=== PATIENT | female | born 1955 | race Caucasian/White ===

== ENCOUNTER 2024-11-01 13:36 | Emergency (ER) | payer OTHER, SELFPAY ==
--- NOTE | 2024-11-01 14:07 | ED.GENMED ---
ED Provider Triage
-
Patient seen by provider in Triage?: Seen in Triage
Attestation: A medical screening examination has been initiated by a qualified medical provider. Based on the assessment performed at this time, it has been determined that an emergent medical condition may exist and the patient has been informed
that further medical evaluation and possible additional diagnostic testing may be needed.
HPI: Patient sent to the ER by primary care provider for increasing blood in her stool and now with rylee blood/mucousy blood patient notes pain to the left lower part of her abdomen and mid abdomen. Had similar around [place] time, treated with
a course of antibiotics by primary care provider and this resolved. 2 years ago had a colonoscopy which showed diverticulosis but no other complications. Labs and CT with oral and IV contrast ordered. Patient otherwise stable.
GENERAL: Alert , in no apparent distress
EYE: No visual abnormalities.
NECK: Trachea midline
ENT: No visible abnormalities.
LUNGS: No acute respiratory distress
NEUROLOGICAL: Alert and oriented
SKIN: Skin intact. No visible changes.
MUSCULOSKELETAL: Moving extremities normally
PSYCH: Normal and appropriate interaction.
This is a medical evaluation conducted in person to initiate diagnostic evaluation and provide initial therapeutics. Please see further documentation by the treating clinician.
History of Present Illness
General
Chief Complaint: Abdominal Pain
Source: patient
Time Seen by Provider: 11/01/24 17:21
History of Present Illness
History of Present Illness:
68-year-old female with past medical history of diverticulosis and hypothyroidism presenting to the emergency department for evaluation at the request of her primary care provider after she started with mild left lower quadrant and suprapubic
abdominal discomfort 3 days ago, 1 to 2 days ago started to develop bloody stools and today only mucousy blood. Patient still notes the pain however today the pain seems to be more tolerable. She denies any fevers, chills, rigors, nausea,
vomiting, urinary symptoms or any history of similar. She is not on any anticoagulant medications. Patient does note she had a colonoscopy about 2 years ago without any significant abnormalities other than mild diverticulosis. Patient denies any
known sick contacts, recent travel or recent antibiotics. No other concerns.
Past History
Past History
ED Past Medical History: Hypothyroidism
ED Past Surgical History: Appendectomy and Cholecystectomy
Social History
Tobacco: Non-smoker
Alcohol: None
Drug: None
Personal:
Living: with family
Review of Systems
Review of Systems
All Other Systems: ROS reviewed and negative except as documented in HPI and ROS
Phy Exam
Physical Exam
Physical Exam:
GENERAL: Alert , in no apparent distress, smiling and pleasant
EYE: clear conjunctiva b/l
HEAD: NCAT
ENT: mmm.
CARDIAC: Regular rate and rhythm .
LUNGS: Clear breath sounds bilaterally, no acute respiratory distress, no wheezes/rales/rhonchi
ABDOMEN: Soft, without focal tenderness, no r/g, no cvat, normoactive bowel sounds
NEUROLOGICAL: Alert and oriented
SKIN: Warm and dry, skin intact.
MUSCULOSKELETAL: No edema, well perfused.
PSYCH: Normal and appropriate interaction.
Scores
Heart Failure Risk
Heart Failure Risk Score: Not Applicable
Heart Score for Chest Pain Patients
STEMI patient?: Not applicable
Withdrawal Assessment of Alcohol
Withdrawal Assessment Completed?: Not applicable
Course
Orders/Labs/Results
Orders:
Orders
11/01/24 14:09
Iohexol [Omnipaque] See Protocol PO NOW STA
11/01/24 14:10
CT Abd/pel W Iv And Oral Contr Urgent
Comment:
Reason For Exam: lower abd/LLQ pain, bloodied stool/clots
11/01/24 14:16
Type+Screen Urgent
CRP [C-Reactive Protein] Urgent
Complete Blood Count/With Diff Urgent
Comprehensive Metabolic Panel Urgent
ESR [Erythrocyte Sed Rate] Urgent
PT/INR [Prothrombin Time] Urgent
PTT Urgent
11/01/24 14:38
ABO2 Urgent
BBK Wristband Number:
Associate notified that ABO2 has been ordered: [id number]
Date: 11/01/24
Time: 14:39
Sales Consulting Director ID: [id number]
Abnormal Lab Results
11/01/24
14:16
MCHC 32.4 L g/dL
(33.0-37.0)
Absolute Lymphs (auto) 1.0 L 10^3/uL
(1.2-3.4)
Lymphocytes % 15.3 L %
(20.5-51.1)
Eosinophils % 6.2 H %
(0-6)
11/01/24 14:16
11/01/24 14:16
Vital Signs
Initial and Last Documented VS:
Initial Vital Signs
Temp Pulse Resp BP Pulse Ox
97.7 F 78 18 127/82 100
11/01/24 14:09 11/01/24 14:09 11/01/24 14:09 11/01/24 14:09 11/01/24 14:09
Last Documented Vital Signs
Temp Pulse Resp BP Pulse Ox
97.7 F 70 20 112/69 100
11/01/24 14:09 11/01/24 16:35 11/01/24 16:35 11/01/24 16:35 11/01/24 16:35
MDM/Problems Addressed
Differential Diagnosis Includes:
Diverticulitis, colitis, anemia, proctitis, less concern for upper GI bleed
MDM/Problems Addressed:
68-year-old female presenting to the ER for evaluation of lower abdominal pain that started 3 days ago, 2 days ago started with bloody stools and today just mucousy blood. Pain well-controlled. She is afebrile in no acute distress. Labs and CT
imaging were ordered. Disposition pending
*Radiology
Radiology exam reviewed: radiology read reviewed
*Pulse Oximetry
Patient hypoxic: no
*Critical Care Note
Total Time (30-74mins, 75-104mins- exclusive of procedures): Not Applicable
Patient Management
Social determinants of health affecting care: Living situation
Escalation/DeEscalation of care consider admission/obs:
Patient CT scan noted for nonspecific proctitis. There is diverticulosis without evidence for acute diverticulitis. There is moderate constipation/fecal burden and possible small bowel ileus. Patient's abdomen is soft and she is quite comfortable
in appearance. She ultimately wishes to be discharged home and does not want to be admitted. will start patient on Augmentin. She already has an appointment scheduled with GI for December 13. We discussed return precautions including worsening
pain, bleeding, fevers or any other concerns and patient is happy with this plan. Stable for discharge home.
ED Attending Note
-
Portions of this chart may have been created with voice recognition software.� Occasional wrong word or��sound alike� substitutions may have occurred due to the inherent limitations of voice recognition software.
Discharge Plan
Departure
Patient Disposition: Home (Routine Discharge)
Date of Disposition: 11/01/24
Time of Disposition: 17:44
Patient with high blood pressure during this ER visit?: No
Discharge Problem:
Acute proctitis
Instructions: Proctitis
Prescriptions:
New
amoxicillin-pot clavulanate 875-125 mg tablet
1 tab PO BID 10 Days Qty: 20 0RF
Interventions
Interventions:
*Risk Screen - Suicide Last Done: 11/01/24 14:09
*General Assessment Last Done: 11/01/24 17:11
*Neglect/Abuse Screening Last Done: 11/01/24 14:09
ED- Fall Risk Assessment Last Done: 11/01/24 17:11
*ED COVID-19 Vaccine History Last Done: 11/01/24 14:09
*Nursing Disposition Last Done: 11/01/24 18:15
NA-Bdzzwj-Ouaypmhpna Assessment Last Done: 11/01/24 17:11
Discharge Date and Time
Print Language: FRENCH
[2024-11-01 14:09] VITALS: BP 127/82
[2024-11-01] MEDS: OMNIPAQUE 50 ML PO (14:15)
[2024-11-01 14:28] LABS: % Basophils 1.1 % (0-2); % Eosinophils 6.2 % (0-6); % Immature Granulocytes 0.2 % (0-0.5); % Lymphocytes 15.3 % (20.5-51.1); % Monocytes 8.5 % (1.7-9.3); % Neutrophils 68.7 % (42.2-75.2); Absolute Basophils 0.1 10^3/uL (0-0.2); Absolute Eosinophils 0.4 10^3/uL (0-0.7); Absolute Monocytes 0.6 10^3/uL (0.1-0.6); Absolute Neutrophils 4.5 10^3/uL (1.4-6.5); Hematocrit 43.2 % (37.0-47.0); Mean Corp Hgb Conc. 32.4 g/dL (33.0-37.0); Mean Corpuscular Hgb 28.7 pg (27.0-31.0); Mean Corpuscular Volume 88.5 fL (81.0-99.0); Mean Platelet Volume 9.3 fL (7.4-10.4); Nucleated Red Blood Cells % 0 %; Platelet Count 265 10^3/uL (130-400); Red Blood Cell Count 4.88 10^6/uL (4.20-5.40); Red Cell Dist. Width 14.3 % (11.5-14.5); White Blood Cell Count 6.6 10^3/uL (4.8-10.8)
[2024-11-01 14:35] LABS: Erythrocyte Sed Rate 2 mm/hour (0-20)
[2024-11-01 14:39] LABS: ALT (SGPT) 33 U/L (0-35); AST (SGOT) 34 U/L (14-36); Albumin 4.2 g/dl (3.5-5.0); Alkaline Phosphatase 81 U/L (38-126); Blood Urea Nitrogen 7 mg/dl (7-17); Calcium 9.2 mg/dl (8.4-10.2); Carbon Dioxide 29 mmol/L (22-30); Chloride 104 mmol/L (98-107); Glucose 90 mg/dl (70-99); INR 0.94; PT 12.8 Sec (11.4-14.6); Potassium 4.2 mmol/L (3.5-5.1); Sodium 139 mmol/L (135-145); Total Bilirubin 0.5 mg/dl (0.2-1.3); eGFR > 60.00
[2024-11-01 14:40] LABS: APTT 28.5 Sec (23.4-35.0)
[2024-11-01 16:35] VITALS: BP 112/69
== END 2024-11-01 18:10 | disposition home or self-care (01) ==
LOC: EMR 13:36
PROVIDERS: Emergency Medicine; Physician Assistant Medical; EMERGENCY PHYSICIAN Student in an Organized Health Care Education/Training Program; FAMILY PHYSICIAN Internal Medicine
DX: K62.89 Other specified diseases of anus and rectum (principal)
CPT/HCPCS: 99285; 74177; 80053; 85025; 85610; 85652; 85730; 86140; 86850; 86900; 86901; Q9967

== ENCOUNTER 2024-12-12 23:17 | Inpatient (IN) | payer OTHER, SELFPAY ==
[2024-12-12] VITALS (7 sets, daily range): BP systolic 101–142; BP diastolic 63–72; BMI 23.1
[2024-12-12 16:04] LABS: ALT (SGPT) 23 U/L (0-35); AST (SGOT) 19 U/L (14-36); Albumin 3.1 g/dl (3.5-5.0); Alkaline Phosphatase 113 U/L (38-126); Blood Urea Nitrogen 6 mg/dl (7-17); Calcium 8.6 mg/dl (8.4-10.2); Carbon Dioxide 28 mmol/L (22-30); Chloride 102 mmol/L (98-107); Glucose 107 mg/dl (70-99); Potassium 3.6 mmol/L (3.5-5.1); Sodium 136 mmol/L (135-145); Total Bilirubin 0.5 mg/dl (0.2-1.3); Total Protein 5.8 g/dl (6.3-8.2); eGFR > 60.00
[2024-12-12 16:14] LABS: Lactic Acid 0.9 mmol/L (0.7-2.0)
[2024-12-12 16:17] LABS: % Basophils 0.1 % (0-2); % Eosinophils 7.4 % (0-6); % Immature Granulocytes 5.7 % (0-0.5); % Lymphocytes 10.5 % (20.5-51.1); % Monocytes 5.3 % (1.7-9.3); Absolute Immature Granulocytes 0.8 10^3/uL (0-0.05); Absolute Lymphocytes 1.4 10^3/uL (1.2-3.4); Absolute Monocytes 0.7 10^3/uL (0.1-0.6); Absolute Neutrophils 9.5 10^3/uL (1.4-6.5); Hematocrit 36.9 % (37.0-47.0); Hemoglobin 12.2 g/dL (12.0-16.0); Mean Corp Hgb Conc. 33.1 g/dL (33.0-37.0); Mean Corpuscular Hgb 28.6 pg (27.0-31.0); Mean Corpuscular Volume 86.4 fL (81.0-99.0); Mean Platelet Volume 8.9 fL (7.4-10.4); Nucleated Red Blood Cells % 0 %; Platelet Count 397 10^3/uL (130-400); Red Blood Cell Count 4.27 10^6/uL (4.20-5.40); Red Cell Dist. Width 14.4 % (11.5-14.5); White Blood Cell Count 13.5 10^3/uL (4.8-10.8)
[2024-12-12] MEDS: ZOFRAN 4 MG IV (19:48)
[2024-12-12] MEDS: MORPHINE SULFATE 4 MG IV (19:50)
--- NOTE | 2024-12-12 19:56 | ED.GENMED ---
History of Present Illness
General
Chief Complaint: Abdominal Symptoms
Source: patient
Exam Limitations: none
Time Seen by Provider: 12/12/24 18:25
Nursing documentation reviewed up to this point in time: agreed with
History of Present Illness
History of Present Illness:
Patient is a 69-year-old female presenting to the emergency department with lower abdominal pain and bloody diarrhea. Patient states she was woken up with severe left lower quadrant abdominal pain this morning which has persisted and worsened
throughout the day. Pain is worse with any movement. She also endorses mild low-grade fever as well as 1 episode of vomiting and mild nausea. Patient has had ongoing bloody diarrhea for the past few months. Today�patient reports worsening
diarrhea as well as noticing blood clots. She is currently being worked up with a GI doctor at [place] for possible ulcerative colitis. She is scheduled for colonoscopy although has not had this completed yet. There is a significant family
history of ulcerative colitis.
Patient denies any chest pain, shortness of breath, or urinary symptoms.
Past History
Past History
ED Past Medical History: Hypothyroidism
ED Past Surgical History: Appendectomy and Cholecystectomy
Social History
Tobacco: Non-smoker
Alcohol: None
Drug: None
Personal:
Living: with family
Review of Systems
Review of Systems
Allergies reviewed?: Yes
All Other Systems: ROS reviewed and negative except as documented in HPI and ROS
Phy Exam
Physical Exam
Physical Exam:
Vitals: Mildly tachycardic. Otherwise vital signs stable.
General: Patient is moderately uncomfortable due to pain, tearful. Nontoxic appearing
Skin: Warm and dry, no rashes or lesions
Head: Normocephalic, atraumatic
Eyes: Sclera nonicteric. EOMs intact. No nystagmus.
Throat: Protecting airway
Neck: Normal ROM, no cervical spine tenderness, no meningismus
Cardiac: Tachycardic, normal rhythm, no murmurs.
Pulm: Normal respiratory effort, no wheezes, rales, rhonchi heard on exam.
Abdomen: Abdomen soft. Moderate diffuse tenderness in lower abdomen. No rebound tenderness or guarding. No CVA tenderness
Rectal: No stool in vault. Minimal blood.
Extremities: No evidence of cyanosis or edema
Neuro: AAOx3. CN II-XII intact. No focal neurologic deficits.
Psychiatric: Normal affect.
Course
Orders/Labs/Results
Orders:
Orders
12/12/24 Breakfast
Clear Liquid
12/12/24 15:38
Type+Screen Urgent
C-Reactive Protein Urgent
Complete Blood Count/With Diff Urgent
Comprehensive Metabolic Panel Urgent
Erythrocyte Sed Rate Urgent
Comment: ADD ON
Lactic Acid Urgent
12/12/24 19:02
CT Abd/pelvis W Iv Cont Urgent
Comment:
Reason For Exam: LLQ pain, bloody diarrhea
Morphine Sulfate 4 mg IV NOW STA
Ondansetron Injectable [Zofran] 4 mg IV NOW STA
12/12/24 22:18
STOOL [C difficile Antigen & Toxins] Urgent
DEANGELO Source: Feces/Stool
Specimen Description:
Stool Culture Urgent
DEANGELO Source: Feces/Stool
Specimen Description:
0.9% Sodium Chloride 1000 ml [Nss] 1,000 ml IV BOLUS
Morphine Sulfate 2 mg IV NOW STA
Piperacillin/Tazo 3.375 Gram [Zosyn] 3.375 gram in 50 ml IV NOW
12/12/24 22:48
Urinalysis Reflex To Culture Urgent
Date Specimen was Collected: 12/12/24
Time Specimen was Collected: 21:55
Urine Microscopic Reflex Cult Urgent
12/12/24 23:00
Flush (0.9% Sodium Chloride) [Flush (Nss)] See Dose Instructions IV PER PROTOCOL
12/12/24 23:03
Admit/Transfer Patient As Directed
Co-Sign Provider:
Level of Care: Inpatient admission
Assign to:: Medical/Surgical
Physician / Group: [facility]
Diagnosis: Colitis
Reason for Hospitalization: IV abx
Expected length of stay greater than two midnights?: Yes
ELOS- Estimated Length of Stay in days: 3
I certify the patient meets the requirements for IP care: Yes
12/12/24 23:04
Calprotectin, Fecal [S] Routine
PRN Pain Medication Management As Directed
May give lesser potent ordered pain med per pt: Yes
preference::
Protocol:: Medication orders for pain may be administered in a
manner that supports deferring to patient preference
when the pt is:
- Requesting an ordered lesser potent pain medication.
Least to most potent pain medications are defined
as: acetaminophen < NSAID < tramadol < opioids
(morphine, oxycodone, hydromorphone).
- Requesting a lesser dose of the same medication IF
ORDERED.
- Requesting a less intrusive route of administration
if both routes are prescribed by the provider (PO <
IV).
12/12/24 23:05
Code Status As Directed
Resuscitation Status: Full Code
12/12/24 23:35
0.9% Sodium Chloride 1000 ml [Nss] 1,000 ml IV 100 mls/hr
Acetaminophen [Tylenol] 650 mg PO Q4HPRN PRN
HYDROmorphone [Dilaudid] 0.25 mg IV Q3HPRN PRN
Ondansetron Injectable [Zofran] 4 mg IV Q6HPRN PRN
12/12/24 23:35
GASTROINTESTINAL CONSULT Routine
Consulting Provider: Virginia Steinberg
Was physician already notified: Yes
Activity As Directed
Activity Level: Out of Bed-Early Mobility
With Assistance
Pneumatic Compression Sleeves As Directed
Type: Knee high
Vital Signs As Directed
Frequency: Per unit guidelines
DX Deep Vein Thrombosis Video Routine
12/13/24 06:00
Basic Metabolic Panel IN AM
Complete Blood Count/No Diff IN AM
Ampicillin/Sulbactam 3 G [Unasyn] 3 gm 0.9% Sodium Chloride 100 ml [Nss] 100 ml IV Q6H
Levothyroxine [Synthroid] 75 mcg PO DAILY @ 0600
12/13/24 08:00
Fluoxetine HCl [Prozac] 10 mg PO Q48H
Mesalamine Delayed Release [Asacol, Delzicol Dr] 2,400 mg PO BID
Abnormal Lab Results
12/12/24 12/12/24
15:38 22:48
WBC 13.5 H 10^3/uL
(4.8-10.8)
Hct 36.9 L %
(37.0-47.0)
Abs Immat Gran (auto) 0.8 H 10^3/uL
(0-0.05)
Absolute Neuts (auto) 9.5 H 10^3/uL
(1.4-6.5)
Absolute Monos (auto) 0.7 H 10^3/uL
(0.1-0.6)
Absolute Eos (auto) 1.0 H 10^3/uL
(0-0.7)
Immature Gran % 5.7 H %
(0-0.5)
Lymphocytes % 10.5 L %
(20.5-51.1)
Eosinophils % 7.4 H %
(0-6)
BUN 6 L mg/dl
(7-17)
Glucose 107 H mg/dl
(70-99)
Total Protein 5.8 L g/dl
(6.3-8.2)
Albumin 3.1 L g/dl
(3.5-5.0)
Ur Occult Blood Reflex 1+ A
(Negative)
Urine Bacteria (Reflex) Few A
(Negative)
Urine Albumin (Reflex) 2+ A
(Neg - Trace)
12/12/24 15:38
12/12/24 15:38
Vital Signs
Initial and Last Documented VS:
Initial Vital Signs
Temp Pulse Resp BP Pulse Ox
99.1 F 103 18 107/70 98
12/12/24 15:30 12/12/24 15:30 12/12/24 15:30 12/12/24 15:30 12/12/24 15:30
Last Documented Vital Signs
Temp Pulse Resp BP Pulse Ox
98.9 F 98 16 142/72 97
12/12/24 18:19 12/12/24 23:15 12/12/24 23:15 12/12/24 23:00 12/12/24 23:15
MDM/Problems Addressed
Differential Diagnosis Includes:
Not limited to: Diverticulitis, bowel perforation, colitis, IBD, pyelonephritis, etc.
MDM/Problems Addressed:
69-year-old female presenting with a few months of bloody diarrhea now with acute onset left lower quadrant abdominal pain. Does report low-grade fever and nausea earlier today. No urinary symptoms. Currently being worked up with GI at [facility]
for possible ulcerative colitis however not diagnosed yet. Patient mildly tachycardic on arrival, otherwise stable vital signs. She is afebrile. Physical exam as above. Screening labs are sent in triage significant for a leukocytosis of 13.5.
Chemistry unremarkable. Differential broad at this time although considerations included infectious process including diverticulitis, colitis. Given ongoing history of bloody diarrhea�ulcerative colitis/IBD would be a consideration. Given
patient's significant degree of pain and discomfort�will obtain CT imaging. Will give IV morphine, fluids, Zofran. Will closely monitor and reassess.
Update: Urine without signs of infection. CT scan shows lynn proctocolitis. This may be infectious or inflammatory in nature. Given ongoing bloody diarrhea�there is a somewhat high suspicion for IBD/ulcerative colitis. On reassessment�patient is
more comfortable than arrival although still has significant tenderness on exam. Given patient's persistent pain despite IV pain medication and leukocytosis�will admit patient for further evaluation/management. Ultimately�would likely require
colonoscopy with GI for definitive diagnosis will order stool cultures. Will initiate broad-spectrum IV antibiotics to cover for possible infectious source. Patient comfortable with this plan. Patient accepted to hospital service in stable
condition.
Chronic conditions affecting care:
N/A
Acute Exacerbation and/or Progression of Chronic Illness:
N/A
*Radiology
Radiology exam reviewed: radiology read reviewed
*Pulse Oximetry
Patient hypoxic: no
*EKG
Interpreted by ED Provider?: NA
*Sales Applications Engineer Interpretation
Rate: Sales Applications Engineer- N/A
*Critical Care Note
Total Time (30-74mins, 75-104mins- exclusive of procedures): Not Applicable
Patient Management
Discussion with other providers: Hospitalist
Escalation/DeEscalation of care consider admission/obs:
Admit for pain control, further management
ED Attending Note
-
Portions of this chart may have been created with voice recognition software.� Occasional wrong word or��sound alike� substitutions may have occurred due to the inherent limitations of voice recognition software.
Discharge Plan
Departure
Patient Disposition: Admit
Date of Disposition: 12/12/24
Time of Disposition: 22:21
Presentation/result/management discussed w/ accepting MD/DO: Hospitalist
Discharge Problem:
Proctocolitis
Interventions
Interventions:
*Risk Screen - Suicide Last Done: 12/12/24 15:30
*General Assessment Last Done: 12/12/24 15:30
*Neglect/Abuse Screening Last Done: 12/12/24 15:30
*ED- Fall Risk Assessment Last Done: 12/12/24 19:36
*ED COVID-19 Vaccine History Last Done: 12/12/24 15:30
UZ-Tefgpw-Poskkflpgu Assessment Last Done: 12/12/24 19:36
[2024-12-12] MEDS: NSS 1000 IV (22:52)
[2024-12-12] MEDS: MORPHINE SULFATE 2 MG IV (22:53)
[2024-12-12] MEDS: ZOSYN 50 IV (22:57)
[2024-12-12 23:08] LABS: Urine Albumin 2+ (Neg - Trace); Urine Bilirubin Negative (Negative); Urine Character Clear (Clear); Urine Color Yellow; Urine Glucose Negative (Negative); Urine Ketone Negative (Negative); Urine Leukocyte Negative (Negative); Urine Nitrite Negative (Negative); Urine Occult Blood 1+ (Negative); Urine Specific Gravity 1.005 (<1.030); Urine Urobilinogen Negative (Neg - 1+)
--- NOTE | 2024-12-12 23:09 | HPS.HSE ---
Family Physician
-
Family Physician: Milton Luo MD
Chief Complaint
-
Abdominal Pain and Bloody Diarrhea
History of Present Illness
Patient is a 69 y/o female past medical history of hypothyroidism and depression who presents with abdominal pain and bloody diarrhea. Patient notes bloody diarrhea started earlier this year. She was seen by a colorectal surgery who did perform a
sigmoidoscopy in the office and noted diffuse inflammation. She was started mesalamine earlier this month without much change in her symptoms. Over the past week she developed low grade fevers at home. Today she developed worsening left sided
abdominal pain which prompted her to come to the emergency department for evaluation. She denies any recent travel or antibiotics. Patient reports two prior colonoscopies which revealed diverticulosis. She denies prior history of inflammatory
bowel disease, but reports a very strong family history of ulcerative colitis and Crohn's disease.
Medical History
Past Medical History
Past Medical History: Reports Other
Additional Past Medical History:
Hypothyroidism
Depression
Past Surgical History: Reports Other
Additional Past Surgical History:
Cholecystectomy
Appendectomy
Social History
Tobacco: Former Smoker (Quit many years ago)
Alcohol: Occasional (One beer most nights)
Family History
Family History: Other (Father: Crohns Disease; Brother: Ulcerative Colitis)
Allergies / Home Medications
Allergies reflects when Allergies were last updated in [employer].
Home Medications with original date entered in [employer]
Allergy/Medication List:
Allergies
Allergy/AdvReac Type Severity Reaction Status Date / Time
No Known Allergies Allergy Verified 11/01/24 14:14
Home Medications
fluoxetine 10 mg tablet 10 mg PO Q48H 12/12/24
levothyroxine 75 mcg tablet 75 mcg PO DAILY 12/12/24
mesalamine 800 mg tablet,delayed release 2,400 mg PO BID 12/12/24
Review of Systems
-
A 12 point ROS was completed and negative except as noted: Yes
Constitutional: Reports Fever (Low grade)
Abdomen/GI: Reports See HPI
Physical Exam
Vital Signs
Vital Signs
Temp Pulse Resp BP Pulse Ox
98.9 F 98 14 101/64 95
12/12/24 18:19 12/12/24 21:15 12/12/24 21:15 12/12/24 21:02 12/12/24 21:15
Physical Exam
General: Well Developed, Well Nourished and Other (Appears in pain, some dry heaves after given morphine)
HEENT: Anicteric and Moist mucous membranes
Respiratory: Clear and Non Labored Respirations
Cardiac: S1/S2, Regular Rhythm and Tachycardia
GI: Soft and Tender (Moderate tenderness throughout, more prominent in lower quadrants)
Genito-urinary: Clear Urine
Musculoskeletal: No Clubbing, No Cyanosis and No Edema
Skin: Warm and Dry
Neuro: Awake, Alert, Oriented and Nonfocal/grossly intact
Psych: Calm
Laboratory Results
-
12/12/24 15:38
12/12/24 15:38
Laboratory Results
Lactic Acid 0.9 mmol/L (0.7-2.0) 12/12/24 15:38
Total Bilirubin 0.5 mg/dl (0.2-1.3) 12/12/24 15:38
AST 19 U/L (14-36) 12/12/24 15:38
ALT 23 U/L (0-35) 12/12/24 15:38
Alkaline Phosphatase 113 U/L (38-126) 12/12/24 15:38
Data Reviewed
-
CT Scan: Report Reviewed by me
Lab Data: Labs Reviewed by me
Impression/Plan
-
[place]-Proctocolitis, possibly infectious vs new diagnosis of inflammatory bowel disease
-Consult GI
-Check stool culture, stool for C Diff and fecal calprotectin
-Check ESR and CRP
-Continue Unasyn
-Allow clear liquids as tolerated
-Continue mesalamine
Hypothyroidism
-Continue levothyroxine
Depression
-Continue fluoxetine
DVT proph: SCDs
Code Status: Full Code
[2024-12-12 23:16] LABS: Urine Squamous Cell 0-2 /LPF (Few)
[2024-12-12 23:17] LABS: Urine Bacteria Few (Negative); Urine White Cell 0-2 /HPF (0-5)
[2024-12-12 23:19] LABS: Urine Red Blood Cell 0-2 /HPF (0-2)
--- NOTE | 2024-12-12 23:36 | W.PN.UPDATE ---
Update Note
Progress Note Update
Patient seen in conjunction with THAD. I agree with the findings on history and physical. I concur with assessment and plan unless stated otherwise.
This is a 69-year-old female with past medical history significant for depression, hypothyroid presenting to the emergency department with abdominal symptom has been going on for about 1 week which includes abdominal pain and frequent loose bloody
stools with mucus.
Patient reported that she started having frequent bloody bloody stools and around late September this year. Prior to that she denied having any prior gastrointestinal symptoms. She has had a colonoscopy 10 years ago and 2 years ago which showed
diverticulosis but otherwise showed no other abnormal findings. She reported she did see a colorectal for the bloody bowel movement and had a ra sigmoidoscopy in the office which showed inflamed colon. It was felt that she was not a candidate
for colonoscopy at that time when she was started on mesalamine. Since initiation of mesalamine patient reported symptoms as persisted she reported she did see a colorectal for the bloody bowel movement and had a ra sigmoidoscopy in the office
which showed a inflamed colon. It was felt that she was not a candidate for colonoscopy at that time when she was started on mesalamine. Since initiation of mesalamine patient reported symptoms as persisted. She stated that over the last week she
has had because contained blood containing frequent stools. She states she has had low-grade temps with occasional fevers and temp ranging from 100-1 01. She denies chills or rigors. She denies vomiting. She denies any sick contacts at home. She
denies any recent travel. She denies any recent antibiotic use. She reports 1st deg relative with crohns colitis.
In the emergency department she was afebrile, blood pressure 140/70 with pulse of 98. White count of 13.5 hemoglobin was 12 and a blood count of 390, electrolytes BUN/creatinine were normal. She had a CT of the abdomen and pelvis showing There is
wall thickening and mucosal hyperenhancement throughout the rectum and colon consistent with lynn proctocolitis. The etiology is nonspecific, however can be seen in the setting of inflammatory bowel disease (ulcerative colitis).
Assessment and plan assessment and plan
Patient with inflammatory bowel on CT scan, several weeks of frequent bloody bowel movements which also contains mucus, trial fo mesalamine with persistent symptoms, low grade temps and abdominal pain. Suspect IBD.
- admit to med/surg
- clear liquid diet for now
- stool culture, cdiff, wbc and norovirus
- start IV abx w/ unasyn for now
- pain control and antiemetics
- continue mesalamine
- GI consultation
DVT PPX - SCD
Code Status - Full Code
[2024-12-13] VITALS: BP 92/62
[2024-12-13] MEDS: NSS 1000 IV ×3 (00:08→19:55)
[2024-12-13 00:24] VITALS: BP 104/53
[2024-12-13] MEDS: DILAUDID 0.25 MG IV ×2 (01:25→13:14)
[2024-12-13] MEDS: ZOFRAN 4 MG IV ×2 (01:25→18:01)
[2024-12-13 01:27] LABS: Erythrocyte Sed Rate 8 mm/hour (0-20)
[2024-12-13] MEDS: UNASYN IV (06:00)
[2024-12-13] MEDS: SYNTHROID 75 MCG PO (06:12)
[2024-12-13 06:21] LABS: Hematocrit 35.1 % (37.0-47.0); Hemoglobin 11.5 g/dL (12.0-16.0); Mean Corp Hgb Conc. 32.8 g/dL (33.0-37.0); Mean Corpuscular Hgb 29.3 pg (27.0-31.0); Mean Corpuscular Volume 89.5 fL (81.0-99.0); Mean Platelet Volume 8.7 fL (7.4-10.4); Platelet Count 339 10^3/uL (130-400); Red Blood Cell Count 3.92 10^6/uL (4.20-5.40); Red Cell Dist. Width 14.6 % (11.5-14.5); White Blood Cell Count 16.2 10^3/uL (4.8-10.8)
[2024-12-13 06:48] LABS: Blood Urea Nitrogen 8 mg/dl (7-17); Calcium 7.6 mg/dl (8.4-10.2); Carbon Dioxide 26 mmol/L (22-30); Chloride 106 mmol/L (98-107); Estimated Creatinine Clearance 77 ml/min; Glucose 107 mg/dl (70-99); Potassium 3.8 mmol/L (3.5-5.1); Sodium 138 mmol/L (135-145); eGFR > 60.00
--- NOTE | 2024-12-13 07:08 | CON.GI ---
Addendum entered and electronically signed by Ariana Michel DO 12/13/24 10:12:
The patient was seen and examined by me independently in collaboration with the nurse practitioner.
Past medical history/social history/medications/allergies/family history reviewed.
Lab data and imaging data reviewed.
Asia Roa is a 69 y.o. female with history of hypothyroidism, depression and strong family history of IBD admitted with persistent blood diarrhea following a recent diagnosis of ulcerative proctitis by Dr. Murphy at [facility]. Diagnosis
was made after in office anoscopy performed, no biopsies taken. She was placed on oral mesalamine only, without improvement. She was supposed to have a full colonoscopy today but due to LLQ abdominal pain and bloody diarrhea up to 20 times per day,
Dr. Murphy advised her to come to the ER. On admission, she was noted to have a leukocytosis of 13.5K --> 16K, CRP 79.7, ESR 8, c.diff negative, additional stool studies and cultures pending. CT obtained showed progression from proctitis seen on CT
on 11/01 to pancolitis. Additionally, evidence of intra and extrahepatic biliary ductal dilatation, she does have a history of prior cholecystectomy.
Plan for colonoscopy tomorrow to further evaluate severity and extent of (presumed) new diagnosis of inflammatory bowel disease (suspect UC). She may just require addition of per rectal mesalmine inconjunction with PO mesalamine vs. step-up therapy.
Will obtain quant TB, hepatitis serologies and fecal calpro. Await results of additional studies as well.
Also noted as biliary ductal dilatation, some of which, can be normal in setting of prior tani. That said, need to keep PSC in the differential. Will recommend obtaining MRI/MRCP as well, but will defer until after colonoscopy.
Original Note:
Consultation
-
Date/Time Consultation Requested: 12/12/24 5580
Date/Time Consultation Performed: 12/13/24 1130
Requesting Provider: Susan Fernández PA-C
Performing Provider: THAD Conroy, Angelica Michel DO
Reason for Consultation: abnormal CT, abdominal pain, bloody stools
Medical History
Chief Complaint / HPI
Chief Complaint: abdominal pain, blood stools
History of Present Illness:
Pt is a 69yo with hx depression, hypothyroidism, prior appe and tani, family hx IBD with onset of lower abdominal pain with bloody diarrhea for last month. She is noted with low grade fever along with nausea and vomiting. She was followed by
Kimoy at [facility] with recent OP evaluation early November. She had exam in office did not recall biopsy and was placed on Mesalamine orally with concern for ulcerative colitis. Symptoms did not improve and actually got worse with some increased
pain and low grade fever and continued bleeding with clots and urgency. She due for colonoscopy December 24 to eval. . On admission noted with WBC 13,500 with rise after admission, hbg 12.2, albumin 3.1, ESR 8 and CRP 79.7. Stool cx neg c-diff with
other cx pending. CT on admission with prior tani chronic biliary dilatation, comp deformity, and lynn proctocolitis. She denies any recent stool cultures. No recent travel, abx, or sick contacts. Denies NSAID or anticoagulation use.
At this time patient states concern for continued bloody stool with lower abdominal pain and fever. She also started with vomiting small amount of non blood emesis. She denies any issues with dysphagia, odynophagia, GERD, or constipation.
Last EGD/colon 2022 [facility] pt recalls as normal.
Past Medical History
Past Medical History: Hypothyroidism and Psychiatric (depression)
Past Surgical History: Appendectomy and Cholecystectomy
Social History
Tobacco: Former Smoker (quit 20 years ago )
Alcohol: Occasional
Drug: None
Personal:
Living: With Family ( and son)
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
Family History
Family History: Other (father with crohns, brother with UC)
Allergies / Home Medications
Allergy/AdvReac Type Severity Reaction Status Date / Time
No Known Allergies Allergy Verified 11/01/24 14:14
�Medication �Instructions �Recorded
fluoxetine 10 mg tablet 10 mg PO Q48H 12/12/24
levothyroxine 75 mcg tablet 75 mcg PO DAILY 12/12/24
mesalamine 800 mg tablet,delayed 2,400 mg PO BID 12/12/24
release
Review of Systems
-
History Source: Patient
Constitutional: Reports Fever (low grade )
EENT: Reports No Symptoms
Respiratory: Reports No Symptoms
Cardiac: Reports No Symptoms
Abdomen/GI: Reports Abdominal Pain, Nausea, Vomiting, Diarrhea and Bloody Stools
: Reports No Symptoms
Musculoskeletal: Reports No Symptoms
Skin: Reports No Symptoms
Neurological: Reports Weakness
Endocrine: Reports No Symptoms
Hematologic/Lymphatic: Reports Bleeding
Vital Signs
Temp Pulse Resp BP Pulse Ox
98.9 F 99 18 104/53 97
12/12/24 18:19 12/13/24 00:23 12/13/24 00:23 12/13/24 00:24 12/12/24 23:15
Physical Exam
Exam
General: Well Developed, Well Nourished and No Apparent Distress
HEENT: Normocephalic and Anicteric
Respiratory: Clear
Cardiac: Regular Rhythm
GI: Soft, Non Distended and Tender (mild lower abdominal no guarding or rebound )
Musculoskeletal: No Clubbing and No Cyanosis
Skin: Warm and Dry
Neuro: Awake and Alert
Psych: Calm
Results
WBC 16.2 10^3/uL (4.8-10.8) H 12/13/24 05:59
Hgb 11.5 g/dL (12.0-16.0) L 12/13/24 05:59
Hct 35.1 % (37.0-47.0) L 12/13/24 05:59
MCV 89.5 fL (81.0-99.0) 12/13/24 05:59
Plt Count 339 10^3/uL (130-400) 12/13/24 05:59
Absolute Neuts (auto) 9.5 10^3/uL (1.4-6.5) H 12/12/24 15:38
Sodium 138 mmol/L (135-145) 12/13/24 05:59
Potassium 3.8 mmol/L (3.5-5.1) 12/13/24 05:59
Chloride 106 mmol/L (98-107) 12/13/24 05:59
Carbon Dioxide 26 mmol/L (22-30) 12/13/24 05:59
BUN 8 mg/dl (7-17) 12/13/24 05:59
Creatinine 0.6 mg/dL (0.6-1.0) 12/13/24 05:59
Calcium 7.6 mg/dl (8.4-10.2) L 12/13/24 05:59
Total Bilirubin 0.5 mg/dl (0.2-1.3) 12/12/24 15:38
AST 19 U/L (14-36) 12/12/24 15:38
ALT 23 U/L (0-35) 12/12/24 15:38
Alkaline Phosphatase 113 U/L (38-126) 12/12/24 15:38
Diagnostic Image Results:
11/01/24 CT Abd/pel W Iv And Oral Contr
Findings suspicious for nonspecific proctitis. Mild superior rectal adenopathy.
Diverticulosis without definite evidence to suggest associated inflammatory changes of acute diverticulitis.
Moderate colonic fecal burden.
Possible mild small bowel ileus.
Prior cholecystectomy. Biliary ductal dilatation, as described. Likely reflecting changes from prior cholecystectomy and patient age. However, recommend correlation with liver function tests.
Chronic compression deformities of L1 and L2..
12/12/24 CT Abd/pelvis W Iv Cont
There is wall thickening and mucosal hyperenhancement throughout the rectum and colon consistent with lynn proctocolitis. The etiology is nonspecific, however can be seen in the setting of inflammatory bowel disease (ulcerative colitis).
Prior cholecystectomy with unchanged chronic biliary duct dilation.
Unchanged chronic compression deformities of the L1 and L2 vertebral bodies with associated retropulsion at the L1 level.
Prior GI Procedures:
EGD: 2022 [facility] recalls as normal
Colonoscopy: 2022 [facility] recalls as normal
Assessment / Plan
-
Pt is a 69yo with hx depression, hypothyroidism, prior appe and tani, family hx IBD with onset of lower abdominal pain with bloody diarrhea for last month. She is noted with low grade fever along with nausea and vomiting. She was followed by
Jeffrey at [facility] with recent OP evaluation early November. She had exam in office did not recall biopsy and was placed on Mesalamine orally with concern for ulcerative colitis. Symptoms did not improve and actually got worse with some increased
pain and low grade fever and continued bleeding with clots and urgency. She due for colonoscopy December 24 to eval. . On admission noted with WBC 13,500 with rise after admission, hbg 12.2, albumin 3.1, ESR 8 and CRP 79.7. Stool cx neg c-diff with
other cx pending. CT on admission with prior tani chronic biliary dilatation, comp deformity, and lynn proctocolitis. She denies any recent stool cultures. No recent travel, abx, or sick contacts. Denies NSAID or anticoagulation use.
-blood diarrhea/lower abdominal pain
-Ct with concern for lynn proctocolitis
-elevated CRP
other med problems:
-depression
-hypothyroidism
-prior appe/tani
PLAN:
Etiology of blood diarrhea with Ct proctocolitis and elevated CRP related to ulcerative proctitis, infectious etiology vs other
c-diff neg other cx pending
ESR 8, CRP 79.7, and fecal calprotectin pending
plan for colonoscopy in am to assess extent of inflammation and biopsy
currently remain on Mesalamine 2400mg BID-- may need to consider alterative pending results of colonoscopy
trend labs
monitor for recurrent fever
cont compression stocking as risk for DVT with concern for active IBD
updated family at bedside
-
-
Thank you for consultation and allowing me to participate in the patient's care. Please call the pilot control operator helper GI physician during the after hours with any questions or concerns.
[2024-12-13 08:05] VITALS: BP 120/61
--- NOTE | 2024-12-13 08:30 | W.PN.HOSP.TC ---
Today's Communication/Plan
-
see PN
Assessment / Plan
Assessment / Plan
69yo F with PMHx of cholecystectomy, hypothyroidism, anxiety,family hx of Crohn disease in father came with new onset abdominal pain. Found proctocolitis with suspicion for IBD. Patient was followed in [place] 2/ few months of bloody diarrhea with
suspicion for UC and started on mesalamin empirically while still awaiting colonoscopy
A/P:
#Proctocolitis with leukocytosis
cont mesalamine
pain mgmt
Check stool c.diff, Cx, WBC
calprotectin pending
switch to metronidazole
GI consult
#Diverticulosis
high fiber diet
#CHronic L1, L2 Fx
outpatient assessment for osteoporosis
#Punctate hypodensity within the lower pole the right kidney
repeat CT in 6month
#Hypothyroidism
#Anxiety
check TSH
cont meds
DVT ppx hep
Full code
I have spent at least 58min reviewing chart, test results, communication with family and providing direct patient care
Anticipated Discharge: 24 - 48 hours
Subjective/Interval History
-
Date of Service: December 13, 2024
Objective Data
-
Labs:
Laboratory Results
12/13/24
05:59
WBC 16.2 H
Hgb 11.5 L
Hct 35.1 L
Plt Count 339
Sodium 138
Potassium 3.8
Chloride 106
Carbon Dioxide 26
BUN 8
Creatinine 0.6
Glucose 107 H
Calcium 7.6 L
Vital Signs:
Vital Signs
Temp Pulse Resp BP Pulse Ox
98.5 F 91 18 120/61 94
12/13/24 08:05 12/13/24 08:05 12/13/24 08:05 12/13/24 08:05 12/13/24 08:05
Review of Systems
-
History Source: Patient
All other systems: Reviewed and negative
Abdomen/GI: Reports Abdominal Pain, Nausea and Bloody Stools
Physical Exam
-
General: No Apparent Distress
HEENT: Normocephalic
Respiratory: Clear to Auscultation
GI: Soft, Nondistended and Tender (diffusely)
Musculoskeletal: No Clubbing, No Cyanosis and No Edema
Skin: Warm
Neuro: Awake, Alert, Oriented and AO x 3
Psych: Calm
[2024-12-13] MEDS: PROZAC 10 MG PO (08:46)
[2024-12-13] MEDS: ASACOL, DELZICOL DR 2400 MG PO ×2 (08:48→21:29)
[2024-12-13] MEDS: FLAGYL 500 MG 100 IV ×2 (09:02→18:00)
[2024-12-13 10:08] LABS: TSH 3.62 uIU/ml (0.47-4.68)
[2024-12-13 10:22] VITALS: BP 115/61
[2024-12-13] MEDS: DULCOLAX 10 MG PO (13:10)
[2024-12-13 15:33] VITALS: BP 109/62
[2024-12-13] MEDS: NULYTELY SOLUTION 4 LITERS PO (16:09)
[2024-12-13] MEDS: COMPAZINE 5 MG IV (19:50)
[2024-12-13] MEDS: TYLENOL 650 MG PO (21:22)
[2024-12-13 23:13] VITALS: BP 108/59
[2024-12-14] MEDS: FLAGYL 500 MG 100 IV ×3 (01:52→18:06)
[2024-12-14] MEDS: NSS 1000 IV (05:40)
[2024-12-14] MEDS: SYNTHROID 75 MCG PO (05:40)
[2024-12-14 07:26] LABS: INR 1.32; PT 16.7 Sec (11.4-14.6)
[2024-12-14 07:35] LABS: Hematocrit 32.5 % (37.0-47.0); Mean Corp Hgb Conc. 33.8 g/dL (33.0-37.0); Mean Corpuscular Hgb 29.1 pg (27.0-31.0); Red Blood Cell Count 3.78 10^6/uL (4.20-5.40); Red Cell Dist. Width 14.3 % (11.5-14.5); White Blood Cell Count 10.8 10^3/uL (4.8-10.8)
[2024-12-14 07:41] VITALS: BP 122/67
[2024-12-14 07:56] LABS: ALT (SGPT) 16 U/L (0-35); AST (SGOT) 18 U/L (14-36); Albumin 2.1 g/dl (3.5-5.0); Alkaline Phosphatase 102 U/L (38-126); Blood Urea Nitrogen 4 mg/dl (7-17); Calcium 7.4 mg/dl (8.4-10.2); Carbon Dioxide 26 mmol/L (22-30); Chloride 104 mmol/L (98-107); Estimated Creatinine Clearance 77 ml/min; Glucose 109 mg/dl (70-99); Potassium 3.1 mmol/L (3.5-5.1); Sodium 134 mmol/L (135-145); Total Bilirubin 0.5 mg/dl (0.2-1.3); Total Protein 4.2 g/dl (6.3-8.2); eGFR > 60.00
[2024-12-14] MEDS: ZOFRAN 4 MG IV (08:33)
[2024-12-14 09:13] LABS: Absolute Neutrophils -Man Diff 9.6 10^3/uL (1.4-6.5); Atypical Lymphocytes 1 %; Band Neutrophils 30 % (0-3); Eosinophils 6 % (0-6); Lymphocytes 1 % (20-51); Mean Platelet Volume 8.9 fL (7.4-10.4); Metamyelocytes 1 % (-); Monocytes 2 % (2-9); Normal RBC Morphology Yes; Platelet Count 180 10^3/uL (130-400); Platelets Checked Yes; Segmented Neutrophils 59 % (42-75)
[2024-12-14 09:15] LABS: Total Cells Counted 100
[2024-12-14 09:45] VITALS: BP 99/63
[2024-12-14 09:57] LABS: Magnesium 1.6 mg/dl (1.6-2.3)
[2024-12-14 10:00] VITALS: BP 109/65
--- NOTE | 2024-12-14 10:12 | W.PN.HOSP.TC ---
Today's Communication/Plan
-
replete electrolytes
for colonoscopy
Assessment / Plan
Assessment / Plan
69yo F with PMHx of cholecystectomy, hypothyroidism, anxiety,family hx of Crohn disease in father came with new onset abdominal pain. Found proctocolitis with suspicion for IBD. Patient was followed in [place] 2/2 few months of bloody diarrhea with
suspicion for UC and started on mesalamine empirically while still awaiting colonoscopy
A/P:
#Proctocolitis with leukocytosis
cont mesalamine
pain mgmt
Check stool c.diff, Cx, WBC
calprotectin pending
switch to metronidazole
GI consult: hepatitis and Tb w/u ahead of possible immunologic therapy
#Diverticulosis
high fiber diet
#Chronic L1, L2 Fx
outpatient assessment for osteoporosis
#Punctate hypodensity within the lower pole the right kidney
repeat CT in 6month
#Hypothyroidism
#Anxiety
TSH WNL
cont meds
#Hypokalemia
#hypomagnesemia
replete
DVT ppx hep
Full code
I have spent at least 38min reviewing chart, test results, communication with family and providing direct patient care
Anticipated Discharge: > 48 hours
Subjective/Interval History
-
Date of Service: December 14, 2024
Objective Data
-
Labs:
Laboratory Results
12/14/24
06:42
WBC 10.8
Hgb 11.0 L
Hct 32.5 L
Plt Count 180 D
PT 16.7 H
INR 1.32
Sodium 134 L
Potassium 3.1 L
Chloride 104
Carbon Dioxide 26
BUN 4 L
Creatinine 0.5 L
Glucose 109 H
Calcium 7.4 L
Total Bilirubin 0.5
AST 18
ALT 16
Alkaline Phosphatase 102
Vital Signs:
Vital Signs
Temp Pulse Resp BP Pulse Ox
97.2 F 85 16 99/63 100
12/14/24 10:00 12/14/24 10:00 12/14/24 10:00 12/14/24 09:45 12/14/24 10:00
I&O
12/13/24 12/14/24 12/15/24
06:59 06:59 06:59
Intake Total 2730 / 2730
Balance 2730 / 2730
Review of Systems
-
History Source: Patient
All other systems: Reviewed and negative
Abdomen/GI: Reports Abdominal Pain
Physical Exam
-
General: No Apparent Distress
HEENT: Normocephalic
Respiratory: Clear to Auscultation
GI: Soft, Nontender and Nondistended
Musculoskeletal: No Clubbing, No Cyanosis and No Edema
Skin: Warm
Neuro: Awake, Alert, Oriented and AO x 3
Psych: Calm
[2024-12-14] MEDS: SOLU-MEDROL PF 20 MG IV ×2 (10:45→18:05)
[2024-12-14] MEDS: KCL 270 MEQ IV ×2 (10:46→15:00)
[2024-12-14] MEDS: ASACOL, DELZICOL DR PO ×2 (10:47→11:04)
[2024-12-14] MEDS: DILAUDID 0.25 MG IV ×2 (10:47→16:26)
[2024-12-14] MEDS: MAGNESIUM SULFATE 50 IV (11:31)
--- NOTE | 2024-12-14 14:10 | CM ---
Met with patient to obtain information for assessment. Patient had family at bedside. Patient lives with her spouse and son in a two story home with one step to enter. Patient described herself as independent with her ADLs, personal care, dressing
and bathing. 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 She drives and can get to her own appointments and do her own shopping. Patient has never had VN. She has not been to a SNF in the past.
Patient has a prescription plan and uses, [facility] for all of her medications.
Patient's PCP Milton Luo.
Patient stated that she feels she will be able to return home at discharge.
Plan: Case management will continue to follow and assist with discharge planning. Home when cleared for discharge.
[2024-12-14 15:00] VITALS: BP 109/67
[2024-12-14 20:44] LABS: Calprotectin, Fecal 1840 ug/g (<=49)
[2024-12-14 23:27] VITALS: BP 108/65
[2024-12-15] MEDS: FLAGYL 500 MG 100 IV (01:36)
[2024-12-15] MEDS: SOLU-MEDROL PF 20 MG IV ×3 (01:36→17:51)
[2024-12-15] MEDS: SYNTHROID 75 MCG PO (05:48)
[2024-12-15 06:29] VITALS: BMI 23.2
[2024-12-15 07:36] VITALS: BP 110/66
--- NOTE | 2024-12-15 08:07 | W.PN.GI.CBS2 ---
Today's Communication / Plan
-
Continue IV steroids, if continues to improve, plan to transition to PO steroids tomorrow
Assessment / Plan
-
69yo with hx depression, hypothyroidism, prior appe and tani, family hx IBD with onset of lower abdominal pain with bloody diarrhea for last month, given diagnosis of ulcerative colitis following in-office anoscopy by Dr. Shore. She failed a trail
of PO mesalamine and 1 week of 20mg Prednisone. Infectious stool studies negative. Colonoscopy performed on 12/14/24 with findings of severe pancolitis, biopsies pending. IV Steroids started 12/14, following her colonoscopy with clinical improvement.
ESR 8
CRP 79.7
Fecal calprotectin 1840
Stool cx neg c-diff with other cx pending.
TSH WNL
Iron studies pending
B12, Folate pending
CT on admission with prior tani chronic biliary dilatation, comp deformity, and lynn proctocolitis. There is dilation of the extrahepatic bile ducts with the common bile duct measuring 1.0 cm and the common hepatic duct measuring 2.5 cm, unchanged.
There is prominence of the central intrahepatic bile ducts, unchanged. There is a small focus of gas within the common bile duct, unchanged from scan on 11/01/24.
#Severe pancolitis, suspect ulcerative colitis
-s/p Colonoscopy on 12/14, biopsies pending
-60mg IV Methylpred started 12/14, reassuring response with less then 24 hours of steroids thurs far
-tolerating low residue, low lactose diet
-continue IV steroids for another day, if continues to improve, will plan to transition to PO steroids tomorrow and likely start approval process for Skyrizi; if unable to transition to PO steroids or no additional improvement, will need to give
inpatient infliximab
#Biliary ductal dilation-- suspect normal in setting of prior tani and ERCP with sphincterotomy? however, given likely new UC diagnosis would recommend MRI/MRCP out of an abundance of caution, need to keep PSC on differential
Subjective
Subjective
Date of Service: December 15, 2024
Patient seen in follow-up. She is s/p colonoscopy yesterday with findings of severe pancolitis, unable to intubate TI. IV steroids started following her procedure, she reports significant improvement since yesterday. She is no longer nauseous and
her pain has improved. Frequency of BMs has decreased but still struggling with urgency.
Objective
Data Reviewed
Laboratory Data:
Laboratory Results
12/14/24 06:42
Laboratory Results
PT 16.7 Sec (11.4-14.6) H 12/14/24 06:42
INR 1.32 12/14/24 06:42
Magnesium 1.6 mg/dl (1.6-2.3) 12/14/24 06:42
Total Bilirubin 0.5 mg/dl (0.2-1.3) 12/14/24 06:42
AST 18 U/L (14-36) 12/14/24 06:42
ALT 16 U/L (0-35) 12/14/24 06:42
Alkaline Phosphatase 102 U/L (38-126) 12/14/24 06:42
Vital Signs and I&O:
Vital Signs
Temp Pulse Resp BP Pulse Ox
97.8 F 79 17 110/66 98
12/15/24 07:36 12/15/24 07:36 12/15/24 07:36 12/15/24 07:36 12/15/24 07:36
I&O
12/14/24 12/15/24 12/16/24
06:59 06:59 06:59
Intake Total 2730 / 2730 1740 / 1740
Output Total 1200 / 1200
Balance 2730 / 2730 540 / 540
Physical Exam
Physical Exam
GENERAL: In no acute distress, appears comfortable
ABDOMEN: +BS; soft, nondistended; minimal TTP in LLQ of abdomen, no rebound or guarding
[2024-12-15 08:20] LABS: Blood Urea Nitrogen 7 mg/dl (7-17); Calcium 7.9 mg/dl (8.4-10.2); Carbon Dioxide 25 mmol/L (22-30); Chloride 106 mmol/L (98-107); Estimated Creatinine Clearance 77 ml/min; Glucose 129 mg/dl (70-99); Iron 41 ug/dl (37-170); Magnesium 2.2 mg/dl (1.6-2.3); Phosphorus 2.7 mg/dl (2.5-4.5); Sodium 136 mmol/L (135-145); eGFR > 60.00
[2024-12-15 08:40] LABS: Percent Saturation 19 % (20-50); Total Iron Binding Capacity 208 ug/dl (265-497)
[2024-12-15] MEDS: PROZAC PO (08:45)
--- NOTE | 2024-12-15 09:43 | W.PN.HOSP.TC ---
Today's Communication/Plan
-
advance diet
stop IVF
stop Abx
Assessment / Plan
Assessment / Plan
69yo F with PMHx of cholecystectomy, hypothyroidism, anxiety,family hx of Crohn disease in father came with new onset abdominal pain. Found proctocolitis with suspicion for IBD. Patient was followed in [place] 10/16 few months of bloody diarrhea with
suspicion for UC and started on mesalamine empirically while still awaiting colonoscopy
A/P:
#Proctocolitis with leukocytosis
cont mesalamine
pain mgmt
c.diff neg
Cx, WBC
calprotectin significantly elevated
Stop metronidazole
GI consult: hepatitis and Tb w/u ahead of possible immunologic therapy, s/p colonoscopy on 12/14/24 with high clinical suspiscion for UC
IV steroids and advance diet
#Diverticulosis
asymptomatic
#Chronic L1, L2 Fx
outpatient assessment for osteoporosis
#Punctate hypodensity within the lower pole the right kidney
repeat CT in 6month
#Hypothyroidism
#Anxiety
TSH WNL
cont meds
#Hypokalemia
#hypomagnesemia
replete
DVT ppx hep
Full code
I have spent at least 38min reviewing chart, test results, communication with family and providing direct patient care
Anticipated Discharge: Within 24 hours
Subjective/Interval History
-
Date of Service: December 15, 2024
Objective Data
-
Labs:
Laboratory Results
12/15/24
07:02
Sodium 136
Potassium 4.0 D
Chloride 106
Carbon Dioxide 25
BUN 7
Creatinine 0.5 L
Glucose 129 H
Calcium 7.9 L
Vital Signs:
Vital Signs
Temp Pulse Resp BP Pulse Ox
97.8 F 79 17 110/66 98
12/15/24 07:36 12/15/24 07:36 12/15/24 07:36 12/15/24 07:36 12/15/24 07:36
I&O
12/14/24 12/15/24 12/16/24
06:59 06:59 06:59
Intake Total 2730 / 2730 1740 / 1740
Output Total 1200 / 1200
Balance 2730 / 2730 540 / 540
Review of Systems
-
History Source: Patient
All other systems: Reviewed and negative
Physical Exam
-
General: No Apparent Distress
HEENT: Normocephalic
Cardiac: Regular Rhythm
GI: Soft, Nontender and Nondistended
Skin: Warm
Neuro: Awake, Alert, Oriented and AO x 3
Psych: Calm
[2024-12-15] MEDS: PEPCID 40 MG PO (09:58)
[2024-12-15 10:16] LABS: Ferritin 54.9 ng/ml (11.1-264.0)
[2024-12-15 10:48] LABS: Folate 11.3 ng/ml (2.76-20); Vitamin B12 > 1000 pg/ml (239-931)
--- NOTE | 2024-12-15 15:30 | CM ---
CM following re: discharge planning.
Reviewed pt's chart, met with pt.
Pt lives with spouse and son in a two story home and pt is independent in all areas [employer]. Pt stated she will not need any after care VN servcies, independent with functional ability and her antibiotic are switched to PO.
D/C plan: home no needs. Spouse to transport.
CM will follow with discharge plan updates a needed.
[2024-12-15 15:34] VITALS: BP 105/62
[2024-12-15] MEDS: DILAUDID 0.25 MG IV ×2 (16:05→20:56)
--- NOTE | 2024-12-15 16:14 | PTCARENOTE ---
Patient received from [facility] into room 406-01. Patient with complaints of abdominal pain. Rates pain a 6/10 on pain scale. Dilaudid given as per order. Will monitor for pain relief. Reviewed use of call phelps and TV/bed controls. Patient verbalizes
understanding of teaching. Vital signs stable.
[2024-12-15 19:08] LABS: Hepatitis B Surface Antigen Negative (Negative)
[2024-12-15 19:26] LABS: Hepatitis B Core Ab, Total Negative (Negative); Hepatitis B Surface Antibody Negative; Hepatitis C Antibody Negative (Negative)
[2024-12-15 23:39] VITALS: BP 106/64
[2024-12-16] MEDS: DILAUDID 0.25 MG IV ×3 (02:37→21:26)
[2024-12-16] MEDS: SYNTHROID 75 MCG PO (05:19)
[2024-12-16 07:33] LABS: Hematocrit 34.4 % (37.0-47.0); Hemoglobin 11.5 g/dL (12.0-16.0); Mean Corp Hgb Conc. 33.4 g/dL (33.0-37.0); Mean Corpuscular Hgb 28.9 pg (27.0-31.0); Mean Corpuscular Volume 86.4 fL (81.0-99.0); Mean Platelet Volume 9.5 fL (7.4-10.4); Platelet Count 260 10^3/uL (130-400); Red Blood Cell Count 3.98 10^6/uL (4.20-5.40); Red Cell Dist. Width 14.6 % (11.5-14.5); White Blood Cell Count 13.2 10^3/uL (4.8-10.8)
[2024-12-16 07:50] VITALS: BP 116/70
[2024-12-16 08:05] LABS: Blood Urea Nitrogen 11 mg/dl (7-17); Calcium 8.1 mg/dl (8.4-10.2); Carbon Dioxide 23 mmol/L (22-30); Chloride 110 mmol/L (98-107); Estimated Creatinine Clearance 77 ml/min; Glucose 126 mg/dl (70-99); Potassium 4.2 mmol/L (3.5-5.1); Sodium 138 mmol/L (135-145); eGFR > 60.00
[2024-12-16] MEDS: SOLU-MEDROL PF 20 MG IV ×3 (08:07→23:15)
[2024-12-16] MEDS: PEPCID 40 MG PO (08:07)
[2024-12-16] MEDS: COLOCORT/CORTENEMA 60 ML RECTAL ×2 (08:07→21:22)
[2024-12-16 09:28] LABS: Absolute Neutrophils -Man Diff 10.9 10^3/uL (1.4-6.5); Band Neutrophils 14 % (0-3); Lymphocytes 9 % (20-51); Metamyelocytes 2 % (-); Monocytes 6 % (2-9); Platelets Checked Yes; Segmented Neutrophils 69 % (42-75)
[2024-12-16 09:29] LABS: Acanthocytes 1+; Anisocytosis 1+; Hypochromasia 1+; Normal RBC Morphology No; Polychromasia 1+; Target Cells 1+; Total Cells Counted 100
--- NOTE | 2024-12-16 09:42 | W.PN.GI.CBS2 ---
Today's Communication / Plan
-
Continue IV steroids, add cortenema and bentyl. MRI/MRCP today. Path still pending
Assessment / Plan
-
69yo with hx depression, hypothyroidism, prior appe and tani, family hx IBD with onset of lower abdominal pain with bloody diarrhea for last month, given diagnosis of ulcerative colitis following in-office anoscopy by Dr. Shore. She failed a trail
of PO mesalamine and 1 week of 20mg Prednisone. Infectious stool studies negative. Colonoscopy performed on 12/14/24 with findings of severe pancolitis, biopsies pending. IV Steroids started 12/14, following her colonoscopy with clinical improvement.
ESR 8
CRP 79.7
Fecal calprotectin 1840
Stool cx neg c-diff with other cx pending.
TSH WNL
Iron studies pending
B12, Folate pending
CT on admission with prior tani chronic biliary dilatation, comp deformity, and lynn proctocolitis. There is dilation of the extrahepatic bile ducts with the common bile duct measuring 1.0 cm and the common hepatic duct measuring 2.5 cm, unchanged.
There is prominence of the central intrahepatic bile ducts, unchanged. There is a small focus of gas within the common bile duct, unchanged from scan on 11/01/24.
#Severe pancolitis, suspect ulcerative colitis
-s/p Colonoscopy on 12/14, biopsies pending
-60mg IV Methylpred started 12/14, significantly improved yesterday but 4 bloody BM with associated LLQ abdominal pain overnight
-recommend additional day of IV steroids prior to transition to PO
-will add cortenema which should help with her urgency/rectal bleeding
-tolerating low residue, low lactose diet
-trial of bentyl to see if this helps with her pain
-hopefully, able to transition to PO steroids and d/c home tomorrow or Thursday based on clinical response with plans to start skyrizi as outpatient (currently working on insurance auth)
#Biliary ductal dilation-- suspect normal in setting of prior tani and ERCP with sphincterotomy? however, given likely new UC diagnosis would recommend MRI/MRCP out of an abundance of caution, need to keep PSC on differential
-MRI/MRCP scheduled for today
Subjective
Subjective
Date of Service: December 16, 2024
Patient reports having about 4 bloody BMs overnight, in total she had 7 episodes of diarrhea in last 24 hours, which is still a significant improvement, having >20 prior to admission. Complains of some LLQ abdominal pain prior to BM as well as some
fecal urgency/tenesmus.
Objective
Data Reviewed
Laboratory Data:
Laboratory Results
12/16/24 07:15
12/16/24 07:15
Laboratory Results
PT 16.7 Sec (11.4-14.6) H 12/14/24 06:42
INR 1.32 12/14/24 06:42
Phosphorus 2.7 mg/dl (2.5-4.5) 12/15/24 07:02
Magnesium 2.2 mg/dl (1.6-2.3) 12/15/24 07:02
Total Bilirubin 0.5 mg/dl (0.2-1.3) 12/14/24 06:42
AST 18 U/L (14-36) 12/14/24 06:42
ALT 16 U/L (0-35) 12/14/24 06:42
Alkaline Phosphatase 102 U/L (38-126) 12/14/24 06:42
Vital Signs and I&O:
Vital Signs
Temp Pulse Resp BP Pulse Ox
97.7 F 67 16 116/70 98
12/16/24 07:50 12/16/24 07:50 12/16/24 07:50 12/16/24 07:50 12/16/24 07:50
I&O
12/15/24 12/16/24 12/17/24
06:59 06:59 06:59
Intake Total 1740 / 1740
Output Total 1200 / 1200
Balance 540 / 540
Physical Exam
Physical Exam
GENERAL: In no acute distress, appears comfortable
ABDOMEN: +BS; soft, nondistended; minimal TTP in LLQ of abdomen, no rebound or guarding
--- NOTE | 2024-12-16 09:53 | W.PN.HOSP.TC ---
Today's Communication/Plan
-
toleration diet but stil pain and hematochezia - as per GI cont IV steroids
MRI
Assessment / Plan
Assessment / Plan
69yo F with PMHx of cholecystectomy, hypothyroidism, anxiety,family hx of Crohn disease in father came with new onset abdominal pain. Found proctocolitis with suspicion for IBD. Patient was followed in [place] 10/16 few months of bloody diarrhea with
suspicion for UC and started on mesalamine empirically while still awaiting colonoscopy
A/P:
#Proctocolitis with leukocytosis
cont mesalamine
pain mgmt
c.diff neg
Cx, WBC
calprotectin significantly elevated
Stop metronidazole
GI consult: hepatitis and Tb w/u ahead of possible immunologic therapy, s/p colonoscopy on 12/14/24 with high clinical suspicion for UC, biopsy path pending
IV steroids and advance diet
#Dilated bile ducts
with concern for PCS by GI - MRI abd with MRCP
#Diverticulosis
asymptomatic
#Chronic L1, L2 Fx
outpatient assessment for osteoporosis
#Punctate hypodensity within the lower pole the right kidney
repeat CT in 6month
#Hypothyroidism
#Anxiety
TSH WNL
cont meds
#Hypokalemia
#hypomagnesemia
replete
DVT ppx hep
Full code
I have spent at least 38min reviewing chart, test results, communication with family and providing direct patient care
Anticipated Discharge: Within 24 hours
Subjective/Interval History
-
Date of Service: December 16, 2024
Objective Data
-
Labs:
Laboratory Results
12/16/24
07:15
WBC 13.2 H
Hgb 11.5 L
Hct 34.4 L
Plt Count 260 D
Sodium 138
Potassium 4.2
Chloride 110 H
Carbon Dioxide 23
BUN 11
Creatinine 0.5 L
Glucose 126 H
Calcium 8.1 L
Vital Signs:
Vital Signs
Temp Pulse Resp BP Pulse Ox
97.7 F 67 16 116/70 98
12/16/24 07:50 12/16/24 07:50 12/16/24 07:50 12/16/24 07:50 12/16/24 07:50
I&O
12/15/24 12/16/24 12/17/24
06:59 06:59 06:59
Intake Total 1740 / 1740
Output Total 1200 / 1200
Balance 540 / 540
Review of Systems
-
History Source: Patient
All other systems: Reviewed and negative
Abdomen/GI: Reports Abdominal Pain
Physical Exam
-
General: No Apparent Distress
HEENT: Normocephalic
Neuro: Awake, Alert, Oriented and AO x 3
Psych: Calm
[2024-12-16 13:44] LABS: Quantiferon NIL 0.04 IU/mL; Quantiferon TB Gold Plus Indeterminate (Negative)
[2024-12-16 15:54] VITALS: BP 103/63
[2024-12-16 23:43] VITALS: BP 121/67
[2024-12-17] MEDS: SYNTHROID 75 MCG PO (05:42)
[2024-12-17 06:27] LABS: Hematocrit 32.3 % (37.0-47.0); Hemoglobin 10.7 g/dL (12.0-16.0); Mean Corp Hgb Conc. 33.1 g/dL (33.0-37.0); Mean Corpuscular Hgb 29.2 pg (27.0-31.0); Mean Corpuscular Volume 88.3 fL (81.0-99.0); Mean Platelet Volume 9.4 fL (7.4-10.4); Platelet Count 333 10^3/uL (130-400); Red Blood Cell Count 3.66 10^6/uL (4.20-5.40); Red Cell Dist. Width 14.8 % (11.5-14.5); White Blood Cell Count 12.3 10^3/uL (4.8-10.8)
[2024-12-17 06:31] LABS: Blood Urea Nitrogen 12 mg/dl (7-17); Calcium 8.4 mg/dl (8.4-10.2); Carbon Dioxide 29 mmol/L (22-30); Chloride 106 mmol/L (98-107); Estimated Creatinine Clearance 77 ml/min; Glucose 133 mg/dl (70-99); Potassium 5.2 mmol/L (3.5-5.1); Sodium 139 mmol/L (135-145); eGFR > 60.00
[2024-12-17 07:05] VITALS: BP 119/68
[2024-12-17 07:43] LABS: % Basophils 0.7 % (0-2); % Immature Granulocytes 2.6 % (0-0.5); % Lymphocytes 4.3 % (20.5-51.1); % Monocytes 5.3 % (1.7-9.3); % Neutrophils 87.1 % (42.2-75.2); Absolute Basophils 0.1 10^3/uL (0-0.2); Absolute Immature Granulocytes 0.3 10^3/uL (0-0.05); Absolute Lymphocytes 0.5 10^3/uL (1.2-3.4); Absolute Monocytes 0.7 10^3/uL (0.1-0.6); Absolute Neutrophils 10.7 10^3/uL (1.4-6.5); Nucleated Red Blood Cells % 0 %
[2024-12-17] MEDS: PEPCID 40 MG PO (08:58)
[2024-12-17] MEDS: PROZAC 10 MG PO (08:58)
[2024-12-17] MEDS: COLOCORT/CORTENEMA 60 ML RECTAL ×2 (08:58→20:48)
[2024-12-17] MEDS: SOLU-MEDROL PF 20 MG IV ×3 (08:59→23:20)
[2024-12-17] MEDS: FLUSH (NSS) 2 FLUSH IV ×3 (09:00→17:50)
[2024-12-17] MEDS: FLUSH (NSS) 1 FLUSH IV (09:01)
--- NOTE | 2024-12-17 09:26 | W.PN.GI.CBS2 ---
Today's Communication / Plan
-
Continue IV Steroids, need to repeat quant TB test due to indeterminate result; will need to await results of repeat testing before proceeding with infliximab
Assessment / Plan
-
69yo with hx depression, hypothyroidism, prior appe and tani, family hx IBD with onset of lower abdominal pain with bloody diarrhea for last month, given diagnosis of ulcerative colitis following in-office anoscopy by Dr. Shore. She failed a trail
of PO mesalamine and 1 week of 20mg Prednisone. Infectious stool studies negative. Colonoscopy performed on 12/14/24 with findings of severe pancolitis, biopsies pending. IV Steroids started 12/14 following her colonoscopy with clinical improvement.
ESR 8
CRP 79.7--> 37.10
Fecal calprotectin 1840
Stool cx neg c-diff with other cx pending.
TSH WNL
Iron studies pending
B12, Folate pending
CT on admission with prior tani chronic biliary dilatation, comp deformity, and lynn proctocolitis. There is dilation of the extrahepatic bile ducts with the common bile duct measuring 1.0 cm and the common hepatic duct measuring 2.5 cm, unchanged.
There is prominence of the central intrahepatic bile ducts, unchanged. There is a small focus of gas within the common bile duct, unchanged from scan on 11/01/24.
#Severe pancolitis, suspect ulcerative colitis
-s/p Colonoscopy on 12/14, biopsies pending
-60mg IV Methylpred started 12/14, still having 6-8 bloody BMs; urgency improved with cortenemas
-recommend additional day of IV steroids; if no significant improvement, will need to proceed with infliximab --still have to wait for repeat quant gold
-hepatitis serologies negative; Quant TB indeterminate, unfortunately, will need to repeat it, will send repeat stat
-tolerating low residue, low lactose diet
-trial of bentyl to see if this helps with her pain
#Biliary ductal dilation
-s/p MRI/MRCP 12/16/24:Surgically absent gallbladder. Extrahepatic bile duct dilatation. The common hepatic duct measures 2.8 cm in diameter. The common bile duct measures 1.0 cm in diameter. No filling defect to suggest choledocholithiasis. Mild
central intrahepatic bile duct dilatation. The main pancreatic duct is nondilated. No findings to suggest PSC.
-cannot rule out small duct PSC without liver biopsy however, given normal LFTs, would only puruse additional workup in the future if she had unexplained persistently elevated LFTs
Subjective
Subjective
Date of Service: December 17, 2024
No significant improvement in bowel movements compared to yesterday. Still having 6-8 bloody BMs, typically ever 3-4 hours. Her urgency has improved significantly with use of cortenemas.
Objective
Data Reviewed
Laboratory Data:
Laboratory Results
12/17/24 06:03
Laboratory Results
PT 16.7 Sec (11.4-14.6) H 12/14/24 06:42
INR 1.32 12/14/24 06:42
Phosphorus 2.7 mg/dl (2.5-4.5) 12/15/24 07:02
Magnesium 2.2 mg/dl (1.6-2.3) 12/15/24 07:02
Total Bilirubin 0.5 mg/dl (0.2-1.3) 12/14/24 06:42
AST 18 U/L (14-36) 12/14/24 06:42
ALT 16 U/L (0-35) 12/14/24 06:42
Alkaline Phosphatase 102 U/L (38-126) 12/14/24 06:42
Vital Signs and I&O:
Vital Signs
Temp Pulse Resp BP Pulse Ox
98.2 F 73 14 119/68 97
12/17/24 07:05 12/17/24 07:05 12/17/24 07:05 12/17/24 07:05 12/17/24 07:05
I&O
12/16/24 12/17/24 12/18/24
06:59 06:59 06:59
Intake Total 960 / 960
Balance 960 / 960
Physical Exam
Physical Exam
GENERAL: In no acute distress, appears comfortable
ABDOMEN: +BS; soft, nondistended; minimal TTP in LLQ of abdomen, no rebound or guarding
--- NOTE | 2024-12-17 11:11 | W.PN.HOSP.TC ---
Today's Communication/Plan
-
GI for possible infliximab tomorrow
Assessment / Plan
Assessment / Plan
69yo F with PMHx of cholecystectomy, hypothyroidism, anxiety,family hx of Crohn disease in father came with new onset abdominal pain. Found proctocolitis with suspicion for IBD. Patient was followed in [place] / few months of bloody diarrhea with
suspicion for UC and started on mesalamine empirically while still awaiting colonoscopy
A/P:
#Proctocolitis with leukocytosis
cont mesalamine
pain mgmt
c.diff neg
Cx, WBC
calprotectin significantly elevated
Stop metronidazole
GI consult: hepatitis and Tb w/u ahead of possible immunologic therapy, s/p colonoscopy on 12/14/24 with high clinical suspicion for UC, biopsy path pending
IV steroids and advance diet
#Dilated bile ducts
with concern for PCS by GI - MRI abd with MRCP
#Diverticulosis
asymptomatic
#Hyperkalemia
mild
follow bmp
#Chronic L1, L2 Fx
outpatient assessment for osteoporosis
#Punctate hypodensity within the lower pole the right kidney
repeat CT in 6month
#Hypothyroidism
#Anxiety
TSH WNL
cont meds
#Hypokalemia
#hypomagnesemia
replete
DVT ppx hep
Full code
I have spent at least 38min reviewing chart, test results, communication with family and providing direct patient care
Anticipated Discharge: Within 24 hours
Subjective/Interval History
-
Date of Service: December 17, 2024
Objective Data
-
Labs:
Laboratory Results
12/17/24 12/17/24
06:03 11:01
WBC 12.3 H
Hgb 10.7 L
Hct 32.3 L
Plt Count 333 D
Sodium 139
Potassium 5.2 H Pending
Chloride 106
Carbon Dioxide 29
BUN 12
Creatinine 0.6
Glucose 133 H
Calcium 8.4
Vital Signs:
Vital Signs
Temp Pulse Resp BP Pulse Ox
98.2 F 73 14 119/68 97
12/17/24 07:05 12/17/24 07:05 12/17/24 07:05 12/17/24 07:05 12/17/24 07:05
I&O
12/16/24 12/17/24 12/18/24
06:59 06:59 06:59
Intake Total 960 / 960
Balance 960 / 960
Review of Systems
-
History Source: Patient
All other systems: Reviewed and negative
Physical Exam
-
General: No Apparent Distress
HEENT: Normocephalic
Respiratory: Clear to Auscultation
GI: Soft
Skin: Warm
Neuro: Awake, Alert, Oriented and AO x 3
[2024-12-17 11:25] LABS: Potassium 4.1 mmol/L (3.5-5.1)
[2024-12-17] MEDS: DILAUDID 0.25 MG IV (14:55)
[2024-12-17 15:45] VITALS: BP 118/58
[2024-12-17 23:37] VITALS: BP 126/69
[2024-12-18] MEDS: SYNTHROID 75 MCG PO (05:01)
[2024-12-18 06:07] LABS: Hematocrit 32.6 % (37.0-47.0); Hemoglobin 10.9 g/dL (12.0-16.0)
[2024-12-18 06:40] LABS: Blood Urea Nitrogen 8 mg/dl (7-17); Calcium 8.2 mg/dl (8.4-10.2); Carbon Dioxide 31 mmol/L (22-30); Chloride 104 mmol/L (98-107); Estimated Creatinine Clearance 77 ml/min; Glucose 132 mg/dl (70-99); Potassium 4.5 mmol/L (3.5-5.1); Sodium 140 mmol/L (135-145); eGFR > 60.00
[2024-12-18 07:05] VITALS: BP 115/58
[2024-12-18 07:50] VITALS: BP 115/58
--- NOTE | 2024-12-18 08:16 | W.PN.GI.CBS2 ---
Today's Communication / Plan
-
Transition to PO Prednisone today. Okay to d/c after dinner if continues to improve clinically
Assessment / Plan
-
69yo with hx depression, hypothyroidism, prior appe and tani, family hx IBD with onset of lower abdominal pain with bloody diarrhea for last month, given diagnosis of ulcerative colitis following in-office anoscopy by Dr. Shore. She failed a trail
of PO mesalamine and 1 week of 20mg Prednisone. Infectious stool studies negative. Colonoscopy performed on 12/14/24 with findings of severe pancolitis, biopsies pending. IV Steroids started 12/14 following her colonoscopy with clinical improvement.
ESR 8
CRP 79.7--> 37.10
Fecal calprotectin 1840
Stool cx neg c-diff with other cx pending.
TSH WNL
Iron studies pending
B12, Folate pending
CT on admission with prior tani chronic biliary dilatation, comp deformity, and lynn proctocolitis. There is dilation of the extrahepatic bile ducts with the common bile duct measuring 1.0 cm and the common hepatic duct measuring 2.5 cm, unchanged.
There is prominence of the central intrahepatic bile ducts, unchanged. There is a small focus of gas within the common bile duct, unchanged from scan on 11/01/24.
#Severe pancolitis, suspect ulcerative colitis
-s/p Colonoscopy on 12/14, biopsies pending
-60mg IV Methylpred started 12/14, significnat improvement following 3 days of IV steroids; will transition to PO prednisone today,
-Monitor today on prednisone, if worsening sx, will need to keep and return to IV steroids with plans to start infliximab once repeat quant gold returns
-if okay throughout today, okay to d/c home with 40 mg Prednisone daily after dinner, plans to start skyrizi as outpatient. Risks/benefits of medication discussed with patient. She will remain on 40mg prednisone until she gets her first dose of
skyrizi
-hepatitis serologies negative; Quant TB indeterminate, unfortunately, repeat specimen pending
-tolerating low residue, low lactose diet
-trial of bentyl to see if this helps with her pain
#Biliary ductal dilation
-s/p MRI/MRCP 12/16/24:Surgically absent gallbladder. Extrahepatic bile duct dilatation. The common hepatic duct measures 2.8 cm in diameter. The common bile duct measures 1.0 cm in diameter. No filling defect to suggest choledocholithiasis. Mild
central intrahepatic bile duct dilatation. The main pancreatic duct is nondilated. No findings to suggest PSC.
-cannot rule out small duct PSC without liver biopsy however, given normal LFTs, would only puruse additional workup in the future if she had unexplained persistently elevated LFTs
Subjective
Subjective
Date of Service: December 18, 2024
Significant improvement overnight, less frequency and almost no blood. BMs becoming more formed. Quant TB returned indeterminate, spoke to ID who recommended repeating it. New specimen sent out yesterday.
Objective
Data Reviewed
Laboratory Data:
Laboratory Results
12/18/24 05:05
12/18/24 05:05
Laboratory Results
PT 16.7 Sec (11.4-14.6) H 12/14/24 06:42
INR 1.32 12/14/24 06:42
Phosphorus 2.7 mg/dl (2.5-4.5) 12/15/24 07:02
Magnesium 2.2 mg/dl (1.6-2.3) 12/15/24 07:02
Total Bilirubin 0.5 mg/dl (0.2-1.3) 12/14/24 06:42
AST 18 U/L (14-36) 12/14/24 06:42
ALT 16 U/L (0-35) 12/14/24 06:42
Alkaline Phosphatase 102 U/L (38-126) 12/14/24 06:42
Vital Signs and I&O:
Vital Signs
Temp Pulse Resp BP Pulse Ox
97.7 F 66 16 126/69 98
12/17/24 23:37 12/17/24 23:37 12/17/24 23:37 12/17/24 23:37 12/17/24 23:37
I&O
12/17/24 12/18/24 12/19/24
06:59 06:59 06:59
Intake Total 960 / 960 960 / 960
Balance 960 / 960 960 / 960
Physical Exam
Physical Exam
GENERAL: In no acute distress, appears comfortable
ABDOMEN: +BS; soft, nondistended; minimal TTP in LLQ of abdomen, no rebound or guarding
[2024-12-18] MEDS: COLOCORT/CORTENEMA 60 ML RECTAL (09:54)
[2024-12-18] MEDS: PEPCID 40 MG PO (09:55)
[2024-12-18] MEDS: SOLU-MEDROL PF IV (09:55)
[2024-12-18] MEDS: DELTASONE 40 MG PO (09:56)
--- NOTE | 2024-12-18 10:45 | W.PN.HOSP.TC ---
Today's Communication/Plan
-
pending final GI recommendations
Assessment / Plan
Assessment / Plan
69yo F with PMHx of cholecystectomy, hypothyroidism, anxiety,family hx of Crohn disease in father came with new onset abdominal pain. Found proctocolitis with suspicion for IBD. Patient was followed in [place] 2/ few months of bloody diarrhea with
suspicion for UC and started on mesalamine empirically, found clinical picture f UC on colonoscopy, stool improved on IV steroids, bleeding much decreased, able to tolerate food without nausea and vomiting. In prep for immunologic - hepatitis panel
done and is negative, however Quantiferon indeterminate. Will need outpatient follow up by GI for reconsideration of immunologics after the repeated test
A/P:
#Proctocolitis with leukocytosis
cont mesalamine
pain mgmt
c.diff neg
Cx, WBC
calprotectin significantly elevated
Stop metronidazole
GI consult: hepatitis and Tb w/u ahead of possible immunologic therapy, s/p colonoscopy on 12/14/24 with high clinical suspicion for UC, biopsy path pending
IV steroids and advance diet
Ava disease panel sent
#Dilated bile ducts
with concern for PCS by GI - MRI abd with MRCP
#Diverticulosis
asymptomatic
#Hyperkalemia
mild
follow bmp
#Chronic L1, L2 Fx
outpatient assessment for osteoporosis
#Punctate hypodensity within the lower pole the right kidney
repeat CT in 6month
#Hypothyroidism
#Anxiety
TSH WNL
cont meds
#Hypokalemia
#hypomagnesemia
replete
DVT ppx hep
Full code
I have spent at least 38min reviewing chart, test results, communication with family and providing direct patient care
Anticipated Discharge: Within 24 hours
Subjective/Interval History
-
Date of Service: December 18, 2024
Objective Data
-
Labs:
Laboratory Results
12/18/24
05:05
Hgb 10.9 L
Hct 32.6 L
Sodium 140
Potassium 4.5
Chloride 104
Carbon Dioxide 31 H
BUN 8
Creatinine 0.6
Glucose 132 H
Calcium 8.2 L
Vital Signs:
Vital Signs
Temp Pulse Resp BP Pulse Ox
98.4 F 72 16 115/58 97
12/18/24 07:05 12/18/24 07:05 12/18/24 07:05 12/18/24 07:05 12/18/24 07:05
I&O
12/17/24 12/18/24 12/19/24
06:59 06:59 06:59
Intake Total 960 / 960 960 / 960
Balance 960 / 960 960 / 960
Review of Systems
-
History Source: Patient
All other systems: Reviewed and negative
Physical Exam
-
General: No Apparent Distress
GI: Soft, Nontender and Nondistended
Neuro: Awake, Alert, Oriented and AO x 3
Psych: Calm
--- NOTE | 2024-12-18 10:55 | W.DCSUMMARY ---
Discharge Summary
Discharge Data
Date of Admission: 12/12/24
Date of Discharge: 12/18/24
-
Pending Results: No
Hospital Course
69yo F with PMHx of cholecystectomy, hypothyroidism, anxiety,family hx of Crohn disease in father came with new onset abdominal pain. Found proctocolitis with suspicion for IBD. Patient was followed in [place] 2/2 few months of bloody diarrhea with
suspicion for UC and started on mesalamine empirically, found clinical picture f UC on colonoscopy, stool improved on IV steroids, bleeding much decreased, able to tolerate food without nausea and vomiting. In prep for immunologic - hepatitis panel
done and is negative, however Quantiferon indeterminate. Will need outpatient follow up by GI for reconsideration of immunologics after the repeated test. GI recommended Prednisone 40mg and Cortenema until they will follow in the office. Patient
verbalized understanding of the instructions
I have spent at least 38min reviewing chart, test results, communication with family and providing direct patient care
Patient was managed for:
#Proctocolitis with leukocytosis
#Dilated bile ducts
#Diverticulosis
#Hyperkalemia
#Chronic L1, L2 Fx
#Punctate hypodensity within the lower pole the right kidney
#Hypothyroidism
#Anxiety
#Hypokalemia
#hypomagnesemia
Discharge Plan
-
Patient Disposition: Home (Routine Discharge)
Discharge Diagnosis/Procedures: Ulcerative Colitis
Diet: Low Residue
Referrals:
Milton Luo MD [Family Provider] -
Ariana Michel DO [Active] - in two to three weeks
Prescriptions:
New
hydrocortisone 100 mg/60 mL Enema
100 mg DC BID Qty: 1260 0RF
famotidine 40 mg Tablet
40 mg PO DAILY Qty: 60 0RF
prednisone 20 mg Tablet
40 mg PO DAILY Qty: 30 0RF
Continued
fluoxetine 10 mg tablet
10 mg PO Q48H
levothyroxine 75 mcg tablet
75 mcg PO DAILY
mesalamine 800 mg tablet,delayed release (DR/EC)
2,400 mg PO BID
Discontinued
prednisone 20 mg tablet
20 mg PO DAILY
Discharge Orders:
Discharge Patient (As Directed); Ordered 12/18/24
Ordered By: Nik Reeves
Discharge Date and Time
Print Language: ITALIAN
[2024-12-18 15:40] VITALS: BP 128/68
--- NOTE | 2024-12-18 17:58 | PTCARENOTE ---
patient tolerated low residue diet for all 3 meals today with 2 small formed brown bowel movements today, no blood seen. patient for discharge.
[2024-12-18 23:45] LABS: tTG IgA Antibody 1.08 FLU (0.00-4.99)
[2024-12-19 00:58] LABS: IgA 205 mg/dl (70-400)
[2024-12-19 19:56] LABS: Endomysial IgA Antibody Titer <1:10 (<1:10)
== END 2024-12-18 18:03 | disposition home or self-care (01) | DRG 387 ==
LOC: 4 EAST ACU 23:17
PROVIDERS: Internal Medicine; Nurse Practitioner Adult Health; Nurse Practitioner Family; Physician Assistant; Physician Assistant Medical; Student in an Organized Health Care Education/Training Program; ADMITTING PHYSICIAN Internal Medicine; ATTENDING PHYSICIAN Internal Medicine; CONSULT PHYSICIAN Internal Medicine Gastroenterology; EMERGENCY PHYSICIAN Emergency Medicine; FAMILY PHYSICIAN Internal Medicine
PROC: 0DBE8ZX Excision of Large Intestine, Via Natural or Artificial Opening Endoscopic, Diagnostic (ICD-10-PCS; 2024-12-14)
DX: K51.011 Ulcerative (chronic) pancolitis with rectal bleeding (principal); E03.9 Hypothyroidism, unspecified; K57.30 Diverticulosis of large intestine without perforation or abscess without bleeding; K83.8 Other specified diseases of biliary tract; E87.5 Hyperkalemia; E83.42 Hypomagnesemia
CPT/HCPCS: 88305; 74177; 74183; 80048; 80053; 81003; 81015; 82607; 82728; 82746; 82784; 83516; 83540; 83550; 83605; 83735; 83993; 84100; 84132; 84443; 85014; 85018; 85025; 85027; 85610; 85652; 86140; 86231; 86480; 86704; 86705; 86706; 86803; 86850; 86900; 86901; 87045; 87046; 87324; 87340; 87427; 87449; 88342; 89055; 96365; 96375; 96376; 99285; A9575; Q9967

== ENCOUNTER 2024-12-21 12:37 | Inpatient (IN) | payer OTHER, MEDICARE, SELFPAY ==
[2024-12-19] VITALS (8 sets, daily range): BP systolic 85–110; BP diastolic 62–69; BMI 21.4
[2024-12-19] MEDS: NSS 1000 IV (19:41)
[2024-12-19] MEDS: ZOFRAN 4 MG IV (19:41)
[2024-12-19] MEDS: DILAUDID 1 MG IV (19:44)
--- NOTE | 2024-12-19 19:52 | ED.GENMED ---
History of Present Illness
General
Chief Complaint: Abdominal Symptoms
Source: patient
Exam Limitations: none
Time Seen by Provider: 12/19/24 19:05
Nursing documentation reviewed up to this point in time: agreed with
History of Present Illness
History of Present Illness:
Patient with recent diagnosis of ulcerative colitis, discharge from the hospital yesterday, returns to ED with recurrent abdominal pain, associated with nausea and vomiting, along with diarrhea. Denies fever or chills. Denies trauma. Denies
dizziness. Denies chest pain or shortness of breath. Patient has not had anything to eat today secondary to her symptoms. Patient reports fatigue and generalized weakness.
Past History
Past History
ED Past Medical History: Hypothyroidism
ED Past Surgical History: Appendectomy and Cholecystectomy
Social History
Tobacco: Non-smoker
Alcohol: None
Drug: None
Personal:
Living: with family
Review of Systems
Review of Systems
Allergies reviewed?: Yes
All Other Systems: ROS reviewed and negative except as documented in HPI and ROS
Constitutional: Reports no symptoms; Denies fever or chills
EENT: Reports no symptoms
Respiratory: Reports no symptoms; Denies trouble breathing
Cardiac: Reports no symptoms
ABD/GI: Reports abdominal pain, nausea, vomiting and diarrhea
: Reports no symptoms
Musculoskeletal: Reports no symptoms
Skin: Reports no symptoms
Neurological: Reports no symptoms
Phy Exam
Physical Exam
Physical Exam:
Physical Exam
General: moderate distress, acutely ill. afebrile. weak appearing
Head: nc/at. eomi
Neck: supple. normal range of motion.
Heart: s1/s2 regular rate and rhythm, no murmur.
Lungs: no acute respiratory distress. clear bilaterally
Abdomen: normal bowel sounds. not tender.
Neuro: alert and oriented x 3. no focal neurological deficits
Skin: no rash
Psychiatric: well kept. interactive and cooperative
Extremities: no edema. no calf tenderness.
Course
Orders/Labs/Results
Orders:
Orders
12/19/24 Dinner
Clear Liquid
At Your Request: Limited Participation
Does patient need a safe tray?: No
12/19/24 18:52
Electrocardiogram (*1) Urgent
Reason for Study: Chest Pain
EKG- Treatment ONCE
12/19/24 19:37
0.9% Sodium Chloride 1000 ml [Nss] 1,000 ml IV BOLUS
HYDROmorphone [Dilaudid] 1 mg IV NOW STA
MethylPREDNISolone PF [Solu-Medrol Pf] 20 mg IV ONCE ONE
Ondansetron Injectable [Zofran] 4 mg .ROUTE .STK-MED ONE
Ondansetron Injectable [Zofran] 4 mg IV NOW STA
Pantoprazole [Protonix IV] 40 mg IV NOW STA
12/19/24 19:38
HYDROmorphone [Dilaudid] 1 mg .ROUTE .STK-MED ONE
12/19/24 19:40
Complete Blood Count/With Diff Urgent
Comprehensive Metabolic Panel Urgent
Ferritin Urgent
Iron Urgent
Lipase Urgent
Manual Differential Urgent
Total Iron Binding Urgent
12/19/24 20:56
Admit/Transfer Patient As Directed
Co-Sign Provider:
Level of Care: Observation services
Assign to:: Medical/Surgical
Physician / Group: Chandan Canales
Diagnosis: ulcerative colitis
Reason for Hospitalization: ulcerative colitis
12/19/24 21:00
PRN Pain Medication Management As Directed
May give lesser potent ordered pain med per pt: Yes
preference::
Protocol:: Medication orders for pain may be administered in a
manner that supports deferring to patient preference
when the pt is:
- Requesting an ordered lesser potent pain medication.
Least to most potent pain medications are defined
as: acetaminophen < NSAID < tramadol < opioids
(morphine, oxycodone, hydromorphone).
- Requesting a lesser dose of the same medication IF
ORDERED.
- Requesting a less intrusive route of administration
if both routes are prescribed by the provider (PO <
IV).
12/19/24 21:02
Code Status As Directed
Resuscitation Status: Full Code
12/19/24 22:45
Acetaminophen [Tylenol] 650 mg PO Q4HPRN PRN
HYDROmorphone [Dilaudid] 0.5 mg IV Q4HPRN PRN
Ondansetron Injectable [Zofran] 4 mg IV Q6HPRN PRN
12/19/24 22:45
GASTROINTESTINAL CONSULT Routine
Consulting Provider: Danielle King
Was physician already notified: Yes
Activity As Directed
Activity Level: Ambulate
Intake/ Output As Directed
Frequency: Per unit guidelines
Pneumatic Compression Sleeves As Directed
Type: Knee high
Vital Signs As Directed
Frequency: Per unit guidelines
Weight As Directed
Frequency: Once
Comment: on admission
DX Deep Vein Thrombosis Video Routine
12/20/24 04:00
MethylPREDNISolone PF [Solu-Medrol Pf] 20 mg IV Q8H
12/20/24 06:00
Basic Metabolic Panel IN AM
Complete Blood Count/No Diff IN AM
Levothyroxine [Synthroid] 75 mcg PO DAILY@0600
12/20/24 08:00
Famotidine [Pepcid] 40 mg PO DAILY
Mesalamine Delayed Release [Asacol, Delzicol Dr] 2,400 mg PO BID
12/21/24 08:00
Fluoxetine HCl [Prozac] 10 mg PO Q48H
Abnormal Lab Results
12/19/24
19:40
WBC 15.0 H 10^3/uL
(4.8-10.8)
RBC 3.77 L 10^6/uL
(4.20-5.40)
Hgb 10.8 L g/dL
(12.0-16.0)
Hct 32.4 L %
(37.0-47.0)
RDW 14.6 H %
(11.5-14.5)
Abs Neuts (Manual) 12.1 H 10^3/uL
(1.4-6.5)
Band Neutrophils 8 H D %
(0-3)
Lymphocytes (Manual) 10 L %
(20-51)
Sodium 130 L D mmol/L
(135-145)
Chloride 97 L mmol/L
(98-107)
Carbon Dioxide 31 H mmol/L
(22-30)
Glucose 128 H mg/dl
(70-99)
Calcium 7.8 L mg/dl
(8.4-10.2)
Iron < 20 L ug/dl
(37-170)
TIBC 219 L ug/dl
(265-497)
Total Protein 4.6 L g/dl
(6.3-8.2)
Albumin 2.3 L g/dl
(3.5-5.0)
Lipase 17 L U/L
(23-300)
12/19/24 19:40
12/19/24 19:40
Vital Signs
Initial and Last Documented VS:
Initial Vital Signs
Temp Pulse Resp BP Pulse Ox
99.1 F 102 18 85/62 96
12/19/24 18:24 12/19/24 18:24 12/19/24 18:24 12/19/24 18:24 12/19/24 18:24
Last Documented Vital Signs
Temp Pulse Resp BP Pulse Ox
97.7 F 89 18 114/72 98
12/20/24 02:15 12/20/24 02:15 12/20/24 02:15 12/20/24 02:15 12/20/24 02:15
MDM/Problems Addressed
MDM/Problems Addressed:
Recommendation received via Tiger[employer] from patient's GI physician, Dr. King, who recommends admission to the hospital and restarting patient on Solu-Medrol 20 mg every 8 hours.
*Critical Care Note
Total Time (30-74mins, 75-104mins- exclusive of procedures): Not Applicable
ED Attending Note
-
Portions of this chart may have been created with voice recognition software.� Occasional wrong word or��sound alike� substitutions may have occurred due to the inherent limitations of voice recognition software.
Discharge Plan
Departure
Patient Disposition: Admit
Date of Disposition: 12/19/24
Time of Disposition: 19:54
Admit to: Med/Surg
Presentation/result/management discussed w/ accepting MD/DO: Hospitalist
Discharge Problem:
Ulcerative colitis
Interventions
Interventions:
*Risk Screen - Suicide Last Done: 12/19/24 18:27
*General Assessment Last Done: 12/19/24 19:12
*Neglect/Abuse Screening Last Done: 12/19/24 19:12
*ED- Fall Risk Assessment Last Done: 12/19/24 19:12
*ED COVID-19 Vaccine History Last Done: 12/19/24 19:12
*Nursing Disposition Last Done: 12/19/24 22:55
IE-Fmubbz-Peiwcrojpr Assessment Last Done: 12/19/24 19:12
Discharge Date and Time
Discharge Date/Time: 12/20/24 02:23
[2024-12-19] MEDS: PROTONIX IV 40 MG IV (19:57)
[2024-12-19] MEDS: SOLU-MEDROL PF 20 MG IV (19:57)
[2024-12-19 20:10] LABS: ALT (SGPT) 24 U/L (0-35); AST (SGOT) 26 U/L (14-36); Albumin 2.3 g/dl (3.5-5.0); Alkaline Phosphatase 110 U/L (38-126); Blood Urea Nitrogen 11 mg/dl (7-17); Calcium 7.8 mg/dl (8.4-10.2); Carbon Dioxide 31 mmol/L (22-30); Chloride 97 mmol/L (98-107); Glucose 128 mg/dl (70-99); Lipase 17 U/L (23-300); Potassium 3.6 mmol/L (3.5-5.1); Sodium 130 mmol/L (135-145); Total Bilirubin 0.6 mg/dl (0.2-1.3); Total Protein 4.6 g/dl (6.3-8.2); eGFR > 60.00
[2024-12-19 20:13] LABS: Hematocrit 32.4 % (37.0-47.0); Hemoglobin 10.8 g/dL (12.0-16.0); Mean Corp Hgb Conc. 33.3 g/dL (33.0-37.0); Mean Corpuscular Hgb 28.6 pg (27.0-31.0); Mean Corpuscular Volume 85.9 fL (81.0-99.0); Mean Platelet Volume 8.7 fL (7.4-10.4); Platelet Count 392 10^3/uL (130-400); Red Blood Cell Count 3.77 10^6/uL (4.20-5.40); Red Cell Dist. Width 14.6 % (11.5-14.5)
--- NOTE | 2024-12-19 20:29 | HPS.HSE ---
Addendum entered and electronically signed by Chandan Canales DO 12/19/24 22:16:
Patient seen and examined independently. Agree with findings and plan as set forth by THAD Vincent.
Patient is a 69y F with PMH significant for hypothyroidism and recent diagnosis / admission for ulcerative colitis. Patient was admitted 12/12 - 12/18 and treated with IV steroids. She clinically improved and was discharged on PO prednisone,
hydrocortisone enemas and mesalamine. Patient states that her symptoms returned last PM with abdominal pain, N/V and bloody diarrhea. She contacted GI today who advised return to the hospital for resumed IV steroids.
Ass:
Ulcerative Colitis
Acute Blood Loss Anemia secondary to the above
Hyponatremia - Likely hypovolemic
Hypothyroidism
Anxiety / Depression
Plan:
Admit for further evaluation and treatment.
IV Solu-Medrol 20mg q 8.
Supportive care with IVFs, antiemetics, etc.
GI evaluation for additional recommendations,.
Check iron studies and consider IV iron if indicated.
Follow for improvement in Na levels with IVFs.
Original Note:
Family Physician
-
Family Physician: Milton Luo MD
Chief Complaint
-
abdominal symptoms
History of Present Illness
Patient is a 69-year-old female with past medical history significant for hypothyroidism and depression who presented to [facility] ED for evaluation for worsening abdominal pain, nausea, vomiting and diarrhea. Patient with recent hospitalization for
ulcerative colitis being discharged yesterday. Patient does report low grade fever, with associated fatigue and generalized weakness. She reports no PO intake today r/t current discomfort. Patient denies any chills, chest pain, shortness of breath
or urinary symptoms. Patient reached out to GI office with symptoms and on-call doctor instructed her to come to ED for readmission.
Medical History
Past Medical History
Past Medical History: Reports Other
Additional Past Medical History:
Hypothyroidism
Depression
ulcerative colitis
Past Surgical History: Reports Other
Additional Past Surgical History:
Cholecystectomy
Appendectomy
Social History
Tobacco: Former Smoker (Quit many years ago)
Alcohol: Occasional (One beer most nights)
Family History
Family History: Other (Father: Crohns Disease; Brother: Ulcerative Colitis)
Allergies / Home Medications
Allergies reflects when Allergies were last updated in [facility].
Home Medications with original date entered in [facility]
Allergy/Medication List:
Allergies
Allergy/AdvReac Type Severity Reaction Status Date / Time
No Known Allergies Allergy Verified 12/19/24 18:27
Home Medications
fluoxetine 10 mg tablet 10 mg PO Q48H 12/12/24
levothyroxine 75 mcg tablet 75 mcg PO DAILY 12/12/24
mesalamine 800 mg tablet,delayed release 2,400 mg PO BID 12/12/24
famotidine 40 mg tablet 40 mg PO DAILY #60 tabs 12/18/24
hydrocortisone 100 mg/60 mL enema 100 mg (60 mL) NV BID #1,260 mL 12/18/24
prednisone 20 mg tablet 40 mg (2 x 20 mg) PO DAILY #30 tabs 12/18/24
Review of Systems
-
History Source: Patient
Constitutional: Reports Fever and Fatigue
EENT: Reports No Symptoms
Respiratory: Reports No Symptoms
Cardiac: Reports No Symptoms
Abdomen/GI: Reports Abdominal Pain, Nausea, Vomiting, Diarrhea, Bloody Stools and Anorexia
: Reports No Symptoms
Musculoskeletal: Reports No Symptoms
Skin: Reports No Symptoms
Neurological: Reports No Symptoms
Endocrine: Reports No Symptoms
Hematologic/Lymphatic: Reports No Symptoms
Psych: Reports No Symptoms
Physical Exam
Vital Signs
Vital Signs
Temp Pulse Resp BP Pulse Ox
99.1 F 102 14 93/62 96
12/19/24 18:27 12/19/24 18:31 12/19/24 18:31 12/19/24 18:31 12/19/24 18:27
Physical Exam
General: Well Developed, Well Nourished, No Apparent Distress, Comfortable and Conversant
HEENT: NormoCephalic, Moist mucous membranes, Atraumatic, [place] Conjunctivae and Nose Appears Normal
Respiratory: Clear
Cardiac: S1/S2 and Regular Rhythm
Breast: Deferred by me
GI: Soft, Non Distended and Tender
Rectal: Deferred by Provider
Genito-urinary: Deferred by me
Musculoskeletal: No Clubbing, No Cyanosis and No Edema
Skin: Warm and IV/Catheter Site
Neuro: Awake, Alert, AO x 3 and Nonfocal/grossly intact
Psych: Calm and Intact Judgment/Insight
Laboratory Results
-
12/19/24 19:40
12/19/24 19:40
Laboratory Results
Total Bilirubin 0.6 mg/dl (0.2-1.3) 12/19/24 19:40
AST 26 U/L (14-36) 12/19/24 19:40
ALT 24 U/L (0-35) 12/19/24 19:40
Alkaline Phosphatase 110 U/L (38-126) 12/19/24 19:40
Lipase 17 U/L (23-300) L 12/19/24 19:40
Impression/Plan
-
IMPRESSION/PLAN:
#ulcerative colitis
recent hospitalization being discharged home yesterday
- Admit to med/surg
- Consult GI
- solu-medrol [id number]
- supportive care
- continue mesalamine
#Hypothyroidism
- continue levothyroxine
#Depression
- continue fluoxetine
Code status: full code
DVT prophylaxis: SCDs
[2024-12-19 20:47] LABS: Absolute Neutrophils -Man Diff 12.1 10^3/uL (1.4-6.5); Band Neutrophils 8 % (0-3); Lymphocytes 10 % (20-51); Segmented Neutrophils 73 % (42-75)
[2024-12-19 20:48] LABS: Eosinophils 1 % (0-6); Metamyelocytes 3 % (-); Monocytes 5 % (2-9); Normal RBC Morphology Yes; Platelets Checked Yes; Total Cells Counted 100
[2024-12-19 23:37] LABS: Total Iron Binding Capacity 219 ug/dl (265-497)
[2024-12-19 23:57] LABS: Iron < 20 ug/dl (37-170)
[2024-12-20] VITALS: BP 110/66
[2024-12-20 00:05] LABS: Ferritin 40.4 ng/ml (11.1-264.0)
[2024-12-20] MEDS: LR 1000 IV ×3 (00:55→16:38)
[2024-12-20] MEDS: ZOFRAN 4 MG IV ×3 (02:14→15:41)
[2024-12-20 02:15] VITALS: BP 114/72; BMI 21.8
[2024-12-20] MEDS: DILAUDID 0.5 MG IV ×4 (02:20→20:23)
[2024-12-20] MEDS: SOLU-MEDROL PF 20 MG IV ×3 (04:43→19:32)
[2024-12-20] MEDS: SYNTHROID 75 MCG PO (06:00)
[2024-12-20 06:45] LABS: Blood Urea Nitrogen 11 mg/dl (7-17); Calcium 7.4 mg/dl (8.4-10.2); Carbon Dioxide 29 mmol/L (22-30); Chloride 102 mmol/L (98-107); Estimated Creatinine Clearance 77 ml/min; Glucose 119 mg/dl (70-99); Potassium 3.8 mmol/L (3.5-5.1); Sodium 134 mmol/L (135-145); eGFR > 60.00
[2024-12-20 06:51] LABS: Hematocrit 30.5 % (37.0-47.0); Hemoglobin 10.1 g/dL (12.0-16.0); Mean Corp Hgb Conc. 33.1 g/dL (33.0-37.0); Mean Corpuscular Hgb 28.8 pg (27.0-31.0); Mean Corpuscular Volume 86.9 fL (81.0-99.0); Platelet Count 301 10^3/uL (130-400); Red Blood Cell Count 3.51 10^6/uL (4.20-5.40); Red Cell Dist. Width 14.8 % (11.5-14.5)
[2024-12-20 08:02] VITALS: BP 107/67
[2024-12-20] MEDS: PEPCID 40 MG PO (09:21)
[2024-12-20] MEDS: ASACOL, DELZICOL DR 2400 MG PO ×2 (09:21→19:33)
--- NOTE | 2024-12-20 09:34 | CM ---
Spoke with Laura in admissions She said pts primary insurance is [employer] which is commercial insurance .
--- NOTE | 2024-12-20 10:16 | CON.GI ---
Addendum entered and electronically signed by Danielle King DO 12/20/24 16:43:
Patient seen and examined independently of THAD. I agree with her note with her additions below
Asia is a 69-year-old female with newly diagnosed lynn ulcerative colitis after symptoms started in November with abdominal cramping and bloody diarrhea initially placed on mesalamine then on oral steroids then hospitalized December 12. She was on IV
steroids, underwent colonoscopy on 14 December with diffuse severe lynn colitis and pathology is consistent. Fecal calprotectin was over 1800 with elevated CRP of 79.
Patient was eager to get home and was placed on oral steroids and discharged on Thursday. Unfortunately she did not do well with significant abdominal pain, multiple episodes of bloody diarrhea. Now readmitted back on IV steroids. Still having
multiple stools.
# [place] ulcerative refractory to IV steroids
-- Patient needs Remicade -awaiting TB testing to return since the first was indeterminant
-- With patient's albumin being less than 3 will need 10 mg/kg
-- Patient's hepatitis testing was negative, prior infectious workup also negative
-- Hemoglobin has been stable and currently giving IV iron
-- Discussed with patient and family at bedside and are all in agreement with proceeding with Remicade
Original Note:
Consultation
-
Date/Time Consultation Requested: 12/19/24 2245
Date/Time Consultation Performed: 12/20/24 1015
Requesting Provider: THAD Longoria
Performing Provider: THAD Conroy, Danielle King DO
Reason for Consultation: abdominal pain
Medical History
Chief Complaint / HPI
Chief Complaint: abdominal pain, blood stools
History of Present Illness:
Pt is a 69yo with hx depression, hypothyroidism, prior appe and tani, family hx IBD with onset of lower abdominal pain with bloody diarrhea for last month. She is noted with low grade fever along with nausea and vomiting. She was followed by
Jeffrey at [facility] with recent OP evaluation early November. She had exam in office did not recall biopsy and was placed on Mesalamine orally with concern for ulcerative colitis. Symptoms did not improve and actually got worse with some increased
pain and low grade fever and continued bleeding with clots and urgency and due for OP colonoscopy. She presented to with continued symptoms. She was seen by GI in consultation. Stool studies 12/13 were negative. She completed
colonoscopy 12/14 with diffuse severe inflammation in entire colon with pancolitis and concern for severe ulcerative colitis with path still pending. Labs notable for calprotectin 1840, CRP up to 79.7, ESR 8. She was placed on IV steroids then oral
and plan for eventual biologic therapy with [facility] as outpatient with approval pending . Hepatitis B/C were negative and TB was indeterminate. She now returns with nausea, vomiting small amounts of non bloody emesis., and diarrhea wit continued
bleeding. She admits to some improvement with Cortenema also given on discharge.
At this time some improvement overnight with only 2 stools today back on IV steroid. She is tolerating some small amount of liquid but decreased appetite. She admits to 8 lbs wt loss since onset of symptoms. She continues with lower abdominal
pain 02/21. She denies other GI issues but notes low grade fever No rashes, visual problems or joint pains.
Past Medical History
Past Medical History: Hypothyroidism, Psychiatric (depression) and Other (recent admission with concern for ulcerative colitis )
Past Surgical History: Appendectomy and Cholecystectomy
Social History
Tobacco: Former Smoker (quit 20 years ago )
Alcohol: Occasional
Drug: None
Personal:
Living: With Family ( and son)
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
Family History
Family History: Other (father with crohns, brother with UC)
Allergies / Home Medications
Allergy/AdvReac Type Severity Reaction Status Date / Time
No Known Allergies Allergy Verified 12/19/24 18:27
�Medication �Instructions �Recorded
fluoxetine 10 mg tablet 10 mg PO Q48H Mental Health/Anxiety 12/12/24
levothyroxine 75 mcg tablet 75 mcg PO DAILY Thyroid 12/12/24
mesalamine 800 mg tablet,delayed 2,400 mg PO BID Gastrointestinal 12/12/24
release Issue
famotidine 40 mg tablet 40 mg PO DAILY #60 tabs 12/18/24
hydrocortisone 100 mg/60 mL enema 100 mg (60 mL) [place] BID #1,260 mL 12/18/24
prednisone 20 mg tablet 40 mg (2 x 20 mg) PO DAILY #30 tabs 12/18/24
Review of Systems
-
History Source: Patient
Constitutional: Reports Weight Loss ( 8lb with GI symptoms )
EENT: Reports No Symptoms
Respiratory: Reports No Symptoms
Abdomen/GI: Reports Abdominal Pain, Nausea, Vomiting, Diarrhea and Bloody Stools
: Reports No Symptoms
Musculoskeletal: Reports No Symptoms
Skin: Reports No Symptoms
Neurological: Reports Weakness
Endocrine: Reports No Symptoms
Hematologic/Lymphatic: Reports Bleeding
Vital Signs
Temp Pulse Resp BP Pulse Ox
98 F 77 18 107/67 97
12/20/24 08:02 12/20/24 08:02 12/20/24 08:02 12/20/24 08:02 12/20/24 08:02
Physical Exam
Exam
General: Well Developed, Well Nourished, No Apparent Distress and Other (pale appearing )
HEENT: Normocephalic and Anicteric
Respiratory: Clear
Cardiac: Regular Rhythm
GI: Soft, Non Distended and Tender (lower abdomen )
Musculoskeletal: No Clubbing and No Cyanosis
Skin: Warm and Dry
Neuro: Awake, Alert and AO x 3
Psych: Calm
Results
WBC 13.0 10^3/uL (4.8-10.8) H 12/20/24 05:53
Hgb 10.1 g/dL (12.0-16.0) L 12/20/24 05:53
Hct 30.5 % (37.0-47.0) L 12/20/24 05:53
MCV 86.9 fL (81.0-99.0) 12/20/24 05:53
Plt Count 301 10^3/uL (130-400) D 12/20/24 05:53
Sodium 134 mmol/L (135-145) L 12/20/24 05:53
Potassium 3.8 mmol/L (3.5-5.1) 12/20/24 05:53
Chloride 102 mmol/L (98-107) 12/20/24 05:53
Carbon Dioxide 29 mmol/L (22-30) 12/20/24 05:53
BUN 11 mg/dl (7-17) 12/20/24 05:53
Creatinine 0.6 mg/dL (0.6-1.0) 12/20/24 05:53
Calcium 7.4 mg/dl (8.4-10.2) L 12/20/24 05:53
Total Bilirubin 0.6 mg/dl (0.2-1.3) 12/19/24 19:40
AST 26 U/L (14-36) 12/19/24 19:40
ALT 24 U/L (0-35) 12/19/24 19:40
Alkaline Phosphatase 110 U/L (38-126) 12/19/24 19:40
Lipase 17 U/L (23-300) L 12/19/24 19:40
Diagnostic Image Results:
Prior GI Procedures:
Hx prior EGD/colon 2022 [facility] pt recalls as normal.
Colonoscopy: 12/14/24 [facility] - Diffuse severe inflammation was found in the entire
examined colon secondary to pancolitis. Biopsied. bx pending
Assessment / Plan
-
Pt is a 69yo with hx depression, hypothyroidism, prior appe and tani, family hx IBD with onset of lower abdominal pain with bloody diarrhea for last month. She is noted with low grade fever along with nausea and vomiting. She was followed by
Zebly at [facility] with recent OP evaluation early November. She had exam in office did not recall biopsy and was placed on Mesalamine orally with concern for ulcerative colitis. Symptoms did not improve and actually got worse with some increased
pain and low grade fever and continued bleeding with clots and urgency and due for OP colonoscopy. She presented to with continued symptoms. She was seen by GI in consultation. Stool studies 12/13 were negative. She completed
colonoscopy 12/14 with diffuse severe inflammation in entire colon with pancolitis and concern for severe ulcerative colitis with path still pending. Labs notable for calprotectin 1840, CRP up to 79.7, ESR 8. She was placed on IV steroids then oral
and plan for eventual biologic therapy with [facility] as outpatient with approval pending . Hepatitis B/C were negative and TB was indeterminate. She now returns with nausea, vomiting, and diarrhea with continued bloody stools.
-blood diarrhea/lower abdominal pain with pancolitis and concern for ulcerative colitis.
-leukocytosis in setting of steroid use
-anemia
-hyponatremia
-elevated CRP
-indeterminate TB testing
other med problems:
-depression
-hypothyroidism
-prior appe/tani
PLAN:
Etiology of symptoms related to likely Ulcerative colitis -- path from 12/14 colonoscopy still pending
Pt with some improvement back on IV steroids-- solumedrol 20mg Q 8 hours since admission
add Cortenema at HS as some improvement with urgency per patient
clear diet as tolerated add supplement daily--does not feel she can advance
recent TB resulted as indeterminate -- will repeat after review with lab and ID -- skin test may not be valid with steroid use, hepatitis B/C neg, if still indeterminate consider T spot OP testing
[facility] in process for approval through office-- notified on recurrent admission
cont Pepcid with steroid use
cont IV iron with anemia
pain control per hospitalist
updated family at bedside
-
-
Thank you for consultation and allowing me to participate in the patient's care. Please call the enterprise integration architect GI physician during the after hours with any questions or concerns.
--- NOTE | 2024-12-20 11:44 | W.PN.HOSP.TC ---
Today's Communication/Plan
-
monitor vitals
See plan
Continue with steroids
IV iron
Continue with clears
Monitor hgb
Assessment / Plan
Assessment / Plan
General: Well Developed, Well Nourished, No Apparent Distress, Comfortable and Conversant
HEENT: NormoCephalic, Moist mucous membranes, Atraumatic, [place] Conjunctivae and Nose Appears Normal
Respiratory: Clear
Cardiac: S1/S2 and Regular Rhythm
GI: Soft, Non Distended and Tender
Musculoskeletal: No Edema
Neuro: Awake, Alert, AO x 3 and Nonfocal/grossly intact
Psych: Calm and Intact Judgment/Insight
Pancolitis with suspected Ulcerative colitis
cw IV steroids;
cortenema per GI
recent cscope path pending
pain mgmt
c.diff neg
Cx, WBC
calprotectin significantly elevated
Stop metronidazole
clears for now
Iron deficiency anemia
Start IV iron
Monitor
#Dilated bile ducts
recent MRI done; management per GI
#Diverticulosis
asymptomatic
Hyponatremia
Monitor
#Chronic L1, L2 Fx
outpatient assessment for osteoporosis
#Punctate hypodensity within the lower pole the right kidney
repeat CT in 6month
#Hypothyroidism
#Anxiety
TSH WNL
cont meds
#Hypokalemia
#hypomagnesemia
replete
DVT ppx hep
Full code
Anticipated Discharge: > 48 hours
Subjective/Interval History
-
Date of Service: December 20, 2024
denies pain
Objective Data
-
Labs:
Laboratory Results
12/20/24
05:53
WBC 13.0 H
Hgb 10.1 L
Hct 30.5 L
Plt Count 301 D
Sodium 134 L
Potassium 3.8
Chloride 102
Carbon Dioxide 29
BUN 11
Creatinine 0.6
Glucose 119 H
Calcium 7.4 L
Vital Signs:
Vital Signs
Temp Pulse Resp BP Pulse Ox
98 F 77 18 107/67 97
12/20/24 08:02 12/20/24 08:02 12/20/24 08:02 12/20/24 08:02 12/20/24 08:02
[2024-12-20] MEDS: FERRLECIT 110 MG IV (14:12)
[2024-12-20 16:27] VITALS: BP 108/66
--- NOTE | 2024-12-20 17:00 | CM ---
Alert awake oriented patient who
lives with her Ramone and son Ramone NOYOLA in a 2 story home with 2 steps to enter and 13 steps to bed/bathroom. She is independent in activates of daily living.She does drive .No adaptive devices.Observation letter given explained All
questions answered .Offered Vn she declined need.
No VN in past . No SNF hx
Pharmacy [facility]
PCP Dr Luo
PLAN Home with no needs
[2024-12-20] MEDS: COLOCORT/CORTENEMA 60 ML RECTAL (21:58)
[2024-12-20 23:55] VITALS: BP 119/64
[2024-12-21] VITALS (10 sets, daily range): BP systolic 101–123; BP diastolic 52–71
[2024-12-21] MEDS: DILAUDID 0.5 MG IV ×4 (02:10→16:52)
[2024-12-21] MEDS: LR 1000 IV ×2 (02:14→16:52)
[2024-12-21] MEDS: SOLU-MEDROL PF 20 MG IV ×3 (05:00→21:29)
[2024-12-21] MEDS: SYNTHROID 75 MCG PO (05:01)
[2024-12-21 06:39] LABS: Hematocrit 29.7 % (37.0-47.0); Hemoglobin 10.1 g/dL (12.0-16.0); Mean Corpuscular Hgb 29.5 pg (27.0-31.0); Mean Corpuscular Volume 86.8 fL (81.0-99.0); Mean Platelet Volume 9.4 fL (7.4-10.4); Platelet Count 226 10^3/uL (130-400); Red Blood Cell Count 3.42 10^6/uL (4.20-5.40); Red Cell Dist. Width 14.8 % (11.5-14.5); White Blood Cell Count 10.3 10^3/uL (4.8-10.8)
[2024-12-21 06:58] LABS: Blood Urea Nitrogen 9 mg/dl (7-17); Carbon Dioxide 33 mmol/L (22-30); Chloride 99 mmol/L (98-107); Estimated Creatinine Clearance 66 ml/min; Glucose 132 mg/dl (70-99); Potassium 4.1 mmol/L (3.5-5.1); Sodium 133 mmol/L (135-145); eGFR > 60.00
[2024-12-21 07:46] LABS: Band Neutrophils 26 % (0-3); Lymphocytes 5 % (20-51); Metamyelocytes 4 % (-); Monocytes 3 % (2-9); Segmented Neutrophils 62 % (42-75)
[2024-12-21 07:47] LABS: Total Cells Counted 100
[2024-12-21 07:48] LABS: Normal RBC Morphology Yes; Platelets Checked Yes
[2024-12-21] MEDS: ASACOL, DELZICOL DR 2400 MG PO (08:39)
[2024-12-21] MEDS: PROZAC 10 MG PO (08:40)
[2024-12-21] MEDS: PEPCID 40 MG PO (08:40)
--- NOTE | 2024-12-21 11:31 | W.PN.GI.CBS2 ---
Addendum entered and electronically signed by Danielle King DO 12/21/24 13:19:
Asia is a 69-year-old female with newly diagnosed lynn ulcerative colitis after symptoms started in November with abdominal cramping and bloody diarrhea initially placed on mesalamine then on oral steroids then hospitalized December 12. She was on IV
steroids, underwent colonoscopy on 14 December with diffuse severe lynn colitis and pathology is consistent. Fecal calprotectin was over 1800 with elevated CRP of 79.
Patient was eager to get home and was placed on oral steroids and discharged on Thursday. Unfortunately she did not do well with significant abdominal pain, multiple episodes of bloody diarrhea. Now readmitted back on IV steroids. Still having
multiple stools.
# [place] ulcerative refractory to IV steroids
-- Patient needs Remicade -awaiting TB testing to return since the first was indeterminant
-- due to the indeterminant result will give treatment with INH 300mg once daily and 50mg of B6 - as soon as the Tb testing returns - aslong as it's negative will stop this
-- With patient's albumin being less than 3 will need 10 mg/kg
-- Patient's hepatitis testing was negative, prior infectious workup also negative
-- Hemoglobin has been stable and currently giving IV iron
-- Discussed with patient and family at bedside and are all in agreement with proceeding with Remicade
-- getting obstruction series today
-- continue nutrition, oob, DVT proph
Original Note:
Today's Communication / Plan
-
Etiology of symptoms related to likely Ulcerative colitis -- path from 12/14 colonoscopy path c/w moderate active colitis, neg CMV neg dysplasia
still with rectal bleeding and pain today with less nausea cont -- solumedrol 20mg Q 8 hours since admission and megan enema as states improved urgency will hold Mesalamine
cont low residue diet with oral supplement
CRP 12/12- 79/9-- 12/17-37.10 -- 12/21-148.9 -- repeat in AM
recent TB resulted as indeterminate -- repeat sent 12/20-- per lab may take til 12/25 to result but has processed at sent out lab -- skin test may not be valid with steroid use, hepatitis B/C neg, if still indeterminate consider T spot OP testing
will obtain obstruction series with continued pain and to check CXR for any abnormality for TB as delay in testing -
[facility] in process for approval through office--but will need to consider Inpatient remicade if not improving
cont Pepcid with steroid use
cont IV iron with anemia
pain control per hospitalist
stressed need for DVT prophylaxis-- pt high risk for clots she is agreeable for compression stocking and frequent ambulation
t/c colorectal surgical consult but pt state she would not be ready for surgical intervention
updated family at bedside
updated nursing staff
will verify Remicade availability with inpatient pharmacy
Assessment / Plan
-
Pt is a 69yo with hx depression, hypothyroidism, prior appe and tani, family hx IBD with onset of lower abdominal pain with bloody diarrhea for last month. She is noted with low grade fever along with nausea and vomiting. She was followed by
Jeffrey at [facility] with recent OP evaluation early November. She had exam in office did not recall biopsy and was placed on Mesalamine orally with concern for ulcerative colitis. Symptoms did not improve and actually got worse with some increased
pain and low grade fever and continued bleeding with clots and urgency and due for OP colonoscopy. She presented to with continued symptoms. She was seen by GI in consultation. Stool studies 12/13 were negative. She completed
colonoscopy 12/14 with diffuse severe inflammation in entire colon with pancolitis and concern for severe ulcerative colitis with path still pending. Labs notable for calprotectin 1840, CRP up to 79.7, ESR 8. She was placed on IV steroids then oral
and plan for eventual biologic therapy with [facility] as outpatient with approval pending . Hepatitis B/C were negative and TB was indeterminate. She now returns with nausea, vomiting, and diarrhea with continued bloody stools.
-blood diarrhea/lower abdominal pain with pancolitis and concern for ulcerative colitis.
-leukocytosis in setting of steroid use
-anemia
-hyponatremia
-elevated CRP with rise
-indeterminate TB testing
other med problems:
-depression
-hypothyroidism
-prior appe/tani
PLAN:
Etiology of symptoms related to likely Ulcerative colitis -- path from 12/14 colonoscopy path c/w moderate active colitis, neg CMV neg dysplasia
still with rectal bleeding and pain today with less nausea cont -- solumedrol 20mg Q 8 hours since admission and megan enema as states improved urgency will hold Mesalamine
cont low residue diet with oral supplement
CRP 12/12- 79/9-- 12/17-37.10 -- 12/21-148.9 -- repeat in AM
recent TB resulted as indeterminate -- repeat sent 12/20-- per lab may take til 12/25 to result but has processed at sent out lab -- skin test may not be valid with steroid use, hepatitis B/C neg, if still indeterminate consider T spot OP testing
will obtain obstruction series with continued pain and to check CXR for any abnormality for TB as delay in testing -
[facility] in process for approval through office--but will need to consider Inpatient remicade if not improving
cont Pepcid with steroid use
cont IV iron with anemia
pain control per hospitalist
stressed need for DVT prophylaxis-- pt high risk for clots she is agreeable for compression stocking and frequent ambulation
t/c colorectal surgical consult but pt state she would not be ready for surgical intervention
updated family at bedside
updated nursing staff
will verify Remicade availability with inpatient pharmacy
Subjective
Subjective
Date of Service: December 21, 2024
still with bloody stools and abdominal pain, on low residue diet, some less nausea, rates pain 02/21
Objective
Data Reviewed
Laboratory Data:
Laboratory Results
12/21/24 06:09
12/21/24 06:09
Laboratory Results
Total Bilirubin 0.6 mg/dl (0.2-1.3) 12/19/24 19:40
AST 26 U/L (14-36) 12/19/24 19:40
ALT 24 U/L (0-35) 12/19/24 19:40
Alkaline Phosphatase 110 U/L (38-126) 12/19/24 19:40
Lipase 17 U/L (23-300) L 12/19/24 19:40
Vital Signs and I&O:
Vital Signs
Temp Pulse Resp BP Pulse Ox
98.0 F 70 16 105/61 98
12/21/24 07:30 12/21/24 07:30 12/21/24 07:30 12/21/24 07:30 12/21/24 08:30
I&O
12/20/24 12/21/24 12/22/24
06:59 06:59 06:59
Intake Total 880 / 880
Balance 880 / 880
Physical Exam
Physical Exam
HEENT: Anicteric and Moist mucous membranes
Cardiology: Normal Sinus Rhythm
Pulmonary: Clear
GI: Soft, Non Distended and Tender (diffuse )
Extremities: No Edema
Neuro: Non Focal
--- NOTE | 2024-12-21 11:39 | W.PN.HOSP.TC ---
Today's Communication/Plan
-
Monitor vital signs see plan
Continue steroids
Monitor bloody bowel movements
Monitor hemoglobin
Assessment / Plan
Assessment / Plan
General: Well Developed, Well Nourished, No Apparent Distress, Comfortable and Conversant
HEENT: NormoCephalic, Moist mucous membranes, Atraumatic, [place] Conjunctivae and Nose Appears Normal
Respiratory: Clear
Cardiac: S1/S2 and Regular Rhythm
GI: Soft, Non Distended and Tender
Musculoskeletal: No Edema
Neuro: Awake, Alert, AO x 3 and Nonfocal/grossly intact
Psych: Calm and Intact Judgment/Insight
Pancolitis with suspected Ulcerative colitis
cw IV steroids;
cortenema per GI
recent cscope path with colitis
pain mgmt
c.diff neg
Cx, WBC
calprotectin significantly elevated
Stop metronidazole
on low res diet
tb test pending; 1st test was equivocal
Iron deficiency anemia
Started IV iron
Monitor
#Dilated bile ducts
recent MRI done; management per GI
#Diverticulosis
asymptomatic
Hyponatremia
Monitor
#Chronic L1, L2 Fx
outpatient assessment for osteoporosis
#Punctate hypodensity within the lower pole the right kidney
repeat CT in 6month
#Hypothyroidism
#Anxiety
TSH WNL
cont meds
#Hypokalemia
#hypomagnesemia
replete
DVT ppx hep
Full code
Anticipated Discharge: 24 - 48 hours
Subjective/Interval History
-
Date of Service: December 21, 2024
denies pain
Objective Data
-
Labs:
Laboratory Results
12/21/24
06:09
WBC 10.3
Hgb 10.1 L
Hct 29.7 L
Plt Count 226 D
Sodium 133 L
Potassium 4.1
Chloride 99
Carbon Dioxide 33 H
BUN 9
Creatinine 0.7
Glucose 132 H
Calcium 8.0 L
Vital Signs:
Vital Signs
Temp Pulse Resp BP Pulse Ox
98.0 F 70 16 105/61 98
12/21/24 07:30 12/21/24 07:30 12/21/24 07:30 12/21/24 07:30 12/21/24 08:30
I&O
12/20/24 12/21/24 12/22/24
06:59 06:59 06:59
Intake Total 880 / 880
Balance 880 / 880
[2024-12-21] MEDS: TYLENOL 650 MG PO (13:51)
[2024-12-21] MEDS: BENADRYL 50 MG IV (13:52)
[2024-12-21] MEDS: REMICADE 250 MG IV (14:28)
--- NOTE | 2024-12-21 14:35 | PTCARENOTE ---
Remicade infusion initiated at ordered rate. VSS. No s/s of reaction. Family at bedside. Will continue to monitor closely.
--- NOTE | 2024-12-21 16:41 | CM ---
Continues on IV steroids .
Pain meds as needed.
Pt changed to inpatient .Pt informed in room of change to inpatient.
Offered VN she is unsure of need.
PLAN Home with possible VN if requested
[2024-12-21] MEDS: FERRLECIT 110 MG IV (16:51)
[2024-12-21] MEDS: VITAMIN B-6 50 MG PO (16:52)
[2024-12-21] MEDS: INH 300 MG PO (16:52)
[2024-12-21] MEDS: COLOCORT/CORTENEMA 60 ML RECTAL (21:29)
[2024-12-22] MEDS: LR 1000 IV (04:35)
[2024-12-22] MEDS: SOLU-MEDROL PF 20 MG IV ×2 (04:35→12:46)
[2024-12-22] MEDS: DILAUDID 0.5 MG IV ×3 (04:35→17:55)
[2024-12-22] MEDS: SYNTHROID 75 MCG PO (05:09)
[2024-12-22 06:38] LABS: Hematocrit 26.5 % (37.0-47.0); Hemoglobin 8.8 g/dL (12.0-16.0); Mean Corp Hgb Conc. 33.2 g/dL (33.0-37.0); Mean Corpuscular Hgb 29.3 pg (27.0-31.0); Mean Corpuscular Volume 88.3 fL (81.0-99.0); Mean Platelet Volume 9.5 fL (7.4-10.4); Platelet Count 199 10^3/uL (130-400); Red Cell Dist. Width 14.7 % (11.5-14.5); White Blood Cell Count 8.8 10^3/uL (4.8-10.8)
[2024-12-22 06:44] LABS: Quantiferon Mitogen minus NIL 0.16 IU/mL; Quantiferon NIL 0.01 IU/mL; Quantiferon TB Gold Plus Indeterminate (Negative)
[2024-12-22 06:49] LABS: Blood Urea Nitrogen 8 mg/dl (7-17); Calcium 7.9 mg/dl (8.4-10.2); Carbon Dioxide 32 mmol/L (22-30); Chloride 103 mmol/L (98-107); Estimated Creatinine Clearance 77 ml/min; Glucose 130 mg/dl (70-99); Potassium 3.8 mmol/L (3.5-5.1); Sodium 136 mmol/L (135-145); eGFR > 60.00
[2024-12-22 07:20] VITALS: BP 111/62
--- NOTE | 2024-12-22 08:34 | PN.CDI ---
CDI
- -
CDI:
Physician Documentation Request
Admit Date: 12/21/24 12:37
Dear Doctor Larry,
Please review the following and provide your response in the progress notes.
The purpose of this query is not to ensure the accuracy of the conditions reported for your patient.
Clinical Indicators:
H+P, 12/19
#Ulcerative Colitis
#Acute Blood Loss Anemia secondary to the above
PN, 12/21
#Iron deficiency anemia
#...Started IV iron
Laboratory Tests
12/19/24 12/20/24 12/21/24
19:40 05:53 06:09
Hgb 10.8 L 10.1 L 10.1 L
12/22/24
05:34
Hgb 8.8 L
Based on the above and your clinical assessment, please clarify the most likely type of anemia evaluated, monitored and/or treated?
Acute blood loss anemia
Acute blood loss anemia with baseline chronic iron deficiency anemia
Chronic iron deficiency anemia due to blood loss
Other(please specify)
Use of terms such as suspected, likely, concern for, or probable (associated with a specific diagnosis that is being evaluated, monitored, or treated as if it exists) are acceptable and can be coded in the inpatient setting, when documented at the
time of discharge.
Thank you,
Che Monahan RN BSN CCDS
CDI Specialist
Please contact via tiger text
Please use your independent medical judgment in providing your response.
[2024-12-22 08:43] LABS: Absolute Neutrophils -Man Diff 8.1 10^3/uL (1.4-6.5); Band Neutrophils 36 % (0-3); Lymphocytes 0 % (20-51); Metamyelocytes 1 % (-); Monocytes 4 % (2-9); Myelocytes 2 % (-); Segmented Neutrophils 57 % (42-75)
[2024-12-22] MEDS: PEPCID 40 MG PO (08:43)
[2024-12-22] MEDS: VITAMIN B-6 50 MG PO (08:43)
[2024-12-22 08:44] LABS: Acanthocytes 1+; Anisocytosis 1+; Hypochromasia 1+; Normal RBC Morphology No; Platelets Checked Yes; Polychromasia 1+
[2024-12-22 08:45] LABS: Total Cells Counted 100
[2024-12-22] MEDS: INH 300 MG PO (10:45)
--- NOTE | 2024-12-22 11:38 | W.PN.HOSP.TC ---
Today's Communication/Plan
-
monitor vitals
see plan
Monitor hemoglobin
Another round of Remicade per GI
Monitor further bleeding
Continue steroids
Assessment / Plan
Assessment / Plan
General: Well Developed, Well Nourished, No Apparent Distress, Comfortable and Conversant
HEENT: NormoCephalic, Moist mucous membranes, Atraumatic, [place] Conjunctivae and Nose Appears Normal
Respiratory: Clear
Cardiac: S1/S2 and Regular Rhythm
GI: Soft, Non Distended and Tender
Musculoskeletal: No Edema
Neuro: Awake, Alert, AO x 3 and Nonfocal/grossly intact
Psych: Calm and Intact Judgment/Insight
Pancolitis with suspected Ulcerative colitis
cw IV steroids
cortenema per GI
recent cscope path with colitis
pain mgmt
c.diff neg
Cx, WBC
calprotectin significantly elevated
Stop metronidazole
on low res diet
tb test pending; 1st test was equivocal. until its back recommended isoniazid, vitamin B6. received remicade 12/21; defer dosing today to GI
Suspect anemia is multifactorial secondary to acute blood loss and acute on chronic iron deficiency anemia
cw IV iron
Monitor
#Dilated bile ducts
recent MRI done; management per GI
#Diverticulosis
asymptomatic
Hyponatremia
Monitor
#Chronic L1, L2 Fx
outpatient assessment for osteoporosis
#Punctate hypodensity within the lower pole the right kidney
repeat CT in 6month
#Hypothyroidism
#Anxiety
TSH WNL
cont meds
#Hypokalemia
#hypomagnesemia
replete
DVT ppx hep
Full code
Anticipated Discharge: 24 - 48 hours
Subjective/Interval History
-
Date of Service: December 22, 2024
Denies pain
Objective Data
-
Labs:
Laboratory Results
12/22/24
05:34
WBC 8.8
Hgb 8.8 L
Hct 26.5 L
Plt Count 199
Sodium 136
Potassium 3.8
Chloride 103
Carbon Dioxide 32 H
BUN 8
Creatinine 0.6
Glucose 130 H
Calcium 7.9 L
Vital Signs:
Vital Signs
Temp Pulse Resp BP Pulse Ox
97.7 F 68 16 111/62 95
12/22/24 07:20 12/22/24 07:20 12/22/24 07:20 12/22/24 07:20 12/22/24 07:20
I&O
12/21/24 12/22/24 12/23/24
06:59 06:59 06:59
Intake Total 880 / 880 420 / 420
Balance 880 / 880 420 / 420
--- NOTE | 2024-12-22 15:08 | W.PN.GI.CBS2 ---
Addendum entered and electronically signed by Danielle King DO 12/22/24 16:50:
Patient seen and examined independently of THAD. I agree with her note with my additions below
Asia states some definite improvement since getting the Remicade yesterday
# [place] ulcerative colitis with significant flare now status post 500 mg of infliximab yesterday on 12/21/2024
She has only had 2 semiformed stools with no liquid blood
Abdominal cramping is much less. She is tolerating some low residue diet
Will drop to oral steroids tomorrow at 60 mg once daily but she needs to be on the oral steroids for couple of days before discharge as she failed discharge last time
Will continue the Jeff enemas for at least the next week
No need for mesalamine
Continued IV iron
Will follow-up with next Remicade dose in 2 weeks. Messages were already sent to our office for follow-up arrangements
# Indeterminant TB testing -on repeat also indeterminant
-- Clear chest x-ray
-- I started her on INH and B6 yesterday after talking with ID. Since her repeat testing is also indeterminant we will get them on board to help decide on any other testing or continue treatment
I discussed with her that she is high risk for DVT and I would recommend Lovenox however she wants to continue to ambulate and not take it. She is aware that she is high risk for DVT
Addendum entered and electronically signed by THAD Cortez 12/22/24 15:58:
Follow up appt made with Dr. Michel for 01/09/25 at 4 pm.
Original Note:
Today's Communication / Plan
-
Continue current plan
Assessment / Plan
-
Pt is a 69yo with hx depression, hypothyroidism, prior appe and tani, family hx IBD with onset of lower abdominal pain with bloody diarrhea for last month. She is noted with low grade fever along with nausea and vomiting. She was followed by
Kimoy at [facility] with recent OP evaluation early November. She had exam in office did not recall biopsy and was placed on Mesalamine orally with concern for ulcerative colitis. Symptoms did not improve and actually got worse with some increased
pain and low grade fever and continued bleeding with clots and urgency and due for OP colonoscopy. She presented to with continued symptoms. She was seen by GI in consultation. Stool studies 12/13 were negative. She completed
colonoscopy 12/14 with diffuse severe inflammation in entire colon with pancolitis and concern for severe ulcerative colitis with path still pending. Labs notable for calprotectin 1840, CRP up to 79.7, ESR 8. She was placed on IV steroids then oral
and plan for eventual biologic therapy with [facility] as outpatient with approval pending . Hepatitis B/C were negative and TB was indeterminate. She now returns with nausea, vomiting, and diarrhea with continued bloody stools.
Chest x-ray/abdominal x-ray 12/22/2024:
1. Nonobstructed bowel gas pattern.
2. Ahaustral appearance of the hepatic flexure and sigmoid colon, likely corresponding to the bowel wall thickening seen on recent prior CT
Impression/Plan:
# [place] ulcerative refractory to IV steroids
-- Patient needs Remicade, give 1st dose of Remicade 10 mg/kg on 12/21/24. Improvement in sx.
-- With patient's albumin being less than 3 will need 10 mg/kg Remicade, will need next dose on 01/04/25. Will send message to the office to arrange.
-- Will change to oral steroids starting tomorrow. Prednisone 60 mg daily with reduction by 10 mg every week until reaches 30 mg then reduce by 5 mg every week until finished.
-- Continue Jeff enemas for now.
-- TB testing x 2 indeterminant (12/14/24 and 12/20/24) skin test may not be valid with steroid use, hepatitis B/C neg, consider T spot OP testing. Will need ID assistance.
-- due to the indeterminant result will give treatment with INH 300mg once daily and 50mg of B6 for now, will need ID consult this admission to help with clarification.
-- Consult ID
-- Patient's hepatitis testing was negative, prior infectious workup also negative.
-- Hemoglobin dropped some currently giving IV iron, now Hgb 8.8 down from 10.1. Stools starting to improve.
-- continue nutrition, oob, DVT prophalaxis.
#Biliary Ductal dilatation
--s/p MRI/MRCP 12/16/24: Surgically absent gallbladder. Extrahepatic bile duct dilatation. The common hepatic duct measures 2.8 cm in diameter. The common bile duct measures 1.0 cm in diameter. No filling defect to suggest choledocholithiasis. Mild
central intrahepatic bile duct dilatation. The main pancreatic duct is nondilated. No findings to suggest PSC.
--cannot rule out small duct PSC without liver biopsy however, given normal LFTs, would only pursue additional workup in the future if she had unexplained persistently elevated LFTs.
--CT on admission with prior tani chronic biliary dilatation, comp deformity, and [place] proctocolitis. There is dilation of the extrahepatic bile ducts with the common bile duct measuring 1.0 cm and the common hepatic duct measuring 2.5 cm,
unchanged. There is prominence of the central intrahepatic bile ducts, unchanged. There is a small focus of gas within the common bile duct, unchanged from scan on 11/01/24.
-- Follow up with Dr. Michel as outpatient, will obtain appt for patient.
Subjective
Subjective
Date of Service: December 22, 2024
Patient felt significantly better today. Decrease in abdominal discomfort. Only with abdominal cramping just before bowel movement. Has had 2 bowel movements today. She states they are more of a 'brick color' compared to a bright red that has
been ongoing since arrival. They also have some 'substance to them'. Rather than just gelatinous. There has been a 50% decrease in her bowel movements in the past 24 hours since infusion of Remicade. She is able to tolerate diet however she has
been cautious. Hemoglobin is 8.8 down from 10.1. CRP is 74.60 down from 148.90
Objective
Data Reviewed
Laboratory Data:
Laboratory Results
12/22/24 05:34
12/22/24 05:34
Laboratory Results
Total Bilirubin 0.6 mg/dl (0.2-1.3) 12/19/24 19:40
AST 26 U/L (14-36) 12/19/24 19:40
ALT 24 U/L (0-35) 12/19/24 19:40
Alkaline Phosphatase 110 U/L (38-126) 12/19/24 19:40
Lipase 17 U/L (23-300) L 12/19/24 19:40
Vital Signs and I&O:
Vital Signs
Temp Pulse Resp BP Pulse Ox
97.7 F 68 16 111/62 95
12/22/24 07:20 12/22/24 07:20 12/22/24 07:20 12/22/24 07:20 12/22/24 07:20
I&O
12/21/24 12/22/24 12/23/24
06:59 06:59 06:59
Intake Total 880 / 880 420 / 420
Balance 880 / 880 420 / 420
Physical Exam
Physical Exam
HEENT: Anicteric
Cardiology: Normal Sinus Rhythm
Pulmonary: Clear
GI: Soft, Non Distended, Tender (Mild lower abdominal tenderness) and Normal Bowel Sounds
Extremities: No Edema
Neuro: Non Focal
[2024-12-22 15:25] VITALS: BP 114/60
[2024-12-22] MEDS: FERRLECIT 110 MG IV (15:31)
[2024-12-22] MEDS: LR IV (17:07)
[2024-12-22] MEDS: FLUSH (NSS) 2 FLUSH IV (17:55)
[2024-12-22] MEDS: COLOCORT/CORTENEMA 60 ML RECTAL (21:49)
[2024-12-22 23:20] VITALS: BP 116/64
[2024-12-22] MEDS: ZOFRAN 4 MG IV (23:40)
[2024-12-23] MEDS: DILAUDID 0.5 MG IV ×3 (01:00→19:05)
[2024-12-23 01:07] VITALS: BP 135/98
[2024-12-23] MEDS: SYNTHROID 75 MCG PO (06:28)
--- NOTE | 2024-12-23 06:36 | VATNOTE ---
PCN MADE AWARE OF PT'S C/O OF ENTIRE RUE PAIN, DIFFUSE REDNESS AND WARMTH ON INNER ASPECT OF FOREARM. ENCOURAGED PT AND PCN TO MAKE PROVIDER AWARE OF SITUATION TODAY. VAT TO FOLLOW.
--- NOTE | 2024-12-23 06:48 | W.PN.UPDATE ---
Update Note
Progress Note Update
Redness, swelling and pain to right upper extremity. Ordered Doppler U/S to evaluate for possible DVT.
[2024-12-23] MEDS: PROZAC 10 MG PO (08:14)
[2024-12-23] MEDS: INH 300 MG PO (08:14)
[2024-12-23] MEDS: PEPCID 40 MG PO (08:14)
[2024-12-23] MEDS: VITAMIN B-6 50 MG PO (08:14)
[2024-12-23] MEDS: DELTASONE 60 MG PO (08:14)
[2024-12-23] MEDS: ZOFRAN 4 MG IV (08:18)
[2024-12-23 08:22] VITALS: BP 94/51
[2024-12-23 08:31] LABS: Hematocrit 26.7 % (37.0-47.0); Hemoglobin 8.9 g/dL (12.0-16.0); Mean Corp Hgb Conc. 33.3 g/dL (33.0-37.0); Mean Corpuscular Hgb 29.5 pg (27.0-31.0); Mean Corpuscular Volume 88.4 fL (81.0-99.0); Mean Platelet Volume 9.7 fL (7.4-10.4); Platelet Count 190 10^3/uL (130-400); Red Blood Cell Count 3.02 10^6/uL (4.20-5.40); Red Cell Dist. Width 14.8 % (11.5-14.5); White Blood Cell Count 18.6 10^3/uL (4.8-10.8)
[2024-12-23 09:03] LABS: Blood Urea Nitrogen 14 mg/dl (7-17); Carbon Dioxide 31 mmol/L (22-30); Chloride 102 mmol/L (98-107); Estimated Creatinine Clearance 66 ml/min; Glucose 89 mg/dl (70-99); Potassium 3.4 mmol/L (3.5-5.1); Sodium 135 mmol/L (135-145); eGFR > 60.00
[2024-12-23 09:18] LABS: Absolute Neutrophils -Man Diff 15.9 10^3/uL (1.4-6.5); Band Neutrophils 30 % (0-3); Lymphocytes 5 % (20-51); Metamyelocytes 4 % (-); Monocytes 5 % (2-9); Segmented Neutrophils 56 % (42-75)
[2024-12-23 09:19] LABS: Acanthocytes 1+; Anisocytosis 1+; Hypochromasia 1+; Normal RBC Morphology No; Platelets Checked Yes; Polychromasia 1+; Total Cells Counted 100
--- NOTE | 2024-12-23 10:36 | W.PN.GI.CBS2 ---
Addendum entered and electronically signed by Bella Aparicio Do, MD 12/23/24 15:50:
I saw and examined the patient.
The CRIMPER ASSEMBLER's note was reviewed and I agree with the note.
Comment: Was doing well yesterday but today with more abd pain, chills and diarrhea. She does not feel well. Vitals reviewed mild hypotension. AF. Labs reviewed CRP downtrending
Impression
- Given worsening abd pain consult colorectal surgery
- Change back to IV steroids
- May consider another dose of IV remicade tomorrow
- Appreciate ID recs
- Repeat BC x2 now
- CTAP now
Will follow with you. Daughter updated
Original Note:
Today's Communication / Plan
-
as per plan
Assessment / Plan
-
Pt is a 69yo with hx depression, hypothyroidism, prior appe and tani, family hx IBD with onset of lower abdominal pain with bloody diarrhea for last month. She is noted with low grade fever along with nausea and vomiting. She was followed by
Jeffrey at [facility] with recent OP evaluation early November. She had exam in office did not recall biopsy and was placed on Mesalamine orally with concern for ulcerative colitis. Symptoms did not improve and actually got worse with some increased
pain and low grade fever and continued bleeding with clots and urgency and due for OP colonoscopy. She presented to with continued symptoms. She was seen by GI in consultation. Stool studies 12/13 were negative. She completed
colonoscopy 12/14 with diffuse severe inflammation in entire colon with pancolitis and concern for severe ulcerative colitis with path still pending. Labs notable for calprotectin 1840, CRP up to 79.7, ESR 8. She was placed on IV steroids then oral
and plan for eventual biologic therapy with [facility] as outpatient with approval pending . Hepatitis B/C were negative and TB was indeterminate. She now returns with nausea, vomiting, and diarrhea with continued bloody stools.
Chest x-ray/abdominal x-ray 12/22/2024:
1. Nonobstructed bowel gas pattern.
2. Ahaustral appearance of the hepatic flexure and sigmoid colon, likely corresponding to the bowel wall thickening seen on recent prior CT
Impression/Plan:
# [place] ulcerative refractory to IV steroids
-- Patient needs Remicade, give 1st dose of Remicade 10 mg/kg on 12/21/24. Improvement in sx yesterday however with increased and rectal bleeding overnight.
-- With patient's albumin being less than 3 will need 10 mg/kg Remicade, will need next dose on 01/04/25. Message sent to the office to arrange
-- Stopped IV Solu-Medrol last evening. Changed to prednisone 60 mg daily with plan reduction by 10 mg every week until reaches 30 mg then reduce by 5 mg every week until finished.
-- However with current increase in symptoms we will stop p.o. steroids and restart IV Solu-Medrol 20 mg Q8 at 2 PM.
-- Continue Jeff enemas for now.
-- TB testing x 2 indeterminant (12/14/24 and 12/20/24) skin test may not be valid with steroid use, hepatitis B/C neg, consider T spot OP testing. Will need ID assistance.
-- due to the indeterminant result will give treatment with INH 300mg once daily and 50mg of B6 for now, will need ID consult this admission to help with clarification.
-- Consult ID, discussed with ID yesterday. They will be seeing today.
-- Patient's hepatitis testing was negative, prior infectious workup also negative.
-- Hemoglobin dropped some currently giving IV iron, now Hgb 8.9 stable from 8.8.
-- Patient with hypotension. Off IV fluids. Will give 500 cc lactated ringer bolus now. Discussed with medicine attending for follow-up IV fluid.
-- Will consult colorectal surgery
-- continue nutrition, DVT prophalaxis, patient wishes to have SCDs. Discussed in the past about DVT prophylaxis and would prefer chemical prophylaxis. As patient is high risk.
#Biliary Ductal dilatation
--s/p MRI/MRCP 12/16/24: Surgically absent gallbladder. Extrahepatic bile duct dilatation. The common hepatic duct measures 2.8 cm in diameter. The common bile duct measures 1.0 cm in diameter. No filling defect to suggest choledocholithiasis. Mild
central intrahepatic bile duct dilatation. The main pancreatic duct is nondilated. No findings to suggest PSC.
--cannot rule out small duct PSC without liver biopsy however, given normal LFTs, would only pursue additional workup in the future if she had unexplained persistently elevated LFTs.
--CT on admission with prior tani chronic biliary dilatation, comp deformity, and [place] proctocolitis. There is dilation of the extrahepatic bile ducts with the common bile duct measuring 1.0 cm and the common hepatic duct measuring 2.5 cm,
unchanged. There is prominence of the central intrahepatic bile ducts, unchanged. There is a small focus of gas within the common bile duct, unchanged from scan on 11/01/24.
-- Follow up with Dr. Michel, outpatient appointment arranged and documented in discharge.
Subjective
Subjective
Date of Service: December 23, 2024
Patient had some increase in symptoms overnight. She had 3 episodes of bloody bowel movements overnight. She also had some abdominal cramping. Hemoglobin is essentially the same however she did spike a white count of 18.6. Temp 99.1 and blood
pressure is low 94/51. We did stop IV steroids last night (Solu-Medrol 20 mg IV every 8 hours) and she was placed on prednisone 60 mg p.o. this morning which she already received. Patient still continues on hydrocortisone enemas. She has some mild
nausea this morning as well.
Objective
Data Reviewed
Laboratory Data:
Laboratory Results
12/23/24 07:52
12/23/24 07:52
Laboratory Results
Total Bilirubin 0.6 mg/dl (0.2-1.3) 12/19/24 19:40
AST 26 U/L (14-36) 12/19/24 19:40
ALT 24 U/L (0-35) 12/19/24 19:40
Alkaline Phosphatase 110 U/L (38-126) 12/19/24 19:40
Lipase 17 U/L (23-300) L 12/19/24 19:40
Vital Signs and I&O:
Vital Signs
Temp Pulse Resp BP Pulse Ox
98.4 F 90 18 94/51 97
12/23/24 08:22 12/23/24 08:22 12/23/24 08:22 12/23/24 08:22 12/23/24 08:22
I&O
12/22/24 12/23/24 12/24/24
06:59 06:59 06:59
Intake Total 420 / 420 2049
Balance 420 / 420 2049
Physical Exam
Physical Exam
HEENT: Anicteric
Cardiology: Normal Sinus Rhythm
Pulmonary: Clear
GI: Soft, Non Distended, Tender (Mild diffuse tenderness) and Normal Bowel Sounds
Extremities: No Edema
Neuro: Non Focal
[2024-12-23] MEDS: LR 500 IV (12:20)
--- NOTE | 2024-12-23 13:46 | W.PN.HOSP.TC ---
Today's Communication/Plan
-
Monitor vital signs see plan
Repeat H&H later today
IV steroids restarted
Remicade per GI
Monitor leukocytosis
Assessment / Plan
Assessment / Plan
General: Well Developed, Well Nourished, No Apparent Distress, Comfortable and Conversant
HEENT: NormoCephalic, Moist mucous membranes, Atraumatic, [place] Conjunctivae and Nose Appears Normal
Respiratory: Clear
Cardiac: S1/S2 and Regular Rhythm
GI: Soft, Non Distended and Tender
Musculoskeletal: No Edema
Neuro: Awake, Alert, AO x 3 and Nonfocal/grossly intact
Psych: Calm and Intact Judgment/Insight
Pancolitis with suspected Ulcerative colitis
Overnight developed bloody bowel movement along with abdominal pain
Now started back on IV steroids
Plan for Remicade tomorrow
cortenema per GI
recent cscope path with colitis
pain mgmt
c.diff neg
Cx, WBC
calprotectin significantly elevated
Second TB test also indeterminate. ID consulted, recommended isoniazid, vitamin B6. received remicade 12/21
GI also consulted colorectal surgery for evaluation
Suspect anemia is multifactorial secondary to acute blood loss and acute on chronic iron deficiency anemia
cw IV iron
Monitor
Superficial venous thrombosis involving the cephalic vein
warm compresses
monitor
Hypokalemia
Replete
#Dilated bile ducts
recent MRI done; management per GI
#Diverticulosis
asymptomatic
Hyponatremia
Monitor
#Chronic L1, L2 Fx
outpatient assessment for osteoporosis
#Punctate hypodensity within the lower pole the right kidney
repeat CT in 6month
#Hypothyroidism
#Anxiety
TSH WNL
cont meds
#Hypokalemia
#hypomagnesemia
DVT ppx SCD's; patient refused pharm prophylaxis
Full code
I spent a total of 52 minutes with the patient or on the floor. More than 50% of this time involved counseling and coordination of care.
Anticipated Discharge: > 48 hours
Subjective/Interval History
-
Date of Service: December 23, 2024
Develop more bloody bowel movement overnight along with abdominal pain
Objective Data
-
Labs:
Laboratory Results
12/23/24 12/23/24
07:52 13:28
WBC 18.6 H
Hgb 8.9 L Pending
Hct 26.7 L Pending
Plt Count 190
Sodium 135
Potassium 3.4 L
Chloride 102
Carbon Dioxide 31 H
BUN 14
Creatinine 0.7
Glucose 89
Calcium 8.0 L
Vital Signs:
Vital Signs
Temp Pulse Resp BP Pulse Ox
98.4 F 90 18 94/51 97
12/23/24 08:22 12/23/24 08:22 12/23/24 08:22 12/23/24 08:22 12/23/24 08:22
I&O
12/22/24 12/23/24 12/24/24
06:59 06:59 06:59
Intake Total 420 / 420 2049
Balance 420 / 420 2049
[2024-12-23 13:50] LABS: Hemoglobin 8.3 g/dL (12.0-16.0)
--- NOTE | 2024-12-23 13:55 | CON.ID ---
Consultation
-
Date/Time Consultation Requested: 12/22/24 15:54
Date/Time Consultation Performed: 12/23/24 13:55
Requesting Provider: ABI Silverman
Performing Provider: Dr Merida
Reason for Consultation: indeterminent Quant gold x 2, needs on going Remicade
Chief Complaint / Past History
Chief Complaint
abdominal pain
History of Present Illness
Ms Lee is a 69 year old female with family history of IBD who presented here 12/20 for abdominal pain and bloody diarrhea for about 1 month with 'low grade' fever, nausea, vomiting, about 10 lbs unintentional weight loss. She was seen
outpatient by Dr Murphy at [facility] and started mesalamine for possible UC however with progression of pain, fevers, clots and urgency. Outpatient colonoscopy was done 12/14 showing severe pancolitis, calprotectin 1840, CRP up to 79.7, ESR 8. STarted
IV steroids then transitioned to oral planned for [facility]. Hepatitis B/C were negative and TB was indeterminate. She returned for ongoing nausea, vomiting, bloody diarrhea.
She has lived within the [place] her entire life, no long stays outside of the country. No known exposure to active pulmonary TB. No chronic fevers, chills, cough. She has had about 10 lbs of unintentional weight loss in the context of IBD flare. No
significant exposure to unhoused persons or incarcerated persons. 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
Since arrival here she has been afebrile, bp overall stable, wbc generally in the teens, hgb 10.8 on arrival 8.3 today, plt 190, L shift is noted, cr 0.7, crp peaked at 148 now 60, 12/13 stool calprotectin 1800, QFT gold indeterminant x2, CXR without
infiltrates. She was not improving with IV soluemdrol and it was determined that she required inpatient remicade, because QFT gold was indeterminant x2 she was started on empiric INH/B6 and we will get outpatient T-spot from [facility]. ID is consulted
for assistance with management.
Past History
Additional Past Medical History:
Hypothyroidism
Depression
ulcerative colitis
Past Surgical History: Reports Other
Additional Past Surgical History:
Cholecystectomy
Appendectomy
Additional Past Surgical History:
Cholecystectomy
Appendectomy
Allergy History:
No Known Allergies Allergy (Verified 12/19/24 18:27)
Medications Reviewed: Yes
Social History
Tobacco: Former Smoker
Alcohol: Occasional
Employment: Employed
Family History
Family History: Not Pertinent
Review of Systems
Review of Systems
General: Negative Fever or Chills
All systems: All other systems were reviewed and were negative
Vital Signs
Temp Pulse Resp BP Pulse Ox
98.4 F 90 18 94/51 97
12/23/24 08:22 12/23/24 08:22 12/23/24 08:22 12/23/24 08:22 12/23/24 08:22
Physical Exam
Physical Exam
Constitutional: No Acute Distress and Acutely Ill
Cardiovascular: Regular Rate and S1/S2; Negative Murmur or Rub
Pulmonary: Clear and Symmetric; Negative Wheezes, Rales or Rhonchi
Gastrointestinal: Soft, Tender (with very light touch), Non Distended and Normal Bowel Sounds
Skin: Warm and Dry; Negative Rash or Jaundice
Neurological: Awake
Lab / Diagnostic Study Results
12/23/24 13:28
12/23/24 07:52
Total Counted 100 12/23/24 07:52
Abs Neuts (Manual) 15.9 10^3/uL (1.4-6.5) H 12/23/24 07:52
Segmented Neutrophils 56 % (42-75) 12/23/24 07:52
Band Neutrophils 30 % (0-3) H D 12/23/24 07:52
Lymphocytes (Manual) 5 % (20-51) L 12/23/24 07:52
Eosinophils (Manual) 1 % (0-6) 12/19/24 19:40
C-Reactive Protein 60.40 mg/L (0.0-10.00) H 12/23/24 07:52
Assessment / Plan
Pancolitis
Need for Immunosuppression - now on Remicaide
Indeterminant TB status
- QFT gold indeterminant x2
- recent high dose steroids were necessary for pancolitis do limit utility of the PPD
- T-spot is available outpatient at [facility] - provided script to patient
- CXR is clear, no symptoms to suggest active pulmonary TB and she doesnt report any significant contacts
- agree with INH/B6 pending T-spot - could provide a two week script on dc
- follow up in the ID clinic in about 2 weeks will be arranged by our office
consultation required management of specialized evaluations (management of indeterminant qft gold) for possible TB infection and need for immunosuppression.
--- NOTE | 2024-12-23 14:11 | CON.CRS ---
Consultation
-
Date/Time Consultation Requested: 12/23/2024, 10:51
Date/Time Consultation Performed: 12/23/2024, 15:30
Requesting Provider: Renate Emanuel
Performing Provider: Kenney Ham MD
Reason for Consultation: ulcerative colitis
Medical History
-
Chief Complaint: abdominal pain
History of Present Illness:
69-year-old female with a past medical history of ulcerative colitis recently admitted from 12/12/2024 to 12/18/2024, presents to [facility] on 12/19/2024 complaining of abdominal pain, nausea, vomiting, and diarrhea. The patient had been
recently diagnosed with ulcerative proctitis by Dr. Ramírez at [facility] after an in office anoscopy was performed. She initially was started on oral mesalamine without improvement. She was supposed to have a full colonoscopy on 12/13/2024 but
was unable to complete it due to abdominal pain. She was diagnosed with lynn ulcerative colitis while hospitalized at her last admission. She was placed on IV steroids and then converted to oral. She underwent a colonoscopy while admitted on December
with our GI group which showed severe pancolitis. Fecal calprotectin was over 1800 and her CRP was 79. She was discharged but due to abdominal pain was readmitted on 12 19. She was started on IV steroids but has not improved much. She received
her first dose of Remicade 10 mg on 12/21/2024. She had some improvement in her symptoms yesterday but had increased rectal bleeding overnight. She was converted to p.o. prednisone this morning on a taper. However, given her symptoms, IV
Solu-Medrol has been restarted today. Her last imaging was on 12/16/2024 which was an MRI of the abdomen without contrast which showed diffuse wall thickening of the colon compatible with a pancolitis. Her WBC is up today 18.6 from 8.8. C-reactive
protein today is 16.4 from 74.6. She has remained afebrile. Currently a CT of the abdomen and pelvis is pending. Given her worsening symptoms, we have been consulted for further surgical recommendation.
Past Medical History
Past Medical History: Other ( hypothyroidism, depression, ulcerative colitis)
Past Surgical History: Appendectomy and Cholecystectomy
Social History
Tobacco: Former Smoker
Alcohol: Occasional
Family History
Family History: Other (Father with Crohn's disease, brother with ulcerative colitis)
Allergies / Home Medications
Allergy/AdvReac Type Severity Reaction Status Date / Time
No Known Allergies Allergy Verified 12/19/24 18:27
�Medication �Instructions �Recorded �Confirmed �Type
fluoxetine 10 mg tablet 10 mg PO Q48H Mental Health/Anxiety 12/12/24 12/20/24 History
levothyroxine 75 mcg tablet 75 mcg PO DAILY Thyroid 12/12/24 12/19/24 History
mesalamine 800 mg tablet,delayed 2,400 mg PO BID Gastrointestinal 12/12/24 12/13/24 History
release Issue
famotidine 40 mg tablet 40 mg PO DAILY #60 tabs 12/18/24 12/20/24 Rx
hydrocortisone 100 mg/60 mL enema 100 mg (60 mL) OH BID #1,260 mL 12/18/24 12/19/24 Rx
prednisone 20 mg tablet 40 mg (2 x 20 mg) PO DAILY #30 tabs 12/18/24 12/19/24 Rx
Review of Systems
-
History Source: Patient
Abdomen/GI: Abdominal Pain, Nausea, Vomiting and Diarrhea
A 10 point review of systems was completed, and was negative except as per HPI.
Physical Exam
Vital Signs
Temp 98.4 F 12/23/24 08:22
Pulse 90 12/23/24 08:22
Resp Rate 18 12/23/24 08:22
Blood pressure 94/51 12/23/24 08:22
SaO2 97 12/23/24 08:22
Body Mass Index (BMI) 21.8
Lab Results / Allergies
12/23/24 13:28
12/23/24 07:52
WBC 18.6 10^3/uL (4.8-10.8) H 12/23/24 07:52
Hgb 8.3 g/dL (12.0-16.0) L 12/23/24 13:28
Hct 25.0 % (37.0-47.0) L 12/23/24 13:28
Plt Count 190 10^3/uL (130-400) 12/23/24 07:52
Allergy/AdvReac Type Severity Reaction Status Date / Time
No Known Allergies Allergy Verified 12/19/24 18:27
Physical Exam
General: Well Developed, Well Nourished and No Apparent Distress
GI: Soft, Non Distended and Tender (LLQ- moderate, mild RLQ)
Skin: Warm and Dry
Neuro: AO x 3
Data Reviewed
-
CT Scan: Image Personally Visualized and interpreted, Report Reviewed by me and Discussed with Patient
Labs: Labs Reviewed by me, Discussed with Physician and Discussed with Patient
Old Records: Reviewed
Assessment / Plan
-
Assessment: 69-year-old female with a new diagnosis of ulcerative colitis presents to [facility] on 12/19/2024 after recent discharge on 12/18/2024 complaining of abdominal pain, nausea vomiting and diarrhea. She had some improvement with IV
steroids and had her first dose of Remicade 2 days ago. Her pain has increased today and she now has a leukocytosis of 18.6.
Plan:
- CT abdomen and pelvis pending
- Trend CRP
- Trend WBC
- Remicade and steroids per GI, converting back to IV this afternoon
- Plans to follow
[2024-12-23] MEDS: SOLU-MEDROL PF 20 MG IV ×2 (14:44→21:21)
[2024-12-23] MEDS: FERRLECIT 110 MG IV (14:44)
[2024-12-23 15:53] VITALS: BMI 21.8
[2024-12-23] MEDS: NORMOSOL-R/PLASMALYTE-A 1000 IV (16:09)
[2024-12-23 16:19] VITALS: BP 99/56
[2024-12-23] MEDS: COLOCORT/CORTENEMA 60 ML RECTAL (21:21)
[2024-12-23] MEDS: NSS 500 IV (21:21)
[2024-12-23 23:23] VITALS: BP 106/51
[2024-12-24] MEDS: NORMOSOL-R/PLASMALYTE-A 1000 IV ×2 (03:13→19:43)
[2024-12-24] MEDS: SYNTHROID 75 MCG PO (05:00)
[2024-12-24] MEDS: ZOFRAN 4 MG IV ×2 (05:00→19:30)
[2024-12-24] MEDS: SOLU-MEDROL PF 20 MG IV ×3 (05:00→23:06)
[2024-12-24] MEDS: DILAUDID 0.5 MG IV ×5 (05:00→23:16)
[2024-12-24 07:06] LABS: Hematocrit 22.7 % (37.0-47.0); Hemoglobin 7.5 g/dL (12.0-16.0); Mean Corpuscular Hgb 29.4 pg (27.0-31.0); Mean Platelet Volume 10.1 fL (7.4-10.4); Platelet Count 151 10^3/uL (130-400); Red Blood Cell Count 2.55 10^6/uL (4.20-5.40); Red Cell Dist. Width 15.1 % (11.5-14.5)
[2024-12-24 07:32] LABS: ALT (SGPT) 15 U/L (0-35); AST (SGOT) 16 U/L (14-36); Albumin 1.7 g/dl (3.5-5.0); Alkaline Phosphatase 78 U/L (38-126); Blood Urea Nitrogen 11 mg/dl (7-17); Calcium 7.5 mg/dl (8.4-10.2); Carbon Dioxide 28 mmol/L (22-30); Chloride 103 mmol/L (98-107); Estimated Creatinine Clearance 77 ml/min; Glucose 122 mg/dl (70-99); Potassium 3.7 mmol/L (3.5-5.1); Sodium 135 mmol/L (135-145); Total Bilirubin 0.4 mg/dl (0.2-1.3); Total Protein 3.9 g/dl (6.3-8.2); eGFR > 60.00
[2024-12-24 07:35] VITALS: BP 112/63
[2024-12-24 09:06] LABS: Absolute Neutrophils -Man Diff 9.5 10^3/uL (1.4-6.5); Band Neutrophils 50 % (0-3); Segmented Neutrophils 45 % (42-75)
[2024-12-24 09:07] LABS: Lymphocytes 5 % (20-51)
[2024-12-24 09:08] LABS: Anisocytosis 1+; Hypochromasia 1+; Microcytosis 2+; Normal RBC Morphology No; Platelets Checked Yes; Total Cells Counted 100
[2024-12-24] MEDS: INH 300 MG PO (09:16)
[2024-12-24] MEDS: PEPCID 40 MG PO (09:16)
[2024-12-24] MEDS: VITAMIN B-6 50 MG PO (09:17)
--- NOTE | 2024-12-24 09:34 | W.PN.CRS1 ---
Today's Communication / Plan
-
Follow on clears
Assessment/Plan
-
Assessment: 69-year-old female with a new diagnosis of ulcerative colitis with abdominal pain, nausea vomiting and diarrhea. She had some improvement with IV steroids and now Remicade. Her pain increased yesterday, but she notes she feels better
s/p downgrading diet to clears and passing a BM after enema, she does note hematochezia with stool yesterday.
AFVSS
Leukocytosis resolved
Pain improved, tolerating clears
CT from 12/23 with persistent lynn proctocolitis
Poor PO intake/nutrition for the past 2 weeks with albumin of 1.7
Plan:
- Continue clears, pain improving with bowel rest
- Trend CRP, labs
- [facility] following with us, will check nutritional labs in AM and tentatively initiate TPN
- Remicade and steroids per GI
- Will follow
Subjective Data
Subjective Data
Date of Service: December 24, 2024
Patient seen and examined at bedside with Dr. Philip. Kerns n/v. Tolerating diet. Pain improved. Notes that she had a bloody bm s/p enema yesterday.
Objective Data
-
Vital Signs
Temp Pulse Resp BP Pulse Ox
97.8 F 83 18 112/63 93
12/24/24 07:35 12/24/24 07:35 12/24/24 07:35 12/24/24 07:35 12/24/24 07:35
Intake & Output
12/23/24 12/24/24 12/25/24
06:59 06:59 06:59
Intake Total 2049 1390 / 1390
Balance 2049 1390 / 1390
Intake:
Oral fluids 1140 / 1140 480 / 480
IV fluids (Total) 800 / 800 800 / 800
IV piggybacks 110 / 110 / 110
Other:
Number of approximated MODERATE 4 1
amounts of urine
Number of unmeasured liquid
stools
Rectum 4
Lab Results
12/24/24 05:46
Physical Exam
-
General: No Acute Distress
HEENT: Grossly Normal
Abdomen: Soft, Non Distended and Tender (mild to LLQ)
Skin: Warm and Dry
--- NOTE | 2024-12-24 11:10 | W.PN.GI.CBS2 ---
Today's Communication / Plan
-
C/w abx
Repeat BC
Hold on additional doses of remicade today given bacteremia
Agree with transfusion
Assessment / Plan
-
Asia is a 69yo with hx depression, hypothyroidism, prior appe and tani, family hx IBD with onset of lower abdominal pain with bloody diarrhea for last month. She is noted with low grade fever along with nausea and vomiting. She was followed by
Dr. Murphy at [facility] with recent OP evaluation early November. She had exam in office did not recall biopsy and was placed on Mesalamine orally with concern for ulcerative colitis. Symptoms did not improve and actually got worse with some
increased pain and low grade fever and continued bleeding with clots and urgency and due for OP colonoscopy. She presented to with continued symptoms. She was seen by GI in consultation. Stool studies 12/13 were negative. She completed
colonoscopy 12/14 with diffuse severe inflammation in entire colon with pancolitis and concern for severe ulcerative colitis with path still pending. Labs notable for calprotectin 1840, CRP up to 79.7, ESR 8. She was placed on IV steroids then oral
and plan for eventual biologic therapy with [facility] as outpatient with approval pending . Hepatitis B/C were negative and TB was indeterminate. She now returns with nausea, vomiting, and diarrhea with continued bloody stools.
Chest x-ray/abdominal x-ray 12/22/2024:
1. Nonobstructed bowel gas pattern.
2. Ahaustral appearance of the hepatic flexure and sigmoid colon, likely corresponding to the bowel wall thickening seen on recent prior CT
Impression/Plan:
# [place] ulcerative refractory to IV steroids
# Bacteremia 12/23
# Iron def anemia
# Chronic biliary ductal dilation
Normal LFTs
Recommendations
- S/p Remicade 10mg/kg first dose on 12/21/24
- C/w IV steroids did not tolerate oral pred yesterday
- Colorectal consulted given her abd pain and concern if she does not respond to medical therapies may need surgery
- CT abdomen/pelvis 12/23 with slight interval improvement
- C/w megan enemas
- TB testing x 2 indeterminant (12/14/24 and 12/20/24) appreciate ID recs
- C/w IV iron
- C/w SCD and OOB
- C/w abx repeat BC
Will follow with you
Subjective
Subjective
Date of Service: December 24, 2024
She appears much improved this AM. Still with abd pain but less. No further chills. No appetite not interested in CLD
Objective
Data Reviewed
Laboratory Data:
Laboratory Results
12/24/24 05:46
Laboratory Results
Total Bilirubin 0.4 mg/dl (0.2-1.3) 12/24/24 05:46
AST 16 U/L (14-36) 12/24/24 05:46
ALT 15 U/L (0-35) 12/24/24 05:46
Alkaline Phosphatase 78 U/L (38-126) 12/24/24 05:46
Lipase 17 U/L (23-300) L 12/19/24 19:40
Vital Signs and I&O:
Vital Signs
Temp Pulse Resp BP Pulse Ox
97.8 F 83 18 112/63 93
12/24/24 07:35 12/24/24 07:35 12/24/24 07:35 12/24/24 07:35 12/24/24 07:35
I&O
12/23/24 12/24/24 12/25/24
06:59 06:59 06:59
Intake Total 2049 1390 / 1390
Balance 2049 139 / 139
Physical Exam
Physical Exam
GEN: No acute distress, conversant, pleasant
HEENT: anicteric, extraocular movements intact, clear oropharynx without exudates
GI: soft, non-distended, diffusely tender to palpation, normal active bowel sounds, no hepatosplenomegaly
EXT: warm, well perfused, trace edema bilaterally
NEURO: AAOx3, non-focal
[2024-12-24] MEDS: UNASYN IV ×3 (11:43→23:25)
--- NOTE | 2024-12-24 12:34 | W.PN.HOSP.TC ---
Today's Communication/Plan
-
Monitor vital signs see plan
Transfuse 1 unit of blood today
Monitor hemoglobin
UA
Monitor renal function
Started Unasyn
Repeat blood culture tomorrow
Continue clears
Assessment / Plan
Assessment / Plan
General: Well Developed, Well Nourished, No Apparent Distress, Comfortable and Conversant
HEENT: NormoCephalic, Moist mucous membranes, Atraumatic, [place] Conjunctivae and Nose Appears Normal
Respiratory: Clear
Cardiac: S1/S2 and Regular Rhythm
GI: Soft, Non Distended and Tender
Musculoskeletal: No Edema
Neuro: Awake, Alert, AO x 3 and Nonfocal/grossly intact
Psych: Calm and Intact Judgment/Insight
Pancolitis with suspected Ulcerative colitis
Bacteremia likely secondary to above with possible translocation
2 out of 2 blood culture positive for Gram negative bacilli, repeat culture 12/25. Start Unasyn, discussed with ID
Overnight developed bloody bowel movement along with abdominal pain
Now started back on IV steroids
Hold off on further Remicade given bacteremia, discussed with GI
cortenema per GI
recent cscope path with colitis
pain mgmt
on clears
calprotectin significantly elevated
Second TB test also indeterminate. ID following, recommended isoniazid, vitamin B6. received remicade 12/21
colorectal following
Suspect anemia is multifactorial secondary to acute blood loss and acute on chronic iron deficiency anemia
cw IV iron
Monitor
Transfuse 1 unit PRBC 12/24
Decrease in urine output
Increase fluids, monitor
Bladder scan
Superficial venous thrombosis involving the cephalic vein
warm compresses
monitor
Hypokalemia
Replete
#Dilated bile ducts
recent MRI done; management per GI
#Diverticulosis
asymptomatic
Hyponatremia
Monitor
#Chronic L1, L2 Fx
outpatient assessment for osteoporosis
#Punctate hypodensity within the lower pole the right kidney
repeat CT in 6month
#Hypothyroidism
#Anxiety
TSH WNL
cont meds
#Hypokalemia
#hypomagnesemia
DVT ppx SCD's; patient refused pharm prophylaxis
Full code
I spent a total of 52 minutes with the patient or on the floor. More than 50% of this time involved counseling and coordination of care.
Anticipated Discharge: > 48 hours
Subjective/Interval History
-
Date of Service: December 24, 2024
Still having some bloody bowel movement
Objective Data
-
Labs:
Laboratory Results
12/24/24 12/24/24
05:46 13:00
WBC 10.0
Hgb 7.5 L Pending
Hct 22.7 L Pending
Plt Count 151 D
Sodium 135
Potassium 3.7
Chloride 103
Carbon Dioxide 28
BUN 11
Creatinine 0.5 L
Glucose 122 H
Calcium 7.5 L
Total Bilirubin 0.4
AST 16
ALT 15
Alkaline Phosphatase 78
Vital Signs:
Vital Signs
Temp Pulse Resp BP Pulse Ox
97.8 F 83 18 112/63 93
12/24/24 07:35 12/24/24 07:35 12/24/24 07:35 12/24/24 07:35 12/24/24 07:35
I&O
12/23/24 12/24/24 12/25/24
06:59 06:59 06:59
Intake Total 2049 1390 / 1390
Balance 2049 1390 / 1390
--- NOTE | 2024-12-24 12:47 | W.PN.ID1 ---
Date of Service
Date of Service: December 24, 2024
Today's Communication
unasyn
Assessment / Plan
E coli Bacteremia
- likely translocation
- repeat blood cultures x2 tomorrow AM
- agree with unasyn
Pancolitis
Need for Immunosuppression - now on Remicaide
Indeterminant TB status
- QFT gold indeterminant x2
- recent high dose steroids were necessary for pancolitis do limit utility of the PPD
- T-spot is available outpatient at [facility] - provided script to patient
- CXR is clear, no symptoms to suggest active pulmonary TB and she doesnt report any significant contacts
- agree with INH/B6 pending T-spot - could provide a two week script on dc
- follow up in the ID clinic in about 2 weeks will be arranged by our office
consultation required management of antibiotics, interdisciplinary discussion of management
Chief Complaint
-: Bacteremia
Subjective / Review of Systems
afebrile
bp stable
notified of bacteremia and started on unasyn
abdomen remains quite tender
Vital Signs / Physical Exam
Vital Signs
Vital Signs
Temp Pulse Resp BP Pulse Ox
97.8 F 83 18 112/63 93
12/24/24 07:35 12/24/24 07:35 12/24/24 07:35 12/24/24 07:35 12/24/24 07:35
Physical Exam
Constitutional: No Acute Distress
Cardiovascular: Regular Rate and S1/S2; Negative Murmur or Rub
Pulmonary: Clear and Symmetric; Negative Wheezes or Rales
Gastrointestinal: Soft, Tender (with minimal touch), Non Distended and Normal Bowel Sounds
Skin: Warm and Dry; Negative Rash or Jaundice
Neurological: Awake
Objective Data
Lab Data
Lab Results
12/24/24 05:46
Estimated Creat Clear 77 ml/min 12/24/24 05:46
Total Bilirubin 0.4 mg/dl (0.2-1.3) 12/24/24 05:46
AST 16 U/L (14-36) 12/24/24 05:46
ALT 15 U/L (0-35) 12/24/24 05:46
Alkaline Phosphatase 78 U/L (38-126) 12/24/24 05:46
C-Reactive Protein 127.70 mg/L (0.0-10.00) H 12/24/24 05:46
Most recent labs reviewed.
Micro Results:
12/23/24 14:50 Blood Culture - Preliminary
Blood/Venous Escherichia coli
Gram Stain - Preliminary
12/23/24 15:09 Blood Culture - Preliminary
Blood/Venous Positive culture in progress
Gram Stain - Preliminary
Care Review
Plan reviewed with: Physician (Dr Juarez - recommended unasyn)
[2024-12-24 13:59] VITALS: BP 120/59
[2024-12-24 14:24] VITALS: BP 112/59
[2024-12-24 14:49] LABS: Urine Albumin 1+ (Neg - Trace); Urine Bilirubin Negative (Negative); Urine Character Clear (Clear); Urine Color Yellow; Urine Glucose Negative (Negative); Urine Ketone Negative (Negative); Urine Leukocyte Negative (Negative); Urine Nitrite Negative (Negative); Urine Occult Blood 1+ (Negative); Urine Specific Gravity 1.015 (<1.030); Urine Urobilinogen Negative (Neg - 1+)
[2024-12-24 14:57] LABS: Urine Bacteria Few (Negative); Urine Red Blood Cell 0-2 /HPF (0-2)
[2024-12-24 15:26] VITALS: BP 116/57
[2024-12-24 17:48] VITALS: BP 123/66
[2024-12-24] MEDS: FERRLECIT 110 MG IV (18:15)
[2024-12-24] MEDS: NORMOSOL-R/PLASMALYTE-A IV (19:43)
--- NOTE | 2024-12-24 20:25 | SUR.OPER ---
Pt refusing second blood culture to be drawn.
[2024-12-24 20:37] LABS: Hematocrit 24.2 % (37.0-47.0); Hemoglobin 8.4 g/dL (12.0-16.0)
[2024-12-24] MEDS: COLOCORT/CORTENEMA RECTAL (22:01)
[2024-12-24 23:30] VITALS: BP 109/57
[2024-12-25] MEDS: DILAUDID 0.5 MG IV ×5 (04:21→20:45)
[2024-12-25] MEDS: UNASYN IV ×4 (04:27→22:21)
[2024-12-25] MEDS: NORMOSOL-R/PLASMALYTE-A 1000 IV ×3 (04:31→21:46)
[2024-12-25] MEDS: SYNTHROID 75 MCG PO (06:01)
[2024-12-25] MEDS: SOLU-MEDROL PF 20 MG IV ×3 (06:03→22:12)
[2024-12-25 06:49] LABS: Hematocrit 24.8 % (37.0-47.0); Hemoglobin 8.2 g/dL (12.0-16.0); Mean Corp Hgb Conc. 33.1 g/dL (33.0-37.0); Mean Corpuscular Hgb 28.5 pg (27.0-31.0); Mean Corpuscular Volume 86.1 fL (81.0-99.0); Mean Platelet Volume 10.6 fL (7.4-10.4); Platelet Count 152 10^3/uL (130-400); Red Blood Cell Count 2.88 10^6/uL (4.20-5.40); Red Cell Dist. Width 15.4 % (11.5-14.5); White Blood Cell Count 8.9 10^3/uL (4.8-10.8)
[2024-12-25 06:58] LABS: ALT (SGPT) 14 U/L (0-35); AST (SGOT) 15 U/L (14-36); Albumin 1.7 g/dl (3.5-5.0); Alkaline Phosphatase 74 U/L (38-126); Blood Urea Nitrogen 9 mg/dl (7-17); Calcium 7.4 mg/dl (8.4-10.2); Carbon Dioxide 28 mmol/L (22-30); Chloride 105 mmol/L (98-107); Direct Bilirubin 0.3 mg/dl (0.0-0.4); Estimated Creatinine Clearance 77 ml/min; Glucose 116 mg/dl (70-99); Magnesium 2.2 mg/dl (1.6-2.3); Phosphorus 3.1 mg/dl (2.5-4.5); Potassium 3.8 mmol/L (3.5-5.1); Sodium 135 mmol/L (135-145); Total Bilirubin 0.6 mg/dl (0.2-1.3); Total Protein 3.9 g/dl (6.3-8.2); Triglycerides 120 mg/dl (10-149); eGFR > 60.00
[2024-12-25 07:07] LABS: Prealbumin (Transthyretin) 8.2 mg/dl (17.6-36.0)
[2024-12-25] MEDS: VITAMIN B-6 50 MG PO (07:42)
[2024-12-25] MEDS: PEPCID 40 MG PO (07:42)
[2024-12-25] MEDS: PROZAC 10 MG PO (07:47)
[2024-12-25] MEDS: INH 300 MG PO (07:47)
[2024-12-25 07:55] VITALS: BP 99/45
[2024-12-25] MEDS: FLUSH (NSS) 1 FLUSH IV ×2 (08:34→12:45)
[2024-12-25 11:37] LABS: Absolute Neutrophils -Man Diff 8.3 10^3/uL (1.4-6.5); Band Neutrophils 26 % (0-3); Lymphocytes 1 % (20-51); Metamyelocytes 2 % (-); Monocytes 3 % (2-9); Platelets Checked Yes; Segmented Neutrophils 68 % (42-75)
[2024-12-25 11:39] LABS: Anisocytosis 1+; Hypochromasia 1+; Normal RBC Morphology Yes; Ovalocytes Slight; Polychromasia Slight; Total Cells Counted 100
--- NOTE | 2024-12-25 11:51 | W.PN.HOSP.TC ---
Today's Communication/Plan
-
Monitor vital signs see plan
Continue with IV steroids
Continue with antibiotics
Follow cultures
Assessment / Plan
Assessment / Plan
General: Well Developed, Well Nourished, No Apparent Distress, Comfortable and Conversant
HEENT: NormoCephalic, Moist mucous membranes, Atraumatic, [place] Conjunctivae and Nose Appears Normal
Respiratory: Clear
Cardiac: S1/S2 and Regular Rhythm
GI: Soft, Non Distended and Tender
Musculoskeletal: No Edema
Neuro: Awake, Alert, AO x 3 and Nonfocal/grossly intact
Psych: Calm and Intact Judgment/Insight
Pancolitis with suspected Ulcerative colitis
Bacteremia likely secondary to above with possible translocation
2 out of 2 blood culture positive for Gram negative bacilli, repeat culture 12/25. Start Unasyn, discussed with ID
Overnight developed bloody bowel movement along with abdominal pain
Now started back on IV steroids
Hold off on further Remicade given bacteremia, discussed with GI
cortenema per GI
recent cscope path with colitis
pain mgmt
on clears; advance as tolerated
calprotectin significantly elevated
Second TB test also indeterminate. ID following, recommended isoniazid, vitamin B6. received remicade 12/21
colorectal following
Suspect anemia is multifactorial secondary to acute blood loss and acute on chronic iron deficiency anemia
Finished IV iron
Monitor
Transfuse 1 unit PRBC 12/24
Decrease in urine output
monitor; now improving
Bladder scan
Superficial venous thrombosis involving the cephalic vein
warm compresses
monitor
Hypokalemia
Replete
#Dilated bile ducts
recent MRI done; management per GI
#Diverticulosis
asymptomatic
Hyponatremia
Monitor
#Chronic L1, L2 Fx
outpatient assessment for osteoporosis
#Punctate hypodensity within the lower pole the right kidney
repeat CT in 6month
#Hypothyroidism
#Anxiety
TSH WNL
cont meds
#Hypokalemia
#hypomagnesemia
DVT ppx SCD's; patient refused pharm prophylaxis
Full code
I spent a total of 51 minutes with the patient or on the floor. More than 50% of this time involved counseling and coordination of care.
Anticipated Discharge: > 48 hours
Subjective/Interval History
-
Date of Service: December 25, 2024
has some pain
Objective Data
-
Labs:
Laboratory Results
12/25/24
05:58
WBC 8.9
Hgb 8.2 L
Hct 24.8 L
Plt Count 152
Sodium 135
Potassium 3.8
Chloride 105
Carbon Dioxide 28
BUN 9
Creatinine 0.5 L
Glucose 116 H
Calcium 7.4 L
Total Bilirubin 0.6
AST 15
ALT 14
Alkaline Phosphatase 74
Vital Signs:
Vital Signs
Temp Pulse Resp BP Pulse Ox
98.1 F 57 14 99/45 96
12/25/24 07:55 12/25/24 07:55 12/25/24 07:55 12/25/24 07:55 12/25/24 10:15
I&O
12/24/24 12/25/24 12/26/24
06:59 06:59 06:59
Intake Total 1390 / 1390 730 / 730
Balance 1390 / 1390 730 / 730
--- NOTE | 2024-12-25 12:18 | W.PN.CRS1 ---
Today's Communication / Plan
-
TPN
Assessment/Plan
-
Assessment: 69-year-old female with a new diagnosis of ulcerative colitis with abdominal pain, nausea vomiting and diarrhea. She had some improvement with IV steroids and now Remicade. Her pain increased yesterday, but she notes she feels better
s/p downgrading diet to clears and passing a BM after enema, she does note hematochezia with stool yesterday.
AFVSS
Leukocytosis resolved
H/H stable s/p one unit of blood
Pain improved, tolerating clears
CT from 12/23 with persistent lynn proctocolitis
Severe protein calorie malnutrition, prealbumin of 8.2
Plan:
- Diet as per GI, may need to go back to clears if pain persists. Very poor PO intake for 2-3 weeks.
- Trend CRP, labs
- Start TPN via PICC
- Remicade and steroids per GI
- Will follow
Subjective Data
Subjective Data
Date of Service: December 25, 2024
Patient seen and examined at bedside with Dr. Taylor. Denies n/v. Pain about the same as yesterday. No further bloody stools.
Objective Data
-
Vital Signs
Temp Pulse Resp BP Pulse Ox
98.1 F 57 14 99/45 96
12/25/24 07:55 12/25/24 07:55 12/25/24 07:55 12/25/24 07:55 12/25/24 10:15
Intake & Output
12/24/24 12/25/24 12/26/24
06:59 06:59 06:59
Intake Total 1390 / 1390 730 / 730
Balance 1390 / 1390 730 / 730
Intake:
Oral fluids 480 / 480 480 / 480
IV fluids (Total) 800 / 800
IV piggybacks 110 / 110
Blood Product Amount Infused ( 250 / 250
mL)
Packed Rbc Leukoreduced Unit 250 / 250
[id number]
Other:
Number of approximated MODERATE 1 4
amounts of urine
How many times incontinent 1
SMALL amount urine
How many times incontinent 1
MODERATE amount urine
Lab Results
12/25/24 05:58
12/25/24 05:58
Physical Exam
-
General: No Acute Distress
HEENT: Grossly Normal
Abdomen: Soft, Non Distended and Tender (mild to LLQ)
Skin: Warm and Dry
--- NOTE | 2024-12-25 14:14 | W.PN.GI.CBS2 ---
Today's Communication / Plan
-
Adv diet as tolerates
C/w IV steroid for now until abd more improved
Assessment / Plan
-
Asia is a 69yo with hx depression, hypothyroidism, prior appe and tani, family hx IBD with onset of lower abdominal pain with bloody diarrhea for last month. She is noted with low grade fever along with nausea and vomiting. She was followed by
Dr. Murphy at [facility] with recent OP evaluation early November. She had exam in office did not recall biopsy and was placed on Mesalamine orally with concern for ulcerative colitis. Symptoms did not improve and actually got worse with some
increased pain and low grade fever and continued bleeding with clots and urgency and due for OP colonoscopy. She presented to with continued symptoms. She was seen by GI in consultation. Stool studies 12/13 were negative. She completed
colonoscopy 12/14 with diffuse severe inflammation in entire colon with pancolitis and concern for severe ulcerative colitis with path still pending. Labs notable for calprotectin 1840, CRP up to 79.7, ESR 8. She was placed on IV steroids then oral
and plan for eventual biologic therapy with [facility] as outpatient with approval pending . Hepatitis B/C were negative and TB was indeterminate. She now returns with nausea, vomiting, and diarrhea with continued bloody stools.
Chest x-ray/abdominal x-ray 12/22/2024:
1. Nonobstructed bowel gas pattern.
2. Ahaustral appearance of the hepatic flexure and sigmoid colon, likely corresponding to the bowel wall thickening seen on recent prior CT
Impression/Plan:
# [place] ulcerative colitis
# Bacteremia 12/23
+ for EColi
# Iron def anemia
# Chronic biliary ductal dilation
Normal LFTs
Recommendations
- S/p Remicade 10mg/kg first dose on 12/21/24
- C/w IV steroids did not tolerate transition to oral pred 12/23
- CT abdomen/pelvis 12/23 with slight interval improvement
- C/w megan enemas
- TB testing x 2 indeterminant (12/14/24 and 12/20/24) appreciate ID recs
- C/w IV iron
- C/w SCD and OOB
- C/w abx repeat BC thus far negative
- Appreciate surgical recs
Will follow with you
Subjective
Subjective
Date of Service: December 25, 2024
She passed a BM that was nonbloody today. Ambulated hallway. Still significant abd pain that limits her oral intake. Denies nausea/vomiting.
Objective
Data Reviewed
Laboratory Data:
Laboratory Results
12/25/24 05:58
12/25/24 05:58
Laboratory Results
Phosphorus 3.1 mg/dl (2.5-4.5) 12/25/24 05:58
Magnesium 2.2 mg/dl (1.6-2.3) 12/25/24 05:58
Total Bilirubin 0.6 mg/dl (0.2-1.3) 12/25/24 05:58
AST 15 U/L (14-36) 12/25/24 05:58
ALT 14 U/L (0-35) 12/25/24 05:58
Alkaline Phosphatase 74 U/L (38-126) 12/25/24 05:58
Lipase 17 U/L (23-300) L 12/19/24 19:40
Vital Signs and I&O:
Vital Signs
Temp Pulse Resp BP Pulse Ox
98.1 F 57 14 99/45 96
12/25/24 07:55 12/25/24 07:55 12/25/24 07:55 12/25/24 07:55 12/25/24 10:15
I&O
12/24/24 12/25/24 12/26/24
06:59 06:59 06:59
Intake Total 1390 / 1390 730 / 730
Balance 1390 / 1390 730 / 730
Physical Exam
Physical Exam
GEN: No acute distress, conversant, pleasant
HEENT: anicteric, extraocular movements intact, clear oropharynx without exudates
GI: soft, non-distended, RUQ very tender to palpation, normal active bowel sounds, no hepatosplenomegaly
EXT: warm, well perfused, trace edema bilaterally
NEURO: AAOx3, non-focal
[2024-12-25 15:55] VITALS: BP 108/54
[2024-12-25 16:30] LABS: Glucose - Point of Care 119 mg/dl (70-99)
[2024-12-25] MEDS: FLUSH (NSS) 2 FLUSH IV (20:51)
[2024-12-25] MEDS: Parenteral Nutrition, Central 810 IV (21:18)
[2024-12-25] MEDS: COLOCORT/CORTENEMA 60 ML RECTAL (21:36)
[2024-12-25 23:45] VITALS: BP 109/59
[2024-12-26] VITALS (11 sets, daily range): BP systolic 139–158; BP diastolic 57–73; BMI 24.1
[2024-12-26 00:26] LABS: Glucose - Point of Care 189 mg/dl (70-99)
[2024-12-26] MEDS: NOVOLOG FLEXPEN-LOW RESISTANCE 1 UNITS SC ×3 (00:44→23:58)
[2024-12-26] MEDS: DILAUDID 0.5 MG IV ×6 (00:45→21:27)
[2024-12-26] MEDS: UNASYN IV ×4 (04:15→22:50)
[2024-12-26 05:44] LABS: Glucose - Point of Care 209 mg/dl (70-99)
[2024-12-26] MEDS: NOVOLOG FLEXPEN-LOW RESISTANCE 2 UNITS SC ×2 (05:50→11:48)
[2024-12-26] MEDS: SYNTHROID 75 MCG PO (05:51)
[2024-12-26] MEDS: SOLU-MEDROL PF 20 MG IV ×3 (05:54→21:27)
[2024-12-26 06:38] LABS: Hematocrit 24.7 % (37.0-47.0); Hemoglobin 8.1 g/dL (12.0-16.0); Mean Corp Hgb Conc. 32.8 g/dL (33.0-37.0); Mean Corpuscular Hgb 29.2 pg (27.0-31.0); Mean Corpuscular Volume 89.2 fL (81.0-99.0); Mean Platelet Volume 10.2 fL (7.4-10.4); Platelet Count 189 10^3/uL (130-400); Red Blood Cell Count 2.77 10^6/uL (4.20-5.40); Red Cell Dist. Width 15.2 % (11.5-14.5); White Blood Cell Count 8.4 10^3/uL (4.8-10.8)
[2024-12-26 07:33] LABS: ALT (SGPT) 16 U/L (0-35); AST (SGOT) 17 U/L (14-36); Albumin 1.7 g/dl (3.5-5.0); Alkaline Phosphatase 77 U/L (38-126); Blood Urea Nitrogen 14 mg/dl (7-17); Calcium 7.4 mg/dl (8.4-10.2); Carbon Dioxide 29 mmol/L (22-30); Chloride 103 mmol/L (98-107); Estimated Creatinine Clearance 77 ml/min; Glucose 199 mg/dl (70-99); Magnesium 2.4 mg/dl (1.6-2.3); Phosphorus 2.4 mg/dl (2.5-4.5); Potassium 3.6 mmol/L (3.5-5.1); Sodium 135 mmol/L (135-145); Total Bilirubin 0.4 mg/dl (0.2-1.3); Total Protein 3.9 g/dl (6.3-8.2); Triglycerides 139 mg/dl (10-149); eGFR > 60.00
[2024-12-26 08:24] LABS: Absolute Neutrophils -Man Diff 7.8 10^3/uL (1.4-6.5); Band Neutrophils 17 % (0-3); Lymphocytes 1 % (20-51); Segmented Neutrophils 77 % (42-75)
[2024-12-26 08:25] LABS: Metamyelocytes 3 % (-); Monocytes 2 % (2-9)
[2024-12-26 08:26] LABS: Anisocytosis 1+; Hypochromasia 1+; Normal RBC Morphology No; Polychromasia 1+; Total Cells Counted 100
[2024-12-26 08:27] LABS: Acanthocytes FEW
[2024-12-26] MEDS: PEPCID 40 MG PO (08:28)
[2024-12-26] MEDS: VITAMIN B-6 50 MG PO (08:28)
[2024-12-26] MEDS: INH 300 MG PO (08:28)
[2024-12-26 09:07] LABS: Glycohemoglobin (HgbA1c) 6.6 % (4.0-5.6)
--- NOTE | 2024-12-26 09:53 | W.PN.CRS1 ---
Today's Communication / Plan
-
Clears and medical measures.
Assessment/Plan
-
[facility] UC.
1. still pain and not tolerating po. Clears and TPN for now.
2. medical management (steroids/biologics) per GI.
Subjective Data
Subjective Data
Date of Service: December 26, 2024
Admits to cramping this am. Passing non bloody BMs.
Objective Data
-
Vital Signs
Temp Pulse Resp BP Pulse Ox
98.5 F 57 18 146/71 96
12/26/24 07:35 12/26/24 07:35 12/26/24 07:35 12/26/24 07:35 12/26/24 07:35
Intake & Output
12/25/24 12/26/24 12/27/24
06:59 06:59 06:59
Intake Total 730 / 730 2860 / 2860
Balance 730 / 730 2860 / 2860
Intake:
Oral fluids 480 / 480 720 / 720
IV fluids (Total) 1500 / 1500
IV piggybacks 300 / 300
TPN/PPN 340 / 340
Blood Product Amount Infused ( 250 / 250
mL)
Packed Rbc Leukoreduced Unit 250 / 250
[id number]
Other:
Number of approximated MODERATE 4 3
amounts of urine
How many times incontinent 1
SMALL amount urine
How many times incontinent 1
MODERATE amount urine
Lab Results
12/26/24 05:09
12/26/24 05:09
Physical Exam
-
General: No Acute Distress
Chest: Clear
Cardiovascular: Regular Rate & Rhythm
Abdomen: Tender (mild to moderate L>R)
--- NOTE | 2024-12-26 11:43 | W.PN.GI.CBS2 ---
Addendum entered and electronically signed by Bella Aparicio Do, MD 12/26/24 15:26:
I saw and examined the patient.
The GRAIN DRIER's note was reviewed and I agree with the note.
Comment: She had formed brown BM and then later today bloody again. She cannot tolerate low residue diet back to CLD. On TPN started 12/25 by surgery. Still abd pain. Vitals stable AF. TTP diffusely without guarding or rebound. Labs reviewed CRP
downtrending WBC normalized
Recommendations
- Given persistence of pain and oral intolerance will redose remicade 10mg/kg today
- Above d/w colorectal surgery
- C/w TPN per surgery
- Repeat BC negative, risk of infection with TPN d/w her
- C/w IV steroids
- Close stool output monitoring
- SCD OOB ambulate to avoid clots
- C/w Abx
Family updated. Will follow with you
Original Note:
Today's Communication / Plan
-
- S/p Remicade 10mg/kg first dose on 12/21/24-- will review with office any updated on continued therapy after admission
- C/w IV steroids did not tolerate transition to oral pred 12/23-- remains on Solumedrol 20mg Q 8 hours
- CT abdomen/pelvis 12/23 with slight interval improvement
- C/w megan enemas
- TB testing x 2 indeterminant (12/14/24 and 12/20/24) appreciate ID recs remains on INH therapy
- s/p IV iron completed course 12/24
- C/w SCD and OOB-- declined Lovenox
-nutrition -- on clear diet pt willing to add enlive but did not want further diet advanced -- pt aware of risk/benefit of TPN and wishes to continue with poor oral intakes, and with recent bacteremia with risk of infection- I reviewed with
colorectal surgery
- C/w abx repeat BC thus far negative
- Appreciate surgical recs following for need for surgery but pt declines to proceed at this point
ID following for abx
-family update
Will follow with you
Assessment / Plan
-
Asia is a 69yo with hx depression, hypothyroidism, prior appe and tani, family hx IBD with onset of lower abdominal pain with bloody diarrhea for last month. She is noted with low grade fever along with nausea and vomiting. She was followed by
Dr. Murphy at [facility] with recent OP evaluation early November. She had exam in office did not recall biopsy and was placed on Mesalamine orally with concern for ulcerative colitis. Symptoms did not improve and actually got worse with some
increased pain and low grade fever and continued bleeding with clots and urgency and due for OP colonoscopy. She presented to with continued symptoms. She was seen by GI in consultation. Stool studies 12/13 were negative. She completed
colonoscopy 12/14 with diffuse severe inflammation in entire colon with pancolitis and concern for severe ulcerative colitis with path still pending. Labs notable for calprotectin 1840, CRP up to 79.7, ESR 8. She was placed on IV steroids then oral
and plan for eventual biologic therapy with [facility] as outpatient with approval pending . Hepatitis B/C were negative and TB was indeterminate x2 . She now returns with nausea, vomiting, and diarrhea with continued bloody stools. s/p remicade
12/21 and elevated CRP that is now coming down.
Chest x-ray/abdominal x-ray 12/22/2024:
1. Nonobstructed bowel gas pattern.
2. Ahaustral appearance of the hepatic flexure and sigmoid colon, likely corresponding to the bowel wall thickening seen on recent prior CT
Impression/Plan:
# [place] ulcerative colitis
# Bacteremia 12/23
+ for EColi
# Iron def anemia
# Chronic biliary ductal dilation
Normal LFTs
# hypoalbuminemia - poor oral intakes
Recommendations
- S/p Remicade 10mg/kg first dose on 12/21/24-- will review with office any updated on continued therapy after admission
- C/w IV steroids did not tolerate transition to oral pred 12/23-- remains on Solumedrol 20mg Q 8 hours
- CT abdomen/pelvis 12/23 with slight interval improvement
- C/w megan enemas
- TB testing x 2 indeterminant (12/14/24 and 12/20/24) appreciate ID recs remains on INH therapy
- s/p IV iron completed course 12/24
- C/w SCD and OOB-- declined Lovenox
-nutrition -- on clear diet pt willing to add enlive but did not want further diet advanced -- pt aware of risk/benefit of TPN and wishes to continue with poor oral intakes, and with recent bacteremia with risk of infection- I reviewed with
colorectal surgery
- C/w abx repeat BC thus far negative
- Appreciate surgical recs following for need for surgery but pt declines to proceed at this point
ID following for abx
-family update
Will follow with you
Subjective
Subjective
Date of Service: December 26, 2024
stools without blood since Thursday but now with greenish loose stools several per day, still with 8/10 abdominal pain, on clear diet willing to add enlive to clears but admit to very decreased appetite
Objective
Data Reviewed
Laboratory Data:
Laboratory Results
12/26/24 05:09
12/26/24 05:09
Laboratory Results
Phosphorus 2.4 mg/dl (2.5-4.5) L 12/26/24 05:09
Magnesium 2.4 mg/dl (1.6-2.3) H 12/26/24 05:09
Total Bilirubin 0.4 mg/dl (0.2-1.3) 12/26/24 05:09
AST 17 U/L (14-36) 12/26/24 05:09
ALT 16 U/L (0-35) 12/26/24 05:09
Alkaline Phosphatase 77 U/L (38-126) 12/26/24 05:09
Lipase 17 U/L (23-300) L 12/19/24 19:40
Vital Signs and I&O:
Vital Signs
Temp Pulse Resp BP Pulse Ox
98.5 F 57 18 146/71 96
12/26/24 07:35 12/26/24 07:35 12/26/24 07:35 12/26/24 07:35 12/26/24 07:35
I&O
12/25/24 12/26/24 12/27/24
06:59 06:59 06:59
Intake Total 730 / 730 2860 / 2860
Balance 730 / 730 2860 / 2860
Physical Exam
Physical Exam
HEENT: Anicteric and Moist mucous membranes
Cardiology: Normal Sinus Rhythm
Pulmonary: Clear
GI: Soft, Distended (mild) and Tender (diffuse )
Extremities: No Edema and Other (boots in place and per staff have been ambulating)
Neuro: Non Focal
[2024-12-26 11:44] LABS: Glucose - Point of Care 213 mg/dl (70-99)
[2024-12-26 12:06] LABS: Platelets Checked Yes
--- NOTE | 2024-12-26 12:50 | W.PN.ID1 ---
Date of Service
Date of Service: December 26, 2024
Today's Communication
- agree with unasyn - awaiting sensitivities
- if no improvement by tomorrow then will add micafungin
no objection to surgery from ID perspective, defer decisions re: timing to CRS and GI
Assessment / Plan
E coli Bacteremia
- likely translocation
- repeat blood cultures no growth to date
- agree with unasyn - awaiting sensitivities
- if no improvement by tomorrow then will add micafungin
Pancolitis
Need for Immunosuppression - now on Remicaide
Indeterminant TB status
- QFT gold indeterminant x2
- recent high dose steroids were necessary for pancolitis do limit utility of the PPD
- T-spot is available outpatient at [facility] - provided script to patient 12/23
- CXR is clear, no symptoms to suggest active pulmonary TB and she doesnt report any significant contacts
- agree with INH/B6 pending T-spot - could provide a two week script on dc
- follow up in the ID clinic in about 2 weeks will be arranged by our office
Chief Complaint
-: Bacteremia
Subjective / Review of Systems
afebrile
bp stable
Vital Signs / Physical Exam
Vital Signs
Vital Signs
Temp Pulse Resp BP Pulse Ox
98.5 F 57 18 146/71 96
12/26/24 07:35 12/26/24 07:35 12/26/24 07:35 12/26/24 07:35 12/26/24 07:35
Physical Exam
Constitutional: No Acute Distress
Cardiovascular: Regular Rate and S1/S2; Negative Murmur or Rub
Pulmonary: Clear and Symmetric; Negative Wheezes or Rales
Gastrointestinal: Soft, Tender, Non Distended and Normal Bowel Sounds
Skin: Warm and Dry; Negative Rash or Jaundice
Objective Data
Lab Data
Lab Results
12/26/24 05:09
12/26/24 05:09
Estimated Creat Clear 77 ml/min 12/26/24 05:09
Total Bilirubin 0.4 mg/dl (0.2-1.3) 12/26/24 05:09
AST 17 U/L (14-36) 12/26/24 05:09
ALT 16 U/L (0-35) 12/26/24 05:09
Alkaline Phosphatase 77 U/L (38-126) 12/26/24 05:09
C-Reactive Protein 69.90 mg/L (0.0-10.00) H 12/26/24 05:09
C-Reactive Protein Cancelled 12/26/24 05:09
Most recent labs reviewed.
Micro Results:
12/23/24 14:50 Blood Culture - Preliminary
Blood/Venous Escherichia coli
Gram Stain - Final
12/23/24 15:09 Blood Culture - Preliminary
Blood/Venous Positive culture in progress
Gram Stain - Final
12/25/24 08:52 Blood Culture - Preliminary
Blood/Venous No Growth in 24 hours- Final report to follow
12/25/24 05:59 Blood Culture - Preliminary
Blood/Venous No Growth in 24 hours- Final report to follow
12/24/24 20:24 Blood Culture - Preliminary
Blood/Venous No Growth in 24 hours- Final report to follow
12/25/24 13:16 Blood Culture - Pending
Blood/Venous
--- NOTE | 2024-12-26 13:09 | W.PN.HOSP.TC ---
Today's Communication/Plan
-
Continue steroids
Being maintained on TPN
Continue antibiotics
f/u hbg level
Assessment / Plan
Assessment / Plan
1. Pancolitis with suspected Ulcerative colitis
E. coli bacteremia suspected gut organism translocation
Recent colonoscopy showing pancolitis
2 out of 2 blood culture positive for Gram negative bacilli, repeat culture 12/25. on unasyn at this point
Patient is on IV Solu-Medrol 20 mg every 8 hours
Remicade dose has been held in light of ongoing bacteremia
Getting cortisol suppository as well
Patient currently on TPN, decreased oral intake
QFT gold test indeterminate, ID recommended isoniazid/B6 as there is no active pulmonary TB.
GI/CRS following
2. Multifactorial anemia
Iron deficiency and chronic disease related
Finished IV iron
Transfused 1 unit PRBC 12/24
Continue monitoring Hbg level
3. Superficial venous thrombosis involving the cephalic vein
warm compresses
monitor
4. Hypokalemia
Hypomagnesemia
Replete PRN
5. Dilated bile ducts
recent MRI done; management per GI
Diverticulosis
Hyponatremia
Chronic L1, L2 Fx
Punctate hypodensity within the lower pole the right kidney
Hypothyroidism
Anxiety
DVT ppx SCD's; patient refused pharm prophylaxis
Full code
Anticipated Discharge: > 48 hours
Subjective/Interval History
-
Date of Service: December 26, 2024
Resting comfortably in bed
Having some abdominal discomfort
Feeling nauseous as well
Continues to have green-yellow liquid stool
Objective Data
-
Labs:
Laboratory Results
12/26/24
05:09
WBC 8.4
Hgb 8.1 L
Hct 24.7 L
Plt Count 189 D
Sodium 135
Potassium 3.6
Chloride 103
Carbon Dioxide 29
BUN 14
Creatinine 0.5 L
Glucose 199 H
Calcium 7.4 L
Total Bilirubin 0.4
AST 17
ALT 16
Alkaline Phosphatase 77
Vital Signs:
Vital Signs
Temp Pulse Resp BP Pulse Ox
98.5 F 57 18 146/71 96
12/26/24 07:35 12/26/24 07:35 12/26/24 07:35 12/26/24 07:35 12/26/24 07:35
I&O
12/25/24 12/26/24 12/27/24
06:59 06:59 06:59
Intake Total 730 / 730 2860 / 2860
Balance 730 / 730 2860 / 2860
Review of Systems
-
Respiratory: Reports No Symptoms
Cardiac: Reports No Symptoms
Abdomen/GI: Reports Abdominal Pain, Nausea and Diarrhea; Denies Vomiting
Physical Exam
-
General: No Apparent Distress
GI: Soft, Nondistended and Normal Bowel Sounds
Neuro: Awake, Alert, Oriented and AO x 3
Psych: Calm
--- NOTE | 2024-12-26 16:31 | CM ---
Spoke with pt she said she may need surgery.
Clear liquids.
Pt on IV steroids.
Maintained on IV antibiotics.
Pt has TPN.
PLAN Will continue with discharge planning
[2024-12-26 18:03] LABS: Glucose - Point of Care 171 mg/dl (70-99)
[2024-12-26] MEDS: REMICADE 250 MG IV (20:17)
[2024-12-26] MEDS: Parenteral Nutrition, Central 810 IV (21:47)
[2024-12-26] MEDS: COLOCORT/CORTENEMA 60 ML RECTAL (22:50)
[2024-12-26 23:53] LABS: Glucose - Point of Care 184 mg/dl (70-99)
[2024-12-27] MEDS: DILAUDID 0.5 MG IV ×5 (01:27→20:07)
[2024-12-27] MEDS: UNASYN IV ×4 (04:04→22:03)
[2024-12-27] MEDS: SOLU-MEDROL PF 20 MG IV ×3 (05:28→20:07)
[2024-12-27] MEDS: SYNTHROID 75 MCG PO (05:28)
[2024-12-27] MEDS: ZOFRAN 4 MG IV (05:34)
[2024-12-27] MEDS: NOVOLOG FLEXPEN-LOW RESISTANCE 1 UNITS SC ×2 (05:37→18:10)
[2024-12-27 05:38] LABS: Glucose - Point of Care 174 mg/dl (70-99)
[2024-12-27 06:12] VITALS: BMI 24.3
[2024-12-27 07:30] VITALS: BP 160/65
[2024-12-27 08:36] LABS: Blood Urea Nitrogen 13 mg/dl (7-17); Calcium 7.5 mg/dl (8.4-10.2); Carbon Dioxide 28 mmol/L (22-30); Chloride 104 mmol/L (98-107); Estimated Creatinine Clearance 77 ml/min; Glucose 173 mg/dl (70-99); Potassium 3.6 mmol/L (3.5-5.1); Sodium 137 mmol/L (135-145); eGFR > 60.00
--- NOTE | 2024-12-27 08:48 | W.PN.CRS1 ---
Today's Communication / Plan
-
As below
Assessment/Plan
-
69-year-old female with PMH of ulcerative colitis, hypothyroidism, depression who presents with pancolitis due to UC flare
AFVSS
CRP pending (downtrending yesterday)
� Continue clear liquids and TPN until she is clearly improving
� Continue Dilaudid as needed; recommended multimodal pain control with Tylenol and NSAID, but patient only wanting Dilaudid
� Appreciate GI; continue Solu-Medrol; s/p Remicade x 2 doses
� Recommend DVT PPx, Hb has been stable
� Continue IV Unasyn, appreciate ID
� No acute surgical intervention at this moment; will continue to monitor for improvement after second dose of Remicade
� Appreciate hospitalist
Subjective Data
Subjective Data
Date of Service: December 27, 2024
Still having some abdominal pain, but well-controlled. Had some nausea overnight, but none this morning.
Had 6 BMs since yesterday morning, states no blood in the BMs, which was improved from the day before.
Patient is OOB. + Voiding
Objective Data
-
Vital Signs
Temp Pulse Resp BP Pulse Ox
98.0 F 52 16 148/61 95
12/26/24 23:20 12/26/24 23:20 12/26/24 23:20 12/26/24 23:20 12/26/24 23:20
Intake & Output
12/26/24 12/27/24 12/28/24
06:59 06:59 06:59
Intake Total 2860 / 2860 2366 / 2366
Balance 2860 / 2860 2366 / 2366
Intake:
Oral fluids 720 / 720 720 / 720
IV fluids (Total) 1500 / 1500
IV piggybacks 300 / 300 830 / 830
TPN/PPN 340 / 340 816 / 816
Other:
Number of approximated MODERATE 3 3
amounts of urine
Lab Results
12/26/24 05:09
12/27/24 06:41
Physical Exam
-
General: No Acute Distress and AOx3
HEENT: Grossly Normal
Abdomen: Soft, Non Distended, Tender (Minimally to mildly tender diffusely), No Guarding and No Rebound
Skin: Warm and Dry
[2024-12-27] MEDS: INH 300 MG PO (09:10)
[2024-12-27] MEDS: PROZAC 10 MG PO (09:10)
[2024-12-27] MEDS: PEPCID 40 MG PO (09:10)
[2024-12-27] MEDS: VITAMIN B-6 50 MG PO (09:11)
[2024-12-27] MEDS: FLUSH (NSS) 2 FLUSH IV (09:12)
--- NOTE | 2024-12-27 11:11 | W.PN.ID1 ---
Date of Service
Date of Service: December 27, 2024
Today's Communication
- continue with unasyn
Assessment / Plan
E coli Bacteremia
- likely translocation
- repeat blood cultures no growth to date
- continue with unasyn
Pancolitis
Need for Immunosuppression - now on Remicaide
Indeterminant TB status
- QFT gold indeterminant x2
- recent high dose steroids were necessary for pancolitis do limit utility of the PPD
- T-spot is available outpatient at [facility] - provided script to patient 12/23
- CXR is clear, no symptoms to suggest active pulmonary TB and she doesnt report any significant contacts
- agree with INH/B6 pending T-spot - could provide a two week script on dc
- follow up in the ID clinic in about 2 weeks
Chief Complaint
-: Bacteremia
Subjective / Review of Systems
afebrile
bp stable
tolerating current therapies
reports notably improved abdominal pain
Vital Signs / Physical Exam
Vital Signs
Vital Signs
Temp Pulse Resp BP Pulse Ox
98.3 F 58 18 160/65 97
12/27/24 07:30 12/27/24 07:30 12/27/24 07:30 12/27/24 07:30 12/27/24 07:30
Physical Exam
Constitutional: No Acute Distress
Cardiovascular: Regular Rate and S1/S2; Negative Murmur or Rub
Pulmonary: Clear and Symmetric; Negative Wheezes or Rales
Gastrointestinal: Soft, Non Tender, Non Distended and Normal Bowel Sounds
Skin: Warm and Dry; Negative Rash or Jaundice
Objective Data
Lab Data
Lab Results
12/26/24 05:09
12/27/24 06:41
Estimated Creat Clear 77 ml/min 12/27/24 06:41
Total Bilirubin 0.4 mg/dl (0.2-1.3) 12/26/24 05:09
AST 17 U/L (14-36) 12/26/24 05:09
ALT 16 U/L (0-35) 12/26/24 05:09
Alkaline Phosphatase 77 U/L (38-126) 12/26/24 05:09
C-Reactive Protein 35.40 mg/L (0.0-10.00) H 12/27/24 06:41
Most recent labs reviewed.
Micro Results:
12/23/24 15:09 Blood Culture - Final
Blood/Venous Escherichia coli
Gram Stain - Final
12/23/24 14:50 Blood Culture - Final
Blood/Venous Escherichia coli
Gram Stain - Final
12/25/24 08:52 Blood Culture - Preliminary
Blood/Venous No Growth in 48 hours- Final report to follow
12/25/24 05:59 Blood Culture - Preliminary
Blood/Venous No Growth in 48 hours- Final report to follow
12/24/24 20:24 Blood Culture - Preliminary
Blood/Venous No Growth in 48 hours- Final report to follow
12/25/24 13:16 Blood Culture - Preliminary
Blood/Venous No Growth in 24 hours- Final report to follow
[2024-12-27 11:56] LABS: Glucose - Point of Care 210 mg/dl (70-99)
[2024-12-27] MEDS: COZAAR 25 MG PO (12:42)
[2024-12-27] MEDS: NOVOLOG FLEXPEN-LOW RESISTANCE 2 UNITS SC (12:48)
--- NOTE | 2024-12-27 13:26 | W.PN.HOSP.TC ---
Today's Communication/Plan
-
maintain on steroids
TPN/Diet per GI/CRS
start losartan for BP
Assessment / Plan
Assessment / Plan
1. Pancolitis with suspected Ulcerative colitis
E. coli bacteremia suspected gut organism translocation
Recent colonoscopy showing pancolitis
2 out of 2 blood culture positive for Gram negative bacilli, repeat culture 12/25. on unasyn at this point
Patient is on IV Solu-Medrol 20 mg every 8 hours
Remicade dose has been held in light of ongoing bacteremia
Getting cortisol suppository as well
Patient currently on TPN, CRS/GI to manage.
QFT gold test indeterminate, ID recommended isoniazid/B6 as there is no active pulmonary TB.
CRP down trended to 35.4
2. Multifactorial anemia
Iron deficiency and chronic disease related
Finished IV iron
Transfused 1 unit PRBC 12/24
Continue monitoring Hbg level
3. Superficial venous thrombosis involving the cephalic vein
warm compresses
monitor
4. Hypokalemia
Hypomagnesemia
Replete PRN
5. Dilated bile ducts
recent MRI done; management per GI
Diverticulosis
Hyponatremia
Chronic L1, L2 Fx
Punctate hypodensity within the lower pole the right kidney
Hypothyroidism
Anxiety
DVT ppx SCD's; patient refused pharm prophylaxis
Full code
Anticipated Discharge: 24 - 48 hours
Subjective/Interval History
-
Date of Service: December 27, 2024
Patient denies of having any abdominal pain/nausea/vomiting
Objective Data
-
Labs:
Laboratory Results
12/27/24
06:41
Sodium 137
Potassium 3.6
Chloride 104
Carbon Dioxide 28
BUN 13
Creatinine 0.5 L
Glucose 173 H
Calcium 7.5 L
Vital Signs:
Vital Signs
Temp Pulse Resp BP Pulse Ox
98.3 F 58 18 141/76 97
12/27/24 07:30 12/27/24 07:30 12/27/24 07:30 12/27/24 12:42 12/27/24 07:30
I&O
12/26/24 12/27/24 12/28/24
06:59 06:59 06:59
Intake Total 2860 / 2860 2366 / 2366
Balance 2860 / 2860 2366 / 2366
Review of Systems
-
Respiratory: Reports No Symptoms
Cardiac: Reports No Symptoms
Abdomen/GI: Reports No Symptoms
Physical Exam
-
General: No Apparent Distress
GI: Soft, Nondistended and Normal Bowel Sounds
Neuro: Awake, Alert, Oriented and AO x 3
Psych: Calm
--- NOTE | 2024-12-27 13:44 | W.PN.GI.CBS2 ---
Today's Communication / Plan
-
Continue current management
Trend CRP
Assessment / Plan
-
Asia is a 69yo with hx depression, hypothyroidism, prior appe and tani, family hx IBD with onset of lower abdominal pain with bloody diarrhea for last month. She is noted with low grade fever along with nausea and vomiting. She was followed by
Dr. Murphy at [facility] with recent OP evaluation early November. She had exam in office did not recall biopsy and was placed on Mesalamine orally with concern for ulcerative colitis. Symptoms did not improve and actually got worse with some
increased pain and low grade fever and continued bleeding with clots and urgency and due for OP colonoscopy. She presented to with continued symptoms. She was seen by GI in consultation. Stool studies 12/13 were negative. She completed
colonoscopy 12/14 with diffuse severe inflammation in entire colon with pancolitis and concern for severe ulcerative colitis with path still pending. Labs notable for calprotectin 1840, CRP up to 79.7, ESR 8. She was placed on IV steroids then oral
and plan for eventual biologic therapy with [facility] as outpatient with approval pending . Hepatitis B/C were negative and TB was indeterminate x2 . She now returns with nausea, vomiting, and diarrhea with continued bloody stools. s/p remicade
12/21 and elevated CRP that is now coming down.
Chest x-ray/abdominal x-ray 12/22/2024:
1. Nonobstructed bowel gas pattern.
2. Ahaustral appearance of the hepatic flexure and sigmoid colon, likely corresponding to the bowel wall thickening seen on recent prior CT
Impression/Plan:
# [place] ulcerative colitis
# Bacteremia 12/23
+ for EColi
# Iron def anemia
# Chronic biliary ductal dilation
Normal LFTs
# hypoalbuminemia - poor oral intakes
Recommendations
- S/p Remicade 10mg/kg first dose on 12/21/24. She was given second dose 10 mg/kg 12/27/2024. WBC normal. CRP trending down
- C/w IV steroids did not tolerate transition to oral pred 12/23-- remains on Solumedrol 20mg Q 8 hours
- CT abdomen/pelvis 12/23 with slight interval improvement
- TB testing x 2 indeterminant (12/14/24 and 12/20/24) appreciate ID recs remains on INH therapy
- s/p IV iron completed course 12/24
- C/w SCD and OOB-- declined Lovenox
-nutrition -- on clear diet pt willing to add enlive but did not want further diet advanced -- pt aware of risk/benefit of TPN and wishes to continue with poor oral intakes, and with recent bacteremia with risk of infection- I reviewed with
colorectal surgery
- C/w abx repeat BC so far negative. ID follow ing
- Appreciate colorectal surgical recommendation. Patient understands if worsening symptoms or no improvement next step would be surgery.
Total Time Spent with Patient (in minutes): 35
Subjective
Subjective
Date of Service: December 27, 2024
Intermittent abdominal pain. Patient claims her bowel movements were less bloody later yesterday . No blood this a.m. more mucus . remain clear liquid diet. On TPN
Objective
Data Reviewed
Laboratory Data:
Laboratory Results
12/26/24 05:09
12/27/24 06:41
Laboratory Results
Phosphorus 2.4 mg/dl (2.5-4.5) L 12/26/24 05:09
Magnesium 2.4 mg/dl (1.6-2.3) H 12/26/24 05:09
Total Bilirubin 0.4 mg/dl (0.2-1.3) 12/26/24 05:09
AST 17 U/L (14-36) 12/26/24 05:09
ALT 16 U/L (0-35) 12/26/24 05:09
Alkaline Phosphatase 77 U/L (38-126) 12/26/24 05:09
Lipase 17 U/L (23-300) L 12/19/24 19:40
Vital Signs and I&O:
Vital Signs
Temp Pulse Resp BP Pulse Ox
98.3 F 58 18 141/76 97
12/27/24 07:30 12/27/24 07:30 12/27/24 07:30 12/27/24 12:42 12/27/24 07:30
I&O
12/26/24 12/27/24 12/28/24
06:59 06:59 06:59
Intake Total 2860 / 2860 2366 / 2366
Balance 2860 / 2860 2366 / 2366
Physical Exam
Physical Exam
GI: Soft, Non Distended and Tender (Mild nonspecific tenderness left lower quadrant)
[2024-12-27 15:22] VITALS: BP 144/65
[2024-12-27] MEDS: FLUSH (NSS) 3 FLUSH IV (15:46)
[2024-12-27 18:08] LABS: Glucose - Point of Care 163 mg/dl (70-99)
[2024-12-27] MEDS: Parenteral Nutrition, Central 1090 IV (20:49)
[2024-12-27] MEDS: COLOCORT/CORTENEMA 60 ML RECTAL (22:38)
[2024-12-27 23:55] VITALS: BP 151/69
[2024-12-28] VITALS (7 sets, daily range): BP systolic 160–190; BP diastolic 66–84; BMI 23.9
[2024-12-28 00:30] LABS: Glucose - Point of Care 231 mg/dl (70-99)
[2024-12-28 00:30] LABS: Glucose - Point of Care 227 mg/dl (70-99)
[2024-12-28] MEDS: NOVOLOG FLEXPEN-LOW RESISTANCE 2 UNITS SC ×2 (00:33→18:30)
[2024-12-28] MEDS: DILAUDID 0.5 MG IV ×5 (00:35→23:25)
[2024-12-28] MEDS: UNASYN IV ×4 (03:52→21:10)
[2024-12-28] MEDS: PEPCID 40 MG PO (04:51)
--- NOTE | 2024-12-28 04:52 | W.PN.UPDATE ---
Update Note
Progress Note Update
-Patient complained of chest tightness LT side of chest near epigastric area, non radiating, denied sob. BP was taking by the automatic machine 190/75 & 174/84. Repeated bp manually R calf is 130/60. hr 58, spo2 96% on RA, RR 18.
-Clear lung sounds on exam.
-Chest x-ray, troponin ordered, and EKG done.
-Abnormal troponin result received 0.084 chest x-ray still pending.
-Chest pain resolved after Dilaudid dose received
-Will transfer the patient to tele
-trend troponin
-monitoring ekg as needed.
-Cardiology consult was placed.
[2024-12-28] MEDS: SOLU-MEDROL PF 20 MG IV ×3 (05:28→21:10)
[2024-12-28] MEDS: SYNTHROID 75 MCG PO (05:28)
[2024-12-28] MEDS: NOVOLOG FLEXPEN-LOW RESISTANCE 1 UNITS SC ×3 (05:32→23:22)
[2024-12-28 05:33] LABS: Glucose - Point of Care 197 mg/dl (70-99)
[2024-12-28 05:35] LABS: Blood Urea Nitrogen 12 mg/dl (7-17); Calcium 7.3 mg/dl (8.4-10.2); Carbon Dioxide 28 mmol/L (22-30); Chloride 104 mmol/L (98-107); Estimated Creatinine Clearance 77 ml/min; Glucose 198 mg/dl (70-99); Potassium 3.5 mmol/L (3.5-5.1); Sodium 136 mmol/L (135-145); eGFR > 60.00
--- NOTE | 2024-12-28 05:40 | PTCARENOTE ---
pt with c/o chest tightness that woke her from her sleep. DEAF INTERPRETER made aware- temp 98.2, HR 59, BP 190/75, RR 18, pulse ox 96% on RA. DEAF INTERPRETER up to see pt. stat troponin ordered and AM labs drawn, portable CXR completed, 0800 dose of 40mg pepcid
administered and prn dilaudid 0.5mg IV administered for 8/10 pain. will continue to monitor closely.
--- NOTE | 2024-12-28 05:45 | PTCARENOTE ---
house MIRROR INSPECTOR orders to administer 0800 dose of 25mg Losartan at 0600 d/t elevated BP.
[2024-12-28 05:49] LABS: Troponin I 0.084 ng/ml
[2024-12-28] MEDS: COZAAR 25 MG PO (06:04)
[2024-12-28 06:29] LABS: Hematocrit 28.2 % (37.0-47.0); Hemoglobin 9.2 g/dL (12.0-16.0); Mean Corp Hgb Conc. 32.6 g/dL (33.0-37.0); Mean Corpuscular Hgb 29.3 pg (27.0-31.0); Mean Corpuscular Volume 89.8 fL (81.0-99.0); Mean Platelet Volume 9.8 fL (7.4-10.4); Platelet Count 281 10^3/uL (130-400); Red Blood Cell Count 3.14 10^6/uL (4.20-5.40); Red Cell Dist. Width 15.3 % (11.5-14.5); White Blood Cell Count 13.6 10^3/uL (4.8-10.8)
--- NOTE | 2024-12-28 06:41 | PTCARENOTE ---
house LARRY OPERATOR up to floor due to pt elevated trop at 0.084. LARRY OPERATOR took manual BP on R calf and got 130/60. will continue to monitor.
[2024-12-28] MEDS: INH 300 MG PO (09:20)
[2024-12-28] MEDS: FLUSH (NSS) 2 FLUSH IV ×3 (09:20→13:25)
[2024-12-28] MEDS: VITAMIN B-6 50 MG PO (09:20)
--- NOTE | 2024-12-28 09:42 | CON.CAR ---
Addendum entered and electronically signed by Reynaldo Diggs DO 12/28/24 15:23:
I saw and examined the patient.
The Slicing Machine Operator/Tender's note was reviewed and I agree with the note.
Comment:
Plan:
Chest pain has atypical features. Her EKG is unremarkable and without ischemic changes and was reviewed.
Her troponin was minimally elevated and has already come down. This is likely consistent with non-NC troponin.
Echo is pending.
Pending echo findings, she could be considered in the future for outpatient stress testing.
Continue to monitor for recurrent symptoms.
Discussed with primary service.
Discussed with family at bedside. They were appreciative.
HPI: Admitted to the hospital with recurrent pancolitis since 12/19/24 and cardiology is asked to see the patient for chest pain that started early this morning. Patient was initially evaluated in the ER 11/01/24 for bloody stools admitted to the
hospital 12/12/24 until 12/18/24 with pancolitis and following IV steroids the patient was changed to PO steroids and sent home, but was readmitted the following day with more symptoms. Patient has been receiving Remicade, Solu-Medrol and
hydrocortisone suppository. Patient diagnosed with RUE superficial venous thrombosis 12/23/24 and had a PICC line LUE and they are now taking BP using calf cuff and this correlates to increased BP readings since 12/26/24. Patient otherwise feeling
well until she was awakened early this morning with chest pain. Chest pain described as substernal to left-sided without radiation. No associated SOB or palpitations. Patient called for help and ECG showed SR without acute ischemic changes. Troponin
was 0.084. Pain improved after Dilaudid and has not recurred. Patient has never had pain like that before.
Original Note:
Consultation
Consultation Request
Date/Time Consultation Requested: 12/28/24 at 0558
Date/Time Consultation Performed: 12/28/24 at 0948
Requesting Provider: Dr. Himanshu Marks
Performing Provider: Dr. Diggs
Reason for Consultation: Chest pain
Medical History
-
History of Present Illness:
Patient has been admitted to the hospital with recurrent pancolitis since 12/19/24 and cardiology is asked to see the patient for chest pain that started early this morning. Patient was initially evaluated in the ER 11/01/24 for bloody stools admitted
to the hospital 12/12/24 until 12/18/24 with pancolitis and following IV steroids the patient was changed to PO steroids and sent home, but was readmitted the following day with more symptoms. Patient has been receiving Remicade, Solu-Medrol and
hydrocortisone suppository. Patient diagnosed with RUE superficial venous thrombosis 12/23/24 and had a PICC line LUE and they are now taking BP using calf cuff and this correlates to increased BP readings since 12/26/24. Patient otherwise feeling
well until she was awakened early this morning with chest pain. Chest pain described as substernal to left-sided without radiation. No associated SOB or palpitations. Patient called for help and ECG showed SR without acute ischemic changes. Troponin
was 0.084. Pain improved after Dilaudid and has not recurred. Patient has never had pain like that before.
PMH:
Diverticulosis
Hypothyroidism
Past Medical History
Past Medical History: Other (in HPI)
Past Surgical History: Appendectomy and Cholecystectomy
Social History
Tobacco: Former Smoker (smoked on and off in her 20s)
Alcohol: Occasional (1-2 beers a week)
Drug: None
Living: Alone
Employment: Employed
Family History
Family History: Other (mother with multiple sclerosis and valvular heart disease)
Allergies / Home Medications
Allergy/AdvReac Type Severity Reaction Status Date / Time
No Known Allergies Allergy Verified 12/19/24 18:27
�Medication �Instructions �Recorded �Confirmed �Type
fluoxetine 10 mg tablet 10 mg PO Q48H Mental Health/Anxiety 12/12/24 12/20/24 History
levothyroxine 75 mcg tablet 75 mcg PO DAILY Thyroid 12/12/24 12/19/24 History
mesalamine 800 mg tablet,delayed 2,400 mg PO BID Gastrointestinal 12/12/24 12/13/24 History
release Issue
famotidine 40 mg tablet 40 mg PO DAILY #60 tabs 12/18/24 12/20/24 Rx
hydrocortisone 100 mg/60 mL enema 100 mg (60 mL) VT BID #1,260 mL 12/18/24 12/19/24 Rx
prednisone 20 mg tablet 40 mg (2 x 20 mg) PO DAILY #30 tabs 12/18/24 12/19/24 Rx
Review of Systems
-
History Source: Patient and Family (female friend bedside helping with HPI)
All other systems: Negative unless noted
Physical Exam
Vital Signs
Temp Pulse Resp BP Pulse Ox
98.4 F 63 18 180/80 97
12/28/24 08:21 12/28/24 08:21 12/28/24 08:21 12/28/24 08:21 12/28/24 08:21
GEN: NAD. AAOx3
HEENT: EOMI, MMM
LUNGS: RA. CTA B/L without wheeze
CV: SR on tele. Reg, S1/S2, no murmur
ABD: soft, BS+, NT, ND
EXT: 2+ radial and pT pulses B/L. No clubbing, cyanosis, lesions or edema B/L
NEURO: Gross non-focal
SKIN: Warm, dry and pink. No rash
Lab Results
12/28/24 05:31
12/28/24 04:52
Troponin I Cancelled 12/28/24 23:00
Impression / Plan
-
PCP: Dr. Milton Luo
Card: None prior to admission
Impression:
Admitted with recurrent colitis 12/19/24
Recent admission for proctocolitis, pancolitis and suspected UC 12/12/24 until 12/18/24
Chest pain
Elevated Troponin
Pancolitis with suspected ulcerative colitis
E. coli bacteremia
Anemia
Superficial venous thrombosis cephalic vein RUE
Diverticulosis
Hypothyroidism
Echo 12/28/24: EF 55%, normal regional wall motion, normal LV wall thickness, trace MR, normal aortic valve without stenosis, mild TR with PAP 25-30 mmHg
Plan:
-Patient has been admitted to the hospital with recurrent pancolitis since 12/19/24 and cardiology is asked to see the patient for chest pain that started early this morning. Patient was initially evaluated in the ER 11/01/24 for bloody stools admitted
to the hospital 12/12/24 until 12/18/24 with pancolitis and following IV steroids the patient was changed to PO steroids and sent home, but was readmitted the following day with more symptoms. Patient has been receiving Remicade, Solu-Medrol and
hydrocortisone suppository. Patient diagnosed with RUE superficial venous thrombosis 12/23/24 and had a PICC line LUE and they are now taking BP using calf cuff and this correlates to increased BP readings since 12/26/24. Patient otherwise feeling
well until she was awakened early this morning with chest pain. Chest pain described as substernal to left-sided without radiation. No associated SOB or palpitations. Patient called for help and ECG showed SR without acute ischemic changes. Troponin
was 0.084. Pain improved after Dilaudid and has not recurred. Patient has never had pain like that before.
-ECG reviewed by me is SR without ischemic changes.
-Initial Troponin was 0.084 and then 0.080.
-Echo ordered by me and report reviewed and summarized above, the EF is preserved, no WMA and no significant valve disease.
-No recurrence of chest pain. Will manage as a nonischemic myocardial injury Troponin elevation in the setting of anemia and HTN.
-Patient noted to be HTN starting 12/26/24 and this correlates with change in checking BP from UE to LE due to superficial venous thrombosis and PICC line. Previous BP measurements using UE were normotensive to hypotensive. Patient does not have h/o
HTN and was not taking BP meds prior to admission.
-Patient started on Remicade and might transition to [facility] as an outpatient. In the meantime she is on TPN. Hgb slowly trending down.
-Eventual outpatient stress test once stable.
--- NOTE | 2024-12-28 11:09 | W.PN.GI.CBS2 ---
Today's Communication / Plan
-
full liquid diet
continue current mx
Assessment / Plan
-
Asia is a 69yo with hx depression, hypothyroidism, prior appe and tani, family hx IBD with onset of lower abdominal pain with bloody diarrhea for last month. She is noted with low grade fever along with nausea and vomiting. She was followed by
Dr. Murphy at [place] with recent OP evaluation early November. She had exam in office did not recall biopsy and was placed on Mesalamine orally with concern for ulcerative colitis. Symptoms did not improve and actually got worse with some
increased pain and low grade fever and continued bleeding with clots and urgency and due for OP colonoscopy. She presented to with continued symptoms. She was seen by GI in consultation. Stool studies 12/13 were negative. She completed
colonoscopy 12/14 with diffuse severe inflammation in entire colon with pancolitis and concern for severe ulcerative colitis with path still pending. Labs notable for calprotectin 1840, CRP up to 79.7, ESR 8. She was placed on IV steroids then oral
and plan for eventual biologic therapy with [facility] as outpatient with approval pending . Hepatitis B/C were negative and TB was indeterminate x2 . She now returns with nausea, vomiting, and diarrhea with continued bloody stools. s/p remicade
12/21 and elevated CRP that is now coming down.
Chest x-ray/abdominal x-ray 12/22/2024:
1. Nonobstructed bowel gas pattern.
2. Ahaustral appearance of the hepatic flexure and sigmoid colon, likely corresponding to the bowel wall thickening seen on recent prior CT
Impression/Plan:
# [place] ulcerative colitis
# Bacteremia 12/23
+ for EColi
# Iron def anemia
# Chronic biliary ductal dilation
Normal LFTs
# hypoalbuminemia - poor oral intakes
Recommendations
- advance to full liquid diet
- S/p Remicade 10mg/kg first dose on 12/21/24. She was given second dose 10 mg/kg 12/27/2024. WBC normal. CRP trending down. follow up CRP
- C/w IV steroids did not tolerate transition to oral pred 12/23-- remains on Solumedrol 20mg Q 8 hours
- CT abdomen/pelvis 12/23 with slight interval improvement
- TB testing x 2 indeterminant (12/14/24 and 12/20/24) appreciate ID recs remains on INH therapy
- s/p IV iron completed course 12/24
- C/w SCD and OOB-- declined Lovenox
- C/w abx repeat BC so far negative. ID following
- colorectal surgery following . Patient understands if worsening symptoms or no improvement next step would be surgery. She is agreeable at this point
- awaiting cardio eval
-plan discussed with hospitalist / patient
Total Time Spent with Patient (in minutes): 35
Subjective
Subjective
Date of Service: December 28, 2024
continues to have abdominal pain requiring IV meds . BM- denies any blood with stool. small brown particles, chest pain awaiting cardio eval
Objective
Data Reviewed
Laboratory Data:
Laboratory Results
12/28/24 05:31
12/28/24 04:52
Laboratory Results
Phosphorus 2.4 mg/dl (2.5-4.5) L 12/26/24 05:09
Magnesium 2.4 mg/dl (1.6-2.3) H 12/26/24 05:09
Total Bilirubin 0.4 mg/dl (0.2-1.3) 12/26/24 05:09
AST 17 U/L (14-36) 12/26/24 05:09
ALT 16 U/L (0-35) 12/26/24 05:09
Alkaline Phosphatase 77 U/L (38-126) 12/26/24 05:09
Lipase 17 U/L (23-300) L 12/19/24 19:40
Vital Signs and I&O:
Vital Signs
Temp Pulse Resp BP Pulse Ox
98.4 F 63 18 180/80 97
12/28/24 08:21 12/28/24 08:21 12/28/24 08:21 12/28/24 08:21 12/28/24 08:21
I&O
12/27/24 12/28/24 12/29/24
06:59 06:59 06:59
Intake Total 2366 / 2366 2598 / 2598
Balance 2366 / 2366 2598 / 2598
Physical Exam
Physical Exam
GI: Soft, Non Distended and Tender (diffuse non specific tenderness )
--- NOTE | 2024-12-28 11:21 | CM ---
Advanced to full liquids .
Remains on IV steroids.
Maintained on IV antibiotics.
IV pain meds as needed.
Remains on TPN.
PLAN Will continue with discharge planning
--- NOTE | 2024-12-28 12:19 | W.PN.CRS1 ---
Today's Communication / Plan
-
As below
Assessment/Plan
-
69-year-old female with PMH of ulcerative colitis, hypothyroidism, depression who presents with pancolitis due to UC flare
AFVSS
CRP trending downward
� Continue clear liquids and TPN until she is clearly improving
� Continue Dilaudid as needed; recommended multimodal pain control with Tylenol and NSAID, but she continues to ask for Dilaudid
� Appreciate GI; continue Solu-Medrol; s/p Remicade x 2 doses
� Recommend DVT PPx, Hb has been stable
� Continue IV Unasyn, appreciate ID
� Overall slightly improved and the less bleeding and return of appetite is encouraging. No indication for surgery at this time but will give another 48 hours or so for a final determination.
� Appreciate hospitalist
Subjective Data
Subjective Data
Date of Service: December 28, 2024
Still with 4-5 loose stools a day but no more bleeding. She states her appetite has improved today. She is tolerating clear liquids with supplements and remains on TPN.
She does report some left upper abdominal/chest pain and is undergoing a workup.
Objective Data
-
Vital Signs
Temp Pulse Resp BP Pulse Ox
98.4 F 63 18 180/80 97
12/28/24 08:21 12/28/24 08:21 12/28/24 08:21 12/28/24 08:21 12/28/24 08:21
Intake & Output
12/27/24 12/28/24 12/29/24
06:59 06:59 06:59
Intake Total 2366 / 2366 2598 / 2598
Balance 2366 / 2366 2598 / 2598
Intake:
Oral fluids 720 / 720 1440 / 1440
IV piggybacks 830 / 830 240 / 240
TPN/PPN 816 / 816 918 / 918
Other:
Number of approximated MODERATE 3 2 1
amounts of urine
Lab Results
12/28/24 05:31
12/28/24 04:52
Physical Exam
-
General: No Acute Distress
Abdomen: Soft, Non Distended and Non Tender
Extremities: No Calf Tenderness
[2024-12-28 12:24] LABS: Glucose - Point of Care 163 mg/dl (70-99)
--- NOTE | 2024-12-28 13:42 | W.PN.ID1 ---
Date of Service
Date of Service: December 28, 2024
Today's Communication
- continue with unasyn
- clinical picture is mixed with new chest pain, increasing leukocytosis but declining CRP; will start empiric micafungin
Assessment / Plan
E coli Bacteremia
- likely translocation
- repeat blood cultures no growth to date
- continue with unasyn
- clinical picture is mixed with new chest pain, increasing leukocytosis but declining CRP; will start empiric micafungin
Pancolitis
Need for Immunosuppression - now on Remicaide
Indeterminant TB status
- QFT gold indeterminant x2
- recent high dose steroids were necessary for pancolitis do limit utility of the PPD
- T-spot is available outpatient at [facility] - provided script to patient 12/23
- CXR is clear, no symptoms to suggest active pulmonary TB and she doesnt report any significant contacts
- agree with INH/B6 pending T-spot - could provide a two week script on dc
- follow up in the ID clinic in about 2 weeks after dc
Chief Complaint
-: Bacteremia and Other (ulcerative pancolitis)
Subjective / Review of Systems
afebrile
bp stable
declining CRP
chest tightness overnight - undergoing workup
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
Vital Signs / Physical Exam
Vital Signs
Vital Signs
Temp Pulse Resp BP Pulse Ox
98.2 F 70 18 170/66 97
12/28/24 13:19 12/28/24 13:19 12/28/24 13:19 12/28/24 13:19 12/28/24 13:19
Physical Exam
Constitutional: No Acute Distress
Cardiovascular: Regular Rate and S1/S2; Negative Murmur or Rub
Pulmonary: Clear and Symmetric; Negative Wheezes or Rales
Gastrointestinal: Soft, Tender (diffuse tenderness with mild touch), Non Distended and Normal Bowel Sounds
Skin: Warm and Dry; Negative Rash or Jaundice
Objective Data
Lab Data
Lab Results
12/28/24 05:31
12/28/24 04:52
Estimated Creat Clear 77 ml/min 12/28/24 04:52
Total Bilirubin 0.4 mg/dl (0.2-1.3) 12/26/24 05:09
AST 17 U/L (14-36) 12/26/24 05:09
ALT 16 U/L (0-35) 12/26/24 05:09
Alkaline Phosphatase 77 U/L (38-126) 12/26/24 05:09
C-Reactive Protein 35.40 mg/L (0.0-10.00) H 12/27/24 06:41
Most recent labs reviewed.
Micro Results:
12/25/24 13:16 Blood Culture - Preliminary
Blood/Venous No Growth in 72 hours- Final report to follow
12/25/24 08:52 Blood Culture - Preliminary
Blood/Venous No Growth in 72 hours- Final report to follow
12/25/24 05:59 Blood Culture - Preliminary
Blood/Venous No Growth in 72 hours- Final report to follow
12/24/24 20:24 Blood Culture - Preliminary
Blood/Venous No Growth in 72 hours- Final report to follow
12/23/24 15:09 Blood Culture - Final
Blood/Venous Escherichia coli
Gram Stain - Final
12/23/24 14:50 Blood Culture - Final
Blood/Venous Escherichia coli
Gram Stain - Final
--- NOTE | 2024-12-28 13:51 | W.PN.HOSP.TC ---
Today's Communication/Plan
-
diet advancement per GI/CRS
maintained on steroids
f/u trop level
f/u echo report
Assessment / Plan
Assessment / Plan
1. Pancolitis with suspected Ulcerative colitis
E. coli bacteremia suspected gut organism translocation
- Recent colonoscopy showing pancolitis
- 2 out of 2 blood culture positive for Gram negative bacilli, repeat culture 12/25. on unasyn at this point
- Patient is on IV Solu-Medrol 20 mg every 8 hours
- Patient got resumed back on remicaide, got doses on 12/21 and 12/27
- Getting cortisol suppository as well
- Patient currently on TPN, CRS/GI to manage
- QFT gold test indeterminate, ID recommended isoniazid/B6 as there is no active pulmonary TB.
- CRP down trended to 35.4
2. Multifactorial anemia
Iron deficiency and chronic disease related
- Finished IV iron
- Transfused 1 unit PRBC 12/24
- Continue monitoring Hbg level
3. Chest pain
Elevated troponin - presumed nonischemic myocardial injury related
- Patient had episode of sternal chest discomfort last night,
- Minimal troponin elevation, follow-up ordered
- EKG did not show any significant ST segment changes from admission EKG
- Cardiology evaluated and planning to do an echocardiogram
3. Superficial venous thrombosis involving the cephalic vein
- warm compresses
- continue monitor
4. Hypokalemia
Hypomagnesemia
- Replete PRN
5. Dilated bile ducts
- recent MRI done; management per GI
Diverticulosis
Hyponatremia
Chronic L1, L2 Fx
Punctate hypodensity within the lower pole the right kidney
Hypothyroidism
Anxiety
DVT ppx SCD's; patient refused pharm prophylaxis
Full code
Care plan discussed with cardiology/colorectal surgery/GI
Total time spent 52 minutes
Anticipated Discharge: 24 - 48 hours
Subjective/Interval History
-
Date of Service: December 28, 2024
Patient had episode of sternal chest discomfort last night
No associated shortness of breath/dyspnea
denies of any abdominal pain/nausea/vomiting overnight
Passing mucous stool, no blood reported
Objective Data
-
Labs:
Laboratory Results
12/28/24 12/28/24
04:52 05:31
WBC 13.6 H
Hgb 9.2 L
Hct 28.2 L
Plt Count 281 D
Sodium 136
Potassium 3.5
Chloride 104
Carbon Dioxide 28
BUN 12
Creatinine 0.4 L
Glucose 198 H
Calcium 7.3 L
Vital Signs:
Vital Signs
Temp Pulse Resp BP Pulse Ox
98.2 F 70 18 170/66 97
12/28/24 13:19 12/28/24 13:19 12/28/24 13:19 12/28/24 13:19 12/28/24 13:19
I&O
12/27/24 12/28/24 12/29/24
06:59 06:59 06:59
Intake Total 2366 / 2366 2598 / 2598
Balance 2366 / 2366 2598 / 2598
Review of Systems
-
Respiratory: Reports No Symptoms
Cardiac: Reports Chest Pain
Abdomen/GI: Denies Abdominal Pain, Nausea or Vomiting
Physical Exam
-
General: Negative Appears in Distress
HEENT: Negative Oxygen
Cardiac: Regular Rhythm and S1/S2; Negative Murmur
GI: Soft, Nontender, Nondistended and Normal Bowel Sounds
Neuro: Awake, Alert, Oriented and No Motor Deficits
[2024-12-28] MEDS: MYCAMINE 105 MG IV (14:59)
[2024-12-28 15:59] LABS: Troponin I 0.067 ng/ml
[2024-12-28 18:19] LABS: Glucose - Point of Care 203 mg/dl (70-99)
[2024-12-28] MEDS: Parenteral Nutrition, Central 1090 IV (21:13)
[2024-12-28] MEDS: COLOCORT/CORTENEMA RECTAL (21:18)
[2024-12-28 23:21] LABS: Glucose - Point of Care 197 mg/dl (70-99)
[2024-12-29 03:10] VITALS: BP 176/78
[2024-12-29] MEDS: UNASYN IV ×4 (03:13→20:49)
[2024-12-29 03:30] VITALS: BP 168/52
[2024-12-29] MEDS: DILAUDID 0.5 MG IV (03:49)
[2024-12-29] MEDS: SYNTHROID 75 MCG PO (05:22)
[2024-12-29] MEDS: SOLU-MEDROL PF 20 MG IV ×3 (05:22→20:49)
[2024-12-29 05:32] LABS: Glucose - Point of Care 214 mg/dl (70-99)
[2024-12-29] MEDS: NOVOLOG FLEXPEN-LOW RESISTANCE 2 UNITS SC (05:32)
[2024-12-29 05:49] VITALS: BMI 22.9
[2024-12-29 07:41] VITALS: BP 156/74
[2024-12-29] MEDS: PROZAC 10 MG PO (09:02)
[2024-12-29] MEDS: INH 300 MG PO (09:02)
[2024-12-29] MEDS: PEPCID 40 MG PO (09:02)
[2024-12-29] MEDS: COZAAR 25 MG PO (09:02)
[2024-12-29] MEDS: VITAMIN B-6 50 MG PO (09:03)
--- NOTE | 2024-12-29 10:36 | CM ---
Advance diet as tolerated Currently full liquids. GI will order.
Remains on IV steroids.
Maintained on IV antibiotics.
Remains on TPN.
Evaluating if pt need for surgery.
CM will continue to assess and assist discharge needs.
PLAN Will depend on hospital course of care.
--- NOTE | 2024-12-29 11:12 | W.PN.ID1 ---
Date of Service
Date of Service: December 29, 2024
Today's Communication
- continue with unasyn & empiric micafungin
- surgery is being considered - I would be in support of proceeding
Assessment / Plan
E coli Bacteremia
- likely translocation
- repeat blood cultures no growth to date
- continue with unasyn & empiric micafungin
- surgery is being considered - I would be in support of proceeding
Pancolitis
Need for Immunosuppression - now on Remicaide
Indeterminant TB status
- QFT gold indeterminant x2
- recent high dose steroids were necessary for pancolitis do limit utility of the PPD
- T-spot is available outpatient at [facility] - provided script to patient 12/23
- CXR is clear, no symptoms to suggest active pulmonary TB and she doesnt report any significant contacts
- agree with INH/B6 pending T-spot - could provide a two week script on dc
- follow up in the ID clinic in about 2 weeks after dc
Chief Complaint
-: Bacteremia and Other (ulcerative pancolitis)
Subjective / Review of Systems
afebrile
bp stable
tolerating current therapies
bloody bowel movements have returned
Vital Signs / Physical Exam
Vital Signs
Vital Signs
Temp Pulse Resp BP Pulse Ox
97.6 F 70 18 156/74 98
12/29/24 07:41 12/29/24 09:02 12/29/24 07:41 12/29/24 09:02 12/29/24 10:44
Physical Exam
Constitutional: No Acute Distress
Cardiovascular: Regular Rate and S1/S2; Negative Murmur or Rub
Pulmonary: Clear and Symmetric; Negative Wheezes or Rales
Gastrointestinal: Soft, Tender (markedly tender with light touch), Non Distended and Normal Bowel Sounds
Skin: Warm and Dry; Negative Rash or Jaundice
Objective Data
Lab Data
Lab Results
12/28/24 05:31
12/28/24 04:52
Estimated Creat Clear 77 ml/min 12/28/24 04:52
Total Bilirubin 0.4 mg/dl (0.2-1.3) 12/26/24 05:09
AST 17 U/L (14-36) 12/26/24 05:09
ALT 16 U/L (0-35) 12/26/24 05:09
Alkaline Phosphatase 77 U/L (38-126) 12/26/24 05:09
C-Reactive Protein 21.90 mg/L (0.0-10.00) H 12/28/24 04:52
Most recent labs reviewed.
Micro Results:
12/25/24 08:52 Blood Culture - Preliminary
Blood/Venous No Growth in 4 days- Final report to follow
12/25/24 05:59 Blood Culture - Preliminary
Blood/Venous No Growth in 4 days- Final report to follow
12/24/24 20:24 Blood Culture - Preliminary
Blood/Venous No Growth in 4 days- Final report to follow
12/25/24 13:16 Blood Culture - Preliminary
Blood/Venous No Growth in 72 hours- Final report to follow
12/23/24 15:09 Blood Culture - Final
Blood/Venous Escherichia coli
Gram Stain - Final
12/23/24 14:50 Blood Culture - Final
Blood/Venous Escherichia coli
Gram Stain - Final
[2024-12-29 11:19] VITALS: BP 176/74
[2024-12-29 11:48] LABS: Glucose - Point of Care 172 mg/dl (70-99)
[2024-12-29] MEDS: NOVOLOG FLEXPEN-LOW RESISTANCE 300 UNITS SC (12:04)
[2024-12-29] MEDS: DILAUDID 0.25 MG IV ×2 (12:05→22:05)
--- NOTE | 2024-12-29 12:09 | W.PN.CRS1 ---
Today's Communication / Plan
-
As below
Assessment/Plan
-
69-year-old female with PMH of ulcerative colitis, hypothyroidism, depression who presents with pancolitis due to UC flare
AFVSS
CRP trending downward (21.90 on 12/28)
� Continue full liquids with supplements and TPN
� Continue Dilaudid as needed; recommended multimodal pain control with Tylenol and NSAID, but she continues to ask for Dilaudid
� Appreciate GI; continue Solu-Medrol; s/p Remicade x 2 doses
� Recommend DVT PPx, Hb has been stable
� Continue IV Unasyn, appreciate ID
� Clinically stable but if no significant improvement over the next 48 hours, I recommend surgery. I tentatively added onto the schedule for 01/02. I have asked our enterostomal nurses to elizabeth the site and begin stoma teaching.
- She had a slight rise in her troponin and is currently undergoing a workup workup by cardiology which could impact the decision for surgery.
� Appreciate hospitalist
Subjective Data
Subjective Data
Date of Service: December 29, 2024
Still with 4-5 loose stools a day was a small amount of bleeding earlier. She still does not have an appetite but wants to try an Ensure protein shake. She continues with abdominal discomfort and is requesting Dilaudid.
Objective Data
-
Vital Signs
Temp Pulse Resp BP Pulse Ox
97.8 F 77 18 176/74 97
12/29/24 11:19 12/29/24 11:19 12/29/24 11:19 12/29/24 11:19 12/29/24 11:19
Intake & Output
12/28/24 12/29/24 12/30/24
06:59 06:59 06:59
Intake Total 2798 / 2798 1360 / 1360
Balance 2798 / 2798 1360 / 1360
Intake:
Oral fluids 1440 / 1440 240 / 240
Amount of oral supplement(s) 200 / 200
consumed
IV piggybacks 240 / 240 580 / 580
TPN/PPN 918 / 918 540 / 540
Other:
Number of approximated MODERATE 2 3
amounts of urine
Lab Results
12/28/24 05:31
12/28/24 04:52
Physical Exam
-
General: No Acute Distress
Abdomen: Soft, Non Distended and Tender (Mild on the left side; no peritoneal signs)
Extremities: No Calf Tenderness
--- NOTE | 2024-12-29 13:36 | WOUNDNOTE ---
[facility] RN NOTE: Reviewed chart and met with patient for right sided stoma siting. Surgery planned for 01/02. Rationale for stoma siting explained to patient. Patient was assessed laying, sitting and standing. Care was taken to avoid creases and folds.
Patient made aware that surgeon will make final determination of stoma placement. Stoma markings placed on right upper and lower quadrants. Care was taken to avoid scar from past surgery. Will follow up with patient after surgery.
--- NOTE | 2024-12-29 14:10 | W.PN.HOSP.TC ---
Today's Communication/Plan
-
maintain on steroids per GI
abx/antifungal per ID
ongoing discussion for possible needs of sx
Assessment / Plan
Assessment / Plan
1. Pancolitis with suspected Ulcerative colitis
E. coli bacteremia suspected gut organism translocation
- Recent colonoscopy showing pancolitis
- 2 out of 2 blood culture positive for Gram negative bacilli, repeat culture 12/25. on unasyn at this point
- Patient is on IV Solu-Medrol 20 mg every 8 hours
- Patient got resumed back on Remicade, got doses on 12/21 and 12/27
- Getting cortisol suppository as well
- Patient currently on TPN, CRS/GI to manage
- QFT gold test indeterminate, ID recommended isoniazid/B6 as there is no active pulmonary TB.
- CRP down trended to 35.4
- Patient will likely require elective colectomy if not improved, ongoing discussion by CRS.
2. Multifactorial anemia
Iron deficiency and chronic disease related
- Finished IV iron
- Transfused 1 unit PRBC 12/24
- Continue monitoring Hbg level
3. Chest pain
Elevated troponin - presumed nonischemic myocardial injury related
- Patient had episode of sternal chest discomfort last night,
- Minimal troponin elevation, follow-up ordered
- EKG did not show any significant ST segment changes from admission EKG
- Cardiology evaluated and planning to do an echocardiogram
3. Superficial venous thrombosis involving the cephalic vein
- warm compresses
- continue monitor
4. Hypokalemia
Hypomagnesemia
- Replete PRN
5. Dilated bile ducts
- recent MRI done; management per GI
Diverticulosis
Hyponatremia
Chronic L1, L2 Fx
Punctate hypodensity within the lower pole the right kidney
Hypothyroidism
Anxiety
DVT ppx SCD's; patient refused pharm prophylaxis
Full code
Anticipated Discharge: > 48 hours
Subjective/Interval History
-
Date of Service: December 29, 2024
no repeat chest pain overnight
some abd pain present
denies nausea/vomiting
Objective Data
-
Vital Signs:
Vital Signs
Temp Pulse Resp BP Pulse Ox
97.8 F 77 18 176/74 97
12/29/24 11:19 12/29/24 11:19 12/29/24 11:19 12/29/24 11:19 12/29/24 11:19
I&O
12/28/24 12/29/24 12/30/24
06:59 06:59 06:59
Intake Total 2798 / 2798 1360 / 1360
Balance 2798 / 2798 1360 / 1360
Review of Systems
-
Respiratory: Reports No Symptoms
Cardiac: Reports No Symptoms
Abdomen/GI: Reports No Symptoms
Physical Exam
-
General: Negative Appears in Distress
HEENT: Negative Oxygen
Cardiac: Regular Rhythm and S1/S2; Negative Murmur
GI: Soft, Nontender, Nondistended and Normal Bowel Sounds
Neuro: Awake, Alert, Oriented and No Motor Deficits
[2024-12-29] MEDS: MYCAMINE 105 MG IV (14:17)
--- NOTE | 2024-12-29 14:45 | W.PN.GI.CBS2 ---
Today's Communication / Plan
-
continue current mx
Assessment / Plan
-
Asia is a 69yo with hx depression, hypothyroidism, prior appe and tani, family hx IBD with onset of lower abdominal pain with bloody diarrhea for last month. She is noted with low grade fever along with nausea and vomiting. She was followed by
Dr. Murphy at [place] with recent OP evaluation early November. She had exam in office did not recall biopsy and was placed on Mesalamine orally with concern for ulcerative colitis. Symptoms did not improve and actually got worse with some
increased pain and low grade fever and continued bleeding with clots and urgency and due for OP colonoscopy. She presented to with continued symptoms. She was seen by GI in consultation. Stool studies 12/13 were negative. She completed
colonoscopy 12/14 with diffuse severe inflammation in entire colon with pancolitis and concern for severe ulcerative colitis with path still pending. Labs notable for calprotectin 1840, CRP up to 79.7, ESR 8. She was placed on IV steroids then oral
and plan for eventual biologic therapy with [facility] as outpatient with approval pending . Hepatitis B/C were negative and TB was indeterminate x2 . She now returns with nausea, vomiting, and diarrhea with continued bloody stools. s/p remicade
12/21 and elevated CRP that is now coming down.
Chest x-ray/abdominal x-ray 12/22/2024:
1. Nonobstructed bowel gas pattern.
2. Ahaustral appearance of the hepatic flexure and sigmoid colon, likely corresponding to the bowel wall thickening seen on recent prior CT
Impression/Plan:
# [place] ulcerative colitis
# Bacteremia 12/23
+ for EColi
# Iron def anemia
# Chronic biliary ductal dilation
Normal LFTs
# hypoalbuminemia - poor oral intakes
Recommendations
- Continue full liquid diet
- S/p Remicade 10mg/kg first dose on 12/21/24. She was given second dose 10 mg/kg 12/27/2024. WBC normal. CRP trending down. follow up CRP
- C/w IV steroids did not tolerate transition to oral pred 12/23-- remains on Solumedrol 20mg Q 8 hours
- CT abdomen/pelvis 12/23 with slight interval improvement
- TB testing x 2 indeterminant (12/14/24 and 12/20/24) appreciate ID recs remains on INH therapy
- s/p IV iron completed course 12/24
- C/w SCD and OOB-- declined Lovenox
- C/w abx repeat BC so far negative. ID following
- Patient remains symptomatic . colorectal surgery following . Patient understands if worsening symptoms or no improvement next step would be surgery. She is agreeable at this point . Tentatively added for OR 01/02
- cardio eval for chest pain/elevated troponin
-plan discussed with hospitalist / patient
Total Time Spent with Patient (in minutes): 35
Subjective
Subjective
Date of Service: December 29, 2024
Patient continues to have abdominal pain, today claiming stool with some blood tinge material. Tolerating full liquid diet
Objective
Data Reviewed
Laboratory Data:
Laboratory Results
12/28/24 05:31
12/28/24 04:52
Laboratory Results
Phosphorus 2.4 mg/dl (2.5-4.5) L 12/26/24 05:09
Magnesium 2.4 mg/dl (1.6-2.3) H 12/26/24 05:09
Total Bilirubin 0.4 mg/dl (0.2-1.3) 12/26/24 05:09
AST 17 U/L (14-36) 12/26/24 05:09
ALT 16 U/L (0-35) 12/26/24 05:09
Alkaline Phosphatase 77 U/L (38-126) 12/26/24 05:09
Lipase 17 U/L (23-300) L 12/19/24 19:40
Vital Signs and I&O:
Vital Signs
Temp Pulse Resp BP Pulse Ox
97.8 F 77 18 176/74 97
12/29/24 11:19 12/29/24 11:19 12/29/24 11:19 12/29/24 11:19 12/29/24 11:19
I&O
12/28/24 12/29/24 12/30/24
06:59 06:59 06:59
Intake Total 2798 / 2798 1360 / 1360
Balance 2798 / 2798 1360 / 1360
Physical Exam
Physical Exam
GI: Soft, Non Distended and Tender (Diffusely tender)
--- NOTE | 2024-12-29 14:56 | W.PN.CARDCBS ---
Today's Communication / Plan
-
No further chest discomfort
Plan for outpatient follow-up and discussion regarding possible ischemic evaluation at that time
We will sign off, please recall as needed
Impression / Plan
-
PCP: Dr. Milton Luo
Card: None prior to admission
Impression:
Admitted with recurrent colitis 12/19/24
Recent admission for proctocolitis, pancolitis and suspected UC 12/12/24 until 12/18/24
Chest pain
Elevated Troponin
Pancolitis with suspected ulcerative colitis
E. coli bacteremia
Anemia
Superficial venous thrombosis cephalic vein RUE
Diverticulosis
Hypothyroidism
Echo 12/28/24: EF 55%, normal regional wall motion, normal LV wall thickness, trace MR, normal aortic valve without stenosis, mild TR with PAP 25-30 mmHg
Plan:
-Admitted to the hospital with recurrent pancolitis since 12/19/24 and cardiology was asked to see the patient for chest pain
-Patient tells me she feels significant better today is no longer experiencing any chest discomfort-
-ECG shows SR without ischemic changes.
-Low-level troponin elevation noted however overall trend is flat: 0.084 -> 0.080 -> 0.067
-Echo here shows EF is preserved and no SWMA and no significant valve disease
-Suspect nonischemic myocardial injury Troponin elevation in the setting of anemia and HTN
-We will arrange for outpatient follow-up and she can discuss possible ischemic evaluation at that time but would allow her to recover from pancolitis for now
We will sign off, please recall as needed
Outpatient follow-up to be arranged
Discussed with patient and her at bedside
Progress Note - Etiology Teacher
Subjective
Date of Service: December 29, 2024
No acute overnight events. Patient's resting comfortably in bed this morning. Tells me no further chest discomfort like she experienced earlier in this admission.
Objective
Labs:
12/28/24 05:31
12/28/24 04:52
Labs
Hgb 9.2 g/dL (12.0-16.0) L 12/28/24 05:31
Hct 28.2 % (37.0-47.0) L 12/28/24 05:31
Plt Count 281 10^3/uL (130-400) D 12/28/24 05:31
Sodium 136 mmol/L (135-145) 12/28/24 04:52
Potassium 3.5 mmol/L (3.5-5.1) 12/28/24 04:52
BUN 12 mg/dl (7-17) 12/28/24 04:52
Creatinine 0.4 mg/dL (0.6-1.0) L 12/28/24 04:52
Glucose 198 mg/dl (70-99) H 12/28/24 04:52
Troponins
12/28/24 12/28/24 12/28/24
05:00 10:17 11:00
Troponin I 0.084 H* 0.080 H* Cancelled
12/28/24 12/28/24 12/28/24
15:23 17:00 23:00
Troponin I 0.067 H* Cancelled Cancelled
Vital Signs and I&O:
Vital Signs
Temp Pulse Resp BP Pulse Ox
97.8 F 77 18 176/74 97
12/29/24 11:19 12/29/24 11:19 12/29/24 11:19 12/29/24 11:19 12/29/24 11:19
Vital Signs
Temp Pulse Resp BP Pulse Ox
97.8 F 77 18 176/74 97
12/29/24 11:19 12/29/24 11:19 12/29/24 11:19 12/29/24 11:19 12/29/24 11:19
Intake & Output
12/27/24 12/28/24 12/29/24 04/18/25
06:59 06:59 06:59 06:59
Intake Total 2365 / 2366 4168 / 6478 1360 / 1360
Balance 2365 / 2365 2798 / 2798 1360 / 1360
Physical Exam
Physical Exam
Gen: NAD, AAOx3
HEENT: NC/AT, sclera anicteric
Neck: No JVD
CV: RRR, NL s1/s2
Lungs: CTAB
Ext: No LE edema
Skin: Warm, dry
Neuro: Non-focal
[2024-12-29 15:07] VITALS: BP 164/77
[2024-12-29] MEDS: ROXICODONE 5 MG PO ×2 (16:00→20:44)
[2024-12-29 17:50] LABS: Glucose - Point of Care 173 mg/dl (70-99)
[2024-12-29] MEDS: NOVOLOG FLEXPEN-LOW RESISTANCE 1 UNITS SC ×2 (17:56→23:46)
[2024-12-29] MEDS: COLOCORT/CORTENEMA RECTAL (20:44)
[2024-12-29] MEDS: Parenteral Nutrition, Central 1090 IV (20:45)
[2024-12-29 23:27] VITALS: BP 160/78
[2024-12-29 23:47] LABS: Glucose - Point of Care 192 mg/dl (70-99)
[2024-12-29] MEDS: APRESOLINE 5 MG IV (23:48)
[2024-12-30 01:40] VITALS: BP 139/77
[2024-12-30] MEDS: ROXICODONE 5 MG PO ×2 (02:28→11:15)
[2024-12-30] MEDS: ZOFRAN 4 MG IV ×2 (02:29→11:15)
[2024-12-30] MEDS: UNASYN IV ×4 (03:35→21:17)
[2024-12-30 05:10] VITALS: BMI 21.6
[2024-12-30 05:56] LABS: Glucose - Point of Care 145 mg/dl (70-99)
[2024-12-30] MEDS: NOVOLOG FLEXPEN-LOW RESISTANCE SC ×2 (05:57→17:34)
[2024-12-30] MEDS: SOLU-MEDROL PF 20 MG IV ×2 (05:58→17:32)
[2024-12-30] MEDS: SYNTHROID 75 MCG PO (05:58)
[2024-12-30 06:17] LABS: Hematocrit 27.9 % (37.0-47.0); Hemoglobin 9.3 g/dL (12.0-16.0); Mean Corp Hgb Conc. 33.3 g/dL (33.0-37.0); Mean Corpuscular Hgb 29.6 pg (27.0-31.0); Mean Corpuscular Volume 88.9 fL (81.0-99.0); Platelet Count 262 10^3/uL (130-400); Red Blood Cell Count 3.14 10^6/uL (4.20-5.40); Red Cell Dist. Width 16.2 % (11.5-14.5); White Blood Cell Count 8.7 10^3/uL (4.8-10.8)
[2024-12-30 06:47] LABS: Blood Urea Nitrogen 13 mg/dl (7-17); Calcium 7.6 mg/dl (8.4-10.2); Carbon Dioxide 26 mmol/L (22-30); Chloride 107 mmol/L (98-107); Estimated Creatinine Clearance 77 ml/min; Glucose 192 mg/dl (70-99); Potassium 4.1 mmol/L (3.5-5.1); Sodium 137 mmol/L (135-145); eGFR > 60.00
--- NOTE | 2024-12-30 07:25 | W.PN.GI.CBS2 ---
Addendum entered and electronically signed by Davis Metzger DO 12/30/24 13:53:
I saw and examined the patient.
The SEMICONDUCTOR PROCESSOR's note was reviewed and I agree with the note.
#Refractory, [place]-Ulcerative Colitis
# E Coli Bacteremia
# Iron def anemia
# Chronic biliary ductal dilation, Normal LFTs
# hypoalbuminemia - poor oral intakes
Comment: Reviewed extensive prior GI documentation and at this point she has remained fairly refractory to ongoing medical therapy. Agree with surgical intervention which has been scheduled on 01/02 with CRS. Discussed with patient at length this AM
as this is not considered a treatment failure and furthermore can be curative. Favor weaning steroids at this time as not to further immunosuppress her and avoid issues with delayed wound healing especially with her upcoming surgery and ongoing TPN.
Agree with stopping cortenemas as no benefit and start weaning IV Solumedrol over weekend over next 48 hours. Encouraged DVT ppx given high risk for VTE. Rest of care as outlined below.
GI will continue to follow, discussed with primary internal medicine team.
Original Note:
Today's Communication / Plan
-
pt feeling better but still with loose blood tinged stools and abdominal pain
remain on full liquid diet with ensure - diet advancement per surgery
tentative for surgical intervention next week 01/02
- S/p Remicade 10mg/kg first dose on 12/21/24. She was given second dose 10 mg/kg 12/27/2024. WBC normal. CRP trending down. follow up CRP
- discussed with patient has give high dose steroid trial -- will begin to wean to Solumedrol 20mg Q 12 today -- consider weaning to daily in 48 hours
-will stop cortenema as has not taken in 2 days and no further benefit with use
- CT abdomen/pelvis 12/23 with slight interval improvement
- TB testing x 2 indeterminant (12/14/24 and 12/20/24) appreciate ID recs remains on INH therapy for OP t spot testing when able
- s/p IV iron completed course 12/24
- C/w SCD and OOB-- declined Lovenox
- C/w abx repeat BC so far negative. ID following for abx course
- cardio eval for chest pain/elevated troponin, felt to be nonischemic myocardial injury in setting of anemia and HTN
Assessment / Plan
-
Ms. Roa is a 69yo with hx depression, hypothyroidism, prior appe and tani, family hx IBD with onset of lower abdominal pain with bloody diarrhea for last month. She is noted with low grade fever along with nausea and vomiting. She was
followed by Dr. Murphy at [place] with recent OP evaluation early November. She had exam in office did not recall biopsy and was placed on Mesalamine orally with concern for ulcerative colitis. Symptoms did not improve and actually got worse with
some increased pain and low grade fever and continued bleeding with clots and urgency and due for OP colonoscopy. She presented to with continued symptoms. She was seen by GI in consultation. Stool studies 12/13 were negative. She
completed colonoscopy 12/14 with diffuse severe inflammation in entire colon with pancolitis and concern for severe ulcerative colitis with path still pending. Labs notable for calprotectin 1840, CRP up to 79.7, ESR 8. She was placed on IV steroids
then oral and plan for eventual biologic therapy with [facility] as outpatient with approval pending . Hepatitis B/C were negative and TB was indeterminate x2 . She now returns with nausea, vomiting, and diarrhea with continued bloody stools. s/p
remicade 12/21 and 12/27 with high dose steroids and continued blood stools. elevated CRP that is now coming down. + bacteremia s/p ID eval. Pt given IV TPN and accepted risk with recent bacteremia. She declined Lovenox but remains with
compression boots and ambulation. + CP/elevated troponin s/p cards eval.
Chest x-ray/abdominal x-ray 12/22/2024:
1. Nonobstructed bowel gas pattern.
2. Ahaustral appearance of the hepatic flexure and sigmoid colon, likely corresponding to the bowel wall thickening seen on recent prior CT
Impression/Plan:
# [place] ulcerative colitis
# anemia secondard to UC
# Bacteremia 12/23
+ for EColi
# Iron def anemia
# Chronic biliary ductal dilation
Normal LFTs
# hypoalbuminemia - poor oral intakes
# elevated troponin s/p cards eval
Recommendations:
pt feeling better but still with loose blood tinged stools and abdominal pain
remain on full liquid diet with ensure - diet advancement per surgery
tentative for surgical intervention next week 01/02
- S/p Remicade 10mg/kg first dose on 12/21/24. She was given second dose 10 mg/kg 12/27/2024. WBC normal. CRP trending down. follow up CRP
- discussed with patient has give high dose steroid trial -- will begin to wean to Solumedrol 20mg Q 12 today -- consider weaning to daily in 48 hours
-will stop cortenema as has not taken in 2 days and no further benefit with use
- CT abdomen/pelvis 12/23 with slight interval improvement
- TB testing x 2 indeterminant (12/14/24 and 12/20/24) appreciate ID recs remains on INH therapy for OP t spot testing when able
- s/p IV iron completed course 12/24
- C/w SCD and OOB-- declined Lovenox
- C/w abx repeat BC so far negative. ID following for abx course
- cardio eval for chest pain/elevated troponin, felt to be nonischemic myocardial injury in setting of anemia and HTN
Subjective
Subjective
Date of Service: December 30, 2024
still with some blood stools, less volume as eating less, abdominal pain still present-- worse prior to BM's
Objective
Data Reviewed
Laboratory Data:
Laboratory Results
12/30/24 05:58
12/30/24 05:58
Laboratory Results
Phosphorus 2.4 mg/dl (2.5-4.5) L 12/26/24 05:09
Magnesium 2.4 mg/dl (1.6-2.3) H 12/26/24 05:09
Total Bilirubin 0.4 mg/dl (0.2-1.3) 12/26/24 05:09
AST 17 U/L (14-36) 12/26/24 05:09
ALT 16 U/L (0-35) 12/26/24 05:09
Alkaline Phosphatase 77 U/L (38-126) 12/26/24 05:09
Lipase 17 U/L (23-300) L 12/19/24 19:40
Vital Signs and I&O:
Vital Signs
Temp Pulse Resp BP Pulse Ox
98.3 F 74 16 139/77 98
12/29/24 23:27 12/30/24 01:40 12/29/24 23:27 12/30/24 01:40 12/29/24 23:27
I&O
12/29/24 12/30/24 12/31/24
06:59 06:59 06:59
Intake Total 1360 / 1360 1420 / 1420 1260 / 1260
Balance 1360 / 1360 1420 / 1420 1260 / 1260
Physical Exam
Physical Exam
HEENT: Anicteric and Moist mucous membranes
Cardiology: Normal Sinus Rhythm
Pulmonary: Clear
GI: Soft, Non Distended and Tender (diffuse)
Extremities: No Edema
Neuro: Non Focal
--- NOTE | 2024-12-30 07:34 | W.PN.CRS1 ---
Today's Communication / Plan
-
Total abdominal colectomy scheduled for 01/02
Assessment/Plan
-
69-year-old female with PMH of ulcerative colitis, hypothyroidism, depression who presents with pancolitis due to UC flare
AVSS
� Continue full liquids with supplements and TPN
� Continue Dilaudid as needed; recommended multimodal pain control with Tylenol and NSAID, but she continues to ask for Dilaudid
� Appreciate GI; continue Solu-Medrol; s/p Remicade x 2 doses
� Recommend DVT PPx, Hb has been stable
� Continue IV Unasyn, appreciate ID
� Clinically stable but if no significant improvement over the next 48 hours, I recommend surgery. I tentatively added onto the schedule for 01/02. Ostomy sites marked.
- Cardiology eval complete.
� Appreciate hospitalist
Subjective Data
Subjective Data
Date of Service: December 30, 2024
Unchanged. Small bowel movements with some blood. Abdominal pain continues.
Objective Data
-
Vital Signs
Temp Pulse Resp BP Pulse Ox
98.3 F 74 16 139/77 98
12/29/24 23:27 12/30/24 01:40 12/29/24 23:27 12/30/24 01:40 12/29/24 23:27
Intake & Output
12/29/24 12/30/24 12/31/24
06:59 06:59 06:59
Intake Total 1360 / 1360 1420 / 1420 1260 / 1260
Balance 1360 / 1360 1420 / 1420 1260 / 1260
Intake:
Oral fluids 240 / 240 1420 / 1420 480 / 480
IV piggybacks 580 / 580 240 / 240
TPN/PPN 540 / 540 540 / 540
Other:
Number of approximated MODERATE 3 4 4
amounts of urine
Lab Results
12/30/24 05:58
12/30/24 05:58
Physical Exam
-
General: No Acute Distress
Abdomen: Soft, Non Distended and Tender (mild LLQ)
Extremities: No Calf Tenderness
[2024-12-30 08:02] VITALS: BP 158/79
[2024-12-30] MEDS: PEPCID 40 MG PO (09:20)
[2024-12-30] MEDS: INH 300 MG PO (09:21)
[2024-12-30] MEDS: COZAAR 25 MG PO (09:21)
[2024-12-30] MEDS: VITAMIN B-6 50 MG PO (09:21)
[2024-12-30] MEDS: FLUSH (NSS) 2 FLUSH IV ×5 (09:23→18:10)
--- NOTE | 2024-12-30 10:42 | W.PN.ID1 ---
Date of Service
Date of Service: December 30, 2024
Today's Communication
Continue antibiotics
Assessment / Plan
E coli Bacteremia
- likely translocation
- repeat blood cultures no growth to date
- continue with unasyn & empiric micafungin
- Total abdominal colectomy scheduled for 01/02/2025
Pancolitis
- on Remicaide
Indeterminant TB status
- QFT gold testing indeterminant x2
- recent high dose steroids were necessary for pancolitis do limit utility of the PPD
- T-spot is available outpatient at [facility] - provided script to patient 12/23
- CXR is clear, no symptoms to suggest active pulmonary TB and Pt doesn't report any significant contacts
- agree with INH/B6 pending T-spot - could provide a two week script on d/c
- follow up in the ID clinic in about 2 weeks after d/c
����������������������������������������������������������
Chief Complaint
-: Bacteremia and Other (ulcerative pancolitis)
Subjective / Review of Systems
Review of Systems: No Fever, No Chills and Abdominal Pain
Vital Signs / Physical Exam
Vital Signs
Vital Signs
Temp Pulse Resp BP Pulse Ox
97.9 F 73 18 158/79 98
12/30/24 08:02 12/30/24 08:02 12/30/24 08:02 12/30/24 09:21 12/30/24 08:02
Physical Exam
Constitutional: No Acute Distress, Comfortable and Non-toxic
Eyes: Sclera Anicteric
Cardiovascular: Regular Rate and S1/S2
Pulmonary: Clear and Symmetric; Negative Wheezes or Rales
Gastrointestinal: Soft, Tender (markedly tender with light touch), Non Distended and Decreased Bowel Sounds
Skin: Warm and Dry; Negative Rash or Jaundice
Neurological: Awake and Alert
Psychological: Calm
Objective Data
Lab Data
Lab Results
12/30/24 05:58
12/30/24 05:58
Estimated Creat Clear 77 ml/min 12/30/24 05:58
Total Bilirubin 0.4 mg/dl (0.2-1.3) 12/26/24 05:09
AST 17 U/L (14-36) 12/26/24 05:09
ALT 16 U/L (0-35) 12/26/24 05:09
Alkaline Phosphatase 77 U/L (38-126) 12/26/24 05:09
C-Reactive Protein 21.90 mg/L (0.0-10.00) H 12/28/24 04:52
Most recent labs reviewed.
Micro Results:
12/25/24 08:52 Blood Culture - Final
Blood/Venous No Growth - Final Report
12/25/24 05:59 Blood Culture - Final
Blood/Venous No Growth - Final Report
12/24/24 20:24 Blood Culture - Final
Blood/Venous No Growth - Final Report
12/25/24 13:16 Blood Culture - Preliminary
Blood/Venous No Growth in 4 days- Final report to follow
12/23/24 15:09 Blood Culture - Final
Blood/Venous Escherichia coli
Gram Stain - Final
12/23/24 14:50 Blood Culture - Final
Blood/Venous Escherichia coli
Gram Stain - Final
[2024-12-30 12:32] LABS: Glucose - Point of Care 240 mg/dl (70-99)
[2024-12-30] MEDS: NOVOLOG FLEXPEN-LOW RESISTANCE 2 UNITS SC (12:42)
--- NOTE | 2024-12-30 13:32 | W.PN.HOSP.TC ---
Today's Communication/Plan
-
abx per ID
steroids being weaned off
continue other care
Assessment / Plan
Assessment / Plan
1. Pancolitis with suspected Ulcerative colitis
E. coli bacteremia suspected gut organism translocation
- Recent colonoscopy showing pancolitis
- 2 out of 2 blood culture positive for Gram negative bacilli, repeat culture 12/25. on unasyn at this point
- Patient got resumed back on Remicade, got doses on 12/21 and 12/27
- Got cortisol suppository as well
- Patient currently on TPN, CRS/GI to manage
- QFT gold test indeterminate, ID recommended isoniazid/B6 as there is no active pulmonary TB.
- Patient for elective total colectomy for Thursday
- IV Solu-Medrol dose has been decreased to 20 mg every 12h
2. Multifactorial anemia
Iron deficiency and chronic disease related
- Finished IV iron
- Transfused 1 unit PRBC 12/24
- Continue monitoring Hbg level
3. Chest pain
Elevated troponin - presumed nonischemic myocardial injury related
- Patient had episode of sternal chest discomfort last night,
- Minimal troponin elevation, follow-up ordered
- EKG did not show any significant ST segment changes from admission EKG
- Cardiology evaluated and planning to do an echocardiogram
3. Superficial venous thrombosis involving the cephalic vein
- warm compresses
- continue monitor
4. Hypokalemia
Hypomagnesemia
- Replete PRN
5. Dilated bile ducts
- recent MRI done; management per GI
Diverticulosis
Hyponatremia
Chronic L1, L2 Fx
Punctate hypodensity within the lower pole the right kidney
Hypothyroidism
Anxiety
DVT ppx SCD's; patient refused pharm prophylaxis
Full code
Anticipated Discharge: > 48 hours
Subjective/Interval History
-
Date of Service: December 30, 2024
Pain is better controlled with regimen
Denies of having any nausea vomiting
Afebrile overnight
Have some blood in the stool
Objective Data
-
Labs:
Laboratory Results
12/30/24
05:58
WBC 8.7
Hgb 9.3 L
Hct 27.9 L
Plt Count 262
Sodium 137
Potassium 4.1
Chloride 107
Carbon Dioxide 26
BUN 13
Creatinine 0.4 L
Glucose 192 H
Calcium 7.6 L
Vital Signs:
Vital Signs
Temp Pulse Resp BP Pulse Ox
97.9 F 73 18 158/79 98
12/30/24 08:02 12/30/24 08:02 12/30/24 08:02 12/30/24 09:21 12/30/24 08:02
I&O
12/29/24 12/30/24 12/31/24
06:59 06:59 06:59
Intake Total 1360 / 1360 1420 / 1420 1260 / 1260
Balance 1360 / 1360 1420 / 1420 1260 / 1260
Review of Systems
-
Respiratory: Reports No Symptoms
Cardiac: Reports No Symptoms
Abdomen/GI: Reports No Symptoms
Physical Exam
-
General: Negative Appears in Distress
HEENT: Negative Oxygen
Cardiac: Regular Rhythm and S1/S2; Negative Murmur
GI: Soft, Nontender, Nondistended and Normal Bowel Sounds
Neuro: Awake, Alert, Oriented and No Motor Deficits
[2024-12-30] MEDS: MYCAMINE 105 MG IV (15:15)
[2024-12-30 16:13] VITALS: BP 160/70
--- NOTE | 2024-12-30 16:21 | CM ---
Pt for colostomy /colectomy Thursday
Maintained on IV antibiotics.
Remains on TPN.
Evaluating if pt need for surgery.
Will need PT OT evals reordered postop
CM will continue to assess and assist discharge needs.
PLAN Will depend on hospital course of care.
[2024-12-30 17:35] LABS: Glucose - Point of Care 145 mg/dl (70-99)
[2024-12-30] MEDS: DILAUDID 0.25 MG IV (18:09)
[2024-12-30] MEDS: Parenteral Nutrition, Central 1090 IV (21:15)
[2024-12-30] MEDS: TORADOL 15 MG IV (23:13)
[2024-12-30 23:35] LABS: Glucose - Point of Care 210 mg/dl (70-99)
[2024-12-30 23:42] VITALS: BP 147/68
[2024-12-31] MEDS: NOVOLOG FLEXPEN-LOW RESISTANCE 2 UNITS SC (00:01)
[2024-12-31] MEDS: ROXICODONE 5 MG PO ×4 (00:37→22:34)
[2024-12-31] MEDS: ZOFRAN 4 MG IV ×4 (00:38→22:33)
[2024-12-31] MEDS: UNASYN IV ×4 (03:32→21:12)
[2024-12-31 05:22] LABS: Glucose - Point of Care 150 mg/dl (70-99)
[2024-12-31] MEDS: NOVOLOG FLEXPEN-LOW RESISTANCE 1 UNITS SC ×3 (05:45→18:48)
[2024-12-31 05:52] LABS: Hematocrit 27.7 % (37.0-47.0); Hemoglobin 9.1 g/dL (12.0-16.0); Mean Corp Hgb Conc. 32.9 g/dL (33.0-37.0); Mean Corpuscular Hgb 29.7 pg (27.0-31.0); Mean Corpuscular Volume 90.5 fL (81.0-99.0); Platelet Count 250 10^3/uL (130-400); Red Blood Cell Count 3.06 10^6/uL (4.20-5.40); Red Cell Dist. Width 16.9 % (11.5-14.5); White Blood Cell Count 8.5 10^3/uL (4.8-10.8)
[2024-12-31] MEDS: SYNTHROID 75 MCG PO (05:52)
[2024-12-31] MEDS: SOLU-MEDROL PF 20 MG IV (05:52)
[2024-12-31 05:53] VITALS: BMI 21.5
[2024-12-31 07:30] VITALS: BP 146/75
--- NOTE | 2024-12-31 08:16 | W.PN.GI.CBS2 ---
Addendum entered and electronically signed by Davis Metzger, 12/31/24 09:59:
I saw and examined the patient.
The TOBACCO CLASSER's note was reviewed and I agree with the note.
#Refractory, [place]-Ulcerative Colitis
#E Coli Bacteremia
#Iron def anemia
#Chronic biliary ductal dilation, Normal LFTs
#Hypoalbuminemia
Comment: Agree with the detailed note as below. Still having ongoing abdominal pain and small volume bloody stools despite previous Remicade and prolonged IV steroids. Favor continuing steroid taper as below given plans for upcoming surgery on 01/02
with colorectal surgery with plans for colectomy. Discussed with patient again this morning. Fear that ongoing IV steroids will only further immunosuppress her and again hope to avoid issues with delayed wound healing and ongoing TPN. Will ensure
close outpatient follow-up as well once she has recovered from a surgical standpoint with Dr. Michel as an outpatient. See rest of recommendations as detailed below.
Original Note:
Today's Communication / Plan
-
cont loose blood tinged stools and abdominal pain worse after BM
plan for tentative OR tuesday 01/02
remain on full liquid diet with ensure - diet advancement per surgery
- S/p Remicade 10mg/kg first dose on 12/21/24. She was given second dose 10 mg/kg 12/27/2024. WBC normal.
reviewed taper with Dr. Metzger cont steroid wean-- 12/29 solumedrol Q 8 hrs, 12/30 somedrol Q 12hrs 12/31 Solumedrol daily 01/01 off
remains off cortenema
- TB testing x 2 indeterminant (12/14/24 and 12/20/24) appreciate ID recs remains on INH therapy for OP t spot testing when able
- s/p IV iron completed course 12/24
- C/w SCD and OOB-- declined Lovenox
- C/w abx repeat BC so far negative. ID following for abx course
- cardio eval for chest pain/elevated troponin, felt to be nonischemic myocardial injury in setting of anemia and HTN
From GI standpoint will need office follow up when recovered from surgical standpoint-- I sent message to office to change follow up from next week to 6-8 weeks to review path and need for any further medical therapy.
Assessment / Plan
-
Ms. Roa is a 69yo with hx depression, hypothyroidism, prior appe and tani, family hx IBD with onset of lower abdominal pain with bloody diarrhea for last month. She is noted with low grade fever along with nausea and vomiting. She was
followed by Dr. Murphy at [facility] with recent OP evaluation early November. She had exam in office did not recall biopsy and was placed on Mesalamine orally with concern for ulcerative colitis. Symptoms did not improve and actually got worse with
some increased pain and low grade fever and continued bleeding with clots and urgency and due for OP colonoscopy. She presented to with continued symptoms. She was seen by GI in consultation. Stool studies 12/13 were negative. She
completed colonoscopy 12/14 with diffuse severe inflammation in entire colon with pancolitis and concern for severe ulcerative colitis with path moderate chronic active colitis with neg CMV. Labs notable for calprotectin 1840, CRP up to 79.7, ESR
8. She was placed on IV steroids then oral and plan for eventual biologic therapy with [facility] as outpatient with approval pending . Hepatitis B/C were negative and TB was indeterminate x2 . She now returns with nausea, vomiting, and diarrhea
with continued bloody stools. s/p remicade 12/21 and 12/27 with high dose steroids and continued blood stools without improvement. elevated CRP that is now coming down. + bacteremia s/p ID eval. Pt given IV TPN and accepted risk with recent
bacteremia. She declined Lovenox but remains with compression boots and ambulation. + CP/elevated troponin s/p cards eval.
Chest x-ray/abdominal x-ray 12/22/2024:
1. Nonobstructed bowel gas pattern.
2. Ahaustral appearance of the hepatic flexure and sigmoid colon, likely corresponding to the bowel wall thickening seen on recent prior CT
Impression/Plan:
# New [place] ulcerative colitis
# anemia secondary to UC
# Bacteremia 12/23
+ for EColi
# Iron def anemia
# Chronic biliary ductal dilation
Normal LFTs
# hypoalbuminemia - poor oral intakes
# elevated troponin s/p cards eval
Recommendations:
cont loose blood tinged stools and abdominal pain worse after BM
plan for tentative OR tuesday 01/02
remain on full liquid diet with ensure - diet advancement per surgery
- S/p Remicade 10mg/kg first dose on 12/21/24. She was given second dose 10 mg/kg 12/27/2024. WBC normal.
reviewed taper with Dr. Yassine camacho steroid wean-- 12/29 solumedrol Q 8 hrs, 12/30 somedrol Q 12hrs 12/31 Solumedrol daily 01/01 off
remains off cortenema
- TB testing x 2 indeterminant (12/14/24 and 12/20/24) appreciate ID recs remains on INH therapy for OP t spot testing when able
- s/p IV iron completed course 12/24
- C/w SCD and OOB-- declined Lovenox
- C/w abx repeat BC so far negative. ID following for abx course
- cardio eval for chest pain/elevated troponin, felt to be nonischemic myocardial injury in setting of anemia and HTN
From GI standpoint will need office follow up when recovered from surgical standpoint-- I sent message to office to change follow up from next week to 6-8 weeks to review path and need for any further medical therapy.
Subjective
Subjective
Date of Service: December 31, 2024
still with pain after blood BM, diet per surgery- full liquid + TPN, has been ambulating frequently
Objective
Data Reviewed
Laboratory Data:
Laboratory Results
12/31/24 05:19
12/30/24 05:58
Laboratory Results
Phosphorus 2.4 mg/dl (2.5-4.5) L 12/26/24 05:09
Magnesium 2.4 mg/dl (1.6-2.3) H 12/26/24 05:09
Total Bilirubin 0.4 mg/dl (0.2-1.3) 12/26/24 05:09
AST 17 U/L (14-36) 12/26/24 05:09
ALT 16 U/L (0-35) 12/26/24 05:09
Alkaline Phosphatase 77 U/L (38-126) 12/26/24 05:09
Lipase 17 U/L (23-300) L 12/19/24 19:40
Vital Signs and I&O:
Vital Signs
Temp Pulse Resp BP Pulse Ox
98 F 74 16 146/75 99
12/31/24 07:30 12/31/24 07:30 12/31/24 07:30 12/31/24 07:30 12/31/24 07:30
I&O
12/30/24 12/31/24 01/01/25
06:59 06:59 06:59
Intake Total 1420 / 1420 2039
Balance 1420 / 1420 2039
Physical Exam
Physical Exam
HEENT: Anicteric and Moist mucous membranes
Cardiology: Normal Sinus Rhythm
Pulmonary: Clear
GI: Soft, Non Distended and Tender (diffuse )
Extremities: No Edema
Neuro: Non Focal
[2024-12-31] MEDS: COZAAR 25 MG PO (08:42)
[2024-12-31] MEDS: INH 300 MG PO (08:42)
[2024-12-31] MEDS: PEPCID 40 MG PO (08:42)
[2024-12-31] MEDS: PROZAC 10 MG PO (08:43)
[2024-12-31] MEDS: VITAMIN B-6 50 MG PO (08:43)
[2024-12-31] MEDS: FLUSH (NSS) 2 FLUSH IV (10:14)
--- NOTE | 2024-12-31 11:59 | W.PN.CRS1 ---
Today's Communication / Plan
-
TPN/fld
Assessment/Plan
-
69-year-old female with PMH of ulcerative colitis, hypothyroidism, depression who presents with pancolitis due to UC flare (new dx)
Bacteremia with blood cx x2 positive for ecoli (suspect secondary to bacterial translocation from the colon) now repeat blood cx negative x4
AFVSS
No leukocytosis
TPN for nutritional support as surgery is planned tentative on 01/02/25
� Continue full liquids with supplements and TPN
� Continue multimodal pain control
� GI following; tapered off steroids s/p Remicade x 2 doses
� Recommend chemical DVT PPx, Hb has been stable
� Continue IV Unasyn, appreciate ID
� Tentatively added onto the schedule for 01/02. Ostomy sites marked.
- Labs in AM
- Cardiology eval complete.
� Appreciate hospitalist
Subjective Data
Subjective Data
Date of Service: December 31, 2024
Patient seen and examined at bedside with Dr Ham. Feels no better but not worsening either. Passed some bloody stools yesterday.
Objective Data
-
Vital Signs
Temp Pulse Resp BP Pulse Ox
98 F 74 16 146/75 99
12/31/24 07:30 12/31/24 08:42 12/31/24 07:30 12/31/24 08:42 12/31/24 07:30
Intake & Output
12/30/24 12/31/24 01/01/25
06:59 06:59 06:59
Intake Total 1420 / 1420 2039
Balance 1420 / 1420 2039
Intake:
Oral fluids 1420 / 1420 480 / 480
IV piggybacks 480 / 480
TPN/PPN 1080 / 1080
Other:
Number of approximated MODERATE 4 3
amounts of urine
Lab Results
04/19/25 05:19
12/30/24 05:58
Physical Exam
-
General: No Acute Distress
Abdomen: Soft, Non Distended and Tender (mild LLQ)
Extremities: No Calf Tenderness
Skin: Warm
[2024-12-31 12:42] LABS: Glucose - Point of Care 175 mg/dl (70-99)
--- NOTE | 2024-12-31 13:33 | W.PN.HOSP.TC ---
Today's Communication/Plan
-
Continues to have some bloody stool
Steroids per GI
Tentative colectomy surgery on thursday
Assessment / Plan
Assessment / Plan
1. Pancolitis with suspected Ulcerative colitis
E. coli bacteremia suspected gut organism translocation
- Recent colonoscopy showing pancolitis
- 2 out of 2 blood culture positive for Gram negative bacilli, repeat culture 12/25. on unasyn at this point
- Patient got resumed back on Remicade, got doses on 12/21 and 12/27
- Got cortisol suppository as well
- Patient currently on TPN, CRS/GI to manage
- QFT gold test indeterminate, ID recommended isoniazid/B6 as there is no active pulmonary TB.
- Patient for elective total colectomy for Thursday
- IV Solu-Medrol dose has been decreased to 20 mg every 12h
2. Multifactorial anemia
Iron deficiency and chronic disease related
- Finished IV iron
- Transfused 1 unit PRBC 12/24
- Continue monitoring Hbg level
3. Chest pain
Elevated troponin - presumed nonischemic myocardial injury related
- Patient had episode of sternal chest discomfort last night,
- Minimal troponin elevation, follow-up ordered
- EKG did not show any significant ST segment changes from admission EKG
- Cardiology evaluated and planning to do an echocardiogram
3. Superficial venous thrombosis involving the cephalic vein
- warm compresses
- continue monitor
4. Hypokalemia
Hypomagnesemia
- Replete PRN
5. Dilated bile ducts
- recent MRI done; management per GI
Diverticulosis
Hyponatremia
Chronic L1, L2 Fx
Punctate hypodensity within the lower pole the right kidney
Hypothyroidism
Anxiety
DVT ppx SCD's; patient refused pharm prophylaxis
Full code
Anticipated Discharge: > 48 hours
Subjective/Interval History
-
Date of Service: December 31, 2024
Some abdominal discomfort
no n/v
no other issues
Objective Data
-
Labs:
Laboratory Results
12/31/24
05:19
WBC 8.5
Hgb 9.1 L
Hct 27.7 L
Plt Count 250
Vital Signs:
Vital Signs
Temp Pulse Resp BP Pulse Ox
98 F 74 16 146/75 99
12/31/24 07:30 12/31/24 08:42 12/31/24 07:30 12/31/24 08:42 12/31/24 09:00
I&O
12/30/24 12/31/24 01/01/25
06:59 06:59 06:59
Intake Total 1420 / 1420 2039
Balance 1420 / 1420 2039
Review of Systems
-
Respiratory: Reports No Symptoms
Cardiac: Reports No Symptoms
Abdomen/GI: Denies Abdominal Pain, Nausea or Vomiting
Physical Exam
-
General: Negative Appears in Distress
HEENT: Negative Oxygen
Cardiac: Regular Rhythm and S1/S2; Negative Murmur
GI: Soft, Nontender, Nondistended and Normal Bowel Sounds
Neuro: Awake, Alert, Oriented and No Motor Deficits
[2024-12-31] MEDS: MYCAMINE 105 MG IV (14:57)
--- NOTE | 2024-12-31 15:14 | PTCARENOTE ---
Pt reports having several episodes of moderate amount of bloody discharge rectally today. Pt asymptomatic. Made Dr. Marks aware, will order Hgb check.
[2024-12-31 15:36] VITALS: BP 129/67
[2024-12-31 17:12] LABS: Hematocrit 27.7 % (37.0-47.0); Hemoglobin 9.2 g/dL (12.0-16.0); Mean Corp Hgb Conc. 33.2 g/dL (33.0-37.0); Mean Corpuscular Hgb 29.8 pg (27.0-31.0); Mean Corpuscular Volume 89.6 fL (81.0-99.0); Mean Platelet Volume 9.5 fL (7.4-10.4); Platelet Count 243 10^3/uL (130-400); Red Blood Cell Count 3.09 10^6/uL (4.20-5.40)
[2024-12-31 18:33] LABS: Glucose - Point of Care 157 mg/dl (70-99)
[2024-12-31] MEDS: DILAUDID 0.25 MG IV (18:50)
[2024-12-31] MEDS: HEPARIN 5000 UNITS SC (20:49)
[2024-12-31] MEDS: Parenteral Nutrition, Central 1090 IV (20:57)
[2024-12-31 23:51] VITALS: BP 133/69
[2024-12-31 23:51] LABS: Glucose - Point of Care 143 mg/dl (70-99)
[2024-12-31] MEDS: NOVOLOG FLEXPEN-LOW RESISTANCE SC (23:59)
[2025-01-01] MEDS: DILAUDID 0.25 MG IV ×4 (01:51→21:11)
[2025-01-01] MEDS: UNASYN IV ×4 (03:26→21:15)
[2025-01-01] MEDS: TORADOL 15 MG IV (03:26)
[2025-01-01 04:51] LABS: Hematocrit 25.5 % (37.0-47.0); Hemoglobin 8.4 g/dL (12.0-16.0); Mean Corp Hgb Conc. 32.9 g/dL (33.0-37.0); Mean Corpuscular Volume 91.1 fL (81.0-99.0); Mean Platelet Volume 9.8 fL (7.4-10.4); Platelet Count 200 10^3/uL (130-400); Red Cell Dist. Width 17.1 % (11.5-14.5); White Blood Cell Count 9.2 10^3/uL (4.8-10.8)
[2025-01-01 05:10] VITALS: BMI 21.1
[2025-01-01 05:17] LABS: Blood Urea Nitrogen 20 mg/dl (7-17); Calcium 7.4 mg/dl (8.4-10.2); Carbon Dioxide 26 mmol/L (22-30); Chloride 108 mmol/L (98-107); Estimated Creatinine Clearance 77 ml/min; Glucose 101 mg/dl (70-99); Magnesium 2.2 mg/dl (1.6-2.3); Phosphorus 2.5 mg/dl (2.5-4.5); Potassium 4.1 mmol/L (3.5-5.1); Sodium 134 mmol/L (135-145); eGFR > 60.00
[2025-01-01] MEDS: SYNTHROID 75 MCG PO (05:41)
[2025-01-01] MEDS: ZOFRAN 4 MG IV ×3 (05:41→19:35)
[2025-01-01] MEDS: ROXICODONE 5 MG PO ×3 (05:41→19:33)
[2025-01-01 05:46] LABS: Glucose - Point of Care 102 mg/dl (70-99)
[2025-01-01] MEDS: NOVOLOG FLEXPEN-LOW RESISTANCE SC ×3 (05:55→18:15)
[2025-01-01 07:30] VITALS: BP 106/65
[2025-01-01] MEDS: PEPCID 40 MG PO (09:19)
[2025-01-01] MEDS: HEPARIN 5000 UNITS SC ×2 (09:19→19:32)
[2025-01-01] MEDS: VITAMIN B-6 50 MG PO (09:19)
[2025-01-01] MEDS: COZAAR 25 MG PO (09:20)
--- NOTE | 2025-01-01 10:50 | W.PN.CRS1 ---
Today's Communication / Plan
-
OR in am
Assessment/Plan
-
69-year-old female with PMH of ulcerative colitis, hypothyroidism, depression who presents with pancolitis due to UC flare (new dx)
Bacteremia with blood cx x2 positive for ecoli on 12/23 (suspect secondary to bacterial translocation from the colon) now repeat blood cx negative x4
AFVSS
No leukocytosis
Anemia present with slight downtrend now that she is having more blood in the stools
TPN for nutritional support as surgery is planned tentative on 01/02/25
� Clear liquids and TPN
� Continue multimodal pain control
� GI following; tapered off steroids s/p Remicade x 2 doses. Ok for steroids from surgical standpoint, will give stress dose preop
� Recommend chemical DVT PPx, Hb has been stable
� Continue IV Unasyn, appreciate ID
� Tentatively OR 01/02 for colectomy. Ostomy sites marked.
- Labs in AM
- Cardiology eval complete.
� Appreciate hospitalist
Subjective Data
Subjective Data
Date of Service: January 01, 2025
Patient seen and examined at bedside with Dr. Ham. Worsening pain/bloody stools over the past day or 2. Denies n/v.
Objective Data
-
Vital Signs
Temp Pulse Resp BP Pulse Ox
98.0 F 85 18 106/65 95
12/31/24 23:51 01/01/25 09:20 01/01/25 07:30 01/01/25 09:20 12/31/24 23:51
Intake & Output
12/31/24 01/01/25 01/02/25
06:59 06:59 06:59
Intake Total 2039
Balance 2039
Intake:
Oral fluids 480 / 480 420 / 420
IV piggybacks 480 / 480 585 / 585
TPN/PPN 1080 / 1079 1080 / 1079
Other:
Number of approximated MODERATE 3 3
amounts of urine
Lab Results
01/01/25 04:32
01/01/25 04:32
Physical Exam
-
General: No Acute Distress
Abdomen: Soft, Non Distended and Tender (mild LLQ)
Extremities: No Calf Tenderness
Skin: Warm
[2025-01-01 12:37] LABS: Glucose - Point of Care 92 mg/dl (70-99)
--- NOTE | 2025-01-01 12:44 | W.PN.HOSP.TC ---
Today's Communication/Plan
-
see note
Assessment / Plan
Assessment / Plan
1. Pancolitis with suspected Ulcerative colitis
E. coli bacteremia suspected gut organism translocation
- Recent colonoscopy showing pancolitis
- 2 out of 2 blood culture positive for Gram negative bacilli, repeat culture 12/25. on unasyn at this point
- Patient got resumed back on Remicade, got doses on 12/21 and 12/27
- Got cortisol suppository as well
- Patient currently on TPN, CRS/GI to manage
- QFT gold test indeterminate, ID recommended isoniazid/B6 as there is no active pulmonary TB.
- Steroid dosing per GI/CRS. Patient will be given stress dose steroids before OR.
- Plan to get elective total colectomy tomorrow
2. Multifactorial anemia
Iron deficiency and chronic disease related
Acute blood loss anemia
- Finished IV iron
- Transfused 1 unit PRBC 12/24
- Bright red blood in the stool again today, continue subcu DVT prophylaxis.
- Check hemoglobin in afternoon and in the night, transfuse if close or lower than 7
3. Chest pain - single episode
Elevated troponin - presumed nonischemic myocardial injury related
- Patient had episode of sternal chest discomfort last night,
- Minimal troponin elevation, follow-up ordered
- EKG did not show any significant ST segment changes from admission EKG
- Cardiology evaluated and planning to do an echocardiogram
3. Superficial venous thrombosis involving the cephalic vein
- warm compresses
- continue monitor
4. Hypokalemia
Hypomagnesemia
- Replete PRN
5. Dilated bile ducts
- recent MRI done; management per GI
Diverticulosis
Hyponatremia
Chronic L1, L2 Fx
Punctate hypodensity within the lower pole the right kidney
Hypothyroidism
Anxiety
DVT ppx SCD's; patient refused pharm prophylaxis
Full code
Care plan discussed with colorectal surgery
Total time spent : 53 mins
Anticipated Discharge: > 48 hours
Subjective/Interval History
-
Date of Service: January 01, 2025
Bright red blood in stool in the morning
Some abdominal discomfort
no nausea or vomiting
Objective Data
-
Labs:
Laboratory Results
01/01/25
04:32
WBC 9.2
Hgb 8.4 L
Hct 25.5 L
Plt Count 200
Sodium 134 L
Potassium 4.1
Chloride 108 H
Carbon Dioxide 26
BUN 20 H
Creatinine 0.5 L
Glucose 101 H
Calcium 7.4 L
Vital Signs:
Vital Signs
Temp Pulse Resp BP Pulse Ox
98.0 F 85 18 106/65 95
12/31/24 23:51 01/01/25 09:20 01/01/25 07:30 01/01/25 09:20 12/31/24 23:51
I&O
12/31/24 01/01/25 01/02/25
06:59 06:59 06:59
Intake Total 2039
Balance 2039
Review of Systems
-
Respiratory: Reports No Symptoms
Cardiac: Reports No Symptoms
Abdomen/GI: Reports Abdominal Pain; Denies Nausea or Vomiting
Physical Exam
-
General: Negative Appears in Distress
HEENT: Negative Oxygen
Cardiac: Regular Rhythm and S1/S2; Negative Murmur
GI: Soft, Nontender, Nondistended and Normal Bowel Sounds
Neuro: Awake, Alert, Oriented and No Motor Deficits
--- NOTE | 2025-01-01 12:54 | W.PN.GI.CBS2 ---
Today's Communication / Plan
-
Weaned off steroids over the past 2-3 days. Plan for OR with colorectal surgery tomorrow, 01/02. See rest of care as outlined below.
Assessment / Plan
-
Ms. Roa is a 69yo with hx depression, hypothyroidism, prior appe and tani, family hx IBD with onset of lower abdominal pain with bloody diarrhea for last month. She is noted with low grade fever along with nausea and vomiting. She was
followed by Dr. Murphy at [place] with recent OP evaluation early November. She had exam in office did not recall biopsy and was placed on Mesalamine orally with concern for ulcerative colitis. Symptoms did not improve and actually got worse with
some increased pain and low grade fever and continued bleeding with clots and urgency and due for OP colonoscopy. She presented to 12/12- with continued symptoms. She was seen by GI in consultation. Stool studies 12/13 were negative. She
completed colonoscopy 12/14 with diffuse severe inflammation in entire colon with pancolitis and concern for severe ulcerative colitis with path moderate chronic active colitis with neg CMV. Labs notable for calprotectin 1840, CRP up to 79.7, ESR
8. She was placed on IV steroids then oral and plan for eventual biologic therapy with Scotyrizi as outpatient with approval pending . Hepatitis B/C were negative and TB was indeterminate x2 . She now returns with nausea, vomiting, and diarrhea
with continued bloody stools. s/p remicade 12/21 and 12/27 with high dose steroids and continued blood stools without improvement. elevated CRP that is now coming down. + bacteremia s/p ID eval. Pt given IV TPN and accepted risk with recent
bacteremia. She declined Lovenox but remains with compression boots and ambulation. + CP/elevated troponin s/p cards eval.
Chest x-ray/abdominal x-ray 12/22/2024:
1. Nonobstructed bowel gas pattern.
2. Ahaustral appearance of the hepatic flexure and sigmoid colon, likely corresponding to the bowel wall thickening seen on recent prior CT
#ASCUS, Refractory to Prolonged IV Steroids and Remicade
# anemia secondary to UC
# Bacteremia 12/23
+ for EColi
# Iron def anemia
# Chronic biliary ductal dilation
Normal LFTs
# hypoalbuminemia - poor oral intakes
# elevated troponin s/p cards eval
Recommendations:
- Diet as per surgery
- Trend Hgb with serial CBC, transfuse as needed
- IV Unasyn as per ID
- Discussed with patient, still unclear if her steroids were providing any benefit and discussed potentially giving another dose but patient wished to hold off at this time
- Would continue to monitor OFF IV steroids given c/f infectious risk and upcoming surgery scheduled on 01/02
- Discussed with CRS and agree with stress-dose steroids prior to OR as per surgical team
- Continue multimodal pain control
- Favor chemical VTE ppx with lovenox, patient previously declined
- Prior cardio eval for chest pain/elevated troponin, felt to be nonischemic myocardial injury in setting of anemia and HTN
- Rest of care as per primary medical and CRS teams
Discussed with patient and patient's family at bedside this afternoon along with CRS and primary internal medicine team.
Subjective
Subjective
Date of Service: January 01, 2025
- No acute events overnight
Notes slight worsening abdominal pain/discomfort but admits pain is well controlled. Still with ongoing bloody bowel movements. No fevers or chills.
Objective
Data Reviewed
Laboratory Data:
Laboratory Results
01/01/25 04:32
Laboratory Results
Phosphorus 2.5 mg/dl (2.5-4.5) 01/01/25 04:32
Magnesium 2.2 mg/dl (1.6-2.3) 01/01/25 04:32
Total Bilirubin 0.4 mg/dl (0.2-1.3) 12/26/24 05:09
AST 17 U/L (14-36) 12/26/24 05:09
ALT 16 U/L (0-35) 12/26/24 05:09
Alkaline Phosphatase 77 U/L (38-126) 12/26/24 05:09
Lipase 17 U/L (23-300) L 12/19/24 19:40
Vital Signs and I&O:
Vital Signs
Temp Pulse Resp BP Pulse Ox
98.0 F 85 18 106/65 95
12/31/24 23:51 01/01/25 09:20 01/01/25 07:30 01/01/25 09:20 12/31/24 23:51
I&O
12/31/24 01/01/25 01/02/25
06:59 06:59 06:59
Intake Total 2039
Balance 2039
Physical Exam
Physical Exam
HEENT: Anicteric and Moist mucous membranes
Pulmonary: Other (Normal WOB on room air)
GI: Soft and Tender (Mild to moderate TTP in LLQ)
Extremities: No Edema and Warm
Neuro: Non Focal
--- NOTE | 2025-01-01 14:24 | W.PN.ID1 ---
Date of Service
Date of Service: January 01, 2025
Today's Communication
Continue antibiotics. Await surgery.
Assessment / Plan
E coli Bacteremia
- likely translocation
- repeat blood cultures no growth to date
- continue with unasyn & empiric micafungin
- Total abdominal colectomy scheduled for 01/02/2025
Pancolitis
- on Remicaide
Indeterminant TB status
- QFT gold testing indeterminant x2
- recent high dose steroids were necessary for pancolitis do limit utility of the PPD
- T-spot is available outpatient at [facility] - provided script to patient 12/23
- CXR is clear, no symptoms to suggest active pulmonary TB and Pt doesn't report any significant contacts
- agree with INH/B6 pending T-spot - could provide a two week script on d/c
- follow up in the ID clinic in about 2 weeks after d/c
����������������������������������������������������������
Chief Complaint
-: Bacteremia and Other (ulcerative pancolitis)
Subjective / Review of Systems
Review of Systems: No Fever, No Chills and Abdominal Pain
Vital Signs / Physical Exam
Vital Signs
Vital Signs
Temp Pulse Resp BP Pulse Ox
98.0 F 85 18 106/65 95
12/31/24 23:51 01/01/25 09:20 01/01/25 07:30 01/01/25 09:20 12/31/24 23:51
Physical Exam
Constitutional: No Acute Distress, Comfortable and Non-toxic
Eyes: Sclera Anicteric
Pulmonary: Clear and Non Labored; Negative Rales
Gastrointestinal: Non Distended
Skin: Warm and Dry; Negative Rash or Jaundice
Neurological: Awake and Alert
Psychological: Calm
Objective Data
Lab Data
Lab Results
01/01/25 04:32
Estimated Creat Clear 77 ml/min 01/01/25 04:32
Total Bilirubin 0.4 mg/dl (0.2-1.3) 12/26/24 05:09
AST 17 U/L (14-36) 12/26/24 05:09
ALT 16 U/L (0-35) 12/26/24 05:09
Alkaline Phosphatase 77 U/L (38-126) 12/26/24 05:09
C-Reactive Protein 21.90 mg/L (0.0-10.00) H 12/28/24 04:52
Most recent labs reviewed.
Micro Results:
12/25/24 13:16 Blood Culture - Final
Blood/Venous No Growth - Final Report
12/25/24 08:52 Blood Culture - Final
Blood/Venous No Growth - Final Report
12/25/24 05:59 Blood Culture - Final
Blood/Venous No Growth - Final Report
12/24/24 20:24 Blood Culture - Final
Blood/Venous No Growth - Final Report
12/23/24 15:09 Blood Culture - Final
Blood/Venous Escherichia coli
Gram Stain - Final
12/23/24 14:50 Blood Culture - Final
Blood/Venous Escherichia coli
Gram Stain - Final
[2025-01-01 15:04] LABS: Hematocrit 26.2 % (37.0-47.0); Hemoglobin 8.7 g/dL (12.0-16.0); Mean Corp Hgb Conc. 33.2 g/dL (33.0-37.0); Mean Corpuscular Hgb 30.3 pg (27.0-31.0); Mean Corpuscular Volume 91.3 fL (81.0-99.0); Mean Platelet Volume 9.9 fL (7.4-10.4); Platelet Count 196 10^3/uL (130-400); Red Blood Cell Count 2.87 10^6/uL (4.20-5.40); Red Cell Dist. Width 17.5 % (11.5-14.5); White Blood Cell Count 9.7 10^3/uL (4.8-10.8)
[2025-01-01] MEDS: MYCAMINE 105 MG IV (15:09)
[2025-01-01 15:38] VITALS: BP 119/54
[2025-01-01 18:10] LABS: Glucose - Point of Care 100 mg/dl (70-99)
[2025-01-01 19:31] VITALS: BP 118/51
[2025-01-01] MEDS: Parenteral Nutrition, Central 1090 IV (21:08)
[2025-01-01 21:12] LABS: Hematocrit 25.7 % (37.0-47.0); Hemoglobin 8.6 g/dL (12.0-16.0); Mean Corp Hgb Conc. 33.5 g/dL (33.0-37.0); Mean Corpuscular Hgb 30.3 pg (27.0-31.0); Mean Corpuscular Volume 90.5 fL (81.0-99.0); Mean Platelet Volume 9.8 fL (7.4-10.4); Platelet Count 185 10^3/uL (130-400); Red Blood Cell Count 2.84 10^6/uL (4.20-5.40); Red Cell Dist. Width 17.5 % (11.5-14.5)
[2025-01-01 23:22] VITALS: BP 108/51
[2025-01-02] VITALS (22 sets, daily range): BP systolic 0–138; BP diastolic 37–76; BMI 21.2
[2025-01-02 00:07] LABS: Glucose - Point of Care 126 mg/dl (70-99)
[2025-01-02] MEDS: NOVOLOG FLEXPEN-LOW RESISTANCE SC ×4 (00:17→17:39)
[2025-01-02] MEDS: ZOFRAN 4 MG IV ×2 (02:28→21:47)
[2025-01-02] MEDS: ROXICODONE 5 MG PO (02:28)
[2025-01-02 04:22] LABS: Hemoglobin 7.6 g/dL (12.0-16.0); Mean Corpuscular Hgb 30.3 pg (27.0-31.0); Mean Corpuscular Volume 91.6 fL (81.0-99.0); Platelet Count 167 10^3/uL (130-400); Red Blood Cell Count 2.51 10^6/uL (4.20-5.40); Red Cell Dist. Width 17.5 % (11.5-14.5); White Blood Cell Count 7.2 10^3/uL (4.8-10.8)
[2025-01-02] MEDS: UNASYN IV ×4 (04:24→21:45)
--- NOTE | 2025-01-02 04:35 | PTCARENOTE ---
Pt assisted to get washed up for preparation to her surgery. Pt stood up to fix her underwear. Before going back to sit on the chair, pt seems like she leaned backward, or slightly slipped. Pt was grabbed quickly by this RN and the PCT. Unsure if pt
buttocks touched the floor because she is immediately assisted. Pt denies hitting her buttocks on the floor and nothing was noted at the inspection of the skin. Pt denies denies dizziness, or lightheadedness. Pt back to bed with no issues.
BG=689/54, HR=85. Pt offers no complaint, in good spirit for her surgery this morning.
[2025-01-02 04:36] LABS: ALT (SGPT) 26 U/L (0-35); AST (SGOT) 16 U/L (14-36); Albumin 1.6 g/dl (3.5-5.0); Alkaline Phosphatase 84 U/L (38-126); Blood Urea Nitrogen 31 mg/dl (7-17); Calcium 7.3 mg/dl (8.4-10.2); Carbon Dioxide 25 mmol/L (22-30); Chloride 105 mmol/L (98-107); Estimated Creatinine Clearance 77 ml/min; Glucose 115 mg/dl (70-99); Magnesium 2.2 mg/dl (1.6-2.3); Phosphorus 3.3 mg/dl (2.5-4.5); Potassium 4.4 mmol/L (3.5-5.1); Sodium 131 mmol/L (135-145); Total Bilirubin 0.3 mg/dl (0.2-1.3); Total Protein 3.4 g/dl (6.3-8.2); Triglycerides 93 mg/dl (10-149); eGFR > 60.00
[2025-01-02] MEDS: SYNTHROID 75 MCG PO (05:23)
[2025-01-02 05:32] LABS: Glucose - Point of Care 124 mg/dl (70-99)
--- NOTE | 2025-01-02 07:20 | PTCARENOTE ---
Pt's HB THIS AM=7.6. PSYCHOLOGY INTERN made aware, ordered 1 unit of PRBCs. Unit started with no issues noted. Report given to OR. Pt taken to OR with blood infusing.
--- NOTE | 2025-01-02 11:45 | W.PN.ID1 ---
Date of Service
Date of Service: January 02, 2025
Today's Communication
- continue with unasyn & empiric micafungin through today, likely stop tomorrow
- s/p Total abdominal colectomy today
- continue INH and B6
Assessment / Plan
E coli Bacteremia
- likely translocation
- repeat blood cultures no growth to date
- continue with unasyn & empiric micafungin through today, likely stop tomorrow
- s/p Total abdominal colectomy today
Pancolitis
- on Remicaide
Indeterminant TB status
- QFT gold testing indeterminant x2
- recent high dose steroids were necessary for pancolitis do limit utility of the PPD
- T-spot is available outpatient at [facility] - provided script to patient 12/23
- CXR is clear, no symptoms to suggest active pulmonary TB and Pt doesn't report any significant contacts
- agree with INH/B6 pending T-spot - could provide a two week script on d/c
- follow up in the ID clinic in about 2 weeks after d/c
����������������������������������������������������������
Chief Complaint
-: Bacteremia and Other (ulcerative pancolitis)
Subjective / Review of Systems
afebrile
bp stable
s/p total colectomy today
Vital Signs / Physical Exam
Vital Signs
Vital Signs
Temp Pulse Resp BP Pulse Ox
99.1 F 80 16 122/47 99
01/02/25 06:35 01/02/25 06:35 01/02/25 06:35 01/02/25 06:35 01/02/25 06:35
Physical Exam
Constitutional: No Acute Distress
Cardiovascular: Regular Rate and S1/S2; Negative Murmur or Rub
Pulmonary: Clear and Symmetric; Negative Wheezes or Rales
Gastrointestinal: Soft, Non Tender, Non Distended, Normal Bowel Sounds and Other (stoma pink, port sites no erythema, warmth or drainage)
Skin: Warm and Dry; Negative Rash or Jaundice
Objective Data
Lab Data
Lab Results
01/02/25 03:56
01/02/25 03:56
Estimated Creat Clear 77 ml/min 01/02/25 03:56
Total Bilirubin 0.3 mg/dl (0.2-1.3) 01/02/25 03:56
AST 16 U/L (14-36) 01/02/25 03:56
ALT 26 U/L (0-35) 01/02/25 03:56
Alkaline Phosphatase 84 U/L (38-126) 01/02/25 03:56
C-Reactive Protein 21.90 mg/L (0.0-10.00) H 12/28/24 04:52
Most recent labs reviewed.
Micro Results:
12/25/24 13:16 Blood Culture - Final
Blood/Venous No Growth - Final Report
12/25/24 08:52 Blood Culture - Final
Blood/Venous No Growth - Final Report
12/25/24 05:59 Blood Culture - Final
Blood/Venous No Growth - Final Report
12/24/24 20:24 Blood Culture - Final
Blood/Venous No Growth - Final Report
12/23/24 15:09 Blood Culture - Final
Blood/Venous Escherichia coli
Gram Stain - Final
12/23/24 14:50 Blood Culture - Final
Blood/Venous Escherichia coli
Gram Stain - Final
--- NOTE | 2025-01-02 12:12 | CM ---
Pt for colostomy /colectomy today.
Maintained on IV antibiotics.
Remains on TPN.
Will need PT OT evals reordered postop
CM will continue to assess and assist discharge needs.
PLAN Will depend on hospital course of care.
--- NOTE | 2025-01-02 12:25 | W.IMMPOSTOP ---
Surgical Immed Post Op Note
-
Primary Surgeon: Kennye Ham MD
Assisting Surgeon: EMMA Blake ; Coleen ESQUIVEL
Pre-op Diagnosis: Fulminant Ulcerative Colitis
Post-op Diagnosis: Fulminant Ulcerative Colitis
Procedure Performed: Robotic total colectomy with end ileostomy (Seprafilm)
Anesthesia Type: GET
Specimen / Cultures: entire colon
Estimated Blood Loss: 25cc
Complications: none
Operative Findings: severe ulcerative colitis
Patient's son updated.
[2025-01-02 13:19] LABS: Blood Urea Nitrogen 23 mg/dl (7-17); Calcium 6.6 mg/dl (8.4-10.2); Carbon Dioxide 23 mmol/L (22-30); Chloride 104 mmol/L (98-107); Estimated Creatinine Clearance 77 ml/min; Glucose 147 mg/dl (70-99); Potassium 4.5 mmol/L (3.5-5.1); Sodium 131 mmol/L (135-145); eGFR > 60.00
[2025-01-02] MEDS: COZAAR PO (13:25)
[2025-01-02] MEDS: HEPARIN SC (13:25)
[2025-01-02] MEDS: VITAMIN B-6 PO (13:26)
[2025-01-02] MEDS: PROZAC PO (13:26)
[2025-01-02 13:28] LABS: Hematocrit 29.8 % (37.0-47.0); Mean Corp Hgb Conc. 33.6 g/dL (33.0-37.0); Mean Corpuscular Hgb 29.9 pg (27.0-31.0); Mean Platelet Volume 9.6 fL (7.4-10.4); Platelet Count 173 10^3/uL (130-400); Red Blood Cell Count 3.35 10^6/uL (4.20-5.40); Red Cell Dist. Width 17.2 % (11.5-14.5); White Blood Cell Count 7.7 10^3/uL (4.8-10.8)
[2025-01-02] MEDS: TORADOL 15 MG IV ×2 (15:29→18:37)
[2025-01-02] MEDS: SOLU-CORTEF 100 MG IV (15:29)
[2025-01-02] MEDS: NORMOSOL-R/PLASMALYTE-A 1000 IV (15:30)
[2025-01-02] MEDS: MYCAMINE IV (16:09)
[2025-01-02] MEDS: PEPCID PO (16:10)
[2025-01-02] MEDS: MYCAMINE 105 MG IV (16:46)
--- NOTE | 2025-01-02 16:54 | W.PN.HOSP.TC ---
Today's Communication/Plan
-
see note
Assessment / Plan
Assessment / Plan
1. Pancolitis with suspected Ulcerative colitis
E. coli bacteremia suspected gut organism translocation
- Recent colonoscopy showing pancolitis
- 2 out of 2 blood culture positive for Gram negative bacilli, repeat culture 12/25. on unasyn at this point
- Patient got resumed back on Remicade, got doses on 12/21 and 12/27
- Patient currently on TPN, CRS/GI to manage
- QFT gold test indeterminate, ID recommended isoniazid/B6 as there is no active pulmonary TB.
- Steroid dosing per GI/CRS. Patient will be given stress dose steroids before OR.
- s/p robotic total colectomy today and ileostomy formatio
- post op care per CRS
- maintain NPO/IVF for now
2. Multifactorial anemia
Iron deficiency and chronic disease related
Acute blood loss anemia
- Finished IV iron
- required 2 U prbc this admission due to BRBPR from colon issues.
3. Chest pain - single episode
Elevated troponin - presumed nonischemic myocardial injury related
- Patient had episode of sternal chest discomfort last night,
- Minimal troponin elevation, follow-up ordered
- EKG did not show any significant ST segment changes from admission EKG
- Cardiology evaluated and planning to do an echocardiogram
3. Superficial venous thrombosis involving the cephalic vein
- warm compresses
- continue monitor
4. Hypokalemia
Hypomagnesemia
- Replete PRN
5. Dilated bile ducts
- recent MRI done; management per GI
Diverticulosis
Hyponatremia
Chronic L1, L2 Fx
Punctate hypodensity within the lower pole the right kidney
Hypothyroidism
Anxiety
DVT ppx SCD's; patient refused pharm prophylaxis
Full code
Total time spent : 51 mins
Anticipated Discharge: > 48 hours
Subjective/Interval History
-
Date of Service: January 02, 2025
patient seen post op in room
have some abd discomfort
no n/v
Objective Data
-
Labs:
Laboratory Results
01/02/25
12:34
WBC 7.7
Hgb 10.0 L D
Hct 29.8 L
Plt Count 173
Sodium 131 L
Potassium 4.5
Chloride 104
Carbon Dioxide 23
BUN 23 H
Creatinine 0.5 L
Glucose 147 H
Calcium 6.6 L*
Vital Signs:
Vital Signs
Temp Pulse Resp BP Pulse Ox
97.5 F 78 16 125/64 100
01/02/25 16:00 01/02/25 16:00 01/02/25 16:00 01/02/25 16:00 01/02/25 16:00
I&O
01/01/25 01/02/25 01/03/25
06:59 06:59 06:59
Intake Total 2084 840 / 840 400 / 400
Output Total 400 / 400
Balance 2084 840 / 840 0 / 0
Review of Systems
-
Respiratory: Reports No Symptoms
Cardiac: Reports No Symptoms
Abdomen/GI: Reports Abdominal Pain; Denies Nausea or Vomiting
Physical Exam
-
General: Obese
HEENT: Negative Oxygen
Respiratory: Clear to Auscultation
Cardiac: Regular Rhythm and S1/S2; Negative Murmur or Rub
GI: Soft, Tender and Ostomy (Ilesostomy with black liquid stool)
Musculoskeletal: No Edema
Neuro: Awake, Alert, Oriented, No Motor Deficits and Nonfocal/Grossly Intact
Psych: Calm
[2025-01-02 17:33] LABS: Glucose - Point of Care 152 mg/dl (70-99)
[2025-01-02] MEDS: DILAUDID 0.5 MG IV ×2 (19:17→23:19)
[2025-01-02] MEDS: HEPARIN 5000 UNITS SC (21:45)
[2025-01-02] MEDS: Parenteral Nutrition, Central 1090 IV (22:02)
[2025-01-03 00:37] LABS: Glucose - Point of Care 187 mg/dl (70-99)
[2025-01-03] MEDS: NOVOLOG FLEXPEN-LOW RESISTANCE 1 UNITS SC ×2 (00:53→23:42)
[2025-01-03] MEDS: TORADOL 15 MG IV ×4 (00:54→18:46)
[2025-01-03] MEDS: SOLU-CORTEF 100 MG IV ×2 (00:54→08:04)
[2025-01-03] MEDS: DILAUDID 0.5 MG IV ×5 (03:12→23:35)
[2025-01-03 03:31] VITALS: BP 120/60
[2025-01-03] MEDS: UNASYN IV ×2 (03:52→09:37)
[2025-01-03 05:20] LABS: Hematocrit 25.2 % (37.0-47.0); Hemoglobin 8.4 g/dL (12.0-16.0); Mean Corp Hgb Conc. 33.3 g/dL (33.0-37.0); Mean Corpuscular Hgb 29.9 pg (27.0-31.0); Mean Corpuscular Volume 89.7 fL (81.0-99.0); Mean Platelet Volume 10.3 fL (7.4-10.4); Platelet Count 178 10^3/uL (130-400); Red Blood Cell Count 2.81 10^6/uL (4.20-5.40); Red Cell Dist. Width 17.7 % (11.5-14.5); White Blood Cell Count 8.2 10^3/uL (4.8-10.8)
[2025-01-03 05:59] LABS: Blood Urea Nitrogen 21 mg/dl (7-17); Calcium 6.8 mg/dl (8.4-10.2); Carbon Dioxide 26 mmol/L (22-30); Chloride 106 mmol/L (98-107); Estimated Creatinine Clearance 77 ml/min; Glucose 194 mg/dl (70-99); Potassium 4.2 mmol/L (3.5-5.1); Sodium 133 mmol/L (135-145); eGFR > 60.00
[2025-01-03] MEDS: SYNTHROID 75 MCG PO (06:23)
[2025-01-03 06:35] LABS: Glucose - Point of Care 210 mg/dl (70-99)
[2025-01-03] MEDS: NOVOLOG FLEXPEN-LOW RESISTANCE 2 UNITS SC ×3 (06:40→17:51)
[2025-01-03 07:16] VITALS: BP 138/60
[2025-01-03] MEDS: PROTONIX IV 40 MG IV (08:03)
[2025-01-03] MEDS: VITAMIN B-6 50 MG PO (08:03)
[2025-01-03] MEDS: COZAAR 25 MG PO (08:03)
[2025-01-03] MEDS: HEPARIN 5000 UNITS SC ×2 (08:04→20:35)
--- NOTE | 2025-01-03 09:25 | W.PN.GI.CBS2 ---
Addendum entered and electronically signed by Davis Metzger DO 01/03/25 11:12:
I saw and examined the patient.
The SWEEPER BRUSH MAKER MACHINE's note was reviewed and I agree with the note.
Comment: S/p robotic total colectomy with end ileostomy given patient's refractory, ASUC with CRS on 01/02/25. Doing well and reports feeling much better although with expected abdominal discomfort which she reports is currently well controlled with
her current pain regimen. Pathology results pending and previously weaned off steroids prior to surgery. Remains on stress-dose steroids as per CRS with IV Hydrocortisone. Agree with ongoing IV abx along with ongoing post-surgical care. Will ensure
close outpatient follow-up with her primary [employer], Dr. Michel, after discharge for her GI care. Rest of care as outlined below.
Discussed with primary internal medicine team. GI will sign-off, please call back with any questions or concerns.
Original Note:
Today's Communication / Plan
-
post -op per surgical team
weaned off steroids prior to surgery
NPO- TPN per surgical team
remains on ABx- Unasyn
support give
wound nurse for ostomy teaching
await path
Assessment / Plan
-
Ms. Roa is a 69yo with hx depression, hypothyroidism, prior appe and tani, family hx IBD with onset of lower abdominal pain with bloody diarrhea for last month. Initial care at [place] with mesalamine then transfer care to . She
completed colonoscopy 12/14 with diffuse severe inflammation in entire colon with pancolitis and concern for severe ulcerative colitis with path moderate chronic active colitis with neg CMV. Labs notable for calprotectin 1840, CRP up to 79.7, ESR
8. She was placed on IV steroids then oral and plan for eventual biologic therapy with Scotyrevelinei as outpatient but returned and treated with high dose steroids and remicade without improvement. Hepatitis B/C were negative and TB was
indeterminate x2 . She now returns with nausea, vomiting, and diarrhea with continued bloody stools. + bacteremia s/p ID eval. Pt given IV TPN and accepted risk with recent bacteremia. She declined Lovenox but remains with compression boots and
ambulation. + CP/elevated troponin s/p cards eval. 01/02 OR Robotic total colectomy with end ileostomy.
#fulminant ulcerative colitis , Refractory to Prolonged IV Steroids and Remicade, 01/02 OR Robotic total colectomy with end ileostomy.
# anemia secondary to UC
# Bacteremia 12/23
+ for EColi
# Iron def anemia
# Chronic biliary ductal dilation
Normal LFTs
# hypoalbuminemia - poor oral intakes
# elevated troponin s/p cards eval
Recommendations:
post -op per surgical team
weaned off steroids prior to surgery
NPO, TPN per surgical team
remains on ABx- Unasyn
support give
wound nurse for ostomy teaching
await path
Subjective
Subjective
Date of Service: January 03, 2025
doing well post-op, NPO, small amount liquid dark stool in ostomy
Objective
Data Reviewed
Laboratory Data:
Laboratory Results
01/03/25 04:51
01/03/25 04:51
Laboratory Results
Phosphorus 3.3 mg/dl (2.5-4.5) 01/02/25 03:56
Magnesium 2.2 mg/dl (1.6-2.3) 01/02/25 03:56
Total Bilirubin 0.3 mg/dl (0.2-1.3) 01/02/25 03:56
AST 16 U/L (14-36) 01/02/25 03:56
ALT 26 U/L (0-35) 01/02/25 03:56
Alkaline Phosphatase 84 U/L (38-126) 01/02/25 03:56
Lipase 17 U/L (23-300) L 12/19/24 19:40
Vital Signs and I&O:
Vital Signs
Temp Pulse Resp BP Pulse Ox
98.4 F 74 16 138/60 96
01/03/25 07:16 01/03/25 07:16 01/03/25 07:16 01/03/25 07:16 01/03/25 07:16
I&O
01/02/25 01/03/25 01/04/25
06:59 06:59 06:59
Intake Total 840 / 840 1000 / 1000
Output Total 1340 / 1340
Balance 840 / 840 -340 / -340
Physical Exam
Physical Exam
HEENT: Anicteric and Moist mucous membranes
Cardiology: Normal Sinus Rhythm
Pulmonary: Clear
GI: Soft, Non Distended, Tender (diffuse ) and Other (ostomy with dark stool, robotic incision intact )
Extremities: No Edema and Other (compression boots in place)
Neuro: Non Focal
--- NOTE | 2025-01-03 09:32 | W.PN.CRS1 ---
Today's Communication / Plan
-
continue npo/tpn
weaning steroids
IV abx
OOB with PT
DC bermeo
Assessment/Plan
-
POD#1 Robotic total colectomy with end ileostomy
VS: normal. WBC 8.2. Hgb 8.4 (10.0)
-Remain NPO with sips/chips and await further bowel function. Continue NPO. IVFs.
-OOB with PT/OT
-GERMÁN drain in place until discharge
-Wound RN for ileostomy teaching
-Continue heparin subq for DVT prophylaxis. TEDS/SCDS.
-Weaning IV steroids to off over the next several days
-D/C bermeo
-Trend hemoglobin
-Unasyn IV for gram negative bacilli blood culture - ID following
-OR pathology pending
Subjective Data
Procedure
01/02/2025- Robotic total colectomy with end ileostomy
Subjective Data
Date of Service: January 03, 2025
Patient states she feels well today. She has minimal pain. She has been noticing sounds from her ileostomy bag and some gas. She has no complaints.
Objective Data
-
Vital Signs
Temp Pulse Resp BP Pulse Ox
98.4 F 74 16 138/60 96
01/03/25 07:16 01/03/25 07:16 01/03/25 07:16 01/03/25 07:16 01/03/25 07:16
Intake & Output
01/02/25 01/03/25 01/04/25
06:59 06:59 06:59
Intake Total 840 / 840 1000 / 1000
Output Total 1340 / 1340
Balance 840 / 840 -340 / -340
Intake:
Oral fluids 840 / 840 350 / 350
IV fluids (Total) 400 / 400
Normosol 400 / 400
Blood Product Amount Infused ( 0 / 0 250 / 250
mL)
Packed Rbc Leukoreduced Unit 0 / 0 250 / 250
[id number]
Output:
Drain Output (Total) 290 / 290
Right Lower Abdomen 290 / 290
Urine, Bermeo 1050 / 1050
Other:
Number of approximated SMALL 1
amounts of urine
Number of approximated MODERATE 3
amounts of urine
Number of unmeasured liquid
stools
Rectum 2
Lab Results
01/03/25 04:51
01/03/25 04:51
Physical Exam
-
General: No Acute Distress and AOx3
Abdomen: Soft, Non Distended, Tender (mild over incisions) and Other (ileostomy warm and pink, some output in bag. GERMÁN drain - serosanguinous. )
Skin: Warm and Dry
Incision: Clear, Dry, Intact
--- NOTE | 2025-01-03 09:52 | W.PN.HOSP.TC ---
Today's Communication/Plan
-
continue current care
monitor for bowel function recovery
Assessment / Plan
Assessment / Plan
1. Pancolitis with suspected Ulcerative colitis
E. coli bacteremia suspected gut organism translocation
- Recent colonoscopy showing pancolitis
- 2 out of 2 blood culture positive for Gram negative bacilli, repeat culture 12/25. on unasyn at this point
- Patient got resumed back on Remicade, got doses on 12/21 and 12/27
- Patient currently on TPN, CRS/GI to manage
- QFT gold test indeterminate, ID recommended isoniazid/B6 as there is no active pulmonary TB.
- Steroid dosing per GI/CRS. Patient will be given stress dose steroids before OR.
- s/p robotic total colectomy today and ileostomy formatio
- post op care per CRS
- maintain NPO/TPN for now, diet trial per CRS.
2. Multifactorial anemia
Iron deficiency and chronic disease related
Acute blood loss anemia
- Finished IV iron
- required 2 U prbc this admission due to BRBPR from colon issues.
3. Chest pain - single episode
Elevated troponin - presumed nonischemic myocardial injury related
- Patient had episode of sternal chest discomfort last night,
- Minimal troponin elevation, follow-up ordered
- EKG did not show any significant ST segment changes from admission EKG
- Cardiology evaluated and planning to do an echocardiogram
3. Superficial venous thrombosis involving the cephalic vein
- warm compresses
- continue monitor
4. Hypokalemia
Hypomagnesemia
- Replete PRN
5. Dilated bile ducts
- recent MRI done; management per GI
Diverticulosis
Hyponatremia
Chronic L1, L2 Fx
Punctate hypodensity within the lower pole the right kidney
Hypothyroidism
Anxiety
DVT ppx SCD's; patient refused pharm prophylaxis
Full code
Anticipated Discharge: 24 - 48 hours
Subjective/Interval History
-
Date of Service: January 03, 2025
lying comfortably in bed
some abd discomfort
denies n/v
Objective Data
-
Labs:
Laboratory Results
01/03/25
04:51
WBC 8.2
Hgb 8.4 L
Hct 25.2 L
Plt Count 178
Sodium 133 L
Potassium 4.2
Chloride 106
Carbon Dioxide 26
BUN 21 H
Creatinine 0.5 L
Glucose 194 H
Calcium 6.8 L*
Vital Signs:
Vital Signs
Temp Pulse Resp BP Pulse Ox
98.4 F 74 16 138/60 96
01/03/25 07:16 01/03/25 07:16 01/03/25 07:16 01/03/25 07:16 01/03/25 07:16
I&O
01/02/25 01/03/25 01/04/25
06:59 06:59 06:59
Intake Total 840 / 840 1000 / 1000
Output Total 1340 / 1340
Balance 840 / 840 -340 / -340
Review of Systems
-
Respiratory: Reports No Symptoms
Cardiac: Reports No Symptoms
Abdomen/GI: Reports Abdominal Pain; Denies Nausea or Vomiting
Physical Exam
-
General: Obese
HEENT: Negative Oxygen
Respiratory: Clear to Auscultation
Cardiac: Regular Rhythm and S1/S2; Negative Murmur or Rub
GI: Soft, Normal Bowel Sounds (Decreased somewhat), Tender and Ostomy (Ilesostomy with black liquid)
Musculoskeletal: No Edema
Neuro: Awake, Alert, Oriented, No Motor Deficits and Nonfocal/Grossly Intact
Psych: Calm
--- NOTE | 2025-01-03 11:33 | CM ---
Chart reviewed; met with pt
POD#1 Robotic total colectomy with end ileostomy
NPO/IVF's
Wound care consult
PT eval pending
Discussed VN at d/c - pt requesting referral to [facility] - TT sent to [facility] Liaison for HH needs
Plan - anticipate home with [facility] when medically stable
--- NOTE | 2025-01-03 12:24 | W.PN.ID1 ---
Date of Service
Date of Service: January 03, 2025
Today's Communication
- stop unasyn and micafungin
- continue INH/B6 pending outpatient T-spot - please provide a two week script on d/c
- will follow up pending lab outpatient and schedule follow up visit if positive
Assessment / Plan
E coli Bacteremia
- likely translocation, transient
- repeat blood cultures no growth to date
- stopped unasyn & micafungin through today
- s/p Total abdominal colectomy 01/02
Pancolitis
- on Remicaide
Indeterminant TB status
- QFT gold testing indeterminant x2
- recent high dose steroids were necessary for pancolitis do limit utility of the PPD
- T-spot is available outpatient at [facility] - provided script to patient 12/23
- CXR is clear, no symptoms to suggest active pulmonary TB and Pt doesn't report any significant contacts
- continue INH/B6 pending outpatient T-spot - please provide a two week script on d/c
- will follow up pending lab outpatient and schedule follow up visit if positive
����������������������������������������������������������
Chief Complaint
-: Bacteremia and Other (ulcerative pancolitis)
Subjective / Review of Systems
afebrile
bp stable
color is better
no complaints
Vital Signs / Physical Exam
Vital Signs
Vital Signs
Temp Pulse Resp BP Pulse Ox
98.4 F 74 16 138/60 96
01/03/25 07:16 01/03/25 07:16 01/03/25 07:16 01/03/25 07:16 01/03/25 07:16
Physical Exam
Constitutional: No Acute Distress
Cardiovascular: Regular Rate and S1/S2; Negative Murmur or Rub
Pulmonary: Clear and Symmetric; Negative Wheezes or Rales
Gastrointestinal: Soft, Non Tender, Non Distended, Normal Bowel Sounds and Other (stoma pink, blackish output)
Skin: Warm and Dry; Negative Rash or Jaundice
Objective Data
Lab Data
Lab Results
01/03/25 04:51
01/03/25 04:51
Estimated Creat Clear 77 ml/min 01/03/25 04:51
Total Bilirubin 0.3 mg/dl (0.2-1.3) 01/02/25 03:56
AST 16 U/L (14-36) 01/02/25 03:56
ALT 26 U/L (0-35) 01/02/25 03:56
Alkaline Phosphatase 84 U/L (38-126) 01/02/25 03:56
C-Reactive Protein 21.90 mg/L (0.0-10.00) H 12/28/24 04:52
Most recent labs reviewed.
Micro Results:
12/25/24 13:16 Blood Culture - Final
Blood/Venous No Growth - Final Report
12/25/24 08:52 Blood Culture - Final
Blood/Venous No Growth - Final Report
12/25/24 05:59 Blood Culture - Final
Blood/Venous No Growth - Final Report
12/24/24 20:24 Blood Culture - Final
Blood/Venous No Growth - Final Report
12/23/24 15:09 Blood Culture - Final
Blood/Venous Escherichia coli
Gram Stain - Final
12/23/24 14:50 Blood Culture - Final
Blood/Venous Escherichia coli
Gram Stain - Final
Care Review
Plan reviewed with: Physician (Dr Aleman - stopping antibiotics)
--- NOTE | 2025-01-03 12:25 | VNURNOTE ---
Home Health Liaison met with patient and family member at bedside to discuss VN nurse/therapy, visits, schedule and homebound status. Patient is agreeable and understands that visits at home will be 2-3 x per week to assess and teach medical and
ileostomy management. [facility] 1-2 days after discharge from .
[facility].
[2025-01-03 12:49] VITALS: BP 142/63; PULSE 81
[2025-01-03 12:49] LABS: Glucose - Point of Care 203 mg/dl (70-99)
--- NOTE | 2025-01-03 14:50 | WOUNDNOTE ---
[facility] RN note: Patient s/p ostomy surgery
See H&P for complete history.
PMH: diverticulosis, arthritis, anxiety, compression fractures and back pain.
Ostomy location and type: RLQ end ileostomy. Stoma pink, slightly budded, appliance without leakage.
Instructed patient ostomy pouch emptying and encouraged to try and empty before discharge with staff assistance.
2 3/4' appliance in use. Recommend using Margarita wafer # [id number] or Margarita Convex wafer [id number] next pouch change.
Mason pouch # [id number]. Patient gave permission to enroll in [employer] start program, verified address and phone number.
Family at bedside, willing to participate in teaching session and aware will be either or Thursday afternoon. Gave Ileostomy folder and reviewed with patient and family, answered all questions. Ostomy supplies ordered from [facility] and asked nurse
Sean to bring to bedside. Note to case management: VN services recommended for ostomy teaching.
Nursing care plan updated, will follow as needed.
[2025-01-03] MEDS: SOLU-CORTEF 75 MG IV ×2 (15:47→23:35)
[2025-01-03 15:50] VITALS: BP 147/71
[2025-01-03 17:46] LABS: Glucose - Point of Care 207 mg/dl (70-99)
[2025-01-03] MEDS: Parenteral Nutrition, Central 1100 IV (21:11)
[2025-01-03 23:03] VITALS: BP 134/59
[2025-01-03 23:42] LABS: Glucose - Point of Care 179 mg/dl (70-99)
[2025-01-04] MEDS: TORADOL 15 MG IV ×4 (00:40→19:41)
[2025-01-04] MEDS: ZOFRAN 4 MG IV (02:56)
[2025-01-04] MEDS: DILAUDID 0.5 MG IV ×2 (03:45→08:43)
[2025-01-04 05:26] LABS: Hematocrit 24.3 % (37.0-47.0); Hemoglobin 8.1 g/dL (12.0-16.0); Mean Corp Hgb Conc. 33.3 g/dL (33.0-37.0); Mean Corpuscular Hgb 30.1 pg (27.0-31.0); Mean Corpuscular Volume 90.3 fL (81.0-99.0); Mean Platelet Volume 10.4 fL (7.4-10.4); Platelet Count 206 10^3/uL (130-400); Red Blood Cell Count 2.69 10^6/uL (4.20-5.40); Red Cell Dist. Width 17.4 % (11.5-14.5); White Blood Cell Count 12.6 10^3/uL (4.8-10.8)
[2025-01-04 05:44] LABS: Blood Urea Nitrogen 25 mg/dl (7-17); Calcium 7.6 mg/dl (8.4-10.2); Carbon Dioxide 28 mmol/L (22-30); Chloride 107 mmol/L (98-107); Estimated Creatinine Clearance 77 ml/min; Glucose 170 mg/dl (70-99); Potassium 4.5 mmol/L (3.5-5.1); Sodium 135 mmol/L (135-145); eGFR > 60.00
[2025-01-04 05:52] LABS: Glucose - Point of Care 167 mg/dl (70-99)
[2025-01-04] MEDS: SYNTHROID 75 MCG PO (05:56)
[2025-01-04] MEDS: NOVOLOG FLEXPEN-LOW RESISTANCE 1 UNITS SC (05:57)
[2025-01-04 07:40] VITALS: BP 118/58
[2025-01-04] MEDS: PROTONIX IV 40 MG IV (08:37)
[2025-01-04] MEDS: COZAAR 25 MG PO (08:42)
[2025-01-04] MEDS: SOLU-CORTEF 75 MG IV (08:42)
[2025-01-04] MEDS: VITAMIN B-6 50 MG PO (08:43)
[2025-01-04] MEDS: PROZAC 10 MG PO (08:43)
[2025-01-04] MEDS: HEPARIN 5000 UNITS SC (08:44)
--- NOTE | 2025-01-04 09:03 | W.PN.CRS1 ---
Today's Communication / Plan
-
clears with ensure
Assessment/Plan
-
POD#2 Robotic total colectomy with end ileostomy
VS: normal. WBC 8.2. Hgb 8.1 (8.9). WBC 12.6 (8.2)
-Advance to clears with Ensure. IVFs.
-OOB with PT/OT
-GERMÁN drain in place until discharge
-Wound RN for ileostomy teaching
-Continue heparin subq for DVT prophylaxis. TEDS/SCDS.
-Weaning IV steroids to off over the next several days. Titrated down to 50mg q 6 IV.
-Trend hemoglobin
-Gram negative bacilli blood culture - ID following. Unasyn discontinued yesterday.
-OR pathology pending
Subjective Data
Procedure
01/02/2025- Robotic total colectomy with end ileostomy
Subjective Data
Date of Service: January 04, 2025
Patient states she has mild pain. Denies nausea or vomiting.
Objective Data
-
Vital Signs
Temp Pulse Resp BP Pulse Ox
97.9 F 63 16 118/58 99
01/04/25 07:40 01/04/25 08:42 01/04/25 07:40 01/04/25 08:42 01/04/25 07:40
Intake & Output
01/03/25 01/04/25 01/05/25
06:59 06:59 06:59
Intake Total 1000 / 1000 952 / 952
Output Total 1340 / 1340 55 / 55
Balance -340 / -340 897 / 897
Intake:
Oral fluids 350 / 350 400 / 400
IV fluids (Total) 400 / 400
Normosol 400 / 400
TPN/PPN 552 / 552
Blood Product Amount Infused ( 250 / 250
mL)
Packed Rbc Leukoreduced Unit 250 / 250
[id number]
Output:
Drain Output (Total) 290 / 290 55 / 55
Right Lower Abdomen 290 / 290 55 / 55
Urine, Spring 1050 / 1050
Other:
Number of approximated LARGE 2
amounts of urine
Lab Results
01/04/25 04:49
01/04/25 04:49
Physical Exam
-
General: No Acute Distress and AOx3
Abdomen: Soft, Non Distended, Non Tender and Other (Germán drain serosanginous)
Skin: Warm and Dry
Incision: Clear, Dry, Intact
--- NOTE | 2025-01-04 10:45 | CM ---
Chart reviewed; met with pt
Clears today
Wound Care following
[facility] to follow at d/c
Plan - anticipate home with [facility] when medically stable
[2025-01-04] MEDS: NOVOLOG FLEXPEN-LOW RESISTANCE 2 UNITS SC (11:37)
[2025-01-04 11:38] LABS: Glucose - Point of Care 222 mg/dl (70-99)
--- NOTE | 2025-01-04 12:00 | W.PN.HOSP.TC ---
Addendum entered and electronically signed by Himanshu Marks MD 01/04/25 14:00:
RN reported that patient's daughter has tested positive for COVID today who has been visiting patient every day
Patient herself is currently asymptomatic, will check COVID antigen test today
Asked RN to discuss with infection prevention for further instruction on follow-up COVID screening
Medically monitor for any fever/dyspnea or any other symptoms suggestive of active COVID
Original Note:
Today's Communication/Plan
-
Diet advancement per colorectal surgery
Continue PT OT
Off of antibiotics
remains on IV hydrocortisone
ID wants INH/B6 to continue for 2wks post discharge
Assessment / Plan
Assessment / Plan
1. Pancolitis with suspected Ulcerative colitis
E. coli bacteremia suspected gut organism translocation
- Recent colonoscopy showing pancolitis
- 2 out of 2 blood culture positive for Gram negative bacilli, repeat culture 12/25. Patient has been taken off of Unasyn at this point
- Patient got resumed back on Remicade, got doses on 12/21 and 12/27
- QFT gold test indeterminate, ID recommended isoniazid/B6. This is to be continued 2 weeks at discharge per ID recommendation pending outpatient T spot testing.
- s/p robotic total colectomy and ileostomy formation on 01/02
- post op care per CRS
- Patient has been started on clear liquid diet, CRS planning to continue TPN 1 more day.
2. Multifactorial anemia
Iron deficiency and chronic disease related
Acute blood loss anemia
- Finished IV iron
- required 2 U prbc this admission due to BRBPR from colon issues.
3. Chest pain - single episode
Elevated troponin - presumed nonischemic myocardial injury related
- Patient had episode of sternal chest discomfort last night,
- Minimal troponin elevation, follow-up ordered
- EKG did not show any significant ST segment changes from admission EKG
- Cardiology evaluated and planning to do an echocardiogram
3. Superficial venous thrombosis involving the cephalic vein
- warm compresses
- continue monitor
4. Hypokalemia
Hypomagnesemia
- Replete PRN
5. Dilated bile ducts
- recent MRI done; management per GI
Diverticulosis
Hyponatremia
Chronic L1, L2 Fx
Punctate hypodensity within the lower pole the right kidney
Hypothyroidism
Anxiety
DVT ppx SCD's; patient refused pharm prophylaxis
Full code
Anticipated Discharge: 24 - 48 hours
Subjective/Interval History
-
Date of Service: January 04, 2025
Resting comfortably in bed
Some abdominal discomfort
No nausea vomiting
Having output from stomy bag
Objective Data
-
Labs:
Laboratory Results
01/04/25
04:49
WBC 12.6 H
Hgb 8.1 L
Hct 24.3 L
Plt Count 206
Sodium 135
Potassium 4.5
Chloride 107
Carbon Dioxide 28
BUN 25 H
Creatinine 0.4 L
Glucose 170 H
Calcium 7.6 L
Vital Signs:
Vital Signs
Temp Pulse Resp BP Pulse Ox
97.9 F 63 16 118/58 99
01/04/25 07:40 01/04/25 08:42 01/04/25 07:40 01/04/25 08:42 01/04/25 09:58
I&O
01/03/25 01/04/25 01/05/25
06:59 06:59 06:59
Intake Total 1000 / 1000 952 / 952
Output Total 1340 / 1340 55 / 55
Balance -340 / -340 897 / 897
Review of Systems
-
Respiratory: Reports No Symptoms
Cardiac: Reports No Symptoms
Abdomen/GI: Reports No Symptoms
--- NOTE | 2025-01-04 13:01 | W.PN.ID1 ---
Date of Service
Date of Service: January 04, 2025
Today's Communication
- continue INH/B6 pending outpatient T-spot - please provide a two week script on d/c, if negative will stop INH/B6, if positive will schedule follow up in ID clinic for ongoing monitoring while on INH/B6
- patient reports one prior infection and two previous vaccines both several years ago, she has now tested positive but denies any active symptoms at this time. She does require isolation while inpatient x10 days, however on discharge can
transition to isolation x5 days and masking x5 days. We reviewed the efficacy of paxlovid which decreases symptoms by about 1 day... she doesnt have symptoms at this time. Wouldnt recommend treatment at this time and she is in agreement.
Assessment / Plan
Pancolitis
- on Remicaide
- s/p Total abdominal colectomy 01/02
Indeterminant TB status
- QFT gold testing indeterminant x2
- high dose steroids were necessary for pancolitis do limit utility of the PPD
- T-spot is available outpatient at [facility] - provided second copy of script to patient 01/04
- CXR is clear, no symptoms to suggest active pulmonary TB and Pt doesn't report any significant contacts
- continue INH/B6 pending outpatient T-spot - please provide a two week script on d/c, if negative will stop INH/B6, if positive will schedule follow up in ID clinic for ongoing monitoring while on INH/B6
Asymptomatic COVID Infection
- sister who has been visiting daily reportedly diagnosed with covid
- patient reports one prior infection and two previous vaccines both several years ago, she has now tested positive but denies any active symptoms at this time. She does require isolation while inpatient x10 days, however on discharge can
transition to isolation x5 days and masking x5 days. We reviewed the efficacy of paxlovid which decreases symptoms by about 1 day... she doesnt have symptoms at this time. Wouldnt recommend treatment at this time and she is in agreement.
����������������������������������������������������������
Chief Complaint
-: Bacteremia and Other (ulcerative pancolitis)
Subjective / Review of Systems
afebrile
bp stable
no new symptoms
sister who has been visiting daily reportedly diagnosed with covid
patient reports one prior infection and two previous vaccines both several years ago, she has now tested positive but denies any active symptoms at this time. She does require isolation while inpatient, then can transition to isolation x5 days and
masking x5 days. We reviewed the efficacyc of paxlovid which decreases symptoms by about 1 day... she doesnt have symptoms at this time. Wouldnt recommend treatment at this time and she is in agreement.
Vital Signs / Physical Exam
Vital Signs
Vital Signs
Temp Pulse Resp BP Pulse Ox
97.9 F 63 16 118/58 99
01/04/25 07:40 01/04/25 08:42 01/04/25 07:40 01/04/25 08:42 01/04/25 09:58
Physical Exam
Constitutional: No Acute Distress
Cardiovascular: Regular Rate and S1/S2; Negative Murmur or Rub
Pulmonary: Clear and Symmetric; Negative Wheezes or Rales
Gastrointestinal: Soft, Non Tender, Non Distended, Normal Bowel Sounds and Other (pink stoma)
Skin: Warm and Dry; Negative Rash or Jaundice
Objective Data
Lab Data
Lab Results
01/04/25 04:49
01/04/25 04:49
Estimated Creat Clear 77 ml/min 01/04/25 04:49
Total Bilirubin 0.3 mg/dl (0.2-1.3) 01/02/25 03:56
AST 16 U/L (14-36) 01/02/25 03:56
ALT 26 U/L (0-35) 01/02/25 03:56
Alkaline Phosphatase 84 U/L (38-126) 01/02/25 03:56
C-Reactive Protein 21.90 mg/L (0.0-10.00) H 12/28/24 04:52
Most recent labs reviewed.
Micro Results:
12/25/24 13:16 Blood Culture - Final
Blood/Venous No Growth - Final Report
12/25/24 08:52 Blood Culture - Final
Blood/Venous No Growth - Final Report
12/25/24 05:59 Blood Culture - Final
Blood/Venous No Growth - Final Report
12/24/24 20:24 Blood Culture - Final
Blood/Venous No Growth - Final Report
12/23/24 15:09 Blood Culture - Final
Blood/Venous Escherichia coli
Gram Stain - Final
12/23/24 14:50 Blood Culture - Final
Blood/Venous Escherichia coli
Gram Stain - Final
Care Review
Plan reviewed with: Nurse (discussed frequency of testing) and Physician (Dr Marks - reordered isoniazid )
[2025-01-04 13:05] VITALS: BP 142/103
[2025-01-04] MEDS: DILAUDID 0.25 MG IV ×3 (14:22→23:27)
--- NOTE | 2025-01-04 14:41 | PTCARENOTE ---
Addendum entered by Keisha Diaz RN 01/04/25 15:45:
Pt tested COVID positive, and ID made aware, precautions set in place.
Original Note:
Pt called this RN to room for a bloody BM coming from her rectum and her drain sponge soaked to her right GERMÁN drain. Drain sponge changed, surgical team and hospitalist made aware, repeat H&H ordered. Pt informed this RN that her daughter who has
been visiting has tested positive for COVID, made aware, COVID swab ordered and taken. No new orders at this time.
[2025-01-04] MEDS: INH 300 MG PO (15:00)
[2025-01-04 15:30] LABS: COVID-19 Antigen Positive (Negative)
[2025-01-04 16:00] VITALS: BP 122/57
[2025-01-04 17:09] LABS: Hematocrit 25.5 % (37.0-47.0); Hemoglobin 8.4 g/dL (12.0-16.0)
[2025-01-04] MEDS: SOLU-CORTEF 50 MG IV ×2 (17:16→23:30)
[2025-01-04 17:19] LABS: Glucose - Point of Care 146 mg/dl (70-99)
[2025-01-04] MEDS: NOVOLOG FLEXPEN-LOW RESISTANCE SC (17:21)
[2025-01-04] MEDS: Parenteral Nutrition, Central 1100 IV (20:41)
[2025-01-04 23:35] VITALS: BP 142/59
[2025-01-05 00:01] LABS: Glucose - Point of Care 157 mg/dl (70-99)
[2025-01-05] MEDS: NOVOLOG FLEXPEN-LOW RESISTANCE 1 UNITS SC ×3 (00:02→12:27)
[2025-01-05] MEDS: TORADOL 15 MG IV ×4 (00:54→18:30)
[2025-01-05] MEDS: DILAUDID 0.25 MG IV ×5 (03:26→21:16)
[2025-01-05 05:23] LABS: Hematocrit 25.3 % (37.0-47.0); Hemoglobin 8.3 g/dL (12.0-16.0); Mean Corp Hgb Conc. 32.8 g/dL (33.0-37.0); Mean Corpuscular Hgb 29.7 pg (27.0-31.0); Mean Corpuscular Volume 90.7 fL (81.0-99.0); Mean Platelet Volume 9.8 fL (7.4-10.4); Platelet Count 216 10^3/uL (130-400); Red Blood Cell Count 2.79 10^6/uL (4.20-5.40); Red Cell Dist. Width 17.3 % (11.5-14.5); White Blood Cell Count 8.9 10^3/uL (4.8-10.8)
[2025-01-05 05:34] LABS: Glucose - Point of Care 165 mg/dl (70-99)
[2025-01-05 05:45] LABS: Blood Urea Nitrogen 21 mg/dl (7-17); Calcium 7.7 mg/dl (8.4-10.2); Carbon Dioxide 24 mmol/L (22-30); Chloride 108 mmol/L (98-107); Estimated Creatinine Clearance 77 ml/min; Glucose 163 mg/dl (70-99); Potassium 4.5 mmol/L (3.5-5.1); Sodium 136 mmol/L (135-145); eGFR > 60.00
[2025-01-05] MEDS: SYNTHROID 75 MCG PO (06:23)
[2025-01-05 07:10] VITALS: BP 134/60
[2025-01-05] MEDS: PROTONIX IV 40 MG IV (08:41)
[2025-01-05] MEDS: SOLU-CORTEF 50 MG IV (08:41)
[2025-01-05] MEDS: INH 300 MG PO (08:42)
[2025-01-05] MEDS: COZAAR 25 MG PO (08:42)
[2025-01-05] MEDS: VITAMIN B-6 50 MG PO (08:42)
--- NOTE | 2025-01-05 08:47 | W.PN.CRS1 ---
Today's Communication / Plan
-
fulls
stop TPN after this bag is completed
restart heparin sq
Assessment/Plan
-
POD#3 Robotic total colectomy with end ileostomy
VS: normal. WBC 8.9 Hgb 8.3 (8.4).
-Advance to fulls with Ensure. IVFs.
-Continue TPN until the bag is completed and then stop
-OOB with PT/OT
-GERMÁN drain in place until discharge
-Wound RN for ileostomy teaching
-Restart heparin subq for DVT prophylaxis. TEDS/SCDS.
-Weaning IV steroids to off over the next several days. Titrated down to 25mg q 6 IV.
-Trend hemoglobin (rectal bleeding x 1 yesterday)
-ID following
-OR pathology pending
Subjective Data
Procedure
01/02/2025- Robotic total colectomy with end ileostomy
Subjective Data
Date of Service: January 05, 2025
Patient states that she has some pain but it is controlled. She denies nausea or vomiting. She tolerated clears without difficulty. She has bowel function.
Objective Data
-
Vital Signs
Temp Pulse Resp BP Pulse Ox
98.4 F 58 16 134/60 99
01/05/25 07:10 01/05/25 07:10 01/05/25 07:10 01/05/25 07:10 01/05/25 07:10
Intake & Output
01/04/25 01/05/25 01/06/25
06:59 06:59 06:59
Intake Total 952 / 952 1502 / 1502
Output Total 55 125 / 125
Balance 897 / 897 1377 / 1377
Intake:
Oral fluids 400 / 400 950 / 950
TPN/PPN 552 / 552 552 / 552
Output:
Drain Output (Total) 125 / 125
Right Lower Abdomen 125 / 125
Other:
Number of approximated MODERATE 4
amounts of urine
Number of approximated LARGE 2
amounts of urine
Number of unmeasured liquid
stools
Ileostomy 1
Lab Results
01/05/25 04:53
01/05/25 04:54
Physical Exam
-
General: No Acute Distress and AOx3
Abdomen: Soft, Non Distended, Non Tender and Other (GERMÁN serosanginous. Ileostomy warm and pink. )
Skin: Warm and Dry
Incision: Clear, Dry, Intact
--- NOTE | 2025-01-05 10:25 | W.PN.HOSP.TC ---
Today's Communication/Plan
-
Advanced
Assessment / Plan
Assessment / Plan
Impression:
Patient is 69 years old with severe ulcerative, failed medical therapy status post total colectomy end ileostomy formation, tolerating clear liquid diet, advance to full liquid.
Test positive for COVID but asymptomatic.
Assessment/plan:
Pancolitis with suspected Ulcerative colitis
E. coli bacteremia suspected gut organism translocation
- Recent colonoscopy showing pancolitis
- 2 out of 2 blood culture positive for Gram negative bacilli, repeat culture 12/25. Patient has been taken off of Unasyn at this point
- Patient got resumed back on Remicade, got doses on 12/21 and 12/27
- QFT gold test indeterminate, ID recommended isoniazid/B6. This is to be continued 2 weeks at discharge per ID recommendation pending outpatient T spot testing.
- s/p robotic total colectomy and ileostomy formation on 01/02
- post op care per CRS
- Patient has been started on clear liquid diet, CRS planning to continue TPN 1 more day.
Asymptomatic COVID infection.
Monitor respiratory status.
No treatment indicated
Iron deficiency anemia/acute blood loss anemia
Iron deficiency and chronic disease related
Acute blood loss anemia
- Finished IV iron
- required 2 U prbc this admission due to BRBPR from colon issues.
01/05
Hemoglobin stable
Chest pain - single episode
Elevated troponin - presumed nonischemic myocardial injury related
- Patient had episode of sternal chest discomfort last night,
- Minimal troponin elevation, follow-up ordered
- EKG did not show any significant ST segment changes from admission EKG
- Cardiology evaluated and planning to do an echocardiogram
Superficial venous thrombosis involving the cephalic vein
- warm compresses
- continue monitor
Hypokalemia / Hypomagnesemia
resolved
Dilated bile ducts
- recent MRI done; management per GI
Diverticulosis
Hyponatremia
Chronic L1, L2 Fx
Punctate hypodensity within the lower pole the right kidney
Hypothyroidism
Anxiety
CODE STATUS: Full code
DVT prophylaxis:SCDs
Diet: Ful liquid diet.
Total time spent on today's encounter was 65 minutes which included time spent in counseling the patient/family regarding diagnosis and treatment plan as listed above, goals of care, and symptom management. Case was discussed with nursing staff,
specialists, and care coordinators/case management. All labs and imaging personally reviewed by me. Remainder the time spent in detailed review of previous records, lab data, imaging, and other medical provider documentation.
Anticipated Discharge: 24 - 48 hours
Subjective/Interval History
-
Date of Service: January 05, 2025
Patient seen and examined at bedside, tested positive for COVID but asymptomatic, denies any chest pain or shortness of breath,
Still with abdominal pain, advance to full liquid diet.
Objective Data
-
Labs:
Laboratory Results
01/05/25 01/05/25
04:53 04:54
WBC 8.9
Hgb 8.3 L
Hct 25.3 L
Plt Count 216
Sodium 136
Potassium 4.5
Chloride 108 H
Carbon Dioxide 24
BUN 21 H
Creatinine 0.4 L
Glucose 163 H
Calcium 7.7 L
Vital Signs:
Vital Signs
Temp Pulse Resp BP Pulse Ox
98.4 F 58 16 134/60 99
01/05/25 07:10 01/05/25 07:10 01/05/25 07:10 01/05/25 07:10 01/05/25 07:10
I&O
01/04/25 01/05/25 01/06/25
06:59 06:59 06:59
Intake Total 952 / 952 1502 / 1502
Output Total 55 / 55 125 / 125
Balance 897 / 897 1377 / 1377
Physical Exam
-
General: Well Developed, Well Nourished, No Apparent Distress and Comfortable
HEENT: Normocephalic, Atraumatic, Moist Mucous Membranes, No Ptosis, PERRLA and Nose Appears Normal
Respiratory: Clear to Auscultation and Non Labored Respirations
Cardiac: Regular Rhythm and S1/S2
Breast: Deferred by me
GI: Soft, Nontender, Nondistended, Normal Bowel Sounds and Other (Ileostomy bag)
Genito-urinary: No Costovertebral Tender
Musculoskeletal: No Clubbing, No Cyanosis and No Edema
Skin: Warm
Neuro: Awake, Alert, Oriented, AO x 3 and No Motor Deficits
Psych: Calm
Data Reviewed
-
Diagnostic Radiology: Image personally visualized and interpreted and Report Reviewed by me
CT Scan: Image personally visualized and interpreted and Report Reviewed by me
Ultrasound: Image personally visualized and interpreted and Report Reviewed by me
MRI: Image personally visualized and interpreted and Report Reviewed by me
Medical Tests (Nuc Med, Echo etc): Image personally visualized and interpreted and Report Reviewed by me
Labs: Labs Reviewed by me
Old Records: Reviewed
[2025-01-05 11:48] LABS: Glucose - Point of Care 162 mg/dl (70-99)
--- NOTE | 2025-01-05 12:22 | CM ---
Chart reviewed
Advanced diet to full liquids
+ Covid - asymptomatic
[facility] to follow at d/c
Plan - anticipate home with [facility] when medically ready
[2025-01-05 15:05] VITALS: BP 148/77
--- NOTE | 2025-01-05 15:47 | W.PN.ID1 ---
Date of Service
Date of Service: January 05, 2025
Today's Communication
ID service will no longer actively follow this patient please recall for further questions - continue INH/B6 pending outpatient T-spot - please provide a two week script on d/c, if negative will stop INH/B6, if positive will schedule follow up in ID
clinic for ongoing monitoring while on INH/B6
Assessment / Plan
Pancolitis
- on Remicaide
- s/p Total abdominal colectomy 01/02
Indeterminant TB status
- QFT gold testing indeterminant x2
- high dose steroids were necessary for pancolitis do limit utility of the PPD
- T-spot is available outpatient at [facility] - provided second copy of script to patient 01/04
- CXR is clear, no symptoms to suggest active pulmonary TB and Pt doesn't report any significant contacts
- continue INH/B6 pending outpatient T-spot - please provide a two week script on d/c, if negative will stop INH/B6, if positive will schedule follow up in ID clinic for ongoing monitoring while on INH/B6
Asymptomatic COVID Infection
- sister who has been visiting daily reportedly diagnosed with covid
- patient reports one prior infection and two previous vaccines both several years ago, she has now tested positive but denies any active symptoms at this time. She does require isolation while inpatient x10 days, however on discharge can
transition to isolation x5 days and masking x5 days. We reviewed the efficacy of paxlovid which decreases symptoms by about 1 day... she doesnt have symptoms at this time. Wouldnt recommend treatment at this time and she is in agreement.
ID service will no longer actively follow this patient please recall for further questions - continue INH/B6 pending outpatient T-spot - please provide a two week script on d/c, if negative will stop INH/B6, if positive will schedule follow up in ID
clinic for ongoing monitoring while on INH/B6
����������������������������������������������������������
Chief Complaint
-: Bacteremia and Other (ulcerative pancolitis)
Subjective / Review of Systems
afebrile
bp stable
no new cough, sore throat, loss of appetite, diarrhea or rash
'I feel great!'
Vital Signs / Physical Exam
Vital Signs
Vital Signs
Temp Pulse Resp BP Pulse Ox
98.4 F 58 16 134/60 99
01/05/25 07:10 01/05/25 07:10 01/05/25 07:10 01/05/25 07:10 01/05/25 07:10
Physical Exam
Constitutional: No Acute Distress
Cardiovascular: Regular Rate and S1/S2; Negative Murmur or Rub
Pulmonary: Clear and Symmetric; Negative Wheezes or Rales
Gastrointestinal: Soft, Non Tender, Non Distended and Normal Bowel Sounds
Skin: Warm, Dry and Rash (bruising on the abdomen, surgical sites no erythema, warmth, drainage); Negative Jaundice
Objective Data
Lab Data
Lab Results
01/05/25 04:53
01/05/25 04:54
Estimated Creat Clear 77 ml/min 01/05/25 04:54
Total Bilirubin 0.3 mg/dl (0.2-1.3) 01/02/25 03:56
AST 16 U/L (14-36) 01/02/25 03:56
ALT 26 U/L (0-35) 01/02/25 03:56
Alkaline Phosphatase 84 U/L (38-126) 01/02/25 03:56
C-Reactive Protein 21.90 mg/L (0.0-10.00) H 12/28/24 04:52
Most recent labs reviewed.
Micro Results:
12/25/24 13:16 Blood Culture - Final
Blood/Venous No Growth - Final Report
12/25/24 08:52 Blood Culture - Final
Blood/Venous No Growth - Final Report
12/25/24 05:59 Blood Culture - Final
Blood/Venous No Growth - Final Report
12/24/24 20:24 Blood Culture - Final
Blood/Venous No Growth - Final Report
12/23/24 15:09 Blood Culture - Final
Blood/Venous Escherichia coli
Gram Stain - Final
12/23/24 14:50 Blood Culture - Final
Blood/Venous Escherichia coli
Gram Stain - Final
[2025-01-05 17:17] LABS: Glucose - Point of Care 113 mg/dl (70-99)
[2025-01-05] MEDS: NOVOLOG FLEXPEN-LOW RESISTANCE SC (17:19)
[2025-01-05] MEDS: HEPARIN 5000 UNITS SC (19:47)
[2025-01-05] MEDS: DECADRON 2 MG IV (19:48)
[2025-01-05 23:08] VITALS: BP 145/59
[2025-01-06] MEDS: TORADOL 15 MG IV ×4 (00:17→18:15)
[2025-01-06 00:23] LABS: Glucose - Point of Care 96 mg/dl (70-99)
[2025-01-06] MEDS: NOVOLOG FLEXPEN-LOW RESISTANCE SC ×3 (00:28→11:25)
[2025-01-06] MEDS: ROXICODONE 5 MG PO ×5 (01:10→21:15)
[2025-01-06] MEDS: SYNTHROID 75 MCG PO (04:28)
[2025-01-06 05:11] LABS: Glucose - Point of Care 95 mg/dl (70-99)
[2025-01-06 07:05] VITALS: BP 149/61
[2025-01-06 07:49] LABS: Glucose - Point of Care 79 mg/dl (70-99)
[2025-01-06] MEDS: COZAAR 25 MG PO (08:16)
[2025-01-06] MEDS: PROZAC 10 MG PO (08:16)
[2025-01-06] MEDS: INH 300 MG PO (08:17)
[2025-01-06] MEDS: HEPARIN 5000 UNITS SC ×2 (08:17→19:47)
[2025-01-06] MEDS: VITAMIN B-6 50 MG PO (08:17)
[2025-01-06] MEDS: PROTONIX IV 40 MG IV (08:17)
--- NOTE | 2025-01-06 09:32 | PTOTSP ---
Reviewed chart and s/w RN who reports pt is functioning independently in her room, ambulating independently without an assistive device and emptying her own colostomy bag. Unable to assess on stairs due to COVID isolation. PT will sign off.
--- NOTE | 2025-01-06 10:35 | W.PN.CRS1 ---
Today's Communication / Plan
-
As below
Assessment/Plan
-
69-year-old female with PMH of hypothyroidism, depression and UC, recently admitted for refractory UC flare which did not completely improve with lengthy medical management
POD 4 robotic subtotal colectomy
AFVSS
No labs today
� Advance to low residue; off TPN
� Continue pain control with Tylenol, Toradol, Dilaudid as needed
�Continue Solu-Medrol; daily wean, 25 mg every 12 hours, okay to stop tomorrow
� Continue home meds
� Continue SQH for DVT PPx; will need 4 weeks total of postop DVT ppx; switch to Eliquis 2.5mg BID on discharge
� OOB/encourage IS
� GERMÁN to bulb suction; plan to remove prior to discharge
� Appreciate hospitalist
Subjective Data
Procedure
01/02/2025- Robotic total colectomy with end ileostomy
Subjective Data
Date of Service: January 06, 2025
No overnight events.
Pain controlled.
Denies nausea/vomiting. Tolerating diet.
+ Ostomy function +voiding
Objective Data
-
Vital Signs
Temp Pulse Resp BP Pulse Ox
98.0 F 66 17 141/61 99
01/06/25 07:05 01/06/25 08:16 01/06/25 07:05 01/06/25 08:16 01/06/25 10:11
Intake & Output
01/05/25 01/06/25 01/07/25
06:59 06:59 06:59
Intake Total 1502 / 1502 1038 / 1038
Output Total 175 / 175 385 / 385
Balance 1327 / 1327 653 / 653
Intake:
Oral fluids 950 / 950 900 / 900
TPN/PPN 552 / 552 138 / 138
Output:
Liquid stool amount 50 / 50
Ileostomy 50 / 50
Drain Output (Total) 175 / 175 335 / 335
Right Lower Abdomen 175 / 175 335 / 335
Other:
Number of approximated MODERATE 4 3
amounts of urine
Number of unmeasured liquid
stools
Ileostomy 1
Lab Results
01/05/25 04:53
01/05/25 04:54
Physical Exam
-
General: No Acute Distress and AOx3
HEENT: Grossly Normal
Abdomen: Soft, Non Distended, Tender (Appropriately tender near incisions), No Guarding, No Rebound and Other (Ostomy pink and productive of succus; GERMÁN-serosanguineous output)
Skin: Warm and Dry
Wound: No Signs of Infection, Dressing in Place (With Dermabond), No Skin Erythema and Other (Mild to moderate ecchymoses near incisions)
--- NOTE | 2025-01-06 11:17 | W.PN.HOSP.TC ---
Today's Communication/Plan
-
Advance diet
Assessment / Plan
Assessment / Plan
Impression:
Patient is 69 years old with severe ulcerative, failed medical therapy status post total colectomy end ileostomy formation, tolerating clear liquid diet, advance to full liquid.
Diet advanced to low residue
Test positive for COVID but asymptomatic.
Assessment/plan:
Pancolitis with suspected Ulcerative colitis
E. coli bacteremia suspected gut organism translocation
- Recent colonoscopy showing pancolitis
- 2 out of 2 blood culture positive for Gram negative bacilli, repeat culture 12/25. Patient has been taken off of Unasyn at this point
- Patient got resumed back on Remicade, got doses on 12/21 and 12/27
- QFT gold test indeterminate, ID recommended isoniazid/B6. This is to be continued 2 weeks at discharge per ID recommendation pending outpatient T spot testing.
- s/p robotic total colectomy and ileostomy formation on 01/02
- post op care per CRS
- Patient has been started on clear liquid diet, CRS planning to continue TPN 1 more day.
01/06
Off TPN.
Advance diet to low residue
Asymptomatic COVID infection.
Monitor respiratory status.
No treatment indicated
Iron deficiency anemia/acute blood loss anemia
Iron deficiency and chronic disease related
Acute blood loss anemia
- Finished IV iron
- required 2 U prbc this admission due to BRBPR from colon issues.
01/05
Hemoglobin stable
Chest pain - single episode
Elevated troponin - presumed nonischemic myocardial injury related
- Patient had episode of sternal chest discomfort last night,
- Minimal troponin elevation, follow-up ordered
- EKG did not show any significant ST segment changes from admission EKG
- Cardiology evaluated and planning to do an echocardiogram
Superficial venous thrombosis involving the cephalic vein
- warm compresses
- continue monitor
Hypokalemia / Hypomagnesemia
resolved
Dilated bile ducts
- recent MRI done; management per GI
Diverticulosis
Hyponatremia
Chronic L1, L2 Fx
Punctate hypodensity within the lower pole the right kidney
Hypothyroidism
Anxiety
CODE STATUS: Full code
DVT prophylaxis:SCDs
Diet: Ful liquid diet.
Total time spent on today's encounter was 65 minutes which included time spent in counseling the patient/family regarding diagnosis and treatment plan as listed above, goals of care, and symptom management. Case was discussed with nursing staff,
specialists, and care coordinators/case management. All labs and imaging personally reviewed by me. Remainder the time spent in detailed review of previous records, lab data, imaging, and other medical provider documentation.
Anticipated Discharge: 24 - 48 hours
Subjective/Interval History
-
Date of Service: January 06, 2025
Patient seen and examined at bedside, denies any chest pain or shortness of breath, no abdominal pain, no nausea, no vomiting, no diarrhea or constipation.
Off TPN, ordered low residual diet.
Objective Data
-
Vital Signs:
Vital Signs
Temp Pulse Resp BP Pulse Ox
98.0 F 66 17 141/61 99
01/06/25 07:05 01/06/25 08:16 01/06/25 07:05 01/06/25 08:16 01/06/25 10:11
I&O
01/05/25 01/06/25 01/07/25
06:59 06:59 06:59
Intake Total 1502 / 1502 1038 / 1038
Output Total 175 / 175 385 / 385
Balance 1327 / 1327 653 / 653
Physical Exam
-
General: Well Developed, Well Nourished, No Apparent Distress and Comfortable
HEENT: Normocephalic, Atraumatic, Moist Mucous Membranes, No Ptosis, PERRLA and Nose Appears Normal
Respiratory: Clear to Auscultation and Non Labored Respirations
Cardiac: Regular Rhythm and S1/S2
Breast: Deferred by me
GI: Soft, Nontender, Nondistended, Normal Bowel Sounds and Other (Ileostomy bag)
Genito-urinary: No Costovertebral Tender
Musculoskeletal: No Clubbing, No Cyanosis and No Edema
Skin: Warm and Other (Abdominal wall ecchymosis)
Neuro: Awake, Alert, Oriented, AO x 3 and No Motor Deficits
Psych: Calm
Data Reviewed
-
Diagnostic Radiology: Image personally visualized and interpreted and Report Reviewed by me
CT Scan: Image personally visualized and interpreted and Report Reviewed by me
Ultrasound: Image personally visualized and interpreted and Report Reviewed by me
MRI: Image personally visualized and interpreted and Report Reviewed by me
Medical Tests (Nuc Med, Echo etc): Image personally visualized and interpreted and Report Reviewed by me
Labs: Labs Reviewed by me
Old Records: Reviewed
--- NOTE | 2025-01-06 13:30 | CM ---
Spoke with patient bedside.
Per patient she will be here thru the weekend.
[facility] to follow for ileostomy management.
Patient aware of CM availability should needs arise.
Plan: home with [facility]
[2025-01-06 15:05] VITALS: BP 115/45
--- NOTE | 2025-01-06 15:33 | WOUNDNOTE ---
[facility] RN NOTE: Patient visited for first pouch change and ostomy teaching. Patients sister, Caitlin attended teaching session and filmed pouch change. Stoma pink, slightly budded. Some leaking noted at 9 oclock when barrier removed. Pouch changed with
ostomy barrier # [id number] and pouch #[id number]. Patient has been emptying pouch and asked many appropriate questions and all questions answered. Patient just wanted to watch full pouch change and said next time she will cut barrier. All ostomy supplies at
bedside. Will follow as needed.
--- NOTE | 2025-01-06 15:38 | WOUNDNOTE ---
[facility] RN NOTE: Patient visited for first pouch change and ostomy teaching. Patients sister, Caitlin attended teaching session and filmed pouch change. Stoma pink, slightly budded. Some leaking noted at 9 oclock when barrier removed. Pouch changed with
ostomy barrier # [id number] and pouch #[id number]. Patient has been emptying pouch and asked many appropriate questions and all questions answered. Patient just wanted to watch full pouch change and said next time she will cut barrier. All ostomy supplies at
bedside. Will continue to follow during in-patient stay.
[2025-01-06] MEDS: DECADRON 1 MG IV (19:48)
[2025-01-06] MEDS: FLUSH (NSS) 2 FLUSH IV (19:49)
[2025-01-06 23:20] VITALS: BP 151/68
[2025-01-07] MEDS: TORADOL 15 MG IV ×2 (00:16→08:13)
[2025-01-07] MEDS: FLUSH (NSS) 2 FLUSH IV ×2 (00:19→05:21)
[2025-01-07] MEDS: ROXICODONE 5 MG PO ×2 (03:40→12:14)
[2025-01-07] MEDS: SYNTHROID 75 MCG PO (04:43)
[2025-01-07] MEDS: DILAUDID 0.25 MG IV (05:20)
[2025-01-07 07:15] VITALS: BP 157/80
[2025-01-07] MEDS: VITAMIN B-6 50 MG PO (08:12)
[2025-01-07] MEDS: COZAAR 25 MG PO (08:12)
[2025-01-07] MEDS: INH 300 MG PO (08:12)
[2025-01-07] MEDS: HEPARIN 5000 UNITS SC (08:12)
[2025-01-07] MEDS: PROTONIX IV 40 MG IV (08:13)
[2025-01-07] MEDS: ROXICODONE 10 MG PO (09:07)
--- NOTE | 2025-01-07 09:11 | W.PN.GS2 ---
Addendum entered and electronically signed by Raghu Rose MD 01/07/25 09:20:
Patient seen and examined with surgical [employer]ICE ADVISOR. Agree with documented progress note.
Doing well with her postoperative recovery.
Tolerating p.o. intake. Ostomy functioning regularly.
AFVSS
ABD: Soft, nondistended, left-sided ostomy appliance in place. Reduction.
GERMÁN right side serous fluid
A/P: Will return to remove GERMÁN prior to DC
Okay for discharge from surgical standpoint
Original Note:
Today's Communication / Plan
-
Dispo planning
Assessment / Plan
-
69-year-old female with PMH of hypothyroidism, depression and UC, recently admitted for refractory UC flare which did not completely improve with lengthy medical management
POD 5 robotic subtotal colectomy
AFVSS
No labs today, stable previously
� Continue LRD
� Continue pain control as needed
� On steroid taper
� Continue home meds
� Continue SQH for DVT PPx; will need 4 weeks total of postop DVT ppx; switch to Eliquis 2.5mg BID on discharge
� OOB/encourage IS
� GERMÁN to bulb suction; plan to remove prior to discharge
� Appreciate hospitalist
Ok for d/c from surgical standpoint, will remove GERMÁN drain prior to d/c
Subjective Data
-
Date of Service: January 07, 2025
Patient seen and examined at bedside with Dr. Rose. Denies n/v. Tolerating diet. Pain improving.
Objective Data
-
Intake and Output
01/06/25 01/07/25 01/08/25
06:59 06:59 06:59
Intake Total 1038 / 1038 780 / 780
Output Total 385 / 385 325 / 325
Balance 653 / 653 455 / 455
Intake:
Oral fluids 900 / 900 780 / 780
TPN/PPN 138 / 138
Output:
Liquid stool amount 50 / 50 200 / 200
Ileostomy 50 / 50 200 / 200
Drain Output (Total) 335 / 335 125 / 125
Rambo-Johnson 30 / 30
Right Lower Abdomen 335 / 335 95 / 95
Other:
Number of approximated MODERATE 3 3
amounts of urine
Vital Signs
Temp Pulse Resp BP Pulse Ox
98.5 F 91 18 157/80 100
01/07/25 07:15 01/07/25 08:12 01/07/25 07:15 01/07/25 08:12 01/07/25 07:15
Lab Results
01/05/25 04:53
01/05/25 04:54
Calcium 7.7 mg/dl (8.4-10.2) L 01/05/25 04:54
Phosphorus 3.3 mg/dl (2.5-4.5) 01/02/25 03:56
Magnesium 2.2 mg/dl (1.6-2.3) 01/02/25 03:56
Total Bilirubin 0.3 mg/dl (0.2-1.3) 01/02/25 03:56
Direct Bilirubin 0.3 mg/dl (0.0-0.4) 12/25/24 05:58
AST 16 U/L (14-36) 01/02/25 03:56
ALT 26 U/L (0-35) 01/02/25 03:56
Alkaline Phosphatase 84 U/L (38-126) 01/02/25 03:56
Total Protein 3.4 g/dl (6.3-8.2) L 01/02/25 03:56
Albumin 1.6 g/dl (3.5-5.0) L 01/02/25 03:56
Physical Exam
-
NAD
ABD soft, nd, nt
Stoma pink/viable and productive of stool/flatus
Incisions clear, dry well approximated
--- NOTE | 2025-01-07 11:22 | W.PN.HOSP.TC ---
Today's Communication/Plan
-
Discharge home today after removing GERMÁN tube
Assessment / Plan
Assessment / Plan
Impression:
Patient is 69 years old with severe ulcerative, failed medical therapy status post total colectomy end ileostomy formation, tolerating clear liquid diet, advance to full liquid.
Diet advanced to low residue
Test positive for COVID but asymptomatic.
Assessment/plan:
Pancolitis with suspected Ulcerative colitis
E. coli bacteremia suspected gut organism translocation
- Recent colonoscopy showing pancolitis
- 2 out of 2 blood culture positive for Gram negative bacilli, repeat culture 12/25. Patient has been taken off of Unasyn at this point
- Patient got resumed back on Remicade, got doses on 12/21 and 12/27
- QFT gold test indeterminate, ID recommended isoniazid/B6. This is to be continued 2 weeks at discharge per ID recommendation pending outpatient T spot testing.
- s/p robotic total colectomy and ileostomy formation on 01/02
- post op care per CRS
- Patient has been started on clear liquid diet, CRS planning to continue TPN 1 more day.
01/06
Off TPN.
Advance diet to low residue
Asymptomatic COVID infection.
Monitor respiratory status.
No treatment indicated
Iron deficiency anemia/acute blood loss anemia
Iron deficiency and chronic disease related
Acute blood loss anemia
- Finished IV iron
- required 2 U prbc this admission due to BRBPR from colon issues.
01/05
Hemoglobin stable
Chest pain - single episode
Elevated troponin - presumed nonischemic myocardial injury related
- Patient had episode of sternal chest discomfort last night,
- Minimal troponin elevation, follow-up ordered
- EKG did not show any significant ST segment changes from admission EKG
- Cardiology evaluated and planning to do an echocardiogram
Superficial venous thrombosis involving the cephalic vein
- warm compresses
- continue monitor
Hypokalemia / Hypomagnesemia
resolved
Dilated bile ducts
- recent MRI done; management per GI
Diverticulosis
Hyponatremia
Chronic L1, L2 Fx
Punctate hypodensity within the lower pole the right kidney
Hypothyroidism
Anxiety
CODE STATUS: Full code
DVT prophylaxis:SCDs
Diet: Ful liquid diet.
Total time spent on today's encounter was 65 minutes which included time spent in counseling the patient/family regarding diagnosis and treatment plan as listed above, goals of care, and symptom management. Case was discussed with nursing staff,
specialists, and care coordinators/case management. All labs and imaging personally reviewed by me. Remainder the time spent in detailed review of previous records, lab data, imaging, and other medical provider documentation.
Anticipated Discharge: Today
Subjective/Interval History
-
Date of Service: January 07, 2025
Patient seen and examined at bedside, denies any chest pain or shortness of breath, no abdominal pain, no nausea, no vomiting, no diarrhea or constipation.
Tolerating diet
Objective Data
-
Vital Signs:
Vital Signs
Temp Pulse Resp BP Pulse Ox
98.5 F 91 18 157/80 100
01/07/25 07:15 01/07/25 08:12 01/07/25 07:15 01/07/25 08:12 01/07/25 07:15
I&O
01/06/25 01/07/25 01/08/25
06:59 06:59 06:59
Intake Total 1038 / 1038 780 / 780
Output Total 385 / 385 325 / 325
Balance 653 / 653 455 / 455
Physical Exam
-
General: Well Developed, Well Nourished, No Apparent Distress and Comfortable
HEENT: Normocephalic, Atraumatic, Moist Mucous Membranes, No Ptosis, PERRLA and Nose Appears Normal
Respiratory: Clear to Auscultation and Non Labored Respirations
Cardiac: Regular Rhythm and S1/S2
Breast: Deferred by me
GI: Soft, Nontender, Nondistended, Normal Bowel Sounds and Other (Ileostomy bag)
Genito-urinary: No Costovertebral Tender
Musculoskeletal: No Clubbing, No Cyanosis and No Edema
Skin: Warm and Other (Abdominal wall ecchymosis)
Neuro: Awake, Alert, Oriented, AO x 3 and No Motor Deficits
Psych: Calm
Data Reviewed
-
Diagnostic Radiology: Image personally visualized and interpreted and Report Reviewed by me
CT Scan: Image personally visualized and interpreted and Report Reviewed by me
Ultrasound: Image personally visualized and interpreted and Report Reviewed by me
MRI: Image personally visualized and interpreted and Report Reviewed by me
Medical Tests (Nuc Med, Echo etc): Image personally visualized and interpreted and Report Reviewed by me
Labs: Labs Reviewed by me
Old Records: Reviewed
--- NOTE | 2025-01-07 11:53 | W.DCSUMMARY ---
Discharge Summary
Discharge Data
Date of Admission: 12/21/24
Date of Discharge: 01/07/25
-
Pending Results: No
Hospital Course
Hospital course
Patient is 69 years old with severe ulcerative, failed medical therapy status post total colectomy end ileostomy formation, tolerating clear liquid diet, advance to full liquid.
Diet advanced to low residue
Test positive for COVID but asymptomatic.
During hospitalization patient was treated [facility]
Pancolitis with suspected Ulcerative colitis
E. coli bacteremia suspected gut organism translocation
- Recent colonoscopy showing pancolitis
- 2 out of 2 blood culture positive for Gram negative bacilli, repeat culture 12/25. Patient has been taken off of Unasyn at this point
- Patient got resumed back on Remicade, got doses on 12/21 and 12/27
- QFT gold test indeterminate, ID recommended isoniazid/B6. This is to be continued 2 weeks at discharge per ID recommendation pending outpatient T spot testing.
- s/p robotic total colectomy and ileostomy formation on 01/02
- post op care per CRS
- Patient has been started on clear liquid diet, CRS planning to continue TPN 1 more day.
01/06
Off TPN.
Advance diet to low residue
Asymptomatic COVID infection.
Monitor respiratory status.
No treatment indicated
Iron deficiency anemia/acute blood loss anemia
Iron deficiency and chronic disease related
Acute blood loss anemia
- Finished IV iron
- required 2 U prbc this admission due to BRBPR from colon issues.
01/05
Hemoglobin stable
Chest pain - single episode
Elevated troponin - presumed nonischemic myocardial injury related
- Patient had episode of sternal chest discomfort last night,
- Minimal troponin elevation, follow-up ordered
- EKG did not show any significant ST segment changes from admission EKG
- Cardiology evaluated and planning to do an echocardiogram
Superficial venous thrombosis involving the cephalic vein
- warm compresses
- continue monitor
Hypokalemia / Hypomagnesemia
resolved
Dilated bile ducts
- recent MRI done; management per GI
Diverticulosis
Hyponatremia
Chronic L1, L2 Fx
Punctate hypodensity within the lower pole the right kidney
Hypothyroidism
Anxiety
CODE STATUS: Full code
DVT prophylaxis:SCDs
Diet: Tolerating low residue
Total time spent on today's encounter was 40 minutes which included time spent in counseling the patient/family regarding diagnosis and treatment plan as listed above, goals of care, and symptom management. Case was discussed with nursing staff,
specialists, and care coordinators/case management. All labs and imaging personally reviewed by me. Remainder the time spent in detailed review of previous records, lab data, imaging, and other medical provider documentation.
Anticipated Discharge: Today
Discharge Plan
-
Patient Disposition: Home (Routine Discharge)
Discharge Diagnosis/Procedures: ulcerative colitis status post robotic subtotal colectomy
Diet: Low Fiber
Activity: No strenuous activity
Additional Activity: Do not lift over 10lbs (gallon of milk)
Bathing Restrictions: OK to Shower
Wound Care: Allow the glue to flake off your incisions over the next 2-3 weeks. Avoid scrubbing
Activity Restrictions/Additional Instructions:
To be used for ileostomy
Change appliance q 3-4 days and prn leakage
Margarita wafer # [id number] or Margarita Convex wafer [id number]
Margarita pouch # [id number].
Can try samples from [employer] start [employer] and if like, then order for monthly supply
Call supply company (list in folder provided) for monthly Ostomy supplies after discharge (ask VN to order supplies while on service).
Follow up with surgeon.
Call [facility] RN nurse for ostomy pouching concerns or leakage problems [phone] or [phone] or [phone].
Referrals:
Milton Luo MD [Family Provider] -
Meng Ham MD [Active] - in two to four weeks
Reynaldo Diggs DO [Active] - 01/18/25 1:40 pm (You have an appt to see Dr. Diggs's physician mental health assistant, June, at the [place] office on 01/18/25 at 1:40 PM. Please call [phone] if you need to reschedule.)
Ariana Michel DO [Active] - in one to two months (call to reschedule follow up with Dr. Michel 6-8 weeks )
Prescriptions:
New
acetaminophen 325 mg Tablet
650 mg PO Q4HPRN Qty: 0 0RF
isoniazid 300 mg Tablet
300 mg PO DAILY Qty: 14 0RF
losartan 25 mg Tablet
25 mg PO DAILY Qty: 30 0RF
pyridoxine (vitamin B6) 50 mg Tablet
50 mg PO DAILY Qty: 14 0RF
oxycodone 5 mg Tablet
5 mg PO Q6HPRN PRN (Reason: mod pain) Qty: 10 0RF
(DME) T-SPOT.TB test
See Rx Instructions .Route .MEDSUPPLY Qty: 1 0RF
Rx Instructions:
Diagnosis: Rule out TB
Continued
fluoxetine 10 mg tablet
10 mg PO Q48H
levothyroxine 75 mcg tablet
75 mcg PO DAILY
mesalamine 800 mg tablet,delayed release (DR/EC)
2,400 mg PO BID
Patient Comments:
12/19/24: Family is unclear on whether this medication should be stopped, has not given since discharge
famotidine 40 mg Tablet
40 mg PO DAILY Qty: 60 0RF
Discontinued
hydrocortisone 100 mg/60 mL Enema
100 mg RI BID Qty: 1260 0RF
prednisone 20 mg Tablet
40 mg PO DAILY Qty: 30 0RF
Discharge Orders:
Discharge Patient (As Directed); Ordered 01/07/25
Ordered By: Jabier Hope
Discharge Date and Time
Print Language: NAURUAN
--- NOTE | 2025-01-07 11:54 | CM ---
Pt for discharge today
[facility] to follow at d/c
Plan - home with [facility]
== END 2025-01-07 15:46 | disposition home health service (06) | DRG 329 ==
LOC: 2 NORTH 12:37
PROVIDERS: Hospitalist; Internal Medicine; Nurse Practitioner; Nurse Practitioner Adult Health; Nurse Practitioner Family; Physician Assistant; Physician Assistant Medical; Registered Nurse; Student in an Organized Health Care Education/Training Program; ADMITTING PHYSICIAN Hospitalist; ATTENDING PHYSICIAN General Practice; CONSULT PHYSICIAN Internal Medicine; CONSULT PHYSICIAN Surgery; EMERGENCY PHYSICIAN Emergency Medicine; FAMILY PHYSICIAN Internal Medicine; OTHER PHYSICIAN Nuclear Medicine Nuclear Cardiology; OTHER PHYSICIAN Student in an Organized Health Care Education/Training Program
PROC: 30233N1 Transfusion of Nonautologous Red Blood Cells into Peripheral Vein, Percutaneous Approach (ICD-10-PCS; 2024-12-24)
PROC: 3E0436Z Introduction of Nutritional Substance into Central Vein, Percutaneous Approach (ICD-10-PCS; 2024-12-25)
PROC: 02HV33Z Insertion of Infusion Device into Superior Vena Cava, Percutaneous Approach (ICD-10-PCS; 2024-12-25)
PROC: 0D1B4Z4 Bypass Ileum to Cutaneous, Percutaneous Endoscopic Approach (ICD-10-PCS; 2025-01-02)
PROC: 8E0W4CZ Robotic Assisted Procedure of Trunk Region, Percutaneous Endoscopic Approach (ICD-10-PCS; 2025-01-02)
PROC: 0DTE4ZZ Resection of Large Intestine, Percutaneous Endoscopic Approach (ICD-10-PCS; 2025-01-02)
DX: K51.00 Ulcerative (chronic) pancolitis without complications (principal); E43 Unspecified severe protein-calorie malnutrition; U07.1 COVID-19; D62 Acute posthemorrhagic anemia; E87.1 Hypo-osmolality and hyponatremia; I82.611 Acute embolism and thrombosis of superficial veins of right upper extremity; R78.81 Bacteremia; I5A Non-ischemic myocardial injury (non-traumatic); M84.48XA Pathological fracture, other site, initial encounter for fracture; K51.211 Ulcerative (chronic) proctitis with rectal bleeding; E03.9 Hypothyroidism, unspecified; F32.A Depression, unspecified; F41.9 Anxiety disorder, unspecified; E87.6 Hypokalemia; E83.42 Hypomagnesemia; K83.8 Other specified diseases of biliary tract; B96.20 Unspecified Escherichia coli [E. coli] as the cause of diseases classified elsewhere; K57.30 Diverticulosis of large intestine without perforation or abscess without bleeding; I10 Essential (primary) hypertension; Z68.21 Body mass index [BMI] 21.0-21.9, adult; Z79.52 Long term (current) use of systemic steroids; Z79.899 Other long term (current) drug therapy; Z83.79 Family history of other diseases of the digestive system; Z87.891 Personal history of nicotine dependence; Z90.49 Acquired absence of other specified parts of digestive tract
CPT/HCPCS: 88307; 71045; 74022; 74178; 80048; 80053; 81003; 81015; 82248; 82728; 82962; 83036; 83540; 83550; 83690; 83735; 84100; 84134; 84478; 84484; 85014; 85018; 85025; 85027; 86140; 86480; 86850; 86900; 86901; 86920; 87040; 87149; 87186; 87205; 87811; 93005; 93306; 93971; 96361; 96374; 96375; 97162; 97166; 99285; J1745; J2916; P9016; Q9967

== ENCOUNTER → 2025-05-02 13:30 | Outpatient (REF) | payer OTHER, MEDICARE, SELFPAY | LOC: RAD 13:30 | PROVIDERS: ATTENDING PHYSICIAN Surgery; FAMILY PHYSICIAN Internal Medicine | DX: R10.84 Generalized abdominal pain (principal) | CPT/HCPCS: 74177; Q9967 ==

== ENCOUNTER 2025-06-21 06:24 | Day surgery (SDC) | payer OTHER, MEDICARE, SELFPAY | END 2025-06-21 14:12 | disposition home or self-care (01) | LOC: GI 06:24 | PROVIDERS: ATTENDING PHYSICIAN Internal Medicine | DX: K92.1 Melena (principal); R93.3 Abnormal findings on diagnostic imaging of other parts of digestive tract; K51.90 Ulcerative colitis, unspecified, without complications; K52.9 Noninfective gastroenteritis and colitis, unspecified | CPT/HCPCS: 45331; 88305; 88342 ==

== ENCOUNTER 2025-08-15 06:22 | Day surgery (SDC) | payer OTHER, MEDICARE, SELFPAY | END 2025-08-15 08:38 | disposition home or self-care (01) | LOC: GI 06:22 | PROVIDERS: ATTENDING PHYSICIAN Surgery | DX: Z01.818 Encounter for other preprocedural examination (principal); K51.30 Ulcerative (chronic) rectosigmoiditis without complications; K62.89 Other specified diseases of anus and rectum | CPT/HCPCS: 45331; 88305; 88312; 88313; 88342 ==